=== PATIENT | female | born 1975 | race Two or more races ===

== ENCOUNTER 2020-01-22 12:17 | Day surgery (SDC) | payer OTHER, SELFPAY ==
--- NOTE | 2020-01-22 12:24 | MHC.SHP ---
Pre-Procedural Eval Section A The patient is an INPATIENT: No Changes since office visit: No Cold of Flu in the past 2 weeks, No New Medical Problems, No Changes in Medication and No Patient answered all questions The History & Physical has been completed within 30 days and I have reviewed it.: Yes Section B Chief Complaint: GERD,RECTAL BLEED Allergies: Allergies Allergy/AdvReac Type Severity Reaction Status Date / Time acetaminophen [Tylenol] Allergy Unknown Verified 05/24/18 00:00 ibuprofen Allergy Unknown Verified 05/24/18 00:00 metronidazole [Flagyl] Allergy Unknown Verified 05/24/18 00:00 tramadol Allergy Unknown Verified 05/24/18 00:00 trazodone Allergy Unknown Verified 05/24/18 00:00 Plan Patient has been examined and remains a candidate for the planned procedure
[2020-01-22 12:31] VITALS: BMI 25.8
--- NOTE | 2020-01-22 12:44 | HO.ANESPROP2 ---
Documented by User: Eloina De La Fuente CRNA 01/22/20 12:47 [facility] Past Medical History Medical History (Updated 01/22/20 @ 12:08 by Shelby Bhandari RN) Back pain Cervical radiculopathy GERD (gastroesophageal reflux disease) IBS (irritable bowel syndrome) Migraine Nephrolithiasis Vaginal intraepithelial neoplasia Surgical History Surgical History (Updated 01/22/20 @ 12:41 by Shelby Bhandari RN) History of partial hysterectomy History of vaginal surgery Hx of cystoscopy Hx of lithotripsy Hx of ovarian cystectomy Social History Social History Smoking Status: Current every day smoker Years Smoked: 32 Smoked in Last 30 Days: Yes Use of substances other than those prescribed or required for medical reasons: Yes Substance Use Type Other:: MEDICAL MARIJUANA Substance Use Frequency: Occasionally Advance Directives: No Advance Directives Information Provided: Yes Meds Allergies Allergy/AdvReac Type Severity Reaction Status Date / Time acetaminophen [Tylenol] Allergy Unknown Verified 05/24/18 00:00 ibuprofen Allergy Unknown Verified 05/24/18 00:00 metronidazole [Flagyl] Allergy Unknown Verified 05/24/18 00:00 tramadol Allergy Unknown Verified 05/24/18 00:00 trazodone Allergy Unknown Verified 05/24/18 00:00 Home Medications Medication Instructions Recorded Confirmed Type Calcium + D 01/21/20 History Phenergan 01/21/20 History Probiotic 01/21/20 History Vitamin B-12 01/21/20 History famotidine 40 mg PO DAILY 01/21/20 01/21/20 History sumatriptan 01/21/20 01/21/20 History albuterol sulfate 2 puff INHALATION Q4-6H PRN 01/22/20 01/22/20 History ascorbic acid (vitamin C) [Vitamin 1,000 mg PO DAILY 01/22/20 01/22/20 History C] coenzy [id number] tab PO 01/22/20 01/22/20 History [Energy Formula] Exam Exam Date and Time: January 22, 2020 1244 Height,Weight and Vital Signs: Height 5 ft 4.5 in Weight 69.4 kg Airway Mallampati Class: I TM Dist: >3cm Heart: rrr Lungs: ctab Assessment and Plan Assessment Anesthesia Assessment: Anesthesia Plan Discussed, Smoking Cess. Discussed and Chart Reviewed Final Anesthetic Review NPO: Yes ASA Class: II Final Preanesthetic Review: No Changes in Pt Med Stat, Meds/Allgs Chart Reviewed, Consent Obtained/Reviewed and Anes Risks/Benef Reviewed Patient Risk: Low Procedure Risk: Low Anesthetic Plan Anesthetic Plan: MAC: Disposition: Standard PACU Documented by User: Gladis Mcneal 01/22/20 12:48 HPI - Anesthesia Eval Consult details Narrative: Patient with h/o GERD, Rectal bleed. For EGD and Colonoscopy. [facility] Past Medical History Medical History (Updated 01/22/20 @ 12:08 by Shelby Bhandari RN) Back pain Cervical radiculopathy GERD (gastroesophageal reflux disease) IBS (irritable bowel syndrome) Migraine Nephrolithiasis Vaginal intraepithelial neoplasia Surgical History Surgical History (Updated 01/22/20 @ 12:41 by Shelby Bhandari RN) History of partial hysterectomy History of vaginal surgery Hx of cystoscopy Hx of lithotripsy Hx of ovarian cystectomy Social History Social History Smoking Status: Current every day smoker Years Smoked: 32 Smoked in Last 30 Days: Yes Use of substances other than those prescribed or required for medical reasons: Yes Substance Use Type Other:: MEDICAL MARIJUANA Substance Use Frequency: Occasionally Advance Directives: No Advance Directives Information Provided: Yes Meds Allergies Allergy/AdvReac Type Severity Reaction Status Date / Time acetaminophen [Tylenol] Allergy Unknown Verified 05/24/18 00:00 ibuprofen Allergy Unknown Verified 05/24/18 00:00 metronidazole [Flagyl] Allergy Unknown Verified 05/24/18 00:00 tramadol Allergy Unknown Verified 05/24/18 00:00 trazodone Allergy Unknown Verified 05/24/18 00:00 Home Medications Medication Instructions Recorded Confirmed Type Calcium + D 01/21/20 History Phenergan 01/21/20 History Probiotic 01/21/20 History Vitamin B-12 01/21/20 History famotidine 40 mg PO DAILY 01/21/20 01/21/20 History sumatriptan 01/21/20 01/21/20 History albuterol sulfate 2 puff INHALATION Q4-6H PRN 01/22/20 01/22/20 History ascorbic acid (vitamin C) [Vitamin 1,000 mg PO DAILY 01/22/20 01/22/20 History C] coenzy [id number] tab PO 01/22/20 01/22/20 History [Energy Formula]
[2020-01-22 13:01] VITALS: BP 102/70; PULSE 89; RESP 16; TEMP 36.3; O2SAT 98
[2020-01-22] MEDS: Lactated Ringers 1,000 ML 100 ML IVCONT (13:03)
--- NOTE | 2020-01-22 13:44 | PM.OP ---
Brief Operative Note Date of procedure: 01/22/20 Pre-op diagnosis: gerd, rectal bleeding Post-op diagnosis: other (gastritis,duodenitis, normal colonscopy) Procedure: egd, colonoscopy Surgeon: Kwabena Cook Anesthesia: MAC Estimated blood loss (mL): 5 Pathology: other (biopsies duodenum, antrum, egj, ti, sigmoid) Condition: stable Disposition: PACU
[2020-01-22 13:46] VITALS: BP 87/47; PULSE 72; RESP 22; TEMP 36.6; O2SAT 99
[2020-01-22] MEDS: ondansetron HCL 4 MG/2 ML VIAL IVPUSH (13:56)
[2020-01-22 13:57] VITALS: BP 121/65; PULSE 81; RESP 18; O2SAT 96
[2020-01-22 14:03] VITALS: BP 116/72; PULSE 76; RESP 18; O2SAT 99
[2020-01-22] MEDS: Magnesium Hydrox/Alum Hydrox 30 ML ORAL.SUSP 15 ML PO (14:18)
[2020-01-22 14:19] VITALS: O2SAT 99
--- NOTE | 2020-01-22 14:59 | PC.NURSE ---
CONFERENCE SERVICES COORDINATOR Tracee reported to this RN that pt scratched eye while waking up from procedure. Pt evaluated by anesthesia; pt told to keep 4x4 gauze over eye for 24 hours and if no improvement to see eye dr. 4x4 gauze on left eye remains dry and intact at this time; no pain reported; will f/u with patient in AM.
--- NOTE | 2020-01-22 17:25 | OP_ITS ---
SURGEON: Kwabena Cook MD INDICATIONS: 1. Gastroesophageal reflux disease. 2. Rectal bleeding. PREOPERATIVE DIAGNOSIS: POSTOPERATIVE DIAGNOSIS: PROCEDURE PERFORMED: ESTIMATED BLOOD LOSS: COMPLICATIONS: ANESTHESIA: ASSISTANTS: SPECIMENS: PROCEDURES PERFORMED: 1. Upper endoscopy with biopsy. 2. Colonoscopy to the terminal ileum with biopsy. MEDICATIONS: Monitored anesthesia care. DESCRIPTION OF PROCEDURE: History and physical performed. The risks and benefits of the procedure were explained to the patient. Informed consent was obtained. The patient was placed in left lateral decubitus position. A digital rectal exam was performed prior to the colonoscopy and was found to be normal. First, the Olympus video gastroscope was introduced into the esophagus, stomach, and duodenum. Examination was performed and the scope was removed. She tolerated the procedure well and was repositioned for colonoscopy. A digital rectal exam was performed and was found to be normal as above. The Olympus pediatric video colonoscope was introduced into the rectum and advanced to the cecum without difficulty. The cecum was identified by transillumination, palpation, and identification of ileocecal valve. Examination was performed and the scope was removed. She tolerated both procedures well and was returned to the recovery area in stable condition. FINDINGS: UPPER ENDOSCOPY: Esophagus: The esophagus was normal. Biopsies were obtained from the EG junction. Stomach: Stomach showed no evidence of masses or ulcers. There were focal areas of erythema consistent with gastritis mainly in the body and antrum. Biopsies were obtained from the antrum to rule out H pylori. Duodenum: There was duodenitis with white plaque-like areas on the second portion of the duodenum. No ulcer was seen. Biopsies were obtained from the duodenum. COLONOSCOPY: The terminal ileum was normal. The visualized colonic mucosa was within normal limits without evidence of masses or ulcers. No polyps were identified. There was a moderate amount of liquid stool mainly in the right colon, which limited the sensitivity examination for detection of small polyps. This was washed and suctioned as best possible. No polyps were identified. No colitis was identified. Random biopsies were obtained from a normal-appearing terminal ileum and sigmoid colon. Retroflexed examination was normal. IMPRESSION: 1. Gastritis. 2. Duodenitis. 3. Normal colonoscopy. RECOMMENDATIONS: 1. Follow up the biopsy results. 2. Repeat colonoscopy is recommended in 10 years for average risk individuals for colon cancer screening purposes. MD JOSE Freeman/MOOSE / [id number]
== END 2020-01-22 15:13 | disposition home or self-care (01) ==
PROVIDERS: Visit Provider Internal Medicine Gastroenterology
PROC: (CPT 45380; principal; 2020-01-22 13:00)
DX: K62.5 Hemorrhage of anus and rectum (principal); K58.2 Mixed irritable bowel syndrome; K21.00 Gastro-esophageal reflux disease with esophagitis, without bleeding; K22.70 Barrett's esophagus without dysplasia; K29.70 Gastritis, unspecified, without bleeding; K29.80 Duodenitis without bleeding; Z79.899 Other long term (current) drug therapy; F17.210 Nicotine dependence, cigarettes, uncomplicated
CPT/HCPCS: 45380; 43239; 88305; 88342; J2405

== ENCOUNTER → 2021-05-03 10:07 | Outpatient (BNVA) | payer OTHER, SELFPAY | PROVIDERS: Visit Provider Psychiatry & Neurology Neurology | DX: G43.909 Migraine, unspecified, not intractable, without status migrainosus (principal); M54.2 Cervicalgia; R20.0 Anesthesia of skin; R20.2 Paresthesia of skin; Z79.899 Other long term (current) drug therapy | CPT/HCPCS: 99212 ==

== ENCOUNTER → 2021-06-03 10:32 | Outpatient (BNVA) | payer OTHER, SELFPAY | PROVIDERS: PCP Internal Medicine; Visit Provider Psychiatry & Neurology Neurology | DX: G43.709 Chronic migraine without aura, not intractable, without status migrainosus (principal) | CPT/HCPCS: 64615; 99211; J0585 ==

== ENCOUNTER 2021-06-09 08:48 | Outpatient (REF) | payer OTHER, SELFPAY ==
--- NOTE | 2021-06-09 08:52 | EMG_ITS ---
This is a 45-year-old woman with neck pain since 2016, going into her upper extremities and down her back, and in severe pain all over, and also has kidney stones. She is on oxycodone 10 mg q.i.d. and Lyrica 100 mg b.i.d. She is constantly hyperventilating and in pain, restless, poorly tolerant for the test. Neurological examination is nonfocal. Possible fibromyalgia, rule out neuropathy, rule out cervical radiculopathy. Nerve conduction EMG study: Normal electrodiagnostic study of both upper extremities with no evidence of carpal tunnel syndrome or nerve entrapment or generalized neuropathy. Normal EMG of the left C5-T1 innervated muscles. The patient was poorly tolerant to the needle study and did not want to continue any further, so the right side was not checked. MD PARAM Douglas/MOOSE / [id number]
== END 2021-06-09 08:49 | disposition home or self-care (01) ==
LOC: HO.NEURO 08:48
PROVIDERS: Visit Provider Psychiatry & Neurology Neurology
DX: R20.0 Anesthesia of skin (principal); R20.2 Paresthesia of skin; M54.2 Cervicalgia
CPT/HCPCS: 95885; 95913

== ENCOUNTER 2021-07-12 12:57 | Outpatient (REF) | payer OTHER, SELFPAY ==
--- NOTE | ~2021-07-12 | MR_ITS ---
MR CERVICAL SPINE WITHOUT CONTRAST CLINICAL INFORMATION: Anesthesia of the skin. COMPARISON: None available. TECHNIQUE: MRI of the cervical spine was obtained using routine sequences without contrast. FINDINGS: Cervical alignment is maintained. There is a partially imaged rightward convex scoliotic curvature of the thoracic spine. Vertebral body heights are maintained. There is no bone marrow edema. There are no acute fractures. Craniocervical junction is unremarkable. Cervical arterial flow voids are maintained. No significant extraspinal soft tissue findings. No cord signal changes accounting for artifact. The partially imaged intracranial compartment is unremarkable. C2-C3: Slight annular disc bulge. No central canal stenosis and no foraminal stenosis C3-C4: Disc contour is normal. Bilateral facet arthropathy. No central canal stenosis and no foraminal stenosis. C4-C5: Disc contour is normal. Bilateral facet arthropathy. No central canal stenosis and no foraminal stenosis. C5-C6: Disc osteophyte mildly narrows the central canal. Uncovertebral joint hypertrophy and hypertrophic facet arthropathy result in mild to moderate bilateral foraminal encroachment. C6-C7: Disc contour is normal. No central canal stenosis and no foraminal stenosis. C7-T1: Disc contour is normal. No central canal stenosis and no foraminal stenosis. MR/MR cervical spine wo con IMPRESSION: At C5-C6, spondylitic changes result in mild to moderate bilateral foraminal stenosis. There is no severe central canal stenosis and there is no severe foraminal stenosis within the cervical spine. No definite cord signal abnormality accounting for artifact.
== END 2021-07-12 12:58 | disposition home or self-care (01) ==
LOC: HO.MRI 12:57
PROVIDERS: Visit Provider Psychiatry & Neurology Neurology
DX: M54.2 Cervicalgia (principal); R20.0 Anesthesia of skin; R20.2 Paresthesia of skin
CPT/HCPCS: 72141

== ENCOUNTER → 2021-07-30 10:44 | Outpatient (BNVA) | payer OTHER, SELFPAY | PROVIDERS: PCP Internal Medicine; Visit Provider Nurse Practitioner Family | DX: M54.2 Cervicalgia (principal); M79.18 Myalgia, other site | CPT/HCPCS: 99202 ==

== ENCOUNTER → 2021-09-29 08:34 | Outpatient (BNVA) | payer OTHER, SELFPAY | PROVIDERS: PCP Internal Medicine; Visit Provider Psychiatry & Neurology Neurology | DX: G43.709 Chronic migraine without aura, not intractable, without status migrainosus (principal) | CPT/HCPCS: 64615; 99211; J0585 ==

== ENCOUNTER → 2022-01-20 08:11 | Outpatient (BNVA) | payer OTHER, SELFPAY | PROVIDERS: PCP Internal Medicine; Visit Provider Psychiatry & Neurology Neurology | DX: G43.119 Migraine with aura, intractable, without status migrainosus (principal) | CPT/HCPCS: 64615; 99211; J0585 ==

== ENCOUNTER → 2022-04-28 10:27 | Outpatient (BNVA) | payer OTHER, SELFPAY | PROVIDERS: PCP Internal Medicine; Visit Provider Psychiatry & Neurology Neurology | DX: G43.119 Migraine with aura, intractable, without status migrainosus (principal); G43.709 Chronic migraine without aura, not intractable, without status migrainosus | CPT/HCPCS: 64615; 99211; J0585 ==

== ENCOUNTER → 2022-08-04 10:19 | Outpatient (BNVA) | payer OTHER, SELFPAY | PROVIDERS: PCP Internal Medicine; Visit Provider Psychiatry & Neurology Neurology | DX: G43.709 Chronic migraine without aura, not intractable, without status migrainosus (principal) | CPT/HCPCS: 64615; 99211; J0585 ==

== ENCOUNTER 2022-11-24 10:30 | Outpatient (AMB) | payer OTHER, SELFPAY ==
[2022-11-24 10:32] VITALS: BP 120/82; PULSE 91; O2SAT 98; BMI 22.5
--- NOTE | 2022-11-24 10:32 | A.OFFVIS_ITS ---
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 Required: No Allergies acetaminophen [Tylenol] Allergy (Unknown, Verified 11/24/22 10:37) Vomiting ibuprofen Allergy (Unknown, Verified 11/24/22 10:37) Abdominal Pain metronidazole [Flagyl] Allergy (Unknown, Verified 11/24/22 10:37) Triggers migraines tramadol Allergy (Unknown, Verified 11/24/22 10:37) Triggers migraine trazodone Allergy (Unknown, Verified 11/24/22 10:37) Triggers Migrain aspirin Allergy (Verified 11/24/22 10:37) Vomiting Medication List - Last Reconciled 11/24/22 by Yuly Bennett MD albuterol sulfate 90 mcg/actuation 2 puffs inhalation Q4-6H PRN biotin 10,000 mcg PO DAILY carisoprodol 350 mg PO BID 30 days epinephrine (EpiPen 2-Rajesh) 0.3 mg IM Q4H PRN fluconazole 150 mg PO Q3D lactobacillus combo no.11 (Probiotic) 1 cap PO DAILY levalbuterol tartrate 45 mcg/actuation (Xopenex HFA) 2 inhalations inhalation Q6H metronidazole 500 mg PO BID nicotine 1 patch topical DAILY omeprazole 40 mg PO DAILY onabotulinumtoxinA (Botox) 200 units IM ONCE 12 weeks oxybutynin chloride ER 10 mg PO DAILY [Phenergan ] promethazine 25 mg PO Q6H PRN promethazine 25 mg PO TID PRN ubrogepant (Ubrelvy) 100 mg orally at onset of migraine, may repeat in 2 hours (max of 200mg per day) PRN; 30 days HPI HPI Comments History of Present Illness Details ? 47y/o female comes for treatment of migraines with botox. ??? Most frequent reported adverse reactions following injection of botox for chronic migraine include neck pain (9%), headache(5%), eyelid ptosis(4%), migraine(4%), muscular weakness(4%), musculuskeletal stiffness(4%), bronchitis(3%), injection site pain (3%), musculoskeletal pain(3%), myalgia(3%), facial paresis(2%), HTN(2%) and muscle spasms(2%) were discussed in detail. ??? Botulinum toxin typeA 200units Lot no [id number] expiration May 2025 was diluted with 4 cc of normal saline . ??? Muscles injected- ??? Frontalis 4 sites zygomaticus major 2 sites ??? Procerus 1 site ??? Taping Foreman- 2 sites ??? Temporalis- 8 sites ??? Occipitalis- 6 sites ??? Cervical paraspinals- 4 sites ??? Trapezius- 6 sites- 10 units each ??? 5 units each in 31 site ??? Total use- 195units ??? Discarded-5units [facility] Medical History Back pain Cervical radiculopathy Chronic migraine without aura GERD (gastroesophageal reflux disease) History of kidney stones IBS (irritable bowel syndrome) Migraine Nephrolithiasis Vaginal intraepithelial neoplasia Surgical History History of partial hysterectomy History of vaginal surgery Hx of cystoscopy Hx of lithotripsy Hx of ovarian cystectomy Social History Household Members: Children Alcohol intake: current Alcohol intake frequency: holidays/special occasions only Patient Tobacco Use Status: Current everyday Tobacco user Cigarettes Per Day: 10 Years Smoked: 32 Substance Use Type: Marijuana Current occupational status: disabled Physical Exam Vital Signs: Last Vital Signs Pulse 91 11/24/22 10:32 BP 120/82 11/24/22 10:32 Pulse Ox 98 11/24/22 10:32 Oxygen Delivery Method Room Air 11/24/22 10:32 BMI result Body Mass Index 22.5 Const General: cooperative and in distress Nutritional Appearance: average body habitus Orientation/consciousness: patient oriented x3 Neuro Other: antalgic gait General: patient oriented x3, tone normal and no focal motor deficits Cranial nerves: Yes CN's II-XII intact bilaterally, Yes Normal facial strength present and Yes Midline tongue present Office Procedures Botulinum toxin Injection 73806 - Migraine Procedure code (CPT) selection complete Office Meds onabotulinumtoxinA Performing Provider: Yuly Bennett MD Administered by: Yuly Bennett MD on 11/24/22 11:06 Dose Route Admin Location Lot Number Expiration Date NDC Floor Tiling Professional 195 unit subcut [id number] 05/04/25 9029-7944-71 [employer]/BOTOX Comments: see hpi Assessment & Plan Assessment & Plan (1) Chronic migraine without aura: Code(s): G43.709 - Chronic migraine without aura, not intractable, without status migrainosus (2) Migraine with aura, intractable, without status migrainosus: Code(s): G43.119 - Migraine with aura, intractable, without status migrainosus Plan Patient tolerated the procedure well she will call with any side effects. Orders: Orders AMB Botulinum toxin Injection Today G43.709 - Chronic migraine without aura, not intractable, without status migrainosus Coding Level of Care Code Est Pt Level 1 (26998) Diagnoses Chronic migraine without aura G43.709 Migraine with aura, intractable, without status migrainosus G43.119 CPT Codes Botox Injection - Botox 3: 54584 - Migraine ([id number])
== END 2022-11-24 10:59 | disposition home or self-care (01) ==
PROVIDERS: Visit Provider Psychiatry & Neurology Neurology
DX: G43.709 Chronic migraine without aura, not intractable, without status migrainosus (principal)
CPT/HCPCS: 64615

== ENCOUNTER → 2022-11-24 10:30 | Outpatient (BNVA) | payer OTHER, SELFPAY | PROVIDERS: Visit Provider Psychiatry & Neurology Neurology | DX: G43.709 Chronic migraine without aura, not intractable, without status migrainosus (principal); G43.119 Migraine with aura, intractable, without status migrainosus | CPT/HCPCS: 64615; 99211; J0585 ==

== ENCOUNTER 2023-01-13 11:13 | Outpatient (REF) | payer OTHER, SELFPAY ==
[2023-01-20 18:44] LABS: Stone Source KIDNEY STONE
== END 2023-01-13 11:14 | disposition home or self-care (01) ==
LOC: HO.LNP 11:13
PROVIDERS: PCP Internal Medicine; Visit Provider Nurse Practitioner Family
DX: N20.0 Calculus of kidney (principal); R30.0 Dysuria; R10.9 Unspecified abdominal pain; Z79.899 Other long term (current) drug therapy
CPT/HCPCS: 81003; 82365; 87086; 88300

== ENCOUNTER 2023-01-13 11:13 | Outpatient (AMB) | payer OTHER, SELFPAY ==
--- NOTE | 2023-01-13 11:24 | MHC.OFFVIS ---
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 Accompanied by: Self / Same As Patient Allergies acetaminophen [Tylenol] Allergy (Unknown, Verified 01/15/23 20:08) Vomiting ibuprofen Allergy (Unknown, Verified 01/15/23 20:08) Abdominal Pain metronidazole [Flagyl] Allergy (Unknown, Verified 01/15/23 20:08) Triggers migraines tramadol Allergy (Unknown, Verified 01/15/23 20:08) Triggers migraine trazodone Allergy (Unknown, Verified 01/15/23 20:08) Triggers Migrain aspirin Allergy (Verified 01/15/23 20:08) Vomiting Medication List - Last Reconciled 01/15/23 by CHLOE Badillo albuterol sulfate 90 mcg/actuation 2 puffs inhalation Q4-6H PRN biotin 10,000 mcg PO DAILY carisoprodol 350 mg PO BID 30 days epinephrine (EpiPen 2-Rajesh) 0.3 mg IM Q4H PRN lactobacillus combo no.11 (Probiotic) 1 cap PO DAILY levalbuterol tartrate 45 mcg/actuation (Xopenex HFA) 2 inhalations inhalation Q6H metronidazole 500 mg PO BID nicotine 1 patch topical DAILY omeprazole 40 mg PO DAILY onabotulinumtoxinA (Botox) 200 units IM ONCE 12 weeks oxybutynin chloride ER 10 mg PO DAILY [Phenergan ] promethazine 25 mg PO Q6H PRN promethazine 25 mg PO TID PRN ubrogepant (Ubrelvy) 100 mg orally at onset of migraine, may repeat in 2 hours (max of 200mg per day) PRN; 30 days HPI HPI Comments History of Present Illness Details Melva is a pleasant 47-year-old female patient of . She has a past medical history of migraines, GERD, migraines, cervical radiculopathy, IBS, nephrolithiasis, and vaginal intraepithelial neoplasia. She presents to the office today as a new patient for nephrolithiasis. She reports a long standing history of nephrolithiasis. She reports having followed up with [facility] and [facility] in the past. When asked she reports a previous surgical history for nephrolithiasis in the past multiple times. She currently reports bilateral flank pain left side greater than right. She also endorses dysuria. She otherwise denies urinary urgency, urinary frequency, incontinence, nocturia, hematuria, foul smelling urine, changes to urinary stream, fever, and or chills. In office urinalysis results reviewed with the patient today. Discussed at length potential causes of nephrolithiasis. Discussed obtaining imaging for further assessment evaluation. Discussed at length importance of drinking plenty of water daily. [facility] Medical History (Updated 01/13/23 @ 12:07 [facility] History of kidney stones Chronic migraine without aura Vaginal intraepithelial neoplasia GERD (gastroesophageal reflux disease) Migraine Cervical radiculopathy Back pain IBS (irritable bowel syndrome) Nephrolithiasis Surgical History Hx of ovarian cystectomy Hx of cystoscopy Hx of lithotripsy History of vaginal surgery History of partial hysterectomy Social History Household Members: Children Alcohol intake: current Alcohol intake frequency: holidays/special occasions only Patient Tobacco Use Status: Current everyday Tobacco user Cigarettes Per Day: 10 Years Smoked: 32 Substance Use Type: Marijuana Current occupational status: disabled Review of Systems Const Reports as per HPI Eyes Reports no additional complaints ENT Reports no additional complaints Card Reports no additional complaints Resp Reports no additional complaints GI Reports as per HPI Reports as per HPI Musc Reports as per HPI Neuro Reports as per HPI Endo Reports no additional complaints Physical Exam Const General: cooperative, healthy appearing, comfortable, no acute distress, well developed, alert and awake Orientation/consciousness: patient oriented x3 Limitations: ambulation with cane HEENT Head: Yes normal to inspection, Yes normocephalic and Yes atraumatic Ears: hearing grossly normal bilaterally Eyes General: appearance normal, both eyes and all related structures Neck Neck: Yes normal visual inspection and Yes trachea midline Chest Chest palpation & inspection: normal inspection of the chest Resp Effort & Inspection: normal respiratory effort and able to speak in complete sentences Cardio Rate: regular rate GI Inspection: Yes normal to inspection General: Yes no CVA tenderness Back/Spine/Pelvis Back: no CVA tenderness Skin General skin exam: no rashes or lesions noted Neuro General: patient oriented x3 Extrem General: Yes normal to inspection Psych Appearance: grossly normal and well kempt Mental Status: mental status grossly normal Speech and movement: Normal speech and movement present and Clear speech present Affect: normal affect Attitude: cooperative Thought process: Normal thought process present Thought content: Normal thought content present Insight: Fair insight present (Psych) Judgement: Fair judgement present (Psych) Results AMB Urinalysis, Automated UA Leukoctes 0 Tianna/uL Last Edit by [email or web address] ZappRxmedardo on 01/13/23 12:08 UA Nitrite Negative Last Edit by [email or web address] Ltdmedardo on 01/13/23 12:08 UA Urobilinogen 0.2 mg/dL Last Edit by [email or web address]ardo on 01/13/23 12:08 UA Protein 0 mg/dL Last Edit by Agilys on 01/13/23 12:08 UA pH 8.0 Last Edit by [email or web address]medardo on 01/13/23 12:08 UA Blood 0 Rosalio/uL Last Edit by [email or web address]ardo on 01/13/23 12:08 UA Specific Mershon 1.010 Last Edit by [email or web address]ardo on 01/13/23 12:08 UA Ketone Negative Last Edit by Agilys on 01/13/23 12:08 UA Bilirubin 0 mg/dL Last Edit by Agilys on 01/13/23 12:08 UA Glucose 0 mg/dL Last Edit by [email or web address]medardo on 01/13/23 12:08 Results Reviewed Results Reviewed: Laboratory Last Values Urine pH (Auto) 8.0 01/13/23 11:26 Specific Mershon (Auto) 1.010 01/13/23 11:26 Urine Protein (Auto) 0 mg/dL 01/13/23 11:26 Glucose (UA)(Auto) 0 mg/dL 01/13/23 11:26 Urine Ketones (Auto) Negative 01/13/23 11:26 Urine Blood (Auto) 0 Rosalio/uL 01/13/23 11:26 Urine Nitrite (Auto) Negative 01/13/23 11:26 Urine Bilirubin (Auto) 0 mg/dL 01/13/23 11:26 Urine Urobilinogen (Auto) 0.2 mg/dL 01/13/23 11:26 Leukocyte Esterase (Auto) 0 Tianna/uL 01/13/23 11:26 Assessment & Plan Assessment & Plan (1) Dysuria: Code(s): R30.0 - Dysuria (2) Flank pain: Code(s): R10.9 - Unspecified abdominal pain (3) Nephrolithiasis: Code(s): N20.0 - Calculus of kidney Plan In office urinalysis results reviewed with the patient today; will send for urine culture as patient reporting dysuria. Discussed obtaining retroperitoneal ultrasound for further assessment evaluation. Discussed at length potential causes of nephrolithiasis. Discussed, educated, encouraged on the importance of drinking plenty of water daily. Follow-up in 1 month with imaging to be completed prior; or sooner with any issues, concerns, and or questions. Orders: Orders AMB Urinalysis Automated 01/13/23 Z13.9 - Encounter for screening, unspecified Surgical 01/13/23 N20.0 - Calculus of kidney US retroperitoneal comp 01/13/23 N20.0 - Calculus of kidney, R10.9 - Unspecified abdominal pain, R30.0 - Dysuria Urine Culture 01/13/23 R30.0 - Dysuria Patient Instructions: The patient had an opportunity to ask questions regarding the treatment plan. All questions were answered. Physical exam, labs, and imaging were discussed and reviewed in detail. As well as risks, benefits, and discussion of treatment choices. No major barriers to understanding were identified. The patient expressed understanding and agreement with the above treatment plan. The patient was made aware they should contact our office by phone for worsening of their current condition, the appearance of new symptoms, or with any questions or concerns. Compliance is encouraged with any medications and follow up testing that is ordered. It is a privilege to be allowed the opportunity to participate in? your urological care.? Again, if you have any questions or concerns If you have any questions or concerns please do not hesitate to contact me. The office is [phone]. This note is constructed using voice recognition software. While every effort has been made to ensure accuracy customer acquisition specialist errors may have been included. Yours sincerely, CHLOE Badillo Coding Level of Care Code New Pt Level 3 (96162) Diagnoses Dysuria R30.0 Flank pain R10.9 Nephrolithiasis N20.0
== END 2023-01-13 12:17 | disposition home or self-care (01) ==
PROVIDERS: PCP Internal Medicine; Visit Provider Nurse Practitioner Family
DX: R30.0 Dysuria (principal); R10.9 Unspecified abdominal pain; N20.0 Calculus of kidney
CPT/HCPCS: 99203

== ENCOUNTER 2023-02-03 12:07 | Outpatient (REF) | payer OTHER, SELFPAY ==
--- NOTE | ~2023-02-03 | US_ITS ---
EXAMINATION: US RETROPERITONEAL COMPLETE (RENAL) CLINICAL INFORMATION: Unspecified abdominal pain. COMPARISON: Ultrasound retroperitoneal complete and x-ray abdomen KUB 08/25/2022. Ultrasound retroperitoneal limited 08/11/2022. TECHNIQUE: Real-time imaging of the kidneys and bladder. Limited visualization due to bowel gas. FINDINGS: RIGHT KIDNEY: 12.1 x 6.0 x 4.9 cm (SAG x AP x TRV). Multiple renal calculi, largest 0.3 cm lower pole, 0.4 cm upper pole, 0.4 cm midpole and 0.3 cm lower pole. Mild pelvocaliectasis. Renal cortical thickness is normal. Limited visualization. LEFT KIDNEY: 12.1 x 5.3 x 5.9 cm (SAG x AP x TRV). Renal cortical thickness is normal. Limited visualization. Lower pole 2.7 x 2.7 x 2.6 cm cyst appears complex, previously 2.5 x 2.2 x 2.5 cm on 08/25/2022. 1.3 x 1.0 x 1.2 cm lower pole simple cyst. Multiple renal calculi, largest upper pole 1.4 cm. No hydronephrosis. BLADDER: Well distended. Bilateral ureteral jets are demonstrated. Prevoid bladder volume is 419 mL. Postvoid bladder volume is 89 mL. US/US retroperitoneal comp IMPRESSION: 1. Bilateral nephrolithiasis. Mild right pelvocaliectasis. No left hydronephrosis. 2. Postvoid bladder volume 89 mL. 3. Bilateral renal cysts, some of which again demonstrate mildly thickened septations as previously noted. Additional evaluation with contrast-enhanced CT scan employing renal mass protocol recommended for further evaluation..
== END 2023-02-03 12:08 | disposition home or self-care (01) ==
LOC: HO.US 12:07
PROVIDERS: PCP Internal Medicine; Visit Provider Nurse Practitioner Family
DX: R10.9 Unspecified abdominal pain (principal); R30.0 Dysuria; N20.0 Calculus of kidney
CPT/HCPCS: 76770

== ENCOUNTER 2023-02-22 10:29 | Outpatient (AMB) | payer OTHER, SELFPAY ==
--- NOTE | 2023-02-22 10:30 | MHC.OFFVIS ---
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 Allergies acetaminophen [Tylenol] Allergy (Unknown, Verified 02/24/23 19:18) Vomiting ibuprofen Allergy (Unknown, Verified 02/24/23 19:18) Abdominal Pain metronidazole [Flagyl] Allergy (Unknown, Verified 02/24/23 19:18) Triggers migraines tramadol Allergy (Unknown, Verified 02/24/23 19:18) Triggers migraine trazodone Allergy (Unknown, Verified 02/24/23 19:18) Triggers Migrain aspirin Allergy (Verified 02/24/23 19:18) Vomiting Medication List - Last Reconciled 02/24/23 by CHLOE Badillo albuterol sulfate 90 mcg/actuation 2 puffs inhalation Q4-6H PRN biotin 10,000 mcg PO DAILY carisoprodol 350 mg PO BID 30 days epinephrine (EpiPen 2-Rajesh) 0.3 mg IM Q4H PRN fluconazole 150 mg PO Q3D lactobacillus combo no.11 (Probiotic) 1 cap PO DAILY levalbuterol tartrate 45 mcg/actuation (Xopenex HFA) 2 inhalations inhalation Q6H metronidazole 500 mg PO BID nicotine 1 patch topical DAILY omeprazole 40 mg PO DAILY onabotulinumtoxinA (Botox) 200 units IM ONCE 12 weeks oxybutynin chloride ER 10 mg PO DAILY [Phenergan ] promethazine 25 mg PO Q6H PRN promethazine 25 mg PO TID PRN ubrogepant (Ubrelvy) 100 mg orally at onset of migraine, may repeat in 2 hours (max of 200mg per day) PRN; 30 days valacyclovir 500 mg PO BID HPI HPI Comments History of Present Illness Details Melva is a pleasant 47-year-old female patient of . She has a past medical history of migraines, GERD, migraines, cervical radiculopathy, IBS, nephrolithiasis, and vaginal intraepithelial neoplasia. She is being followed up on today via telehealth for her nephrolithiasis. Of note, patient was seen approximately 6 weeks ago as a new patient for nephrolithiasis at which time a renal ultrasound was ordered for further assessment evaluation. These results reviewed with the patient today. Right kidney with multiple renal calculi, largest 0.3 cm lower pole, 0.4 cm upper pole, 0.4 cm mid pole in 0.3 cm lower pole. Left kidney with lower pole 2.7 x 2.7 x 2.6 cm cyst appears complex, previously 2.5 x 2.2 x 2.5 cm on 08/25/2022. 1.3 x 1.0 x 1.2 cm lower pole simple cyst. Multiple renal calculi, largest upper pole 1.4 cm. No hydronephrosis. The bladder is well distended. Bilateral ureteral jets are demonstrated. Pre void bladder volume is approximately 420 mL. Postvoid bladder volume is approximately 90ml's. When asked patient continues to report intermittent bilateral flank pain left side greater than right. However, when asked she denies any urinary issues at this time. She denies urinary urgency, urinary frequency, incontinence, nocturia, hematuria, foul-smelling urine, changes to urinary stream, fever, and or chills. Discussed at length further assessment and evaluation of renal cysts and nephrolithiasis with CT urogram. Discussed at length potential causes of renal cysts as well as nephrolithiasis. Patient with a longstanding history of nephrolithiasis requiring surgical intervention. Discussed at length importance of drinking plenty of water daily. [facility] Medical History History of kidney stones Chronic migraine without aura Vaginal intraepithelial neoplasia GERD (gastroesophageal reflux disease) Migraine Cervical radiculopathy Back pain IBS (irritable bowel syndrome) Nephrolithiasis Surgical History Hx of ovarian cystectomy Hx of cystoscopy Hx of lithotripsy History of vaginal surgery History of partial hysterectomy Household Members: Children Alcohol intake: current Alcohol intake frequency: holidays/special occasions only Patient Tobacco Use Status: Current everyday Tobacco user Cigarettes Per Day: 10 Years Smoked: 32 Substance Use Type: Marijuana Current occupational status: disabled Review of Systems Const Reports as per HPI Eyes Reports no additional complaints ENT Reports no additional complaints Card Reports no additional complaints Resp Reports no additional complaints GI Reports as per HPI Reports as per HPI Musc Reports as per HPI Neuro Reports as per HPI Endo Reports no additional complaints Physical Exam Const General: cooperative Orientation/consciousness: patient oriented x3 Resp Effort & Inspection: able to speak in complete sentences Neuro General: patient oriented x3 Psych Mental Status: mental status grossly normal Speech and movement: Clear speech present Affect: normal affect Attitude: cooperative Thought process: Normal thought process present Thought content: Normal thought content present Insight: Fair insight present (Psych) Judgement: Fair judgement present (Psych) Results Reviewed Results Reviewed: Date of Service: 02/03/23 EXAMINATION: US RETROPERITONEAL COMPLETE (RENAL) FINDINGS: RIGHT KIDNEY: 12.1 x 6.0 x 4.9 cm (SAG x AP x TRV). Multiple renal calculi, largest 0.3 cm lower pole, 0.4 cm upper pole, 0.4 cm midpole and 0.3 cm lower pole. Mild pelvocaliectasis. Renal cortical thickness is normal. Limited visualization. LEFT KIDNEY: 12.1 x 5.3 x 5.9 cm (SAG x AP x TRV). Renal cortical thickness is normal. Limited visualization. Lower pole 2.7 x 2.7 x 2.6 cm cyst appears complex, previously 2.5 x 2.2 x 2.5 cm on 08/25/2022. 1.3 x 1.0 x 1.2 cm lower pole simple cyst. Multiple renal calculi, largest upper pole 1.4 cm. No hydronephrosis. BLADDER: Well distended. Bilateral ureteral jets are demonstrated. Prevoid bladder volume is 419 mL. Postvoid bladder volume is 89 mL. US/US retroperitoneal comp IMPRESSION: 1. Bilateral nephrolithiasis. Mild right pelvocaliectasis. No left hydronephrosis. 2. Postvoid bladder volume 89 mL. 3. Bilateral renal cysts, some of which again demonstrate mildly thickened septations as previously noted. Additional evaluation with contrast-enhanced CT scan employing renal mass protocol recommended for further evaluation. Assessment & Plan Assessment & Plan (1) Nephrolithiasis: Code(s): N20.0 - Calculus of kidney (2) Renal cyst: Code(s): N28.1 - Cyst of kidney, acquired (3) Flank pain: Code(s): R10.9 - Unspecified abdominal pain (4) Dysuria: Code(s): R30.0 - Dysuria Plan Recent retroperitoneal ultrasound results reviewed with the patient today; as noted above. Discussed, stress, educated the importance of drinking plenty of water daily. Patient reports to be happy with current voiding parameters. Will obtain CT urogram for further assessment evaluation. BUN and creatinine ordered for imaging Discussed at length potential causes of nephrolithiasis as well as renal cysts. Follow-up in 2-4 weeks with imaging to be completed prior; or sooner with any issues, concerns, and or questions. Orders: Orders CT urogram 02/22/23 N20.0 - Calculus of kidney, N28.1 - Cyst of kidney, acquired Creatinine 02/22/23 N20.0 - Calculus of kidney, N28.1 - Cyst of kidney, acquired Blood Urea Nitrogen 02/22/23 N20.0 - Calculus of kidney, N28.1 - Cyst of kidney, acquired Patient Instructions: The patient had an opportunity to ask questions regarding the treatment plan. All questions were answered. Physical exam, labs, and imaging were discussed and reviewed in detail. As well as risks, benefits, and discussion of treatment choices. No major barriers to understanding were identified. The patient expressed understanding and agreement with the above treatment plan. The patient was made aware they should contact our office by phone for worsening of their current condition, the appearance of new symptoms, or with any questions or concerns. Compliance is encouraged with any medications and follow up testing that is ordered. It is a privilege to be allowed the opportunity to participate in? your urological care.? Again, if you have any questions or concerns If you have any questions or concerns please do not hesitate to contact me. The office is [phone]. This note is constructed using voice recognition software. While every effort has been made to ensure accuracy doubler helper errors may have been included. Yours sincerely, Marion Snyder [facility] Telehealth Telehealth Location of provider rendering services: practice address Location of patient: address on file Patient Identification confirmed using: Name, : Yes Telehealth method: voice only Patient verbally consented to treatment: Yes Patient verbally consented to billing insurance company: Yes Patient informed of any privacy concerns related to visit: Yes Minutes spent on Phone/Video with Pt.: 15 Coding Level of Care Code Tele Est Pt Level 3 (63409) Diagnoses Nephrolithiasis N20.0 Renal cyst N28.1 Flank pain R10.9 Dysuria R30.0
== END 2023-02-22 11:10 | disposition home or self-care (01) ==
LOC: HO.HUSH 10:29
PROVIDERS: PCP Internal Medicine; Visit Provider Nurse Practitioner Family
DX: N20.0 Calculus of kidney (principal); N28.1 Cyst of kidney, acquired; R10.9 Unspecified abdominal pain; R30.0 Dysuria
CPT/HCPCS: 99213

== ENCOUNTER → 2023-02-22 10:29 | Outpatient (BNVA) | payer OTHER, SELFPAY | PROVIDERS: PCP Internal Medicine; Visit Provider Nurse Practitioner Family ==

== ENCOUNTER 2023-02-27 09:14 | Outpatient (AMB) | payer OTHER, SELFPAY ==
--- NOTE | 2023-02-27 09:18 | MHC.OFFVIS ---
Intake Vital Signs 02/27/23 09:19 Height 5 ft 5 in Weight 134 lb 2 oz BMI 22.3 BP 112/66 Blood Pressure Location Rt brachial Position Sitting Respiration 16 Pulse 96 Pulse Source Pulse Oximeter Pulse Oximetry (%) 98 Oxygen Delivery Method Room Air Intake Visit Reasons: botox pharm-Confirmed Intake Note: Pt presents to the office for Botox injections. Car Detailer Required: No Allergies acetaminophen [Tylenol] Allergy (Unknown, Verified 02/27/23 09:19) Vomiting ibuprofen Allergy (Unknown, Verified 02/27/23 09:19) Abdominal Pain metronidazole [Flagyl] Allergy (Unknown, Verified 02/27/23 09:19) Triggers migraines tramadol Allergy (Unknown, Verified 02/27/23 09:19) Triggers migraine trazodone Allergy (Unknown, Verified 02/27/23 09:19) Triggers Migrain aspirin Allergy (Verified 02/27/23 09:19) Vomiting Medication List - Last Reconciled 02/27/23 by Yuly Bennett MD albuterol sulfate 90 mcg/actuation 2 puffs inhalation Q4-6H PRN biotin 10,000 mcg PO DAILY carisoprodol 350 mg PO BID 30 days epinephrine (EpiPen 2-Rajesh) 0.3 mg IM Q4H PRN fluconazole 150 mg PO Q3D lactobacillus combo no.11 (Probiotic) 1 cap PO DAILY levalbuterol tartrate 45 mcg/actuation (Xopenex HFA) 2 inhalations inhalation Q6H metronidazole 500 mg PO BID nicotine 1 patch topical DAILY omeprazole 40 mg PO DAILY onabotulinumtoxinA (Botox) 200 units IM ONCE 12 weeks oxybutynin chloride ER 10 mg PO DAILY [Phenergan ] promethazine 25 mg PO Q6H PRN promethazine 25 mg PO TID PRN ubrogepant (Ubrelvy) 100 mg orally at onset of migraine, may repeat in 2 hours (max of 200mg per day) PRN; 30 days valacyclovir 500 mg PO BID HPI HPI Comments History of Present Illness Details ? 47y/o female comes for treatment of migraines with botox. ??? Most frequent reported adverse reactions following injection of botox for chronic migraine include neck pain (9%), headache(5%), eyelid ptosis(4%), migraine(4%), muscular weakness(4%), musculuskeletal stiffness(4%), bronchitis(3%), injection site pain (3%), musculoskeletal pain(3%), myalgia(3%), facial paresis(2%), HTN(2%) and muscle spasms(2%) were discussed in detail. ??? Botulinum toxin typeA 200units Lot no [id number] expiration May 2025 was diluted with 4 cc of normal saline . ??? Muscles injected- ??? Frontalis 4 sites zygomaticus major 2 sites ??? Procerus 1 site ??? Manager Surgery- 2 sites ??? Temporalis- 8 sites ??? Occipitalis- 6 sites ??? Cervical paraspinals- 4 sites ??? Trapezius- 6 sites- 10 units each ??? 5 units each in 31 site ??? Total use- 195units ??? Discarded-5units [facility] Medical History History of kidney stones Chronic migraine without aura Vaginal intraepithelial neoplasia GERD (gastroesophageal reflux disease) Migraine Cervical radiculopathy Back pain IBS (irritable bowel syndrome) Nephrolithiasis Surgical History Hx of ovarian cystectomy Hx of cystoscopy Hx of lithotripsy History of vaginal surgery History of partial hysterectomy Household Members: Children Alcohol intake: current Alcohol intake frequency: holidays/special occasions only Patient Tobacco Use Status: Current everyday Tobacco user Cigarettes Per Day: 10 Years Smoked: 32 Substance Use Type: Marijuana Current occupational status: disabled Physical Exam Vital Signs: Last Vital Signs Pulse 96 02/27/23 09:19 Resp 16 02/27/23 09:19 BP 112/66 02/27/23 09:19 Pulse Ox 98 02/27/23 09:19 Oxygen Delivery Method Room Air 02/27/23 09:19 BMI result Body Mass Index 22.3 Const General: cooperative Orientation/consciousness: patient oriented x3 Resp Effort & Inspection: able to speak in complete sentences Neuro General: patient oriented x3 Psych Mental Status: mental status grossly normal Speech and movement: Clear speech present Affect: normal affect Attitude: cooperative Thought process: Normal thought process present Thought content: Normal thought content present Insight: Fair insight present (Psych) Judgement: Fair judgement present (Psych) Office Procedures Botulinum toxin Injection 78103 - Migraine Procedure code (CPT) selection complete Office Meds onabotulinumtoxinA 200 unit solution for injection Performing Provider: Yuly Bennett MD Performing Location: [facility] [place] [facility] Administered by: Yuly Bennett MD on 02/27/23 09:44 Dose Route Admin Location Dispensed Lot Number Expiration Date [facility] Traffic Control Supervisor 200 unit subcut 200 units [id number] ALLERGAN/BOTOX Assessment & Plan Assessment & Plan (1) Chronic migraine without aura: Code(s): G43.709 - Chronic migraine without aura, not intractable, without status migrainosus (2) Migraine with aura, intractable, without status migrainosus: Code(s): G43.119 - Migraine with aura, intractable, without status migrainosus Plan Patient tolerated the procedure well she will call with any side effects. Orders: Orders AMB Botulinum toxin Injection Today G43.709 - Chronic migraine without aura, not intractable, without status migrainosus Coding Level of Care Code Est Pt Level 1 (70186) Diagnoses Chronic migraine without aura G43.709 Migraine with aura, intractable, without status migrainosus G43.119 CPT Codes Botox Injection - Botox 3: 55390 - Migraine ([id number])
[2023-02-27 09:19] VITALS: BP 112/66; PULSE 96; RESP 16; O2SAT 98; BMI 22.3
== END 2023-02-27 09:39 | disposition home or self-care (01) ==
PROVIDERS: PCP Internal Medicine; Visit Provider Psychiatry & Neurology Neurology
DX: G43.709 Chronic migraine without aura, not intractable, without status migrainosus (principal)
CPT/HCPCS: 64615

== ENCOUNTER → 2023-02-27 09:14 | Outpatient (BNVA) | payer OTHER, SELFPAY | PROVIDERS: PCP Internal Medicine; Visit Provider Psychiatry & Neurology Neurology | DX: G43.709 Chronic migraine without aura, not intractable, without status migrainosus (principal) | CPT/HCPCS: 64615; 99211; J0585 ==

== ENCOUNTER 2023-03-13 11:09 | Outpatient (REF) | payer OTHER, SELFPAY ==
[2023-03-13 13:23] LABS: Blood Urea Nitrogen 6 mg/dL (9-16); Estimated Glomerular Filt Rate > 60
== END 2023-03-13 11:10 | disposition home or self-care (01) ==
LOC: HO.LAB 11:09
PROVIDERS: PCP Internal Medicine; Visit Provider Nurse Practitioner Family
DX: N28.1 Cyst of kidney, acquired (principal); N20.0 Calculus of kidney
CPT/HCPCS: 36415; 82565; 84520

== ENCOUNTER 2023-05-23 08:51 | Outpatient (REF) | payer OTHER, SELFPAY ==
--- NOTE | ~2023-05-23 | CT_ITS ---
EXAMINATION: CT ABDOMEN AND PELVIS WITHOUT AND WITH CONTRAST CLINICAL INFORMATION: Follow-up renal cyst. COMPARISON: Prior renal ultrasound examinations, most recently 02/03/2023. TECHNIQUE: Noncontrast CT of the abdomen and pelvis is performed followed by split bolus contrast-enhanced images using 85 mL Omnipaque 350 contrast.? Postcontrast imaging is performed during the combined nephrogram and excretion phase. Sagittal and coronal reformatted images were obtained on the technologist's workstation for both the precontrast and postcontrast phases. This CT examination was performed using dose optimization techniques as appropriate, variously including the following: *Automated exposure control *Adjustment of mA and/or kV according to patient size (this includes techniques or standardized protocols for targeted exams where dose is matched to indication/reason for exam; i.e. extremities or head) *Use of iterative reconstruction technique DLP: 543 mGy-cm FINDINGS: LUNG BASES: The visualized lung bases are unremarkable. LIVER, GALLBLADDER, AND BILIARY TREE: The liver is normal in size, shape, and attenuation. There is a Pradeep's lobe configuration. A 6 mm low-attenuation probable cyst or benign hemangioma is seen within the left hepatic lobe (4:3), too small for full characterization with CT. No biliary ductal dilatation is present. The gallbladder is unremarkable with no evidence of radiopaque gallstones, gallbladder wall thickening, or obvious pericholecystic inflammatory changes. PANCREAS: Towards the deep margin of the pancreatic tail (4:12), an 8 mm low-attenuation simple cyst is seen, too small to fully characterize with CT. No solid mass, focal enlargement or ductal dilatation is noted. There is no peripancreatic fat stranding or acute fluid collection. SPLEEN: The included portion is unremarkable. ADRENAL GLANDS: The right adrenal gland is unremarkable. The left adrenal gland contains a 2.3 x 1.7 cm benign, fat-containing adenoma with precontrast Hounsfield value of -8.5 units (3:9). KIDNEYS AND URETERS: The kidneys are normal in size, shape, and attenuation. No perinephric stranding. At the lower pole of the left kidney laterally (4:37 and 7:49), a 3.3 x 2.4 x 1.9 cm mildly complex cyst (Bosniak 2) is seen. This shows a fine septation and small punctate wall calcifications. This is a likely benign finding, for which no imaging follow-up is recommended. There are multiple further bilateral benign, simple (Bosniak 1) appearing bilateral renal cysts, which require no imaging follow-up. At the lower pole of the right kidney (3:53 and 54), 2 adjacent nonobstructing 2 mm calculi are seen. There are approximately 9 small nonobstructing left renal calculi, the largest at the upper pole measuring 6 mm (3:23). GASTROINTESTINAL TRACT: The included small and large bowel are unremarkable. The vermiform appendix is not included in the [id number]. ABDOMINAL WALL: No significant hernia is appreciated. LYMPH NODES: Normal. VASCULAR: There is mild aortic atherosclerotic calcification. No aortic aneurysm or dissection is seen. OSSEUS STRUCTURES: Unremarkable. CT/CT urogram IMPRESSION: 1. A mildly complex (Bosniak 2) cyst is seen at the lower pole the left kidney, with fine septation and wall calcification. This corresponds with the ultrasound finding in question. There is a likely benign finding, for which no imaging follow-up is recommended. 2. There are small nonobstructing bilateral renal calculi. 3. An 8 mm low-attenuation simple appearing cyst is seen posteriorly within the pancreatic tail. Recommend repeat imaging at a one-year interval to ensure stability of this finding. 4. A 6 mm low-attenuation probable cyst or benign hemangioma is seen within the left hepatic lobe. This is of doubtful clinical significance. If of continued clinical concern (i.e., history of hepatocellular disease or known malignancy), this can be further evaluated with ultrasound or MRI. 5. A 2.3 cm benign, fat-containing left adrenal adenoma is seen.
[2023-05-23] MEDS: iohexoL 350 MG/ML 100 ML INFUS..BTL IV (10:00)
== END 2023-05-23 08:52 | disposition home or self-care (01) ==
LOC: HO.CT 08:51
PROVIDERS: PCP Nurse Practitioner Family; Visit Provider Nurse Practitioner Family
DX: N20.0 Calculus of kidney (principal); N28.1 Cyst of kidney, acquired
CPT/HCPCS: 74178; Q9967

== ENCOUNTER 2023-06-01 10:12 | Outpatient (AMB) | payer OTHER, SELFPAY ==
--- NOTE | 2023-06-01 10:15 | A.OFFVIS_ITS ---
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: No Accompanied by: Self / Same As Patient Allergies acetaminophen [Tylenol] Allergy (Unknown, Verified 06/02/23 09:22) Vomiting ibuprofen Allergy (Unknown, Verified 06/02/23 09:22) Abdominal Pain metronidazole [Flagyl] Allergy (Unknown, Verified 06/02/23 09:22) Triggers migraines tramadol Allergy (Unknown, Verified 06/02/23 09:22) Triggers migraine trazodone Allergy (Unknown, Verified 06/02/23 09:22) Triggers Migrain aspirin Allergy (Verified 06/02/23 09:22) Vomiting Medication List - Last Reconciled 06/02/23 by CHLOE Badillo albuterol sulfate 90 mcg/actuation 2 puffs inhalation Q4-6H PRN biotin 10,000 mcg PO DAILY carisoprodol 350 mg PO BID 30 days epinephrine (EpiPen 2-Rajesh) 0.3 mg IM Q4H PRN estradiol 1 mg PO DAILY lactobacillus combo no.11 (Probiotic) 1 cap PO DAILY levalbuterol tartrate 45 mcg/actuation (Xopenex HFA) 2 inhalations inhalation Q6H metronidazole 500 mg PO BID nicotine 1 patch topical DAILY omeprazole 40 mg PO DAILY omeprazole 20 mg PO DAILY onabotulinumtoxinA (Botox) 200 units IM ONCE 12 weeks oxybutynin chloride ER 10 mg PO DAILY promethazine 25 mg PO TID PRN ubrogepant (Ubrelvy) 100 mg orally at onset of migraine, may repeat in 2 hours (max of 200mg per day) PRN; 30 days valacyclovir 500 mg PO BID HPI HPI Comments History of Present Illness Details Melva is a pleasant 47-year-old female patient of . She has a past medical history of migraines, GERD, migraines, cervical radiculopathy, IBS, nephrolithiasis, and vaginal intraepithelial neoplasia. She presents to the office today for follow-up of her nephrolithiasis. In discussion with the patient today she reports since her last visit approximately 4 months ago she has noted herself to have urinate a few stones however did not collect them. She reports having seeked emergency room care through [facility] for ongoing bilateral flank pain she has been experiencing. Recent CT results reviewed with the patient today. At the lower pole of left kidney 3.3 cm mildly complex cyst Bosniak 2 per radiology report. There are multiple further bilateral benign simple Bosniak 1 appearing bilateral renal cyst for which no imaging follow-up is recommended per radiology report. At the lower pole of the right kidney to adjacent nonobstructing 2 mm calculi are seen. There are approximately 9 nonobstructing left renal calculi the largest at the upper pole measuring 6 mm. In discussion with the patient today she continues to report bilateral flank pain left side greater than right. No CVA tenderness noted bilaterally. Discussed at length further treatment options of nephrolithiasis to include ureteroscopy verses ESWL versus surveillance monitoring. She otherwise denies any bothersome urinary issues. She denies urinary urgency, urinary frequency, incontinence, nocturia, hematuria, dysuria, foul smelling urine, changes to urinary stream, fever, and or chills. She is happy with her current voiding parameters. In office urinalysis results reviewed with the patient today. Patient with a longstanding history of nephrolithiasis requiring surgical intervention with ureteroscopy as well as ESWL in the past with [facility] as well as [facility]. When asked she does endorse to be drinking plenty of water daily. She otherwise offers no other issues or concerns at this time. [facility] Medical History History of kidney stones Chronic migraine without aura Vaginal intraepithelial neoplasia GERD (gastroesophageal reflux disease) Migraine Cervical radiculopathy Back pain IBS (irritable bowel syndrome) Nephrolithiasis Surgical History Hx of ovarian cystectomy Hx of cystoscopy Hx of lithotripsy History of vaginal surgery History of partial hysterectomy Social History Household Members: Children Alcohol intake: current Alcohol intake frequency: holidays/special occasions only Patient Tobacco Use Status: Current everyday Tobacco user Cigarettes Per Day: 10 Years Smoked: 32 Substance Use Type: Marijuana Current occupational status: disabled Review of Systems Const Reports as per HPI Eyes Reports no additional complaints ENT Reports no additional complaints Card Reports no additional complaints Resp Reports no additional complaints GI Reports as per HPI Reports as per HPI Musc Reports as per HPI Neuro Reports as per HPI Endo Reports no additional complaints Physical Exam Const General: cooperative, healthy appearing, comfortable, no acute distress, well developed, alert and awake Orientation/consciousness: patient oriented x3 Limitations: ambulation with cane HEENT Head: Yes normal to inspection, Yes normocephalic and Yes atraumatic Ears: hearing grossly normal bilaterally Eyes General: appearance normal, both eyes and all related structures Neck Neck: Yes normal visual inspection and Yes trachea midline Chest Chest palpation & inspection: normal inspection of the chest Resp Effort & Inspection: normal respiratory effort and able to speak in complete sentences Cardio Rate: regular rate GI Inspection: Yes normal to inspection General: Yes no CVA tenderness Back/Spine/Pelvis Back: no CVA tenderness Skin General skin exam: no rashes or lesions noted Neuro General: patient oriented x3 Extrem General: Yes normal to inspection Psych Appearance: grossly normal and well kempt Mental Status: mental status grossly normal Speech and movement: Normal speech and movement present and Clear speech present Affect: normal affect Attitude: cooperative Thought process: Normal thought process present Thought content: Normal thought content present Insight: Fair insight present (Psych) Judgement: Fair judgement present (Psych) Results AMB Urinalysis, Automated UA Leukoctes 0 Tianna/uL Last Edit by Vimbly on 06/01/23 10:34 UA Nitrite Negative Last Edit by Vimbly on 06/01/23 10:34 UA Urobilinogen 0.2 mg/dL Last Edit by Vimbly on 06/01/23 10:34 UA Protein 15 mg/dL Last Edit by Vimbly on 06/01/23 10:34 UA pH 7.5 Last Edit by Vimbly on 06/01/23 10:34 UA Blood 10 Rosalio/uL Last Edit by Vimbly on 06/01/23 10:34 UA Specific [place] 1.010 Last Edit by Vimbly on 06/01/23 10:34 UA Ketone Negative Last Edit by Vimbly on 06/01/23 10:34 UA Bilirubin 0 mg/dL Last Edit by Vimbly on 06/01/23 10:34 UA Glucose 0 mg/dL Last Edit by Sean Esqueda on 06/01/23 10:34 Results Reviewed Results Reviewed: Laboratory Last Values Urine pH (Auto) 7.5 06/01/23 10:21 Specific [place] (Auto) 1.010 06/01/23 10:21 Urine Protein (Auto) 15 mg/dL 06/01/23 10:21 Glucose (UA)(Auto) 0 mg/dL 06/01/23 10:21 Urine Ketones (Auto) Negative 06/01/23 10:21 Urine Blood (Auto) 10 Rosalio/uL 06/01/23 10:21 Urine Nitrite (Auto) Negative 06/01/23 10:21 Urine Bilirubin (Auto) 0 mg/dL 06/01/23 10:21 Urine Urobilinogen (Auto) 0.2 mg/dL 06/01/23 10:21 Leukocyte Esterase (Auto) 0 Tianna/uL 06/01/23 10:21 Date of Service: 05/23/23 EXAMINATION: CT ABDOMEN AND PELVIS WITHOUT AND WITH CONTRAST FINDINGS: LUNG BASES: The visualized lung bases are unremarkable. LIVER, GALLBLADDER, AND BILIARY TREE: The liver is normal in size, shape, and attenuation. There is a Pradeep's lobe configuration. A 6 mm low-attenuation probable cyst or benign hemangioma is seen within the left hepatic lobe (4:3), too small for full characterization with CT. No biliary ductal dilatation is present. The gallbladder is unremarkable with no evidence of radiopaque gallstones, gallbladder wall thickening, or obvious pericholecystic inflammatory changes. PANCREAS: Towards the deep margin of the pancreatic tail (4:12), an 8 mm low-attenuation simple cyst is seen, too small to fully characterize with CT. No solid mass, focal enlargement or ductal dilatation is noted. There is no peripancreatic fat stranding or acute fluid collection. SPLEEN: The included portion is unremarkable. ADRENAL GLANDS: The right adrenal gland is unremarkable. The left adrenal gland contains a 2.3 x 1.7 cm benign, fat-containing adenoma with precontrast Hounsfield value of -8.5 units (3:9). KIDNEYS AND URETERS: The kidneys are normal in size, shape, and attenuation. No perinephric stranding. At the lower pole of the left kidney laterally (4:37 and 7:49), a 3.3 x 2.4 x 1.9 cm mildly complex cyst (Bosniak 2) is seen. This shows a fine septation and small punctate wall calcifications. This is a likely benign finding, for which no imaging follow-up is recommended. There are multiple further bilateral benign, simple (Bosniak 1) appearing bilateral renal cysts, which require no imaging follow-up. At the lower pole of the right kidney (3:53 and 54), 2 adjacent nonobstructing 2 mm calculi are seen. There are approximately 9 small nonobstructing left renal calculi, the largest at the upper pole measuring 6 mm (3:23). GASTROINTESTINAL TRACT: The included small and large bowel are unremarkable. The vermiform appendix is not included in the [id number]-[id number]. ABDOMINAL WALL: No significant hernia is appreciated. LYMPH NODES: Normal. VASCULAR: There is mild aortic atherosclerotic calcification. No aortic aneurysm or dissection is seen. OSSEUS STRUCTURES: Unremarkable. IMPRESSION: 1. A mildly complex (Bosniak 2) cyst is seen at the lower pole the left kidney, with fine septation and wall calcification. This corresponds with the ultrasound finding in question. There is a likely benign finding, for which no imaging follow-up is recommended. 2. There are small nonobstructing bilateral renal calculi. 3. An 8 mm low-attenuation simple appearing cyst is seen posteriorly within the pancreatic tail. Recommend repeat imaging at a one-year interval to ensure stability of this finding. 4. A 6 mm low-attenuation probable cyst or benign hemangioma is seen within the left hepatic lobe. This is of doubtful clinical significance. If of continued clinical concern (i.e., history of hepatocellular disease or known malignancy), this can be further evaluated with ultrasound or MRI. 5. A 2.3 cm benign, fat-containing left adrenal adenoma is seen. Assessment & Plan Assessment & Plan (1) Nephrolithiasis: Code(s): N20.0 - Calculus of kidney (2) Flank pain: Code(s): R10.9 - Unspecified abdominal pain (3) Renal cyst: Code(s): N28.1 - Cyst of kidney, acquired Plan: Plan Extracorporeal Shock Wave Lithotripsy We discussed the nature of the decision and reasonable alternatives for performing the above surgery. Interventions include chemical dissolution, ESWL, ureteroscopy with laser lithotripsy and stent placement, PCNL. ? Options such as medical therapy were discussed. The relative uncertainties and benefits related to each alternate procedure were adequately discussed. General surgical risks including, but not limited to, pain, bleeding, infection, myocardial infarction, pulmonary embolus, deep vein thrombosis and cerebrovascular accident which may result in further hospitalization were discussed.? Full disclosure of the procedure as well as all major risks, benefits and complications were discussed including but not limited to risks of bleeding, injury to the kidney with hematoma or eric-hematoma, failure to fragments stone, potential for ureteric obstruction from stone passage and need for secondary procedures.? There is a small long-term risk of hypertension and a question krista of diabetes.? Success rate of fragmentation and passage is approximately 70- 75%.? This is compared to the risks and benefits for ureteroscopy which has a higher success rate but is a more invasive procedure. The success rate of the procedure was discussed. Success of the procedure in the short-term does not necessarily guarantee that long-term success will be maintained. Suitable follow up will need to be maintained. The patient showed understanding of the discussion as well as the typical recovery time, and the outpatient nature of this procedure. Opportunity was given for questions. Repeat-back protocol used to confirm understanding. They wish to proceed with Left ESWL. Plan In office urinalysis results reviewed with the patient today; as noted above. Recent CT results reviewed with the patient today; as noted above. Start Flomax 0.4 mg daily as discussed and prescribed. Discussed at length further treatment options of nephrolithiasis with ureteroscopy verses ESWL versus surveillance monitoring; risks and benefits of these interventions were discussed at length. Discussed, educated, and stressed the importance of drinking plenty of water daily. Continue adding 1 oz of lemon juice to water daily. CT imaging results reviewed with Dr. Kulkarni. Calculi strainer provided. Will schedule for left-sided ESWL as discussed Follow-up status post left-sided ESWL per Dr. Kulkarni's order; or sooner with any issues, concerns, and or questions. Orders: Orders AMB Urinalysis Automated 06/01/23 Z13.9 - Encounter for screening, unspecified Urine Cytology 06/01/23 R30.0 - Dysuria Medications: New tamsulosin 0.4 mg PO BEDTIME 30 days 30 caps 1RF N40.1 - Benign prostatic hyperplasia with lower urinary tract symptoms, R35.1 - Nocturia Patient Instructions: The patient had an opportunity to ask questions regarding the treatment plan. All questions were answered. Physical exam, labs, and imaging were discussed and reviewed in detail. As well as risks, benefits, and discussion of treatment choices. No major barriers to understanding were identified. The patient expressed understanding and agreement with the above treatment plan. The patient was made aware they should contact our office by phone for worsening of their current condition, the appearance of new symptoms, or with any questions or concerns. Compliance is encouraged with any medications and follow up testing that is ordered. It is a privilege to be allowed the opportunity to participate in? your urological care.? Again, if you have any questions or concerns If you have any questions or concerns please do not hesitate to contact me. The office is [phone]. This note is constructed using voice recognition software. While every effort has been made to ensure accuracy secondary special education teacher errors may have been included. Yours sincerely, CHLOE Badillo Coding Level of Care Code Est Pt Level 4 (91141) Diagnoses Nephrolithiasis N20.0 Flank pain R10.9 Renal cyst N28.1
== END 2023-06-01 10:50 | disposition home or self-care (01) ==
PROVIDERS: PCP Internal Medicine; Visit Provider Nurse Practitioner Family
DX: N20.0 Calculus of kidney (principal); R10.9 Unspecified abdominal pain; N28.1 Cyst of kidney, acquired
CPT/HCPCS: 99214

== ENCOUNTER 2023-06-01 10:12 | Outpatient (REF) | payer OTHER, SELFPAY ==
[2023-06-01 16:40] LABS: Urine Cytology See Pathology rpt
== END 2023-06-01 10:13 | disposition home or self-care (01) ==
LOC: HO.LNP 10:12
PROVIDERS: PCP Internal Medicine; Visit Provider Nurse Practitioner Family
DX: R30.0 Dysuria (principal); N20.0 Calculus of kidney; Q61.02 Congenital multiple renal cysts; R35.1 Nocturia; Z79.899 Other long term (current) drug therapy
CPT/HCPCS: 81003; 88112; 99212

== ENCOUNTER 2023-06-05 09:54 | Outpatient (AMB) | payer OTHER, SELFPAY ==
--- NOTE | 2023-06-05 10:01 | A.OFFVIS_ITS ---
Intake Vital Signs 06/05/23 10:02 Height 5 ft 5 in Weight 135 lb BMI 22.5 BP 106/66 Blood Pressure Location Rt brachial Position Sitting Respiration 16 Pulse 78 Pulse Source Pulse Oximeter Pulse Oximetry (%) 99 Oxygen Delivery Method Room Air Intake Visit Reasons: botox-lvm Intake Note: Pt presents to the office for Botox injections. Extension Professor Required: No Allergies acetaminophen [Tylenol] Allergy (Unknown, Verified 06/05/23 10:02) Vomiting ibuprofen Allergy (Unknown, Verified 06/05/23 10:02) Abdominal Pain metronidazole [Flagyl] Allergy (Unknown, Verified 06/05/23 10:02) Triggers migraines tramadol Allergy (Unknown, Verified 06/05/23 10:02) Triggers migraine trazodone Allergy (Unknown, Verified 06/05/23 10:02) Triggers Migrain aspirin Allergy (Verified 06/05/23 10:02) Vomiting Medication List - Last Reconciled 06/05/23 by Yuly Bennett MD albuterol sulfate 90 mcg/actuation 2 puffs inhalation Q4-6H PRN biotin 10,000 mcg PO DAILY carisoprodol 350 mg PO BID 30 days epinephrine (EpiPen 2-Rajesh) 0.3 mg IM Q4H PRN estradiol 1 mg PO DAILY lactobacillus combo no.11 (Probiotic) 1 cap PO DAILY levalbuterol tartrate 45 mcg/actuation (Xopenex HFA) 2 inhalations inhalation Q6H omeprazole 20 mg PO DAILY onabotulinumtoxinA (Botox) 200 units IM ONCE 12 weeks promethazine 25 mg PO TID PRN tamsulosin 0.4 mg PO BEDTIME 30 days ubrogepant (Ubrelvy) 100 mg orally at onset of migraine, may repeat in 2 hours (max of 200mg per day) PRN; 30 days HPI HPI Comments History of Present Illness Details ? 47y/o female comes for treatment of migraines with botox. How many migraine days prior to botox- 20 How long do the migraines last-2-3 days Intensity of [id number] ER visits related to ocoyvpdl-5-3 Effectiveness of botox from last two treatment(s) How many migraine days since receiving treatment:2-3/month Change? in intensity of migraine?decreased Change in frequency of migraine?decreased Change in use of acute medication for migraine?decreased Change in quality of life?improved ER visits related to migraine?none Last treatment- 02/23 ??? Most frequent reported adverse reactions following injection of botox for chronic migraine include neck pain (9%), headache(5%), eyelid ptosis(4%), migraine(4%), muscular weakness(4%), musculuskeletal stiffness(4%), bronchitis(3%), injection site pain (3%), musculoskeletal pain(3%), myalgia(3%), facial paresis(2%), HTN(2%) and muscle spasms(2%) were discussed in detail. ??? Botulinum toxin typeA 200units Lot no [id number] expiration September 2025 was diluted with 4 cc of normal saline . ??? Muscles injected- ??? Frontalis 4 sites zygomaticus major 2 sites ??? Procerus 1 site ??? Special Events Manager- 2 sites ??? Temporalis- 8 sites ??? Occipitalis- 6 sites ??? Cervical paraspinals- 4 sites ??? Trapezius- 6 sites- 10 units each ??? 5 units each in 31 site ??? Total use- 195units ??? Discarded-5units [facility] Medical History History of kidney stones Chronic migraine without aura Vaginal intraepithelial neoplasia GERD (gastroesophageal reflux disease) Migraine Cervical radiculopathy Back pain IBS (irritable bowel syndrome) Nephrolithiasis Surgical History Hx of ovarian cystectomy Hx of cystoscopy Hx of lithotripsy History of vaginal surgery History of partial hysterectomy Social History Household Members: Children Alcohol intake: current Alcohol intake frequency: holidays/special occasions only Patient Tobacco Use Status: Current everyday Tobacco user Cigarettes Per Day: 10 Years Smoked: 32 Substance Use Type: Marijuana Current occupational status: disabled Physical Exam Vital Signs: Last Vital Signs Pulse 78 06/05/23 10:02 Resp 16 06/05/23 10:02 BP 106/66 06/05/23 10:02 Pulse Ox 99 06/05/23 10:02 Oxygen Delivery Method Room Air 06/05/23 10:02 BMI result Body Mass Index 22.5 Const General: cooperative Orientation/consciousness: patient oriented x3 Resp Effort & Inspection: able to speak in complete sentences Neuro General: patient oriented x3 Psych Mental Status: mental status grossly normal Speech and movement: Clear speech present Affect: normal affect Attitude: cooperative Thought process: Normal thought process present Thought content: Normal thought content present Insight: Fair insight present (Psych) Judgement: Fair judgement present (Psych) Office Procedures Botulinum toxin Injection 26568 - Migraine Procedure code (CPT) selection complete Office Meds onabotulinumtoxinA 200 unit solution for injection Performing Provider: Yuly Bennett MD Performing Location: [facility] Administered by: Yuly Bennett MD on 06/05/23 10:33 Dose Route Admin Location Dispensed Lot Number Expiration Date [facility] [place] 195 unit subcut 200 units [id number] 09/01/25 6131-7888-83 ALLERGAN/BOTOX Comments: see HPI Assessment & Plan Assessment & Plan (1) Chronic migraine without aura: Code(s): G43.709 - Chronic migraine without aura, not intractable, without status migrainosus (2) Migraine with aura, intractable, without status migrainosus: Code(s): G43.119 - Migraine with aura, intractable, without status migrainosus Plan Patient tolerated the procedure well she will call with any side effects. Orders: Orders AMB Botulinum toxin Injection Today G43.709 - Chronic migraine without aura, not intractable, without status migrainosus Coding Level of Care Code Est Pt Level 1 (43032) Diagnoses Chronic migraine without aura G43.709 Migraine with aura, intractable, without status migrainosus G43.119 CPT Codes Botox Injection - Botox 3: 14554 - Migraine ([id number])
[2023-06-05 10:02] VITALS: BP 106/66; PULSE 78; RESP 16; O2SAT 99; BMI 22.5
== END 2023-06-05 10:25 | disposition home or self-care (01) ==
PROVIDERS: PCP Internal Medicine; Visit Provider Psychiatry & Neurology Neurology
DX: G43.119 Migraine with aura, intractable, without status migrainosus (principal)
CPT/HCPCS: 64615

== ENCOUNTER → 2023-06-05 09:54 | Outpatient (BNVA) | payer OTHER, SELFPAY | PROVIDERS: PCP Internal Medicine; Visit Provider Psychiatry & Neurology Neurology | DX: G43.709 Chronic migraine without aura, not intractable, without status migrainosus (principal); G43.119 Migraine with aura, intractable, without status migrainosus | CPT/HCPCS: 64615; 99211; J0585 ==

== ENCOUNTER 2023-07-05 07:13 | Day surgery (SDC) | payer OTHER, SELFPAY ==
--- NOTE | 2023-07-04 09:20 | HO.ANESPROP2 ---
Documented by User: Dede Fowler NP 07/04/23 09:21 HPI - Anesthesia Eval Consult details Narrative: 47yo F for Left Lithotripsy ESW PMFSH Active Problems Active Problems: All Active Problems (Updated 02/22/23 @ 10:56 by Marion Snyder [facility]) Renal cyst (Acute) Dysuria (Acute) Nephrolithiasis (Acute) Flank pain (Acute) Migraine with aura, intractable, without status migrainosus (Acute) Myofascial pain (Acute) Back pain (Acute) Chronic migraine without aura (Acute) Numbness and tingling in both hands (Acute) Neck pain (Acute) Migraine (Acute) Past Medical History Medical History History of kidney stones Chronic migraine without aura Vaginal intraepithelial neoplasia GERD (gastroesophageal reflux disease) Migraine Cervical radiculopathy Back pain IBS (irritable bowel syndrome) Nephrolithiasis Surgical History Surgical History Hx of ovarian cystectomy Hx of cystoscopy Hx of lithotripsy History of vaginal surgery History of partial hysterectomy Social History Social History Household Members: Children Alcohol intake: current Alcohol intake frequency: does not drink Patient Tobacco Use Status: Current everyday Tobacco user Cigarettes Per Day: 10 Years Smoked: 32 Substance Use Type: Marijuana Are you DNR?: No Advance Directives: No Advance Directives Information Provided: Yes Nutrition Risks: No Nutritional Risk Patient : No Current occupational status: disabled Meds Allergies Allergy/AdvReac Type Severity Reaction Status Date / Time acetaminophen [Tylenol] Allergy Unknown Vomiting Verified 06/05/23 10:02 ibuprofen Allergy Unknown Abdominal Verified 06/05/23 10:02 Pain metronidazole [Flagyl] Allergy Unknown Triggers Verified 06/05/23 10:02 migraines tramadol Allergy Unknown Triggers Verified 06/05/23 10:02 migraine trazodone Allergy Unknown Triggers Verified 06/05/23 10:02 Migrain aspirin Allergy Vomiting Verified 06/05/23 10:02 Home Medications Medication Instructions Recorded Confirmed Last Taken Type albuterol sulfate 90 mcg/actuation 2 puff inhalation Q4-6H PRN 01/22/20 06/05/23 Unknown History aerosol inhaler Shortness Of Breath epinephrine 0.3 mg/0.3 mL 0.3 mg IM Q4H PRN 04/30/21 06/05/23 Unknown History injection, auto-injector (EpiPen 2-Rajesh) levalbuterol tartrate 45 2 inh inhalation Q6H 04/30/21 06/05/23 Unknown History mcg/actuation aerosol inhaler (Xopenex HFA) biotin 5,000 mcg disintegrating 10,000 mcg PO DAILY 09/29/21 06/05/23 Unknown History tablet lactobacillus combo no.11 15 1 cap PO DAILY 09/29/21 06/05/23 Unknown History billion cell sprinkle capsule (Probiotic) promethazine 25 mg tablet 25 mg PO TID PRN Nausea And 08/04/22 06/05/23 07/05/23 History Vomiting estradiol 1 mg tablet 1 mg PO DAILY 06/01/23 06/05/23 Unknown History omeprazole 20 mg capsule,delayed 20 mg PO DAILY 06/01/23 06/05/23 Unknown History release Assessment and Plan Assessment Anesthesia Assessment: Chart Reviewed Documented by User: Yas Marshall MD 07/05/23 08:55 PMFSH Past Medical History Medical History History of kidney stones Chronic migraine without aura Vaginal intraepithelial neoplasia GERD (gastroesophageal reflux disease) Migraine Cervical radiculopathy Back pain IBS (irritable bowel syndrome) Nephrolithiasis Family History Family history of problems with anesthesia: No Surgical History Surgical History Hx of ovarian cystectomy Hx of cystoscopy Hx of lithotripsy History of vaginal surgery History of partial hysterectomy History of Problems with Anesthesia: No Social History Social History Household Members: Children Alcohol intake: current Alcohol intake frequency: does not drink Patient Tobacco Use Status: Current everyday Tobacco user Cigarettes Per Day: 10 Years Smoked: 32 Substance Use Type: Marijuana Are you DNR?: No Advance Directives: No Advance Directives Information Provided: Yes Nutrition Risks: No Nutritional Risk Patient : No Current occupational status: disabled Meds Allergies Allergy/AdvReac Type Severity Reaction Status Date / Time acetaminophen [Tylenol] Allergy Unknown Vomiting Verified 06/05/23 10:02 ibuprofen Allergy Unknown Abdominal Verified 06/05/23 10:02 Pain metronidazole [Flagyl] Allergy Unknown Triggers Verified 06/05/23 10:02 migraines tramadol Allergy Unknown Triggers Verified 06/05/23 10:02 migraine trazodone Allergy Unknown Triggers Verified 06/05/23 10:02 Migrain aspirin Allergy Vomiting Verified 06/05/23 10:02 Home Medications Medication Instructions Recorded Confirmed Last Taken Type albuterol sulfate 90 mcg/actuation 2 puff inhalation Q4-6H PRN 01/22/20 06/05/23 Unknown History aerosol inhaler Shortness Of Breath epinephrine 0.3 mg/0.3 mL 0.3 mg IM Q4H PRN 04/30/21 06/05/23 Unknown History injection, auto-injector (EpiPen 2-Rajesh) levalbuterol tartrate 45 2 inh inhalation Q6H 04/30/21 06/05/23 Unknown History mcg/actuation aerosol inhaler (Xopenex HFA) biotin 5,000 mcg disintegrating 10,000 mcg PO DAILY 09/29/21 06/05/23 Unknown History tablet lactobacillus combo no.11 15 1 cap PO DAILY 09/29/21 06/05/23 Unknown History billion cell sprinkle capsule (Probiotic) promethazine 25 mg tablet 25 mg PO TID PRN Nausea And 08/04/22 06/05/23 07/05/23 History Vomiting estradiol 1 mg tablet 1 mg PO DAILY 06/01/23 06/05/23 Unknown History omeprazole 20 mg capsule,delayed 20 mg PO DAILY 06/01/23 06/05/23 Unknown History release Exam Airway Mallampati Class: II TM Dist: >3cm Neck ROM: Full Heart: rrr Lungs: cta Assessment and Plan Assessment Anesthesia Assessment: Anesthesia Plan Discussed Final Anesthetic Review Family History of Problems with Anesthesia: No History of Problems with Anesthesia: No NPO: Yes ASA Class: II Final Preanesthetic Review: No Changes in Pt Med Stat, Meds/Allgs Chart Reviewed and Consent Obtained/Reviewed Patient Risk: Low Procedure Risk: Low Anesthetic Plan Anesthetic Plan: MAC: Disposition: Standard PACU
--- NOTE | ~2023-07-05 | XR_ITS ---
EXAMINATION: XR ABDOMEN KUB CLINICAL INDICATION: Left kidney stone. COMPARISON: CT urogram of May 23, 2023 TECHNIQUE: 2 AP views of the abdomen. FINDINGS: Nonobstructive bowel gas pattern. Previously identified left renal calculi are difficult to confirm due to multiple loops of bowel overlying the kidney. Slight rightward curvature of the lumbar spine. XR/XR KUB IMPRESSION: Previously identified left renal calculi are difficult to confirm due to multiple loops of bowel overlying the kidney.
[2023-07-05 07:49] VITALS: BP 116/80; PULSE 80; RESP 19; TEMP 36.4; O2SAT 98; BMI 26.2
--- NOTE | 2023-07-05 08:00 | PC.NURSE ---
tylenol held pt resfusing severe n/v allergic reaction
[2023-07-05] MEDS: Lactated Ringers 1,000 ML 100 ML IVCONT (08:10)
--- NOTE | 2023-07-05 08:55 | MHC.SHP ---
Pre-Procedural Eval Section A - 24 Hr Update-Section A only Date of Service: 07/05/23 The patient is an INPATIENT: No The patient has been examined within 24 hours of the surgical procedure. The History & Physical has been completed within 30 days and I have reviewed it.: Yes Section B - Complete if H&P > 30 days Chief Complaint: Calculus of kidney Allergies: Allergies Allergy/AdvReac Type Severity Reaction Status Date / Time acetaminophen [Tylenol] Allergy Unknown Vomiting Verified 06/05/23 10:02 ibuprofen Allergy Unknown Abdominal Verified 06/05/23 10:02 Pain metronidazole [Flagyl] Allergy Unknown Triggers Verified 06/05/23 10:02 migraines tramadol Allergy Unknown Triggers Verified 06/05/23 10:02 migraine trazodone Allergy Unknown Triggers Verified 06/05/23 10:02 Migrain aspirin Allergy Vomiting Verified 06/05/23 10:02 Plan Diagnosis/Plan: Unchanged I have reviewed the history and physical and performed a pertinent physical examination on my patient. No changes have occurred unless specified. Left ESWL. Discussed risks to include but not limited to, blood in the urine, bruising to the skin, kidney hematoma, possible need for another procedure if a stone fragment obstructs the ureter while passing, possible need to repeat procedure if stone is not completely fragmented. Time Spent With Patient Time: Total time managing care of this patient today ____ minutes.
[2023-07-05 09:55] VITALS: BP 129/74; PULSE 65; RESP 18; TEMP 36.4; O2SAT 100
--- NOTE | 2023-07-05 09:55 | W.PM.OPN ---
Operative Note Operative Note Date of Service: 07/05/23 Narrative: PreOperative Diagnosis:? ? Left Renal stone Post Operative Diagnosis:?Left? Renal stone Procedure:?Left? ESWL Surgeon:?Dr Arcenio Fine Anesthesia:? MAC Indications for procedure: The patient understands there is a risk of bruising or hematoma to the kidney, infection, and stone migration following the procedure and subsequent intervention may be required.? - Imaging 6 mm stone, left kidney mid/upper pole Procedure: After informed consent was verified the patient was brought to the operating room and placed in a supine position.? Anesthesia was performed per protocol. Safety pause time-out was performed. Imaging was displayed in the room and laterality confirmed. ESWL was performed.?The stone was visualized on both fluoroscopy and ultrasound.? Shockwave lithotripsy was performed, with a maximum rate of 120 hertz. After the first 300 shocks a pause for 3 minutes was completed.? A total of 2500 shocks to a maximum of power of 18 with a maximum rate of 120 hertz.? Some fragmentation of the stone was appreciated. The patient tolerated the procedure well and was transferred to the recovery area upon completion. Complications: None
[2023-07-05 10:10] VITALS: BP 117/78; PULSE 68; RESP 18; TEMP 36.4; O2SAT 100
--- NOTE | 2023-07-05 11:09 | HO.INF ---
PATIENT WAS GIVEN HER DC INSTRUCTIONS. PATIENT WAS WAITING FOR HER RIDE. PATIENT GOT UP INDEPENDENTLY AND LEFT WITHOUT NOTICE. PATIENT WALKED OUT OF DC AREA AND LEFT.
== END 2023-07-05 11:10 | disposition home or self-care (01) ==
PROVIDERS: PCP Nurse Practitioner Family; Visit Provider Urology
PROC: (CPT 50590; principal; 2023-07-05 10:30)
DX: N20.0 Calculus of kidney (principal); Z88.1 Allergy status to other antibiotic agents; Z88.5 Allergy status to narcotic agent; Z88.6 Allergy status to analgesic agent; Z88.8 Allergy status to other drugs, medicaments and biological substances
CPT/HCPCS: 50590; 74018; J0690; J1940; J2250; J2704; J3010

== ENCOUNTER → 2023-07-05 07:13 | Outpatient (BNV) | payer OTHER, SELFPAY | PROVIDERS: PCP Nurse Practitioner Family; Visit Provider Urology | DX: N20.0 Calculus of kidney (principal) | CPT/HCPCS: 50590 ==

== ENCOUNTER 2023-08-03 10:06 | Outpatient (REF) | payer OTHER, SELFPAY ==
--- NOTE | ~2023-08-03 | US_ITS ---
EXAMINATION: US RETROPERITONEAL LIMITED (RENAL ONLY) CLINICAL INFORMATION: Renal calculus. COMPARISON: CT urogram dated 05/26/2023; renal ultrasound dated 02/03/2023. TECHNIQUE: Real-time imaging of the kidneys. FINDINGS: RIGHT KIDNEY: 11.1 x 6.3 x 5.3 cm (SAG x AP x TRV). The kidney is normal in size, contour, and echogenicity. Renal cortical thickness is normal. No calculi or focal parenchymal solid lesions. No hydronephrosis. At the upper pole, a 4 mm nonobstructing calculus is seen, and at the interpolar aspect, a 4 mm nonobstructing calculus is seen, with twinkle artifact. At the upper pole, a 1.5 cm benign, simple cyst is seen, for which no imaging follow-up is recommended. LEFT KIDNEY: 11.7 x 5.2 x 4.4 cm (SAG x AP x TRV). The kidney is normal in size, contour, and echogenicity. Renal cortical thickness is normal. No focal parenchymal solid lesions. At the upper pole, an 8 mm nonobstructing calculus is seen. At the interpolar aspect, a 9 mm aggregation of calculi is seen. No hydronephrosis. At the interpolar aspect, a 9 mm and 9 mm and 1.5 cm benign, simple cysts are seen. At the lower pole, a 9 mm benign, simple cyst is seen. These require no imaging follow-up. At the lower pole, a 2.0 x 3.2 x 2.2 cm cyst is seen, with septation and wall calcifications. US/US renal BI IMPRESSION: 1. There are nonobstructing bilateral renal calculi, as detailed. No hydronephrosis is seen. 2. A 3.2 cm mildly complex left renal lower pole cyst is seen, consistent with the CT appearance of 05/23/2023. This is a likely benign finding, for which no imaging follow-up is recommended.
== END 2023-08-03 10:07 | disposition home or self-care (01) ==
LOC: HO.US 10:06
PROVIDERS: PCP Nurse Practitioner Family; Visit Provider Urology
DX: N20.0 Calculus of kidney (principal)
CPT/HCPCS: 76775

== ENCOUNTER 2023-08-11 13:26 | Outpatient (AMB) | payer OTHER, SELFPAY ==
--- NOTE | 2023-08-11 13:56 | A.OFFVIS_ITS ---
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 The patient provided a urine specimen which was evaluated. The patient stated that she needed to leave prior to being seen by the doctor as she had another appointment. Post up appointment will be rescheduled. [facility] Medical History History of kidney stones Chronic migraine without aura Vaginal intraepithelial neoplasia GERD (gastroesophageal reflux disease) Migraine Cervical radiculopathy Back pain IBS (irritable bowel syndrome) Nephrolithiasis Surgical History Hx of ovarian cystectomy Hx of cystoscopy Hx of lithotripsy History of vaginal surgery History of partial hysterectomy Social History Household Members: Children Alcohol intake: current Alcohol intake frequency: does not drink Patient Tobacco Use Status: Current everyday Tobacco user Cigarettes Per Day: 10 Years Smoked: 32 Substance Use Type: Marijuana Current occupational status: disabled Results AMB Urinalysis, Automated UA Leukoctes 0 Tianna/uL Last Edit by MALLY Martini on 08/11/23 14:28 UA Nitrite Negative Last Edit by Deborah Tian Kerwin on 08/11/23 14:28 UA Urobilinogen 0.2 mg/dL Last Edit by Deborah Tian A on 08/11/23 14:2 8 UA Protein 15 mg/dL Last Edit by Deborah Tian Kerwin on 08/11/23 14:28 UA pH 7.5 Last Edit by Deborah Tian [facility] on 08/11/23 14:28 UA Blood 10 Rosalio/uL Last Edit by Deborah Tian [facility] on 08/11/23 14:28 UA Specific [place] 1.015 Last Edit by Deborah Tian [facility] on 08/11/23 14: 28 UA Ketone Negative Last Edit by Deborah Tian Kerwin on 08/11/23 14:28 UA Bilirubin 0 mg/dL Last Edit by Deborah Tian Kerwin on 08/11/23 14:28 UA Glucose 0 mg/dL Last Edit by Deborah Tian [facility] on 08/11/23 14:28 Results Reviewed Results Reviewed: Laboratory Last Values Urine pH (Auto) 7.5 08/11/23 14:27 Specific [place] (Auto) 1.015 08/11/23 14:27 Urine Protein (Auto) 15 mg/dL 08/11/23 14:27 Glucose (UA)(Auto) 0 mg/dL 08/11/23 14:27 Urine Ketones (Auto) Negative 08/11/23 14:27 Urine Blood (Auto) 10 Rosalio/uL 08/11/23 14:27 Urine Nitrite (Auto) Negative 08/11/23 14:27 Urine Bilirubin (Auto) 0 mg/dL 08/11/23 14:27 Urine Urobilinogen (Auto) 0.2 mg/dL 08/11/23 14:27 Leukocyte Esterase (Auto) 0 Tianna/uL 08/11/23 14:27 Assessment & Plan Assessment & Plan (1) Nephrolithiasis: Code(s): N20.0 - Calculus of kidney Category: Medical Plan Post up appointment rescheduled Orders: Orders AMB Urinalysis Automated 08/11/23 Z13.9 - Encounter for screening, unspecified Coding Level of Care Code Left Without Being Seen Diagnoses Nephrolithiasis N20.0
== END 2023-08-11 15:00 | disposition left against medical advice (07) ==
PROVIDERS: PCP Internal Medicine; Visit Provider Urology
DX: Z13.9 Encounter for screening, unspecified (principal)

== ENCOUNTER → 2023-08-11 13:26 | Outpatient (BNVA) | payer OTHER, SELFPAY | PROVIDERS: PCP Internal Medicine; Visit Provider Urology | DX: N20.0 Calculus of kidney (principal); Z98.890 Other specified postprocedural states | CPT/HCPCS: 81003; 99212 ==

== ENCOUNTER 2023-08-14 11:11 | Outpatient (AMB) | payer OTHER, SELFPAY ==
--- NOTE | 2023-08-14 11:33 | A.OFFVIS_ITS ---
Intake Visit Reasons: ESWL follow up/US Intake Note: Patient presents today for follow visit for US Results, post op ESWL: Imagin08/03/23 Urology Medications: none Blood Thinner: none Router Tender Required: No Accompanied by: Self / Same As Patient Allergies acetaminophen [Tylenol] Allergy (Unknown, Verified 08/11/23 13:58) Vomiting ibuprofen Allergy (Unknown, Verified 08/11/23 13:58) Abdominal Pain metronidazole [Flagyl] Allergy (Unknown, Verified 08/11/23 13:58) Triggers migraines tramadol Allergy (Unknown, Verified 08/11/23 13:58) Triggers migraine trazodone Allergy (Unknown, Verified 08/11/23 13:58) Triggers Migrain aspirin Allergy (Verified 08/11/23 13:58) Vomiting HPI Comments Details: 08/14/23--Melva is followed for nephrolithiasis, she is s/p Left ESWL on 07/05/23. I have reviewed the recent renal US 08/03/23- bilateral nonobtructing stones and left kidney complex cyst. She states she feels like she is passing a stone, having flank pain, nausea and dysuria. I will send tamsulosin, a few pain meds, antinausea med and empirically place on levaquin. Review of chart: 06/01/23--Melva is a pleasant 47-year-old female patient of . She has a past medical history of migraines, GERD, migraines, cervical radiculopathy, IBS, nephrolithiasis, and vaginal intraepithelial neoplasia. She presents to the office today for follow-up of her nephrolithiasis. In discussion with the patient today she reports since her last visit approximately 4 months ago she has noted herself to have urinate a few stones however did not collect them. She reports having seeked emergency room care through [facility] for ongoing bilateral flank pain she has been experiencing. Recent CT results reviewed with the patient today. At the lower pole of left kidney 3.3 cm mildly complex cyst Bosniak 2 per radiology report. There are multiple further bilateral benign simple Bosniak 1 appearing bilateral renal cyst for which no imaging follow-up is recommended per radiology report. At the lower pole of the right kidney to adjacent nonobstructing 2 mm calculi are seen. There are approximately 9 nonobstructing left renal calculi the largest at the upper pole measuring 6 mm. In discussion with the patient today she continues to report bilateral flank pain left side greater than right. No CVA tenderness noted bilaterally. Discussed at length further treatment options of nephrolithiasis to include ureteroscopy verses ESWL versus surveillance monitoring. She otherwise denies any bothersome urinary issues. She denies urinary urgency, urinary frequency, incontinence, nocturia, hematuria, dysuria, foul smelling urine, changes to urinary stream, fever, and or chills. She is happy with her current voiding parameters. In office urinalysis results reviewed with the patient today. Patient with a longstanding history of nephrolithiasis requiring surgical intervention with ureteroscopy as well as ESWL in the past with [facility] as well as [facility]. When asked she does endorse to be drinking plenty of water daily. She otherwise offers no other issues or concerns at this time. [facility]LY [facility] Medical History History of kidney stones Chronic migraine without aura Vaginal intraepithelial neoplasia GERD (gastroesophageal reflux disease) Migraine Cervical radiculopathy Back pain IBS (irritable bowel syndrome) Nephrolithiasis Surgical History Hx of ovarian cystectomy Hx of cystoscopy Hx of lithotripsy History of vaginal surgery History of partial hysterectomy Social History Household Members: Children Alcohol intake: current Alcohol intake frequency: does not drink Patient Tobacco Use Status: Current everyday Tobacco user Cigarettes Per Day: 10 Years Smoked: 32 Substance Use Type: Marijuana Current occupational status: disabled Telehealth Telehealth Telehealth Platform: Doximity Location of provider rendering services: practice address Location of patient: address on file Patient Identification confirmed using: Name, : Yes Telehealth method: voice only Patient verbally consented to treatment: Yes Patient verbally consented to billing insurance company: Yes Patient informed of any privacy concerns related to visit: Yes Minutes spent on Phone/Video with Pt.: 15 Results Reviewed Results Reviewed: Date of Service: 08/03/23 EXAMINATION: US RETROPERITONEAL LIMITED (RENAL ONLY) CLINICAL INFORMATION: Renal calculus. COMPARISON: CT urogram dated 05/26/2023; renal ultrasound dated 02/03/2023. TECHNIQUE: Real-time imaging of the kidneys. FINDINGS: RIGHT KIDNEY: 11.1 x 6.3 x 5.3 cm (SAG x AP x TRV). The kidney is normal in size, contour, and echogenicity. Renal cortical thickness is normal. No calculi or focal parenchymal solid lesions. No hydronephrosis. At the upper pole, a 4 mm nonobstructing calculus is seen, and at the interpolar aspect, a 4 mm nonobstructing calculus is seen, with twinkle artifact. At the upper pole, a 1.5 cm benign, simple cyst is seen, for which no imaging follow-up is recommended. LEFT KIDNEY: 11.7 x 5.2 x 4.4 cm (SAG x AP x TRV). The kidney is normal in size, contour, and echogenicity. Renal cortical thickness is normal. No focal parenchymal solid lesions. At the upper pole, an 8 mm nonobstructing calculus is seen. At the interpolar aspect, a 9 mm aggregation of calculi is seen. No hydronephrosis. At the interpolar aspect, a 9 mm and 9 mm and 1.5 cm benign, simple cysts are seen. At the lower pole, a 9 mm benign, simple cyst is seen. These require no imaging follow-up. At the lower pole, a 2.0 x 3.2 x 2.2 cm cyst is seen, with septation and wall calcifications. IMPRESSION: 1. There are nonobstructing bilateral renal calculi, as detailed. No hydronephrosis is seen. 2. A 3.2 cm mildly complex left renal lower pole cyst is seen, consistent with the CT appearance of 05/23/2023. This is a likely benign finding, for which no imaging follow-up is recommended. Date of Service: 05/23/23 EXAMINATION: CT ABDOMEN AND PELVIS WITHOUT AND WITH CONTRAST FINDINGS: LUNG BASES: The visualized lung bases are unremarkable. LIVER, GALLBLADDER, AND BILIARY TREE: The liver is normal in size, shape, and attenuation. There is a Pradeep's lobe configuration. A 6 mm low-attenuation probable cyst or benign hemangioma is seen within the left hepatic lobe (4:3), too small for full characterization with CT. No biliary ductal dilatation is present. The gallbladder is unremarkable with no evidence of radiopaque gallstones, gallbladder wall thickening, or obvious pericholecystic inflammatory changes. PANCREAS: Towards the deep margin of the pancreatic tail (4:12), an 8 mm low-attenuation simple cyst is seen, too small to fully characterize with CT. No solid mass, focal enlargement or ductal dilatation is noted. There is no peripancreatic fat stranding or acute fluid collection. SPLEEN: The included portion is unremarkable. ADRENAL GLANDS: The right adrenal gland is unremarkable. The left adrenal gland contains a 2.3 x 1.7 cm benign, fat-containing adenoma with precontrast Hounsfield value of -8.5 units (3:9). KIDNEYS AND URETERS: The kidneys are normal in size, shape, and attenuation. No perinephric stranding. At the lower pole of the left kidney laterally (4:37 and 7:49), a 3.3 x 2.4 x 1.9 cm mildly complex cyst (Bosniak 2) is seen. This shows a fine septation and small punctate wall calcifications. This is a likely benign finding, for which no imaging follow-up is recommended. There are multiple further bilateral benign, simple (Bosniak 1) appearing bilateral renal cysts, which require no imaging follow-up. At the lower pole of the right kidney (3:53 and 54), 2 adjacent nonobstructing 2 mm calculi are seen. There are approximately 9 small nonobstructing left renal calculi, the largest at the upper pole measuring 6 mm (3:23). GASTROINTESTINAL TRACT: The included small and large bowel are unremarkable. The vermiform appendix is not included in the [id number]. ABDOMINAL WALL: No significant hernia is appreciated. LYMPH NODES: Normal. VASCULAR: There is mild aortic atherosclerotic calcification. No aortic aneurysm or dissection is seen. OSSEUS STRUCTURES: Unremarkable. IMPRESSION: 1. A mildly complex (Bosniak 2) cyst is seen at the lower pole the left kidney, with fine septation and wall calcification. This corresponds with the ultrasound finding in question. There is a likely benign finding, for which no imaging follow-up is recommended. 2. There are small nonobstructing bilateral renal calculi. 3. An 8 mm low-attenuation simple appearing cyst is seen posteriorly within the pancreatic tail. Recommend repeat imaging at a one-year interval to ensure stability of this finding. 4. A 6 mm low-attenuation probable cyst or benign hemangioma is seen within the left hepatic lobe. This is of doubtful clinical significance. If of continued clinical concern (i.e., history of hepatocellular disease or known malignancy), this can be further evaluated with ultrasound or MRI. 5. A 2.3 cm benign, fat-containing left adrenal adenoma is seen. Assessment & Plan Assessment & Plan (1) Nephrolithiasis: Code(s): N20.0 - Calculus of kidney Category: Medical (2) UTI symptoms: Code(s): R39.9 - Unspecified symptoms and signs involving the genitourinary system Category: Medical (3) Acquired complex cyst of kidney: Code(s): N28.1 - Cyst of kidney, acquired Category: Medical (4) Flank pain: Code(s): R10.9 - Unspecified abdominal pain Category: Medical Plan Medications as noted. Medications: New oxycodone Partial Fill upon patient request. 5 mg PO .q6-q8h PRN 10 tabs 0RF pain ondansetron 8 mg PO .q8h PRN 20 tabs 0RF nausea and vomiting 5 days levofloxacin 250 mg PO DAILY 5 tabs 0RF metronidazole 500 mg PO BID 6 tabs 0RF fluconazole 150 mg orally Start Diflucan after completing Levaquin repeat dose after 2 days 2 tabs 0RF Patient Instructions: The patient had an opportunity to ask questions regarding treatment plan. The patient expressed understanding and agreement with the above treatment plan. The patient is aware they should contact our office by phone for worsening of their current condition or the appearance of new symptoms. Compliance is encouraged with any medications and followup testing that is ordered. It is a privilege to be allowed the opportunity to participate in the urologic care of your patient. If you have any questions or concerns regarding treatment for the above conditions please do not hesitate to contact me. The office telephone contact is [phone]. This note is constructed in part using voice recognition software. While every effort has been made to ensure accuracy keymodule assembly supervisor errors may have been included. Yours sincerely, Arcenio Fine MD Coding Level of Care Code Tele Est Pt Level 4 (33598) Diagnoses Nephrolithiasis N20.0 UTI symptoms R39.9 Acquired complex cyst of kidney N28.1 Flank pain R10.9
== END 2023-08-14 16:00 | disposition home or self-care (01) ==
LOC: HO.HUSH 11:11
PROVIDERS: PCP Internal Medicine; Visit Provider Urology
DX: N20.0 Calculus of kidney (principal); R39.9 Unspecified symptoms and signs involving the genitourinary system; N28.1 Cyst of kidney, acquired; R10.9 Unspecified abdominal pain
CPT/HCPCS: 99024

== ENCOUNTER → 2023-08-14 11:11 | Outpatient (BNVA) | payer OTHER, SELFPAY | PROVIDERS: PCP Internal Medicine; Visit Provider Urology ==

== ENCOUNTER 2023-09-05 09:30 | Outpatient (AMB) | payer OTHER, SELFPAY ==
--- NOTE | 2023-09-05 10:36 | A.OFFVIS_ITS ---
Vital Signs 09/05/23 10:38 Height 5 ft 3 in Weight 140 lb BMI 24.8 BP 110/72 Blood Pressure Location Rt brachial Position Sitting Respiration 16 Pulse 81 Pulse Source Pulse Oximeter Pulse Oximetry (%) 99 Oxygen Delivery Method Room Air Intake Visit Reasons: Botox - Confirmed Intake Note: Pt presents to the office for her Botox injections. 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 Theoretical Required: No Allergies acetaminophen [Tylenol] Allergy (Unknown, Verified 09/05/23 10:37) Vomiting ibuprofen Allergy (Unknown, Verified 09/05/23 10:37) Abdominal Pain metronidazole [Flagyl] Allergy (Unknown, Verified 09/05/23 10:37) Triggers migraines tramadol Allergy (Unknown, Verified 09/05/23 10:37) Triggers migraine trazodone Allergy (Unknown, Verified 09/05/23 10:37) Triggers Migrain aspirin Allergy (Verified 09/05/23 10:37) Vomiting Medication List - Last Reconciled 09/05/23 by Yuly Bennett MD albuterol sulfate 90 mcg/actuation 2 puffs inhalation Q4-6H PRN biotin 10,000 mcg PO DAILY carisoprodol 350 mg PO BID 30 days epinephrine (EpiPen 2-Rajesh) 0.3 mg IM Q4H PRN estradiol 1 mg PO DAILY fluconazole 150 mg orally Start Diflucan after completing Levaquin repeat dose after 2 days lactobacillus combo no.11 (Probiotic) 1 cap PO DAILY levalbuterol tartrate 45 mcg/actuation (Xopenex HFA) 2 inhalations inhalation Q6H levofloxacin 250 mg PO DAILY metronidazole 500 mg PO BID omeprazole 20 mg PO DAILY onabotulinumtoxinA (Botox) 200 units IM ONCE 12 weeks ondansetron 8 mg PO .q8h PRN 5 days oxycodone 5 mg PO Q6H PRN oxycodone 5 mg PO .q6-q8h PRN promethazine 25 mg PO TID PRN tamsulosin 0.4 mg PO BEDTIME 30 days ubrogepant (Ubrelvy) 100 mg orally at onset of migraine, may repeat in 2 hours (max of 200mg per day) PRN; 30 days HPI Comments Details: ? 48 y/o female comes for treatment of migraines with botox. How many migraine days prior to botox- 20 How long do the migraines last-2-3 days Intensity of [id number] ER visits related to [id number] Effectiveness of botox from last two treatment(s) How many migraine days since receiving treatment:2-3/month Change? in intensity of migraine?decreased Change in frequency of migraine?decreased Change in use of acute medication for migraine?decreased Change in quality of life?improved ER visits related to migraine?none Last treatment- 02/23 ??? Most frequent reported adverse reactions following injection of botox for chronic migraine include neck pain (9%), headache(5%), eyelid ptosis(4%), migraine(4%), muscular weakness(4%), musculuskeletal stiffness(4%), bronchitis(3%), injection site pain (3%), musculoskeletal pain(3%), myalgia(3%), facial paresis(2%), HTN(2%) and muscle spasms(2%) were discussed in detail. ??? Botulinum toxin typeA 200units Lot no [id number] expiration Jan 2026 was diluted with 4 cc of normal saline . ??? Muscles injected- ??? Frontalis 4 sites zygomaticus major 2 sites ??? Procerus 1 site ??? Manager Construction- 2 sites ??? Temporalis- 8 sites ??? Occipitalis- 6 sites ??? Cervical paraspinals- 4 sites ??? Trapezius- 6 sites- 10 units each ??? 5 units each in 31 site ??? Total use- 195units ??? Discarded-5units [facility] Medical History History of kidney stones Chronic migraine without aura Vaginal intraepithelial neoplasia GERD (gastroesophageal reflux disease) Migraine Cervical radiculopathy Back pain IBS (irritable bowel syndrome) Nephrolithiasis Surgical History Hx of ovarian cystectomy Hx of cystoscopy Hx of lithotripsy History of vaginal surgery History of partial hysterectomy Social History Household Members: Children Alcohol intake: current Alcohol intake frequency: does not drink Patient Tobacco Use Status: Current everyday Tobacco user Cigarettes Per Day: 10 Years Smoked: 32 Substance Use Type: Marijuana Current occupational status: disabled Physical Exam Vital Signs: Last Vital Signs Pulse 81 09/05/23 10:38 Resp 16 09/05/23 10:38 BP 110/72 09/05/23 10:38 Pulse Ox 99 09/05/23 10:38 Oxygen Delivery Method Room Air 09/05/23 10:38 BMI result Body Mass Index 24.8 Const General: cooperative Orientation/consciousness: patient oriented x3 Resp Effort & Inspection: able to speak in complete sentences Neuro General: patient oriented x3 Psych Mental Status: mental status grossly normal Speech and movement: Clear speech present Affect: normal affect Attitude: cooperative Thought process: Normal thought process present Thought content: Normal thought content present Insight: Fair insight present (Psych) Judgement: Fair judgement present (Psych) Office Procedures Botulinum toxin Injection 04876 - Migraine Procedure code (CPT) selection complete Office Meds onabotulinumtoxinA 200 unit solution for injection Performing Provider: Yuly Bennett MD Performing Location: [facility] [place] [facility] Administered by: Yuly Bennett MD on 09/05/23 11:17 Dose Route Admin Location Dispensed Lot Number Expiration Date [facility] 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 Orders: Orders AMB Botulinum toxin Injection Today G43.709 - Chronic migraine without aura, not intractable, without status migrainosus Medications: New onabotulinumtoxinA 200 units IM ONCE 1 ea 0RF migraine G43.709 - Chronic migraine without aura, not intractable, without status migrainosus Coding Level of Care Code Est Pt Level 1 (44622) Diagnoses Chronic migraine without aura G43.709 Migraine with aura, intractable, without status migrainosus G43.119 CPT Codes Botox Injection - Botox 3: 71839 - Migraine ([id number])
[2023-09-05 10:38] VITALS: BP 110/72; PULSE 81; RESP 16; O2SAT 99; BMI 24.8
== END 2023-09-05 11:09 | disposition home or self-care (01) ==
PROVIDERS: PCP Internal Medicine; Visit Provider Psychiatry & Neurology Neurology
DX: G43.E01 Chronic migraine with aura, not intractable, with status migrainosus (principal)
CPT/HCPCS: 64615

== ENCOUNTER → 2023-09-05 09:30 | Outpatient (BNVA) | payer OTHER, SELFPAY | PROVIDERS: PCP Internal Medicine; Visit Provider Psychiatry & Neurology Neurology | DX: G43.E09 Chronic migraine with aura, not intractable, without status migrainosus (principal) | CPT/HCPCS: 64615; 99211; J0585 ==

== ENCOUNTER 2023-09-05 13:55 | Outpatient (REF) | payer OTHER, SELFPAY ==
--- NOTE | ~2023-09-05 | CT_ITS ---
EXAMINATION: CT ABDOMEN AND PELVIS WITHOUT CONTRAST CLINICAL INFORMATION: Calculus of kidney, flank pain COMPARISON: 08/03/2023 renal ultrasound TECHNIQUE: Multidetector volumetric imaging was performed from the superior aspect of the liver through the pubic symphysis. Sagittal and coronal reformatted images were obtained on the technologist's workstation. This CT examination was performed using dose optimization techniques as appropriate, variously including the following: *Automated exposure control *Adjustment of mA and/or kV according to patient size (this includes techniques or standardized protocols for targeted exams where dose is matched to indication/reason for exam; i.e. 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 LUNG BASES: The visualized lung bases are unremarkable. LIVER, GALLBLADDER, AND BILIARY TREE: The liver is normal in size, shape, and attenuation. No focal hepatic lesion or biliary ductal dilatation is present. The gallbladder contains sludge with no evidence of radiopaque gallstones, gallbladder wall thickening, or obvious pericholecystic inflammatory changes. PANCREAS: Unremarkable. SPLEEN: Unremarkable. ADRENAL GLANDS: Unremarkable right adrenal gland. 2.1 x 2 cm fat density left adrenal lesion consistent with lipid rich adenoma. No further follow-up recommended. KIDNEYS AND URETERS: The kidneys are normal in size, shape, and attenuation. 1.4 cm right upper pole renal cyst. Multiple left renal cysts, largest in the midpole measures 2.9 cm. Bilateral nonobstructing renal calculi, punctate on the right, 8 mm in the lower pole on the left with Hounsfield units measuring 780. Mild left intrarenal collecting system and proximal ureteral prominence. No hydroureteronephrosis. BLADDER: Under distended but unremarkable. GASTROINTESTINAL TRACT: Moderately distended stomach. No CT evidence of obstruction. Unremarkable diverticulosis without diverticulitis ABDOMINAL WALL: No significant hernia is appreciated. LYMPH NODES: Normal. VASCULAR: Atherosclerotic calcifications nonaneurysmal aorta appear unremarkable inferior vena cava. PELVIC VISCERA: Unremarkable. OSSEOUS STRUCTURES: Unremarkable. CT/CT abdomen pelvis wo IV con IMPRESSION: Bilateral nonobstructing renal calculi, largest in the left lower pole measuring 8 mm. Bilateral renal cysts, largest on the left measuring 2.9 cm. Mild left intrarenal collecting system and proximal left ureteral prominence. No hydroureteronephrosis bilaterally. Diverticulosis without diverticulitis. Gallbladder sludge. Left adrenal lipid rich adenoma. Fleischner guidelines were followed.
== END 2023-09-05 13:56 | disposition home or self-care (01) ==
LOC: HO.CT 13:55
PROVIDERS: PCP Internal Medicine; Visit Provider Urology
DX: R10.9 Unspecified abdominal pain (principal); N20.0 Calculus of kidney
CPT/HCPCS: 74176

== ENCOUNTER 2023-09-13 11:22 | Outpatient (AMB) | payer OTHER, SELFPAY ==
--- NOTE | 2023-09-13 11:23 | A.OFFVIS_ITS ---
Intake Visit Reasons: Follow up/Results Intake Note: Patient presents today via TeleHealth for follow visit for CT Results: Imagin09/05/2023 Urology Medications: none Blood Thinner: none Herbicide Sprayer Required: No Accompanied by: Self / Same As Patient Allergies acetaminophen [Tylenol] Allergy (Unknown, Verified 09/13/23 11:23) Vomiting ibuprofen Allergy (Unknown, Verified 09/13/23 11:23) Abdominal Pain metronidazole [Flagyl] Allergy (Unknown, Verified 09/13/23 11:23) Triggers migraines tramadol Allergy (Unknown, Verified 09/13/23 11:23) Triggers migraine trazodone Allergy (Unknown, Verified 09/13/23 11:23) Triggers Migrain aspirin Allergy (Verified 09/13/23 11:23) Vomiting Medication List - Last Reconciled 09/13/23 by Arcenio Fine MD albuterol sulfate 90 mcg/actuation 2 puffs inhalation Q4-6H PRN biotin 10,000 mcg PO DAILY carisoprodol 350 mg PO BID 30 days epinephrine (EpiPen 2-Rajesh) 0.3 mg IM Q4H PRN estradiol 1 mg PO DAILY fluconazole 150 mg orally Start Diflucan after completing Levaquin repeat dose after 2 days lactobacillus combo no.11 (Probiotic) 1 cap PO DAILY levalbuterol tartrate 45 mcg/actuation (Xopenex HFA) 2 inhalations inhalation Q6H omeprazole 20 mg PO DAILY onabotulinumtoxinA (Botox) 200 units IM ONCE 12 weeks ondansetron 8 mg PO .q8h PRN 5 days oxycodone 5 mg PO Q6H PRN oxycodone 5 mg PO .q6-q8h PRN oxycodone 5 mg PO Q6-8H PRN promethazine 25 mg PO TID PRN tamsulosin 0.4 mg PO BEDTIME 30 days ubrogepant (Ubrelvy) 100 mg orally at onset of migraine, may repeat in 2 hours (max of 200mg per day) PRN; 30 days HPI Comments Details: 09/13/23--Melva is a 48-year-old female who I have been following due to nephr olithiasis. She had a CT KUB performed on 09/05/2023. I reviewed results no hydronephrosis punctate right kidney stone 8 mm left kidney lower pole stone. The patient has had left flank pain on and off. Plan schedule left ESWL. Eight tablets oxycodone sent to pharmacy for p.r.n. pain 7-10. Patient states unable to take NSAIDs or tramadol as listed under allergies. Review of chart: 08/14/23--Melva is followed for nephrolithiasis, she is s/p Left ESWL on 07/05/23. I have reviewed the recent renal US 08/03/23- bilateral nonobtructing stones and left kidney complex cyst. She states she feels like she is passing a stone, having flank pain, nausea and dysuria. I will send tamsulosin, a few pain meds, antinausea med and empirically place on levaquin. 06/01/23--Melva is a pleasant 47-year-old female patient of . She has a past medical history of migraines, GERD, migraines, cervical radiculopathy, IBS, nephrolithiasis, and vaginal intraepithelial neoplasia. She presents to the office today for follow-up of her nephrolithiasis. In discussion with the patient today she reports since her last visit approximately 4 months ago she has noted herself to have urinate a few stones however did not collect them. She reports having seeked emergency room care through [facility] for ongoing bilateral flank pain she has been experiencing. Recent CT results reviewed with the patient today. At the lower pole of left kidney 3.3 cm mildly complex cyst Bosniak 2 per radiology report. There are multiple further bilateral benign simple Bosniak 1 appearing bilateral renal cyst for which no imaging follow-up is recommended per radiology report. At the lower pole of the right kidney to adjacent nonobstructing 2 mm calculi are seen. There are approximately 9 nonobstructing left renal calculi the largest at the upper pole measuring 6 mm. In discussion with the patient today she continues to report bilateral flank pain left side greater than right. No CVA tenderness noted bilaterally. Discussed at length further treatment options of nephrolithiasis to include ureteroscopy verses ESWL versus surveillance monitoring. She otherwise denies any bothersome urinary issues. She denies urinary urgency, urinary frequency, incontinence, nocturia, hematuria, dysuria, foul smelling urine, changes to urinary stream, fever, and or chills. She is happy with her current voiding parameters. In office urinalysis results reviewed with the patient today. Patient with a longstanding history of nephrolithiasis requiring surgical intervention with ureteroscopy as well as ESWL in the past with [facility] as well as [facility]. When asked she does endorse to be drinking plenty of water daily. She otherwise offers no other issues or concerns at this time. [facility] Medical History History of kidney stones Chronic migraine without aura Vaginal intraepithelial neoplasia GERD (gastroesophageal reflux disease) Migraine Cervical radiculopathy Back pain IBS (irritable bowel syndrome) Nephrolithiasis Surgical History Hx of ovarian cystectomy Hx of cystoscopy Hx of lithotripsy History of vaginal surgery History of partial hysterectomy Social History Household Members: Children Alcohol intake: current Alcohol intake frequency: does not drink Patient Tobacco Use Status: Current everyday Tobacco user Cigarettes Per Day: 10 Years Smoked: 32 Substance Use Type: Marijuana Current occupational status: disabled Review of Systems Const All systems reviewed & are unremarkable except as noted in HPI and below Reports no additional complaints Eyes Reports no additional complaints ENT Reports no additional complaints Card Reports no additional complaints Resp Reports no additional complaints GI Reports no additional complaints Reports as per HPI Musc Reports no additional complaints Skin/Breast Reports system reviewed and no additional complaints, except as documented Neuro Reports no additional complaints Psych Reports no additional complaints Endo Reports no additional complaints Edgar/Lymph Reports no additional complaints Aller/Immun Reports no additional complaints Telehealth Telehealth Telehealth Platform: [facility] Location of provider rendering services: practice address Location of patient: address on file Patient Identification confirmed using: Name, : Yes Telehealth method: video Patient verbally consented to treatment: Yes Patient verbally consented to billing insurance company: Yes Patient informed of any privacy concerns related to visit: Yes Results Reviewed Results Reviewed: Date of Service: 09/05/23 EXAMINATION: CT ABDOMEN AND PELVIS WITHOUT CONTRAST CLINICAL INFORMATION: Calculus of kidney, flank pain COMPARISON: 08/03/2023 renal ultrasound TECHNIQUE: Multidetector volumetric imaging was performed from the superior aspect of the liver through the pubic symphysis. Sagittal and coronal reformatted images were obtained on the technologist's workstation. This CT examination was performed using dose optimization techniques as appropriate, variously including the following: *Automated exposure control *Adjustment of mA and/or kV according to patient size (this includes techniques or standardized protocols for targeted exams where dose is matched to indication/reason for exam; i.e. extremities or head) *Use of iterative reconstruction technique DLP: 369 mGy-cm FINDINGS: DISULFURIZER TENDER: Nonobstructive bowel pattern. LUNG BASES: The visualized lung bases are unremarkable. LIVER, GALLBLADDER, AND BILIARY TREE: The liver is normal in size, shape, and attenuation. No focal hepatic lesion or biliary ductal dilatation is present. The gallbladder contains sludge with no evidence of radiopaque gallstones, gallbladder wall thickening, or obvious pericholecystic inflammatory changes. PANCREAS: Unremarkable. SPLEEN: Unremarkable. ADRENAL GLANDS: Unremarkable right adrenal gland. 2.1 x 2 cm fat density left adrenal lesion consistent with lipid rich adenoma. No further follow-up recommended. KIDNEYS AND URETERS: The kidneys are normal in size, shape, and attenuation. 1.4 cm right upper pole renal cyst. Multiple left renal cysts, largest in the midpole measures 2.9 cm. Bilateral nonobstructing renal calculi, punctate on the right, 8 mm in the lower pole on the left with Hounsfield units measuring 780. Mild left intrarenal collecting system and proximal ureteral prominence. No hydroureteronephrosis. BLADDER: Under distended but unremarkable. GASTROINTESTINAL TRACT: Moderately distended stomach. No CT evidence of obstruction. Unremarkable diverticulosis without diverticulitis ABDOMINAL WALL: No significant hernia is appreciated. LYMPH NODES: Normal. VASCULAR: Atherosclerotic calcifications nonaneurysmal aorta appear unremarkable inferior vena cava. PELVIC VISCERA: Unremarkable. OSSEOUS STRUCTURES: Unremarkable. CT/CT abdomen pelvis wo IV con IMPRESSION: Bilateral nonobstructing renal calculi, largest in the left lower pole measuring 8 mm. Bilateral renal cysts, largest on the left measuring 2.9 cm. Mild left intrarenal collecting system and proximal left ureteral prominence. No hydroureteronephrosis bilaterally. Diverticulosis without diverticulitis. Gallbladder sludge. Left adrenal lipid rich adenoma. Date of Service: 08/03/23 EXAMINATION: US RETROPERITONEAL LIMITED (RENAL ONLY) CLINICAL INFORMATION: Renal calculus. COMPARISON: CT urogram dated 05/26/2023; renal ultrasound dated 02/03/2023. TECHNIQUE: Real-time imaging of the kidneys. FINDINGS: RIGHT KIDNEY: 11.1 x 6.3 x 5.3 cm (SAG x AP x TRV). The kidney is normal in size, contour, and echogenicity. Renal cortical thickness is normal. No calculi or focal parenchymal solid lesions. No hydronephrosis. At the upper pole, a 4 mm nonobstructing calculus is seen, and at the interpolar aspect, a 4 mm nonobstructing calculus is seen, with twinkle artifact. At the upper pole, a 1.5 cm benign, simple cyst is seen, for which no imaging follow-up is recommended. LEFT KIDNEY: 11.7 x 5.2 x 4.4 cm (SAG x AP x TRV). The kidney is normal in size, contour, and echogenicity. Renal cortical thickness is normal. No focal parenchymal solid lesions. At the upper pole, an 8 mm nonobstructing calculus is seen. At the interpolar aspect, a 9 mm aggregation of calculi is seen. No hydronephrosis. At the interpolar aspect, a 9 mm and 9 mm and 1.5 cm benign, simple cysts are seen. At the lower pole, a 9 mm benign, simple cyst is seen. These require no imaging follow-up. At the lower pole, a 2.0 x 3.2 x 2.2 cm cyst is seen, with septation and wall calcifications. IMPRESSION: 1. There are nonobstructing bilateral renal calculi, as detailed. No hydronephrosis is seen. 2. A 3.2 cm mildly complex left renal lower pole cyst is seen, consistent with the CT appearance of 05/23/2023. This is a likely benign finding, for which no imaging follow-up is recommended. Date of Service: 05/23/23 EXAMINATION: CT ABDOMEN AND PELVIS WITHOUT AND WITH CONTRAST FINDINGS: LUNG BASES: The visualized lung bases are unremarkable. LIVER, GALLBLADDER, AND BILIARY TREE: The liver is normal in size, shape, and attenuation. There is a Pradeep's lobe configuration. A 6 mm low-attenuation probable cyst or benign hemangioma is seen within the left hepatic lobe (4:3), too small for full characterization with CT. No biliary ductal dilatation is present. The gallbladder is unremarkable with no evidence of radiopaque gallstones, gallbladder wall thickening, or obvious pericholecystic inflammatory changes. PANCREAS: Towards the deep margin of the pancreatic tail (4:12), an 8 mm low-attenuation simple cyst is seen, too small to fully characterize with CT. No solid mass, focal enlargement or ductal dilatation is noted. There is no peripancreatic fat stranding or acute fluid collection. SPLEEN: The included portion is unremarkable. ADRENAL GLANDS: The right adrenal gland is unremarkable. The left adrenal gland contains a 2.3 x 1.7 cm benign, fat-containing adenoma with precontrast Hounsfield value of -8.5 units (3:9). KIDNEYS AND URETERS: The kidneys are normal in size, shape, and attenuation. No perinephric stranding. At the lower pole of the left kidney laterally (4:37 and 7:49), a 3.3 x 2.4 x 1.9 cm mildly complex cyst (Bosniak 2) is seen. This shows a fine septation and small punctate wall calcifications. This is a likely benign finding, for which no imaging follow-up is recommended. There are multiple further bilateral benign, simple (Bosniak 1) appearing bilateral renal cysts, which require no imaging follow-up. At the lower pole of the right kidney (3:53 and 54), 2 adjacent nonobstructing 2 mm calculi are seen. There are approximately 9 small nonobstructing left renal calculi, the largest at the upper pole measuring 6 mm (3:23). GASTROINTESTINAL TRACT: The included small and large bowel are unremarkable. The vermiform appendix is not included in the caqkf-to-cmdo. ABDOMINAL WALL: No significant hernia is appreciated. LYMPH NODES: Normal. VASCULAR: There is mild aortic atherosclerotic calcification. No aortic aneurysm or dissection is seen. OSSEUS STRUCTURES: Unremarkable. IMPRESSION: 1. A mildly complex (Bosniak 2) cyst is seen at the lower pole the left kidney, with fine septation and wall calcification. This corresponds with the ultrasound finding in question. There is a likely benign finding, for which no imaging follow-up is recommended. 2. There are small nonobstructing bilateral renal calculi. 3. An 8 mm low-attenuation simple appearing cyst is seen posteriorly within the pancreatic tail. Recommend repeat imaging at a one-year interval to ensure stability of this finding. 4. A 6 mm low-attenuation probable cyst or benign hemangioma is seen within the left hepatic lobe. This is of doubtful clinical significance. If of continued clinical concern (i.e., history of hepatocellular disease or known malignancy), this can be further evaluated with ultrasound or MRI. 5. A 2.3 cm benign, fat-containing left adrenal adenoma is seen. Assessment & Plan Assessment & Plan (1) Nephrolithiasis: Code(s): N20.0 - Calculus of kidney Category: Medical (2) UTI symptoms: Code(s): R39.9 - Unspecified symptoms and signs involving the genitourinary system Category: Medical (3) Acquired complex cyst of kidney: Code(s): N28.1 - Cyst of kidney, acquired Category: Medical (4) Flank pain: Code(s): R10.9 - Unspecified abdominal pain Category: Medical Plan Schedule left ESWL. Oxycodone 5 mg Q 6-8 hours prescription edited from 10 tabs to 8 tabs Medications: New oxycodone Partial Fill upon patient request. 5 mg PO Q6-8H PRN 10 tabs 0RF pain oxycodone Partial Fill upon patient request. 5 mg PO Q6-8H PRN 8 tabs 0RF pain Patient Instructions: The patient had an opportunity to ask questions regarding treatment plan. The patient expressed understanding and agreement with the above treatment plan. The patient is aware they should contact our office by phone for worsening of their current condition or the appearance of new symptoms. Compliance is encouraged with any medications and followup testing that is ordered. It is a privilege to be allowed the opportunity to participate in the urologic care of your patient. If you have any questions or concerns regarding treatment for the above conditions please do not hesitate to contact me. The office telephone contact is [phone]. This note is constructed in part using voice recognition software. While every effort has been made to ensure accuracy system specialist errors may have been included. Yours sincerely, Arcenio Fine MD Coding Level of Care Code Est Pt Level 4 (59832) Diagnoses Nephrolithiasis N20.0 UTI symptoms R39.9 Acquired complex cyst of kidney N28.1 Flank pain R10.9
== END 2023-09-13 12:21 | disposition home or self-care (01) ==
LOC: HO.HUSH 11:22
PROVIDERS: PCP Internal Medicine; Visit Provider Urology
DX: N20.0 Calculus of kidney (principal); R39.9 Unspecified symptoms and signs involving the genitourinary system; N28.1 Cyst of kidney, acquired; R10.9 Unspecified abdominal pain
CPT/HCPCS: 99214

== ENCOUNTER → 2023-09-13 11:22 | Outpatient (BNVA) | payer OTHER, SELFPAY | PROVIDERS: PCP Internal Medicine; Visit Provider Urology ==

== ENCOUNTER 2023-11-08 07:42 | Day surgery (SDC) | payer OTHER, SELFPAY ==
[2023-11-06 11:08] VITALS: BMI 24.8
--- NOTE | 2023-11-07 10:00 | HO.ANESPROP2 ---
Documented by User: Dede Fowler NP 11/07/23 10:01 HPI - Anesthesia Eval Consult details Narrative: 48yo F for Left Lithotripsy ESW s/p ESWL 07/2023 with [facility] Active Problems Active Problems: All Active Problems Acquired complex cyst of kidney (Acute) UTI symptoms (Acute) Renal cyst (Acute) Dysuria (Acute) Nephrolithiasis (Acute) Flank pain (Acute) Migraine with aura, intractable, without status migrainosus (Acute) Myofascial pain (Acute) Back pain (Acute) Chronic migraine without aura (Acute) Numbness and tingling in both hands (Acute) Neck pain (Acute) Migraine (Acute) Past Medical History Medical History History of kidney stones Chronic migraine without aura Vaginal intraepithelial neoplasia GERD (gastroesophageal reflux disease) Migraine Cervical radiculopathy Back pain IBS (irritable bowel syndrome) Nephrolithiasis Family History Family history of problems with anesthesia: No Surgical History Surgical History Hx of ovarian cystectomy Hx of cystoscopy Hx of lithotripsy History of vaginal surgery History of partial hysterectomy History of Problems with Anesthesia: No Social History Social History Household Members: Children Alcohol intake: current Alcohol intake frequency: holidays/special occasions only Patient Tobacco Use Status: Current everyday Tobacco user Tobacco use type: Cigarette Cigarettes Per Day: 10 Years Smoked: 36 years Smoked in Last 30 Days: Yes Patient Interested in Nicotine Replacement: No Use of substances other than those prescribed or required for medical reasons: No Substance Use Type: Marijuana Substance Use Type Other:: daily Are you DNR?: No Advance Directives: No Advance Directives Information Provided: Yes Current occupational status: disabled Meds Allergies Allergy/AdvReac Type Severity Reaction Status Date / Time acetaminophen [Tylenol] Allergy Unknown Vomiting Verified 09/13/23 11:23 ibuprofen Allergy Unknown Abdominal Verified 09/13/23 11:23 Pain metronidazole [Flagyl] Allergy Unknown Triggers Verified 09/13/23 11:23 migraines tramadol Allergy Unknown Triggers Verified 09/13/23 11:23 migraine trazodone Allergy Unknown Triggers Verified 09/13/23 11:23 Migrain aspirin Allergy Vomiting Verified 09/13/23 11:23 Home Medications ?Medication ?Instructions ?Recorded ?Confirmed ?Last Taken ?Type albuterol sulfate 90 mcg/actuation 2 puff inhalation Q4-6H PRN 01/22/20 11/08/23 Unknown History aerosol inhaler Shortness Of Breath epinephrine 0.3 mg/0.3 mL 0.3 mg IM Q4H PRN Anaphylaxis 04/30/21 11/08/23 Unknown History injection, auto-injector (EpiPen 2-Rajesh) levalbuterol tartrate 45 2 inh inhalation Q6H 04/30/21 11/08/23 Unknown History mcg/actuation aerosol inhaler (Xopenex HFA) biotin 5,000 mcg disintegrating 10,000 mcg PO DAILY 09/29/21 11/08/23 Unknown History tablet lactobacillus combo no.11 15 1 cap PO DAILY 09/29/21 11/08/23 Unknown History billion cell sprinkle capsule (Probiotic) promethazine 25 mg tablet 25 mg PO TID PRN Nausea And 08/04/22 11/08/23 11/08/23 06:55 History Vomiting estradiol 1 mg tablet 1 mg PO DAILY 06/01/23 11/08/23 Unknown History omeprazole 20 mg capsule,delayed 20 mg PO DAILY 06/01/23 11/08/23 Unknown History release Exam Height,Weight and Vital Signs: Height 5 ft 3 in Weight 63.503 kg Assessment and Plan Assessment Anesthesia Assessment: Chart Reviewed Final Anesthetic Review Family History of Problems with Anesthesia: No History of Problems with Anesthesia: No Documented by User: Gladis Mcneal MD 11/08/23 10:30 [facility] Active Problems Active Problems: All Active Problems Acquired complex cyst of kidney (Acute) UTI symptoms (Acute) Renal cyst (Acute) Dysuria (Acute) Nephrolithiasis (Acute) Flank pain (Acute) Migraine with aura, intractable, without status migrainosus (Acute) Myofascial pain (Acute) Back pain (Acute) Chronic migraine without aura (Acute) Numbness and tingling in both hands (Acute) Neck pain (Acute) with radiculopathy both upper extremities. Pain both shoulders, weakness and numbness both hands Smoker Marijuana use Past Medical History Medical History History of kidney stones Chronic migraine without aura Vaginal intraepithelial neoplasia GERD (gastroesophageal reflux disease) Migraine Cervical radiculopathy Back pain IBS (irritable bowel syndrome) Nephrolithiasis Family History Family history of problems with anesthesia: No Surgical History Surgical History Hx of ovarian cystectomy Hx of cystoscopy Hx of lithotripsy History of vaginal surgery History of partial hysterectomy History of Problems with Anesthesia: No Social History Social History Household Members: Children Alcohol intake: current Alcohol intake frequency: holidays/special occasions only Patient Tobacco Use Status: Current everyday Tobacco user Tobacco use type: Cigarette Cigarettes Per Day: 10 Years Smoked: 36 years Smoked in Last 30 Days: Yes Patient Interested in Nicotine Replacement: No Use of substances other than those prescribed or required for medical reasons: No Substance Use Type: Marijuana Substance Use Type Other:: daily Are you DNR?: No Advance Directives: No Advance Directives Information Provided: Yes Current occupational status: disabled Meds Allergies Allergy/AdvReac Type Severity Reaction Status Date / Time acetaminophen [Tylenol] Allergy Unknown Vomiting Verified 09/13/23 11:23 ibuprofen Allergy Unknown Abdominal Verified 09/13/23 11:23 Pain metronidazole [Flagyl] Allergy Unknown Triggers Verified 09/13/23 11:23 migraines tramadol Allergy Unknown Triggers Verified 09/13/23 11:23 migraine trazodone Allergy Unknown Triggers Verified 09/13/23 11:23 Migrain aspirin Allergy Vomiting Verified 09/13/23 11:23 Home Medications ?Medication ?Instructions ?Recorded ?Confirmed ?Last Taken ?Type albuterol sulfate 90 mcg/actuation 2 puff inhalation Q4-6H PRN 01/22/20 11/08/23 Unknown History aerosol inhaler Shortness Of Breath epinephrine 0.3 mg/0.3 mL 0.3 mg IM Q4H PRN Anaphylaxis 04/30/21 11/08/23 Unknown History injection, auto-injector (EpiPen 2-Rajesh) levalbuterol tartrate 45 2 inh inhalation Q6H 04/30/21 11/08/23 Unknown History mcg/actuation aerosol inhaler (Xopenex HFA) biotin 5,000 mcg disintegrating 10,000 mcg PO DAILY 09/29/21 11/08/23 Unknown History tablet lactobacillus combo no.11 15 1 cap PO DAILY 09/29/21 11/08/23 Unknown History billion cell sprinkle capsule (Probiotic) promethazine 25 mg tablet 25 mg PO TID PRN Nausea And 08/04/22 11/08/23 11/08/23 06:55 History Vomiting estradiol 1 mg tablet 1 mg PO DAILY 06/01/23 11/08/23 Unknown History omeprazole 20 mg capsule,delayed 20 mg PO DAILY 06/01/23 11/08/23 Unknown History release Exam Height,Weight and Vital Signs: Height 5 ft 3 in Weight 63.503 kg Vital Signs Temp Pulse Resp BP Pulse Ox O2 Del Method 11/08/23 09:18 97.0 F 64 18 118/76 100 Room Air Airway Mallampati Class: II TM Dist: >3cm Neck ROM: Limited (Pain neck radiating down both arms) Loose/Missing/Broken Teeth: Yes (Missing some teeth top right back, bottom back right and left. Denies broken or loose teeth) Heart: RRR Lungs: CTAB Assessment and Plan Assessment Anesthesia Assessment: Anesthesia Plan Discussed and Chart Reviewed Final Anesthetic Review Family History of Problems with Anesthesia: No History of Problems with Anesthesia: No NPO: Yes ASA Class: II Final Preanesthetic Review: No Changes in Pt Med Stat, Meds/Allgs Chart Reviewed, Consent Obtained/Reviewed and Anes Risks/Benef Reviewed Patient Risk: Intermediate Procedure Risk: Low Assessment/Block/Sedation in SS: Assess/Block/Sedation-SS Anesthetic Plan Anesthetic Plan: GA Disposition: Standard PACU
--- NOTE | ~2023-11-08 | XR_ITS ---
EXAMINATION: XR ABDOMEN KUB CLINICAL INDICATION: Preop lithotripsy. COMPARISON: CT abdomen and pelvis of 09/05/2023, renal ultrasound of 08/03/2023, KUB of 07/05/2023. TECHNIQUE: 2 AP views of the abdomen. FINDINGS: Nonobstructive bowel gas pattern. Previously identified bilateral tiny renal calculi are redemonstrated, although evaluation limited due to small size of calculi and overlying bowel. A very faint 6 mm calculus overlies the lower pole of the left kidney. Previous exam demonstrated an 8 mm left renal lower pole calculus. Slight rightward curvature of the lumbar spine. XR/XR KUB IMPRESSION: Previously identified bilateral tiny renal calculi are redemonstrated, although evaluation limited due to small size of calculi and overlying bowel. A very faint 6 mm calculus overlies the lower pole of the left kidney. Previous exam demonstrated an 8 mm left renal lower pole calculus. This study was presented today November 08, 2023 for interpretation. Stat results provided at this time as requested by referring provider.
[2023-11-08 08:55] VITALS: BMI 24.3
[2023-11-08 09:18] VITALS: BP 118/76; PULSE 64; RESP 18; TEMP 36.1; O2SAT 100
[2023-11-08] MEDS: Lactated Ringers 1,000 ML 100 ML IVCONT (09:37)
[2023-11-08] MEDS: ceFAZolin Sodium/Dextrose,Iso 2 GM/50 ML PIGGYBACK IV (09:44)
--- NOTE | 2023-11-08 10:47 | PC.NURSE ---
Pt last smoked marijuana and tobacco at 10:45PM on 11/07/23.
--- NOTE | 2023-11-08 11:03 | MHC.SHP ---
Pre-Procedural Eval Section A - 24 Hr Update-Section A only Date of Service: 11/08/23 The patient is an INPATIENT: No The patient has been examined within 24 hours of the surgical procedure. The History & Physical has been completed within 30 days and I have reviewed it.: Yes Section B - Complete if H&P > 30 days Chief Complaint: Calculus of kidney Allergies: Allergies Allergy/AdvReac Type Severity Reaction Status Date / Time acetaminophen [Tylenol] Allergy Unknown Vomiting Verified 09/13/23 11:23 ibuprofen Allergy Unknown Abdominal Verified 09/13/23 11:23 Pain metronidazole [Flagyl] Allergy Unknown Triggers Verified 09/13/23 11:23 migraines tramadol Allergy Unknown Triggers Verified 09/13/23 11:23 migraine trazodone Allergy Unknown Triggers Verified 09/13/23 11:23 Migrain aspirin Allergy Vomiting Verified 09/13/23 11:23 Plan Diagnosis/Plan: Unchanged I have reviewed the history and physical and performed a pertinent physical examination on my patient. No changes have occurred unless specified. Left ESWL. Discussed risks to include but not limited to, blood in the urine, bruising to the skin, kidney hematoma, possible need for another procedure if a stone fragment obstructs the ureter while passing, possible need to repeat procedure if stone is not completely fragmented. Time Spent With Patient Time: Total time managing care of this patient today ____ minutes.
[2023-11-08 12:02] VITALS: BP 120/83; PULSE 60; RESP 16; TEMP 36.1; O2SAT 100
--- NOTE | 2023-11-08 12:02 | W.PM.OPN ---
Operative Note Operative Note Date of Service: 11/08/23 Narrative: PreOperative Diagnosis:? ? Left Renal stone Post Operative Diagnosis:?Left? Renal stone Procedure:?Left? ESWL Surgeon:?Dr Arcenio Fine Anesthesia:? General Indications for procedure: The patient understands there is a risk of bruising or hematoma to the kidney, infection, and stone migration following the procedure and subsequent intervention may be required.? - Imaging 8 x 6 mm stone Procedure: After informed consent was verified the patient was brought to the operating room and placed in a supine position.? Anesthesia was performed per protocol. Safety pause time-out was performed. Imaging was displayed in the room and laterality confirmed. ESWL was performed.?The stone was visualized on ultrasound.? Shockwave lithotripsy was performed, with a maximum rate of 120 hertz. After the first 300 shocks a pause for 3 minutes was completed.? A total of 2500 shocks to a maximum of power of with a maximum rate of 120 hertz.? Some fragmentation of the stone was appreciated. The patient tolerated the procedure well and was transferred to the recovery area upon completion. Complications: None
[2023-11-08 12:07] VITALS: BP 132/84; PULSE 53; RESP 16; O2SAT 100
[2023-11-08 12:12] VITALS: BP 132/86; PULSE 67; RESP 16; O2SAT 98
[2023-11-08 12:16] VITALS: BP 136/84; PULSE 64; RESP 16; O2SAT 98
[2023-11-08 12:32] VITALS: BP 125/73; PULSE 69; RESP 16; TEMP 36.1; O2SAT 96
== END 2023-11-08 13:13 | disposition home or self-care (01) ==
PROVIDERS: PCP Nurse Practitioner Family; Visit Provider Urology
PROC: (CPT 50590; principal; 2023-11-08 10:30)
DX: N20.0 Calculus of kidney (principal); N28.1 Cyst of kidney, acquired; G43.709 Chronic migraine without aura, not intractable, without status migrainosus; K21.9 Gastro-esophageal reflux disease without esophagitis; Z87.442 Personal history of urinary calculi; Z79.899 Other long term (current) drug therapy; Z88.5 Allergy status to narcotic agent; Z88.6 Allergy status to analgesic agent; Z88.8 Allergy status to other drugs, medicaments and biological substances; F17.210 Nicotine dependence, cigarettes, uncomplicated
CPT/HCPCS: 50590; 74018; J0690; J1100; J1940; J2250; J2405; J2704; J3010

== ENCOUNTER → 2023-11-08 07:42 | Outpatient (BNV) | payer OTHER, SELFPAY | PROVIDERS: PCP Nurse Practitioner Family; Visit Provider Urology | DX: N20.0 Calculus of kidney (principal) | CPT/HCPCS: 50590 ==

== ENCOUNTER 2023-12-06 07:18 | Outpatient (AMB) | payer OTHER, SELFPAY ==
--- NOTE | 2023-12-06 07:21 | A.OFFVIS_ITS ---
Vital Signs 12/06/23 07:32 Height 5 ft 4 in Weight 138 lb BMI 23.7 BP 132/68 Blood Pressure Location Rt brachial Position Sitting Respiration 16 Pulse 79 Pulse Source Pulse Oximeter Pulse Oximetry (%) 98 Oxygen Delivery Method Room Air Intake Visit Reasons: Botox Intake Note: Pt presents to the office for Botox injections. 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: No Allergies acetaminophen [Tylenol] Allergy (Unknown, Verified 12/06/23 07:29) Vomiting ibuprofen Allergy (Unknown, Verified 12/06/23 07:29) Abdominal Pain metronidazole [Flagyl] Allergy (Unknown, Verified 12/06/23 07:29) Triggers migraines tramadol Allergy (Unknown, Verified 12/06/23 07:29) Triggers migraine trazodone Allergy (Unknown, Verified 12/06/23 07:29) Triggers Migrain aspirin Allergy (Verified 12/06/23 07:29) Vomiting Medication List - Last Reconciled 12/06/23 by Yuly Bennett MD albuterol sulfate 90 mcg/actuation 2 puffs inhalation Q4-6H PRN biotin 10,000 mcg PO DAILY carisoprodol 350 mg PO BID 30 days epinephrine (EpiPen 2-Rajesh) 0.3 mg IM Q4H PRN estradiol 1 mg PO DAILY fluconazole 150 mg orally Start Diflucan after completing Levaquin repeat dose after 2 days lactobacillus combo no.11 (Probiotic) 1 cap PO DAILY levalbuterol tartrate 45 mcg/actuation (Xopenex HFA) 2 inhalations inhalation Q6H omeprazole 20 mg PO DAILY onabotulinumtoxinA (Botox) 200 units IM ONCE 12 weeks ondansetron 8 mg PO .q8h PRN 5 days oxycodone 5 mg PO .[id number] PRN promethazine 25 mg PO TID PRN tamsulosin 0.4 mg PO BEDTIME 7 days ubrogepant (Ubrelvy) 100 mg orally at onset of migraine, may repeat in 2 hours (max of 200mg per day) PRN; 30 days HPI Comments Details: ? 48 y/o female comes for treatment of migraines with botox. How many migraine days prior to botox- 20 How long do the migraines last-2-3 days Intensity of [id number] ER visits related to [id number] Effectiveness of botox from last two treatment(s) How many migraine days since receiving treatment:2-3/month Change? in intensity of migraine?decreased Change in frequency of migraine?decreased Change in use of acute medication for migraine?decreased Change in quality of life?improved ER visits related to migraine?none Last treatment- 09/24 ??? Most frequent reported adverse reactions following injection of botox for chronic migraine include neck pain (9%), headache(5%), eyelid ptosis(4%), migr jessica(4%), muscular weakness(4%), musculuskeletal stiffness(4%), bronchitis(3%), injection site pain (3%), musculoskeletal pain(3%), myalgia(3%), facial paresis(2%), HTN(2%) and muscle spasms(2%) were discussed in detail. ??? Botulinum toxin typeA 200units Lot no [id number] expiration Mar 2026 was diluted with 4 cc of normal saline . ??? Muscles injected- ??? Frontalis 4 sites zygomaticus major 2 sites ??? Procerus 1 site ??? Curriculum Consultant- 2 sites ??? Temporalis- 8 sites ??? Occipitalis- 6 sites ??? Cervical paraspinals- 4 sites ??? Trapezius- 6 sites- 10 units each ??? 5 units each in 31 site ??? Total use- 195units ??? Discarded-5units [facility] Medical History (Updated 12/06/23 @ 08:03 by Yuly Bennett MD) Chronic migraine without aura, intractable, without status migrainosus Chronic migraine without aura History of kidney stones Chronic migraine without aura Vaginal intraepithelial neoplasia GERD (gastroesophageal reflux disease) Migraine Cervical radiculopathy Back pain IBS (irritable bowel syndrome) Nephrolithiasis Surgical History Hx of ovarian cystectomy Hx of cystoscopy Hx of lithotripsy History of vaginal surgery History of partial hysterectomy Social History Household Members: Children Alcohol intake: current Alcohol intake frequency: holidays/special occasions only Patient Tobacco Use Status: Current everyday Tobacco user Tobacco use type: Cigarette Cigarettes Per Day: 10 Years Smoked: 36 years Substance Use Type: Marijuana Current occupational status: disabled Physical Exam Vital Signs: Last Vital Signs Pulse 79 12/06/23 07:32 Resp 16 12/06/23 07:32 BP 132/68 12/06/23 07:32 Pulse Ox 98 12/06/23 07:32 Oxygen Delivery Method Room Air 12/06/23 07:32 BMI result Body Mass Index 23.7 Const General: cooperative Orientation/consciousness: patient oriented x3 Resp Effort & Inspection: able to speak in complete sentences Neuro General: patient oriented x3 Psych Mental Status: mental status grossly normal Speech and movement: Clear speech present Affect: normal affect Attitude: cooperative Thought process: Normal thought process present Thought content: Normal thought content present Insight: Fair insight present (Psych) Judgement: Fair judgement present (Psych) Office Procedures Botulinum toxin Injection 48864 - Migraine Procedure code (CPT) selection complete Office Meds onabotulinumtoxinA 200 unit solution for injection Performing Provider: Yuly Bennett MD Performing Location: [facility] [place] [facility] Administered by: Yuly Bennett MD on 12/06/23 08:04 Dose Route Admin Location Dispensed Lot Number Expiration Date [facility] Pork Cutlet Maker 195 unit IM 200 units [id number] 03/03/26 0235-2228-11 ALLERGAN/BOTOX Assessment & Plan Assessment & Plan (1) Chronic migraine without aura, intractable, without status migrainosus: Code(s): G43.719 - Chronic migraine without aura, intractable, without status migrainosus Category: Medical (2) Chronic migraine without aura: Code(s): G43.709 - Chronic migraine without aura, not intractable, without status migrainosus Category: Medical (3) Migraine with aura, intractable, without status migrainosus: Code(s): G43.119 - Migraine with aura, intractable, without status migrainosus Category: Medical Plan Patient tolerated the procedure well she will call with any side effects. Orders: Orders AMB Botulinum toxin Injection Today G43.719 - Chronic migraine without aura, intractable, without status migrainosus Medications: New onabotulinumtoxinA 200 units IM ONCE 1 ea 0RF migraine G43.719 - Chronic migraine without aura, intractable, without status migrainosus Coding Level of Care Code Est Pt Level 1 (54664) Diagnoses Chronic migraine without aura, intractable, without status migrainosus G43.719 Chronic migraine without aura G43.709 Migraine with aura, intractable, without status migrainosus G43.119 CPT Codes Botox Injection - Botox 3: 72463 - Migraine ([id number])
[2023-12-06 07:32] VITALS: BP 132/68; PULSE 79; RESP 16; O2SAT 98; BMI 23.7
== END 2023-12-06 08:00 | disposition home or self-care (01) ==
PROVIDERS: PCP Internal Medicine; Visit Provider Psychiatry & Neurology Neurology
DX: G43.E11 Chronic migraine with aura, intractable, with status migrainosus (principal)
CPT/HCPCS: 64615

== ENCOUNTER → 2023-12-06 07:18 | Outpatient (BNVA) | payer OTHER, SELFPAY | PROVIDERS: PCP Internal Medicine; Visit Provider Psychiatry & Neurology Neurology | DX: G43.E19 Chronic migraine with aura, intractable, without status migrainosus (principal) | CPT/HCPCS: 64615; 99211; J0585 ==

== ENCOUNTER 2023-12-20 14:24 | Outpatient (AMB) | payer OTHER, SELFPAY ==
--- NOTE | 2023-12-20 14:25 | MHC.OFFVIS ---
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 will schedule renal ultrasound and KUB. Review of chart: 09/13/23--Melva is a 48-year-old female who I have been following due to nephrolithiasis. She had a CT KUB performed on 09/05/2023. I reviewed results no hydronephrosis punctate right kidney stone 8 mm left kidney lower pole stone. The patient has had left flank pain on and off. Plan schedule left ESWL. Eight tablets oxycodone sent to pharmacy for p.r.n. pain 7-10. Patient states unable to take NSAIDs or tramadol as listed under allergies. 08/14/23--Melva is followed for nephrolithiasis, she is s/p Left ESWL on 07/05/23. I have reviewed the recent renal US 08/03/23- bilateral nonobtructing stones and left kidney complex cyst. She states she feels like she is passing a stone, having flank pain, nausea and dysuria. I will send tamsulosin, a few pain meds, antinausea med and empirically place on levaquin. 06/01/23--Melva is a pleasant 47-year-old female patient of . She has a past medical history of migraines, GERD, migraines, cervical radiculopathy, IBS, nephrolithiasis, and vaginal intraepithelial neoplasia. She presents to the office today for follow-up of her nephrolithiasis. In discussion with the patient today she reports since her last visit approximately 4 months ago she has noted herself to have urinate a few stones however did not collect them. She reports having seeked emergency room care through [facility] for ongoing bilateral flank pain she has been experiencing. Recent CT results reviewed with the patient today. At the lower pole of left kidney 3.3 cm mildly complex cyst Bosniak 2 per radiology report. There are multiple further bilateral benign simple Bosniak 1 appearing bilateral renal cyst for which no imaging follow-up is recommended per radiology report. At the lower pole of the right kidney to adjacent nonobstructing 2 mm calculi are seen. There are approximately 9 nonobstructing left renal calculi the largest at the upper pole measuring 6 mm. In discussion with the patient today she continues to report bilateral flank pain left side greater than right. No CVA tenderness noted bilaterally. Discussed at length further treatment options of nephrolithiasis to include ureteroscopy verses ESWL versus surveillance monitoring. She otherwise denies any bothersome urinary issues. She denies urinary urgency, urinary frequency, incontinence, nocturia, hematuria, dysuria, foul smelling urine, changes to urinary stream, fever, and or chills. She is happy with her current voiding parameters. In office urinalysis results reviewed with the patient today. Patient with a longstanding history of nephrolithiasis requiring surgical intervention with ureteroscopy as well as ESWL in the past with [facility] as well as [facility]. When asked she does endorse to be drinking plenty of water daily. She otherwise offers no other issues or concerns at this time. [facility] Medical History Chronic migraine without aura, intractable, without status migrainosus Chronic migraine without aura History of kidney stones Chronic migraine without aura Vaginal intraepithelial neoplasia GERD (gastroesophageal reflux disease) Migraine Cervical radiculopathy Back pain IBS (irritable bowel syndrome) Nephrolithiasis Surgical History Hx of ovarian cystectomy Hx of cystoscopy Hx of lithotripsy History of vaginal surgery History of partial hysterectomy Social History Household Members: Children Alcohol intake: current Alcohol intake frequency: holidays/special occasions only Patient Tobacco Use Status: Current everyday Tobacco user Tobacco use type: Cigarette Cigarettes Per Day: 10 Years Smoked: 36 years Substance Use Type: Marijuana Current occupational status: disabled Telehealth Telehealth Location of provider rendering services: practice address Location of patient: address on file Patient Identification confirmed using: Name, : Yes Telehealth method: voice only Patient verbally consented to treatment: Yes Patient verbally consented to billing insurance company: Yes Assessment & Plan Assessment & Plan (1) Nephrolithiasis: Code(s): N20.0 - Calculus of kidney Category: Medical (2) Acquired complex cyst of kidney: Code(s): N28.1 - Cyst of kidney, acquired Category: Medical (3) Flank pain: Code(s): R10.9 - Unspecified abdominal pain Category: Medical Plan Status post ESWL 11/08/2023. follow-up evaluation with renal ultrasound and KUB Patient Instructions: The patient had an opportunity to ask questions regarding treatment plan. The patient expressed understanding and agreement with the above treatment plan. The patient is aware they should contact our office by phone for worsening of their current condition or the appearance of new symptoms. Compliance is encouraged with any medications and followup testing that is ordered. It is a privilege to be allowed the opportunity to participate in the urologic care of your patient. If you have any questions or concerns regarding treatment for the above conditions please do not hesitate to contact me. The office telephone contact is [phone]. This note is constructed in part using voice recognition software. While every effort has been made to ensure accuracy fruit pitter errors may have been included. Yours sincerely, Arcenio Fine MD Coding Level of Care Code Global (97721) Diagnoses Nephrolithiasis N20.0 Acquired complex cyst of kidney N28.1 Flank pain R10.9
== END 2023-12-20 16:30 | disposition home or self-care (01) ==
LOC: HO.HUSH 14:24
PROVIDERS: PCP Internal Medicine; Visit Provider Urology
DX: N20.0 Calculus of kidney (principal); N28.1 Cyst of kidney, acquired; R10.9 Unspecified abdominal pain
CPT/HCPCS: 99024

== ENCOUNTER → 2023-12-20 14:24 | Outpatient (BNVA) | payer OTHER, SELFPAY | PROVIDERS: PCP Internal Medicine; Visit Provider Urology | DX: N20.0 Calculus of kidney (principal); N28.1 Cyst of kidney, acquired; R10.9 Unspecified abdominal pain | CPT/HCPCS: 99212 ==

== ENCOUNTER 2023-12-29 09:43 | Outpatient (REF) | payer OTHER, SELFPAY ==
--- NOTE | ~2023-12-29 | XR_ITS ---
EXAMINATION: XR ABDOMEN KUB CLINICAL INDICATION: Renal calculi COMPARISON: Renal ultrasound from same day TECHNIQUE: AP view of the abdomen. FINDINGS: The bowel gas pattern is normal with no evidence of ileus or obstruction. No unusual soft tissue calcifications are noted. The bones are unremarkable. XR/XR KUB IMPRESSION: Unremarkable examination. Electronically signed by: Huma Simeon MD 12/29/2023 04:59 PM EDT RP
--- NOTE | ~2023-12-29 | US_ITS ---
EXAMINATION: US RETROPERITONEAL LIMITED (RENAL ONLY) CLINICAL INFORMATION: Acquired renal cyst. COMPARISON: Ultrasound examination of kidneys on 08/03/2023, CT abdomen and pelvis on 09/05/2023 TECHNIQUE: Ultrasound along with color Doppler imaging and spectral analysis was performed of the kidneys. FINDINGS: RIGHT KIDNEY: 11.5 x 3.7 x 3.2 cm (SAG x AP x TRV). The kidney is normal in size, contour, and echogenicity. Renal cortical thickness is normal. No hydronephrosis. Right upper pole exophytic simple cyst is seen measuring 1.5 x 1.3 x 1.3 cm in size (previously 1.5 cm). A multiseptated complex right upper renal cortical cyst is seen measuring 1.9 x 1.7 x 1.2 cm in size. Multiple echogenic foci are present including mid right renal echogenic foci measuring 0.3 x 0.2 x 0.3 cm; 0.2 x 0.1 cm respectively; upper right renal echogenic foci measuring 0.1 cm in size, 0.2 x 0.1 cm (previously 0.4 cm), upper mid right renal echogenic focus measuring 0.2 x 0.1 cm (previously 0.4 cm). LEFT KIDNEY: 11.7 x 5.1 x 5.2 cm (SAG x AP x TRV). The kidney is normal in size, contour, and echogenicity. Renal cortical thickness is normal. No hydronephrosis. Left mid renal cortical simple cyst is seen measuring 0.7 x 0.6 x 0.8 cm in size. Slightly complex mildly exophytic left mid renal cortical hypoechoic cyst with calcified partial septation measures 2.8 x 2.0 x 2.8 cm in size (previously 2.0 x 3.2 x 2.2 cm). Echogenic foci are seen in mid left kidney measuring 0.5 x 0.2 x 0.4 cm and 0.4 x 0.2 cm respectively (previously up to 0.8 cm). US/US renal BI IMPRESSION: 1. Bilateral renal cortical cysts including Bosniak category 2 cystic lesions are seen, for which no follow-up imaging is recommended. However, only one cyst with focal calcification is seen in the right kidney on CT scan of abdomen on 09/05/2023. 2. Persistent Bilateral multiple nonobstructing renal calculi. 3. No hydronephrosis. Electronically signed by: Jeremy Maciel MD 12/29/2023 05:08 PM EDT RP
== END 2023-12-29 09:44 | disposition home or self-care (01) ==
LOC: HO.US 09:43
PROVIDERS: PCP Internal Medicine; Visit Provider Urology
DX: N28.1 Cyst of kidney, acquired (principal); R30.0 Dysuria; N20.0 Calculus of kidney
CPT/HCPCS: 74018; 76775

== ENCOUNTER 2024-03-13 08:42 | Outpatient (AMB) | payer OTHER, SELFPAY ==
--- NOTE | 2024-03-13 08:49 | A.OFFVIS_ITS ---
Intake Visit Reasons: Botox Intake Note: pPatient presents for botox injection Allergies acetaminophen [Tylenol] Allergy (Unknown, Verified 12/20/23 14:29) Vomiting ibuprofen Allergy (Unknown, Verified 12/20/23 14:29) Abdominal Pain metronidazole [Flagyl] Allergy (Unknown, Verified 12/20/23 14:29) Triggers migraines tramadol Allergy (Unknown, Verified 12/20/23 14:29) Triggers migraine trazodone Allergy (Unknown, Verified 12/20/23 14:29) Triggers Migrain aspirin Allergy (Verified 12/20/23 14:29) Vomiting Medication List - Last Reconciled 03/13/24 by Yuly Bennett MD albuterol sulfate 90 mcg/actuation 2 puffs inhalation Q4-6H PRN biotin 10,000 mcg PO DAILY carisoprodol 350 mg PO BID 30 days epinephrine (EpiPen 2-Rajesh) 0.3 mg IM Q4H PRN estradiol 1 mg PO DAILY fluconazole 150 mg orally Start Diflucan after completing Levaquin repeat dose after 2 days lactobacillus combo no.11 (Probiotic) 1 cap PO DAILY levalbuterol tartrate 45 mcg/actuation (Xopenex HFA) 2 inhalations inhalation Q6H omeprazole 20 mg PO DAILY onabotulinumtoxinA (Botox) 200 units IM ONCE 12 weeks ondansetron 8 mg PO .q8h PRN 5 days oxycodone 5 mg PO .[id number] PRN promethazine 25 mg PO TID PRN tamsulosin 0.4 mg PO BEDTIME 7 days ubrogepant (Ubrelvy) 100 mg orally at onset of migraine, may repeat in 2 hours (max of 200mg per day) PRN; 30 days HPI Comments Details: ? 48 y/o female comes for treatment of migraines with botox. How many migraine days prior to botox- 20 How long do the migraines last-2-3 days Intensity of cfyiqtah-0-82 ER visits related to ubkciisr-3-0 Effectiveness of botox from last two treatment(s) How many migraine days since receiving treatment:2-3/month Change? in intensity of migraine?decreased Change in frequency of migraine?decreased Change in use of acute medication for migraine?decreased Change in quality of life?improved ER visits related to migraine?none Last treatment- 3 mths ??? Most frequent reported adverse reactions following injection of botox for chronic migraine include neck pain (9%), headache(5%), eyelid ptosis(4%), migraine(4%), muscular weakness(4%), musculuskeletal stiffness(4%), bronchitis(3%), injection site pain (3%), musculoskeletal pain(3%), myalgia(3%), facial paresis(2%), HTN(2%) and muscle spasms(2%) were discussed in detail. ??? Botulinum toxin typeA 200units Lot no [id number] expiration Dec 2025 was diluted with 4 cc of normal saline . ??? Muscles injected- ??? Frontalis 4 sites zygomaticus major 2 sites ??? Procerus 1 site ??? Research Support Specialist- 2 sites ??? Temporalis- 8 sites ??? Occipitalis- 6 sites ??? Cervical paraspinals- 4 sites ??? Trapezius- 6 sites- 10 units each ??? 5 units each in 31 site ??? Total use- 195units ??? Discarded-5units [facility] Medical History Chronic migraine without aura, intractable, without status migrainosus Chronic migraine without aura History of kidney stones Chronic migraine without aura Vaginal intraepithelial neoplasia GERD (gastroesophageal reflux disease) Migraine Cervical radiculopathy Back pain IBS (irritable bowel syndrome) Nephrolithiasis Surgical History Hx of ovarian cystectomy Hx of cystoscopy Hx of lithotripsy History of vaginal surgery History of partial hysterectomy Social History Household Members: Children Alcohol intake: current Alcohol intake frequency: holidays/special occasions only Patient Tobacco Use Status: Current everyday Tobacco user Tobacco use type: Cigarette Cigarettes Per Day: 10 Years Smoked: 36 years Substance Use Type: Marijuana Current occupational status: disabled Physical Exam Const General: cooperative Orientation/consciousness: patient oriented x3 Resp Effort & Inspection: able to speak in complete sentences Neuro General: patient oriented x3 Psych Mental Status: mental status grossly normal Speech and movement: Clear speech present Affect: normal affect Attitude: cooperative Thought process: Normal thought process present Thought content: Normal thought content present Insight: Fair insight present (Psych) Judgement: Fair judgement present (Psych) Office Procedures Botulinum toxin Injection 55811 - Migraine Procedure code (CPT) selection complete Office Meds onabotulinumtoxinA 200 unit solution for injection Performing Provider: Yuly Bennett MD Performing Location: [facility] Administered by: Yuly Bennett MD on 03/13/24 09:40 Dose Route Admin Location Dispensed Lot Number Expiration Date [facility] Machine Cloth Measurer 195 unit subcut 200 units [id number] 12/02/25 2243-8133-10 ALLERGAN/BOTOX Comments: see hpi Assessment & Plan Assessment & Plan (1) Chronic migraine without aura, intractable, without status migrainosus: Code(s): G43.719 - Chronic migraine without aura, intractable, without status migrainosus Category: Medical (2) Migraine with aura, intractable, without status migrainosus: Code(s): G43.119 - Migraine with aura, intractable, without status migrainosus Category: Medical Plan Patient tolerated the procedure well she will call with any side effects. Orders: Orders AMB Botulinum toxin Injection Today G43.719 - Chronic migraine without aura, intractable, without status migrainosus Medications: New onabotulinumtoxinA 200 units subcut ONCE 1 ea 0RF migraine G43.719 - Chronic migraine without aura, intractable, without status migrainosus Coding Level of Care Code Est Pt Level 1 (23074) Diagnoses Chronic migraine without aura, intractable, without status migrainosus G43.719 Migraine with aura, intractable, without status migrainosus G43.119 CPT Codes Botox Injection - Botox 3: 01382 - Migraine ([id number])
--- OUTSIDE RECORDS SUMMARY | 2024-03-13 23:09 | XMS_ITS ---
Author Organization [facility] Address [address] [place] [address] Care Team Providers Care Aprn Name Role Phone Genesis Bundy CNP Primary Care Prov ider Unavailable Kwabena Cook Jr Unavailable [phone] ALLERGIES Allergen (clinical drug ingredient) Drug/Non Drug Allergy documented on EMR Reaction Allergy Type Onset Date Status trazodone Trazodone HCl Unknown Drug Allergy Act shaquille tramadol Tramadol HCl Unknown Drug Allergy Acti ve Motrin Unknown Drug Allergy Active aspirin Aspirin Unknown Drug Allergy Active ibuprofen Advil Unknown Drug Allergy Active acetaminophen Tylenol Unknown Drug Allergy Act shaquille REASON FOR VISIT Patient presents today for abd pain MEDICATIONS Medication SIG (Take, Route, Fr equency, Duration) Notes Start Date End Date Status Vitamin B12 Active Promethazine HCl 25 MG 1 tablet as neede d Orally every 6 hrs for 30 days 07/03/2020 Active Carisoprodol 350 MG Orally Active Omeprazole 40 MG 1 capsule Orally Twi ce a day for 30 day(s) 06/20/2022 Active Omeprazole 40 MG 1 capsule 30 minutes before morning meal Orally Once a day for 30 days 12/30/2020 Active Probiotic - as directed Orally Active oxyCODONE HCl 5 MG 1 capsule as needed Orally every 6 hrs Active IMMUNIZATIONS Vaccine Route Administration Date Status Comme nts Influenza Unknown 06/14/2023 Refused SOCIAL HISTORY Tobacco Use: Social History Observation Description Date Details (start date - stop date) Current Smoker NA - NA Sex Assigned At : Social History Observation Description Sex Assigned At Unknown Tobacco Use/Smoking Question Answer Notes Patient is a current smoker How often do you smoke cigarettes? every day How many cigarettes a day do you smoke? - Alcohol Screen Question Answer Notes Did you have a drink containing alcohol in the p ast year? No Points 0 Interpretation Negative PROBLEMS Problem Type ICD Code Onset Dates Problem Status W/U Status Risk SNOMED Code Notes Problem Pancreatic cyst (K86.2) Active confirmed 88940704 VITAL SIGNS BMI 23.07 kg/m2 06/14/2023 Blood pressure systolic 000 mm Hg 06/14/19 24 Blood pressure diastolic 00 mm Hg 024 Height 64.5 in 06/14/2023 Temperature 98.4 degrees Fahrenheit 06/14/19 24 Weight 136 lb 8 oz lbs 06/14/2023 Encounters Encounter Location Date Provider Diagnosis [facility] [address] [place] [address] 06/14/2023 Kwabena Cook Jr Saldivar's esophagus without dysplasia K22.70 ; Irritable bowel syndrome with both constipation and diarrhea K58.2 and Pancreatic cyst K86.2 ASSESSMENTS Encounter Date Diagnosis Assessment Notes Treatment Notes Treatment Clinical Notes 06/14/2023 Asldivar's esophagus without dysplasia (ICD-10 - K22.70) Saldivar esophagus material was printed 06/14/2023 Irritable bowel syndrome with both constipation and diarrhea (ICD-10 - K58.2) 06/14/2023 Pancreatic cyst (ICD-10 - K86.2) PLAN OF TREATMENT Treatment Notes Assessment Notes Saldivar's esophagus without dysplasia Ba rrett esophagus material was printed Next Appt Details Follow Up: 1 Year, Reason: Provider Name:Kwabena champagne Jr, 06/12/2024 10:00:00 AM, [address] [place] [address], [address], [place], [address],
--- OUTSIDE RECORDS SUMMARY | 2024-03-13 23:10 | XMS_ITS | Patient Health Record ---
Author Organization [facility] Address [address] [place] [id number] Care Team Providers Care Machine Stonecutter Name Role Phone Genesis Bundy CNP Primary Care Prov ider Kwabena Koch Jr Unavailable ALLERGIES Allergen (clinical drug ingredient) Drug/Non Drug Allergy documented on EMR Reaction Allergy Type Onset Date Status trazodone Trazodone HCl Unknown Drug Allergy Act shaquille tramadol Tramadol HCl Unknown Drug Allergy Acti ve Motrin Unknown Drug Allergy Active aspirin Aspirin Unknown Drug Allergy Active ibuprofen Advil Unknown Drug Allergy Active acetaminophen Tylenol Unknown Drug Allergy Act shaquille REASON FOR REFERRAL No Information MEDICATIONS Medication SIG (Take, Route, Fr equency, Duration) Notes Start Date End Date Status Probiotic - as directed Orally Active oxyCODONE HCl 5 MG 1 capsule as needed Orally every 6 hrs Active Vitamin B12 Active Promethazine HCl 25 MG 1 tablet as neede d Orally every 6 hrs for 30 days 07/03/2020 Active Carisoprodol 350 MG Orally Active Omeprazole 40 MG 1 capsule Orally Twi ce a day for 30 day(s) 06/20/2022 Active Omeprazole 40 MG 1 capsule 30 minutes before morning meal Orally Once a day for 30 days 12/30/2020 Active IMMUNIZATIONS Vaccine Route Administration Date Status Comme nts Influenza Unknown 01/02/2020 Administered Influenza Unknown 12/26/2019 Refused Influenza Unknown 06/28/2021 Refused Influenza Unknown 06/14/2023 Refused SOCIAL HISTORY Tobacco Use: Social History Observation Description Date Details (start date - stop date) Current Smoker NA - NA Sex Assigned At : Social History Observation Description Sex Assigned At Unknown Tobacco Use/Smoking Question Answer Notes Patient is a current smoker How often do you smoke cigarettes? every day How many cigarettes a day do you smoke? 11- Alcohol Screen Question Answer Notes Did you have a drink containing alcohol in the p ast year? No Points 0 Interpretation Negative PROBLEMS Problem Type ICD Code Onset Dates Problem Status W/U Status Risk SNOMED Code Notes Problem Gastroesophageal reflux disease without esophagitis (K21.9) Active confirmed 067636939 Problem Rectal bleeding (K62.5) Active confirmed 55064208 Problem Saldivar's esophagus without dysplasia (K22.70) Active confirmed 443202028 Problem Irritable bowel syndrome with both constipation and diarrhea (K58.2) Active confirmed 01930819 Problem Pancreatic cyst (K86.2) Active confirmed 41441720 VITAL SIGNS Temperature 98.4 degrees Fahrenheit 06/14/2023 Blood pressure diastolic 00 mm Hg 06/14/2023 Height 64.5 in 06/14/2023 Blood pressure systolic 000 mm Hg 06/14/2023 Weight 136 lb 8 oz lbs 06/14/2023 BMI 23.07 kg/m2 06/14/2023 Encounters Encounter Location Date Provider Diagnosis [facility] [address] [place] [address] 06/14/2023 Kwabena Cook Jr Saldivar's esophagus without dysplasia K22.70 ; Irritable bowel syndrome with both constipation and diarrhea K58.2 and Pancreatic cyst K86.2 ASSESSMENTS Encounter Date Diagnosis Assessment Notes Treatment Notes Treatment Clinical Notes 06/14/2023 Saldivar's esophagus without dysplasia (ICD-10 - K22.70) Saldivar esophagus material was printed 06/14/2023 Irritable bowel syndrome with both constipation and diarrhea (ICD-10 - K58.2) 06/14/2023 Pancreatic cyst (ICD-10 - K86.2) PLAN OF TREATMENT Future Test Test Name Order Date UPPER GI ENDOSCOPY 12/26/2019 COLONOSCOPY 12/26/2019 Next Appt Details Provider Name:Kwabena champagne Jr, 06/12/2024 10:00:00 AM, [address], [address], [place], [address], Insurance Providers Payer Name Payer Address Payer Phone Subscriber Number Group Number Insured Name Patient Relationship to Insured Coverage Start Date Coverage End Date [facility] [address] [employer] [facility] [place] SON [phone] [id number] KEVIN MALIK Self - patient is the insured MEDICAL (GENERAL) HISTORY Medical History History ICD Code IBS, diarrhea and constipation. back pain cervical radiculopathy nephrolithiasis migraines gastroesophageal reflux dise ase/Saldivar's esophagus, EGD 01/20, Saldivar's at EG junction, no dysplasia, no H. pylori, five-year followup vaginal intraepithelial neoplasia, grade 3 Colonoscopy 01/20 normal, including biop sies, ten-year followup Surgical History Surgery Date(Month/Year) partial hysterectomy 10/10/17 ovarian cyst 03/1998 Multiple kidney stone procedures Hospitalization History Reason Date(Month/Year)
--- OUTSIDE RECORDS SUMMARY | 2024-03-13 23:10 | XMS_ITS ---
Author Name [facility] Organization Unknown Results Test Name/Text Value Interpretation Date Range Source NUCLEATED RBC 0% Normal [id number] 0 - 1 [facility] LYMPHOCYTES NO. BLD AUTO 4.2K/uL Above high normal [id number] 1 - 3.2 [facility] EOSINOPHIL NO. BLD AUTO 0.1K/uL Normal [id number] 0 - 0.5 [facility] MONOCYTES NFR BLD AUTO 8.5% Normal [id number] 2 - 12 [facility] IMMATURE GRANULOCYTE, ABSOLUTE 0.04k/uL Normal [id number] - 0.1 [facility] LYMPHOCYTES NFR BLD AUTO 62% Above high normal [id number] 20 - 48 [facility] EOSINOPHIL NFR BLD AUTO 2.1% Normal [id number] 0 - 6 [facility] NEUTROPHILS NO. BLD AUTO 1.7K/uL Below low normal [id number] 1.8 - 7.8 [facility] BASOPHILS NFR BLD AUTO 1.2% Normal [id number] 0 - 2 [facility] MONOCYTES NO. BLD AUTO 0.6K/uL Normal [id number] 0 - 0.8 [facility] NEUTROPHILS NFR BLD AUTO 25.6% Below low normal [id number] 44 - 74 [facility] IMMATURE GRANULOCYTE, PERCENT 0.6% Normal [id number] 0 - 1 [facility] BASOPHILS IN BLOOD BY AUTOMATED COUNT 0.1K/uL Normal [id number] 0 - 0.2 [facility] PLATELET NO. BLD AUTO 348K/uL Normal [id number] 150 - 450 [facility] RBC NO. BLD AUTO 4.48M/uL Normal [id number] 4.2 - 5.4 [facility] MCH RBC QN AUTO 29pg Normal [id number] 25 - 33 C [facility] MCHC RBC AUTO MCNC 33.1g/dL Normal [id number] 32 - 36 [facility] HGB BLD MCNC 13g/dL Normal [id number] 12.5 - 16 [facility] WBC NO. BLD AUTO 6.7K/uL Normal [id number] 4 - 10.5 [facility] MCV RBC AUTO 87.7fL Normal 78 - 100 [facility] PMV BLD AUTO 10.3fL Normal 7.4 - 11.4 [facility] RDW RBC AUTO RTO 13.6% Normal 12.1 - 16.2 [facility] HCT VFR BLD AUTO 39.3% Normal 37 - 47 [facility] CREAT SERPL MCNC 0.8mg/dL Normal 0.5 - 1 [facility] CALCIUM SERPL MCNC 9.6mg/dL Normal 8.4 - 10.2 [facility] SODIUM SERPL SCNC 138mmol/L Normal 135 - 145 [facility] ANION GAP SERPL SC[facility] 8mmol/L Normal 5 - 14 [facility] Glomerular filtration rate/1.73 sq M. predicted 90 Normal 60 - [facility] HCO3 SER SCNC 25mmol/L Normal 24 - 32 CTT [facility] GLUCOSE SERPL MCNC 122mg/dL Normal 70 - 199 [facility] BUN SERPL MCNC 8mg/dL Normal 7 - 17 [facility] CHLORIDE SERPL SCNC 105mmol/L Normal 98 - 107 [facility] POTASSIUM SERPL SCNC 3.9mmol/L Normal 3.5 - 5.1 [facility] SQUAMOUS NO./AREA URNS LPF 1/LPF Normal 0 - 5 [facility] RBC number/area UrnS Auto 2/HPF Normal 0 - 3 [facility] WBC number/area UrnS Auto 0/HPF Normal 0 - 5 [facility] Clarity Ur Refract.auto CLEAR Normal [facility] Prot Ur Ql Strip.auto NEGATIVE Normal - [facility] Glucose Ur Ql Strip.auto NEGATIVE Normal - [facility] Nitrite Ur Ql Strip.auto NEGATIVE Normal - [facility] Hgb Ur Ql Strip.auto TRACE Abnormal - [facility] Ketones Ur Ql Strip.auto NEGATIVE Normal - [facility] Leukocyte esterase Ur Ql Strip.auto NEGATIVE Normal - [facility] Sp Gr Ur Strip.auto 1.01 Normal 1.005 - 1.03 [facility] pH Ur Strip.auto 7 Normal 4.5 - 8 [facility] SPECIMEN SOURCE XXX URINE CLEAN CATCH Normal [id number] [facility] Service [facility] XXX-Imp Cepheid GeneXpert (RT-PCR) [facility] Normal [facility] FLUBV RNA Nph Ql KAYE+non-probe NEGATIVE Normal [facility] RSV RNA Nph Ql KAYE+non-probe NEGATIVE Normal [facility] FLUAV RNA Nph Ql KAYE+non-probe NEGATIVE Normal [facility] HCG PREG SERPL QL NEGATIVE Normal [facility] CREAT SERPL MCNC 0.8mg/dL Normal [id number] 0.5 - 1 [facility] CALCIUM SERPL MCNC 9.6mg/dL Normal [id number] 8.4 - 10.2 [facility] SODIUM SERPL SCNC 139mmol/L Normal [id number] 135 - 145 [facility] ANION GAP SERPL SCNC 10mmol/L Normal [id number] 5 - 14 [facility] Glomerular filtration rate/1.73 sq M. predicted 91 Normal [id number] 60 - [facility] HCO3 SER SCNC 25mmol/L Normal [id number] 24 - 32 [facility] GLUCOSE SERPL MCNC 80mg/dL Normal [id number] 70 - 199 [facility] BUN SERPL MCNC 9mg/dL Normal [id number] 7 - 17 [facility] CHLORIDE SERPL SCNC 104mmol/L Normal [id number] 98 - 107 [facility] POTASSIUM SERPL SCNC 3.5mmol/L Normal [id number] 3.5 - 5.1 [facility] LIPASE SERPL CCNC 27U/L Normal [id number] 11 - 82 [facility] LDH SERPL L TO P CCNC 135U/L Normal [id number] 125 - 220 [facility] AST SERPL [facility] 21U/L Normal [id number] 5 - 40 [facility] ALP SERPL-CCNC 68U/L Normal [id number] 34 - 104 [facility] ALT SERPL CCNC 16U/L Normal [id number] 7 - 52 [facility] MAGNESIUM SERPL MCNC 1.7mg/dL Normal [id number] 1.7 - 2.8 [facility] AMYLASE SERPL CCNC 49U/L Normal [id number] 29 - 103 [facility] BILIRUB SERPL MCNC 0.3mg/dL Normal [id number] 0.3 - 1 [facility] BILIRUB DIRECT SERPL MCNC 0.1mg/dL Normal [id number] 0 - 0.2 [facility] NUCLEATED RBC 0% Normal [id number] 0 - 1 [facility] LYMPHOCYTES NO. BLD AUTO 2.1K/uL Normal [id number] 1 - 3.2 [facility] EOSINOPHIL NO. BLD AUTO 0.1K/uL Normal [id number] 0 - 0.5 [facility] MONOCYTES NFR BLD AUTO 9.3% Normal [id number] 2 - 12 [facility] IMMATURE GRANULOCYTE, ABSOLUTE 0.01k/uL Normal [id number] - 0.1 [facility] LYMPHOCYTES NFR BLD AUTO 53.6% Above high normal [id number] 20 - 48 [facility] EOSINOPHIL NFR BLD AUTO 1.3% Normal [id number] 0 - 6 [facility] NEUTROPHILS NO. BLD AUTO 1.4K/uL Below low normal [id number] 1.8 - 7.8 [facility] BASOPHILS NFR BLD AUTO 0.8% Normal [id number] 0 - 2 [facility] MONOCYTES NO. BLD AUTO 0.4K/uL Normal [id number] 0 - 0.8 [facility] NEUTROPHILS NFR BLD AUTO 34.7% Below low normal [id number] 44 - 74 [facility] IMMATURE GRANULOCYTE, PERCENT 0.3% Normal [id number] 0 - 1 [facility] BASOPHILS IN BLOOD BY AUTOMATED COUNT 0K/uL Normal [id number] 0 - 0.2 [facility] PLATELET NO. BLD AUTO 378K/uL Normal [id number] 150 - 450 [facility] RBC NO. BLD AUTO 4.81M/uL Normal [id number] 4.2 - 5.4 [facility] MCH RBC QN AUTO 28.9pg Normal 25 - 33 [facility] MCHC RBC AUTO MCNC 33.3g/dL Normal 32 - 36 [facility] HGB BLD MCNC 13.9g/dL Normal 12.5 - 16 [facility] W[facility] NO. BLD AUTO 3.9K/uL Below low normal 4 - 10.5 [facility] MCV RBC AUTO 86.7fL Normal 78 - 100 [facility] PMV BLD AUTO 9.3fL Normal 7.4 - 11.4 [facility] RDW RBC AUTO RTO 13.2% Normal 12.1 - 16.2 [facility] HCT VFR BLD AUTO 41.7% Normal 37 - 47 [facility] Clarity Ur Refract.auto CLEAR Normal [facility] Glucose Ur Ql Strip.auto NEGATIVE Normal - [facility] Nitrite Ur Ql Strip.auto NEGATIVE Normal - [facility] Sp Gr Ur Strip.auto >1.030 Above high normal [id number] 1.005 - 1.03 [facility] Hgb Ur Ql Strip.auto TRACE Abnormal - [facility] Ketones Ur Ql Strip.auto NEGATIVE Normal - [facility] Leukocyte esterase Ur Ql Strip.auto NEGATIVE Normal - [facility] Prot Ur Ql Strip.auto 30mg/dL Abnormal - [facility] pH Ur Strip.auto 6 Normal [id number] 4.5 - 8 [facility] SQUAMOUS NO./AREA URNS LPF 9/LPF Above high normal [id number] 0 - 5 [facility] RBC number/area UrnS Auto 1/HPF Normal [id number] 0 - 3 [facility] WBC number/area UrnS Auto 1/HPF Normal [id number] 0 - 5 [facility] SPECIMEN SOURCE XXX NASOPHARYNGEAL Normal [facility] SPECIMEN SOURCE XXX URINE CLEAN CATCH Normal [facility] History of Medication Use Medication Directions Dispensed Refills Start Date End Date Status metroNIDAZOLE (METROGEL) 0.75 % vaginal gel 08/26/202 4 active gabapentin (NEURONTIN) 300 MG capsule Take 300 mg by mouth 3 (three) times a day. 4 active oxyCODONE (ROXICODONE) 5 MG immediate release tablet Take 1 tablet (5 mg total) by mouth every 4 (four) hours as needed for pain. 4 active tamsulosin (FLOMAX) 0.4 MG CAPS Take 1 capsule (0.4 mg total) by mouth daily. 4 active ketorolac (TORADOL) 10 MG tablet Take 1 tablet (10 mg total) by mouth every 6 (six) hours as needed for pain. 4 active promethazine (PHENERGAN) 12.5 MG tablet Take 25 mg by mouth every 6 (six) hours as needed for nausea. 4 active carisoprodol (SOMA) 350 MG tablet Take 350 mg by mouth 4 (four) times a day as needed for muscle spasms. 4 active topiramate (TOPAMAX) 25 MG tablet TK 2 TS PO QD 4 active SUMAtriptan (IMITREX) 20 MG/ACT nasal spray spray or apply 1 spray (20 mg total) inside Nose daily as needed for migraine. 4 active ranitidine (ZANTAC 75) 75 MG tablet Take 75 mg by mouth 2 (two) times a day. 4 active HYDROmorphone (DILAUDID) injection 1 mg 1 mg, Intravenous, Once, On Mon11/21/23 at 1415, For 1 doseAdminister IV push over 2-3 minutes. 4 completed famotidine (PEPCID) 40 MG tablet TK 1 T PO BID 4 active methocarbamol (ROBAXIN) 750 MG tablet TK 2 TS PO TID PRN 4 active nitrofurantoin, macrocrystal-monohydr ate, (MACROBID) 100 MG capsule Take 1 capsule (100 mg total) by mouth 2 (two) times a day. 4 active promethazine (PHENERGAN) tablet 25 mg TK 1 T PO 4 -6 H PRN FOR NAUSEA 4 active diazepam (VALIUM) tablet 5 mg Take 5 mg by mouth every 6 (six) hours as needed for anxiety. 4 active topiramate (TOPAMAX) 50 MG tablet Take 50 mg by mouth 2 (two) times a day. 4 active oxybutynin (DITROPAN) 5 MG tablet TK 1 T PO TID PRF STENT DISCOMFORT 4 active morphine sulfate injection 4 mg 4 mg, Intravenous, Once, On Mon11/21/23 at 1300, For 1 dose 4 completed ondansetron (ZOFRAN) injection 4 mg 4 mg, Intravenous, Once, On Mon11/21/23 at 1300, For 1 doseIV push over 2 to 5 minutes. 4 completed prochlorperazine (COMPAZINE) [address] 25 mg rectally every 12 (twelve) hours as needed for nausea. 4 active SUMAtriptan (IMITREX) 100 MG tablet 4 active sodium chloride 0.9% bolus (NS) 1,000 mL 1,000 mL, Intravenous, at 1,000 mL/hr, Once, On Mon11/21/23 at 1245, For 1 dose 4 completed Problems Problem Status Onset Date Problem Type Date of Resoluti on Source Kidney stones active EncounterDiagnosisAct [facility] Flank pain active EncounterDiagnosisAct [facility]
--- OUTSIDE RECORDS SUMMARY | 2024-03-13 23:10 | XMS_ITS | Data Portability ---
Author Organization [place] [facility] Address [address] [place] [phone] Care Team Providers Care Testing Specialist Name Role Phone MAGNOLIA JUAN JOSE CISNEROS Primary Care Provider [phone] Assessment Encounter Date Assessment Date Assessment LastModified by Organization Details LastModified Time 12/14/2021 12/14/2021 Time On Scene with Patient: 00:40:48 DDX: kidney stone, pyelonephritis, UTI, renal abscess, Pt appears in acute distress with her pain. She demonstrates tachypnea and tachycardia. PT has prior CTs that demonstrate multiple stones in left kidney. IT is very possible this is another bout of kidney stones. Another concern with patient's worsening left hip pain over the past fewmonths. Discussed with patient that this kind of pain with regard to kidney stones warrants acute management in an emergency department where imaging studies, prompt pain management and even admission to hospital for intractable pain - at a minimum. Pt's urine was tested and does not demonstrate infection but slight amount of blood. Pt at this time refuses ED for better care of her complaints. Pt was given toradol for this pain (prior reaction to ibuprofen with gastric upset) while on scene. Pt is going to discuss this with her family to see what she should do next. Offered to call 911 but patient refused at this time. Pt was sitting on her couch at completion of visit. She did demonstrate ambulating to bathroom about 50 ft steady gait with walker. REsp easy, speech clear. [email or web address] Not available 12/14/2021 13:56:23 Plan of Treatment Reminders Order Date Submit Date Provider Last Modified By Organization Details Last Modified Time Details Appointments None recorded. Lab urinalysis , dipstick 2021 022 [email or web address] [facility], [address] [place] [address], [phone], 11:54:15 Referral None recorded. Procedures None recorded. Surgeries None recorded. Imaging None recorded. Medication Orders ketorolac 30 mg/mL (1 mL) injection solution 2021 022 [id number], [address] [place], [address], 13:13:36 Patient TargetsNo targets recorded. Patient InstructionsNo instructions recorded. Reason for Referral None Reported. Results Created Date Observation Date Name Description Value Unit Range Abnormal Flag Note LastModifiedBy Organization Detail LastModifiedTime 12/15/1912/14/2021 urina lysis , dipst ick Appearance clear Not Available [facility] [address] [place], [address], 12/14/2021 11:51:02 12/15/1912/14/2021 urina lysis , dipst ick Color yellow Not Available [facility] - Home [address] [place], [address], 12/14/2021 11:51:02 12/15/19 22 12/14/2021 urina lysis , dipst ick Glucose (ref: neg) Neg Not Available [facility] [address] [place], [address], 12/14/2021 11:51:02 12/15/19 22 12/14/2021 urina lysis , dipst ick Bilirubin (ref: neg) Neg Not Available [facility] [address] [place], [address], 12/14/2021 11:51:02 12/15/19 22 12/14/2021 urina lysis , dipst ick Ketones (ref: neg) Neg Not Available [facility] - Home [address] [place], [address], 12/14/2021 11:51:02 12/15/19 22 12/14/2021 urina lysis , dipst ick Specific Fonda (ref: 1.003 - 1.035) 1.020 Not Available [facility] [address] [place], [address], 12/14/2021 11:51:02 12/15/19 22 12/14/2021 urina lysis , dipst ick Blood (ref: neg) + Not Available [facility] [address] [place], [address], 12/14/2021 11:51:02 12/15/19 22 12/14/2021 urina lysis , dipst ick pH (ref: 5.0-7.0) 6.5 Not Available [place] [address] [place], [address], 12/14/2021 11:51:02 12/15/19 22 12/14/2021 urina lysis , dipst ick Protein (ref: neg) Neg Not Available [address] [place], [address], 12/14/2021 11:51:02 12/15/19 22 12/14/2021 urina lysis , dipst ick Urobilinogen (ref: 0.2-1.0) 0.2 Not Available [address] [place], [address], 12/14/2021 11:51:02 12/15/19 22 12/14/2021 urina lysis , dipst ick Nitrites (ref: neg) negati ve Not Available [address] [place], [address], 12/14/2021 11:51:02 12/15/19 22 12/14/2021 urina lysis , dipst ick Leukocytes (ref: neg) Neg Not Available [address] [place], [address], 12/14/2021 11:51:02 Result Notes None recorded. Medical Equipment None Reported. Allergies Allergen ID Allergen Name Allergen Category Reaction Reaction Severity Criticality Documentation Date Start Date Code Code System Note Provider Name and Address Organization Details Recorded Time 961387 Tylenol medicatio n Not available Not available Not available 12/14/2021 17596 3 RxNorm JANNIE SHAH, RN [facility] [address], [place], [address], [place] [facility] 11:39:31 699671 aspirin medicatio n vomiting Not available Not available 12/14/2021 1191 RxNorm JANNIE FIERROIN, RN HOSP[facility] [address], [place], [address], [place] [facility] 2 11:39:44 880576 ibuprofen medicatio n vomiting Not available Not available 12/14/2021 5640 RxNorm JANNIE FIERROIN, RN H[facility] [address], [place], [address], [place] [facility] 2 11:40:01 741417 trazodone medicatio n headache Not available Not available 12/14/2021 71461 RxNorm JANNIE FIERROIN, RN HOSP[facility] [address], [place], [address], [place] [facility] 2 11:40:23 043540 honey bee venom medicatio n Not available Not available Not available 12/14/2021 02885 7 RxNorm JANNIE SHAH, RN [facility] [address], [facility] [place], [address], [place] [facility] 2 11:42:13 Medications Name Sig Start Date Stop Date Status Note LastModified by Organization Details LastModified Time carisoprodo l 350 mg tablet active Not Available Not Available Not Available amoxicillin 500 mg capsule active Not Available Not Available Not Available venlafaxine ER 37.5 mg capsule,ext ended release 24 hr active Not Available Not Available Not Available nitrofurant oin macrocrysta l 50 mg capsule 12/14 completed Not Available Not Available Not Available nicotine 14 mg/24 hr daily transdermal patch active Not Available Not Available Not Available tizanidine 2 mg tablet 12/14 completed Not Available Not Available Not Available cefpodoxime 200 mg tablet TAKE 1 TABLET BY MOUTH TWICE A DAY 12/14 completed Not Available Not Available Not Available nicotine (polacrilex ) 2 mg gum active Not Available Not Available N ot Available tizanidine 4 mg tablet 12/14 completed Not Available Not Available Not Available fluconazole 150 mg tablet 12/14 completed Not Available Not Available Not Available phenazopyri dine 200 mg tablet TAKE 1 TABLET BY MOUTH THREE TIMES A DAY active Not Available Not Available No t Available metronidazo le 500 mg tablet active Not Available Not Available Not Available sulfamethox azole 800 mg-trimetho prim 160 mg tablet 12/14 completed Not Available Not Available Not Available omeprazole 40 mg capsule,del ayed release active Not Available Not Available Not Available ketorolac 30 mg/mL (1 mL) injection solution 30 mg IM administe red on scene. Time administe red: 1206 2021 active Not Available Not Available Not Avai lable estradiol 1 mg tablet active Not Available Not Available No t Available tamsulosin 0.4 mg capsule active Not Available Not Available Not Available phenazopyri dine 100 mg tablet active Not Available Not Available Not Available promethazin e 25 mg tablet active Not Available Not Available Not Available nicotine 21 mg/24 hr daily transdermal patch active Not Available Not Available Not Available omeprazole 20 mg capsule,del ayed release active Not Available Not Available Not Available oxybutynin chloride 5 mg tablet active Not Available Not Available No t Available nicotine 7 mg/24 hr daily transdermal patch active Not Available Not Available Not Available oxycodone 5 mg tablet active Not Available Not Available No t Available pregabalin 50 mg capsule active Not Available Not Available Not Available pregabalin 75 mg capsule active Not Available Not Available Not Available pregabalin 100 mg capsule active Not Available Not Available Not Available oxycodone 10 mg tablet active Not Available Not Available Not Available Botox 200 unit injection active Not Available Not Available No t Available Ubrelvy 100 mg tablet active Not Available Not Available No t Available Vitals Date Recorded Heart rate Oxygen saturation Oxygen saturation in Arterial blood by Pulse oximetry Respiratory rate Body temperature Systolic blood pressure Diastolic blood pressure Provider Name and Address Organization Details Last Updated DateTime 2 100 /min 98 % 98 % 16 /min 98.6 [degF] 128 mm[Hg] 86 mm[Hg] Not Available [facility] 11:38:06 Social History None recorded. Functional Status None recorded. Mental Status None recorded. Family History Nothing Reported. Medical History Condition Response Diabetes N Coronary Artery Disease N CHF N Parkinson's Disease N Cancer N Dementia N Stroke N Asthma Y COPD N Depression N Rheumatoid Arthritis N Pulmonary Embolism N Osteoporosis N A-fib N Gynecological HistoryNo gynecological history recorded. Obstetrics History GPAL:G 0 P 0 0 0 0 Past Encounters Encounter ID Performer Location Encounter Start Date Encounter Closed Date Diagnosis/Indication Diagnosis SNOMED-CT Code Diagnosis ICD10 Code [id number] JANNIE SHAH NP [facility] [address] [facility] [address] 12/14/2021 11:30:11 12/14/2021 15:16:26 Left flank pain 293518951 R10.9 History of calculus of kidney 761501620 Z87.442 Health Concerns Section Related Observation LastModified by Organization Detai ls LastModified Time None Recorded Concern Status LastModified by Organization Details LastModified Time None Recorded Advance Directives Directive None Recorded Payers Encounter Date Sequence Insurance Name Policy Number Policy Jorge Covered Member ID Jorge Member ID Guarantor Name 12/14/2021 1 [employer] (MEDICAID REPLACEMENT - HMO) [id number] Melva Tejada [id number] Melva Tejada Notes Date Note Type Note Provider Name and Address Organization Details Recorded Time 12/14/2021 text/html 46 year-old female with history of anxiety, kidney stones, back pain, IBS, who calls to her home for left flank pain. She has been having left flank pain for the past 4-5 days. She has also been having left hip pain for months and pain to the left side ofher body that travels from her left shoulder down her arm and left side of her body. She denies any fevers. She explains she has been seeing specialists for her kidney stones, PCP for pain meds, and has gone to ED for multiple episodes of kidney stones. She has had stents to her kidneys - no stents at this time.She is asking for pain medications to help her through this as she feels this is kidney stone pain again. There have been no fevers, chills, nausea, vomiting. abdominal pain. She feels her abdomen is distended as well. JANNIE SHAH, LEIF [address] [place], [address], [place] [facility] 12/23/2021 13:13:51 OBGyn Episode No OBEpisode recorded.
--- OUTSIDE RECORDS SUMMARY | 2024-03-13 23:10 | XMS_ITS ---
Author Organization [facility] Address [address] [place] [address] Care Team Providers Care Historical Manuscripts Curator Name Role Phone Genesis Bundy CNP Primary Care Prov ider Unavailable Joey Walsh, Kwabena Izaguirre REASON FOR VISIT abd pain Encounters Encounter Location Date Provider Diagnosis [facility] [address] [place] [address] [address] [place] [address] 12/26/2022 Kwabena Cook Jr PLAN OF TREATMENT Next Appt Details Provider Name:Kwabena champagne Jr, 06/12/2024 10:00:00 AM, [address] [place] [address], [address], [place], [address],
--- OUTSIDE RECORDS SUMMARY | 2024-03-13 23:10 | XMS_ITS ---
Author Organization [facility] Address [address] [place] [address] Care Team Providers Care [employer] Electrical Designer Name Role Phone Genesis Bundy CNP Primary Care Prov ider Unavailable Kwabena Cook Jr Unavailable ALLERGIES Allergen (clinical drug ingredient) [...] Orally Active Omeprazole 40 MG 1 capsule 30 minutes before morning meal Orally Once a day for 30 days 12/30/2020 Active Omeprazole 40 MG 1 capsule Orally Twi ce a day for 30 day(s) 06/20/2022 Active Probiotic - as directed Orally Active oxyCODONE HCl 5 MG 1 capsule as needed Orally every 6 hrs Active SOCIAL HISTORY Tobacco Use: Social History Observation Description Date Details (start date - stop date) Current Smoker NA - NA Sex Assigned At : Social History Observation Description Sex Assigned At Unknown Tobacco Use/Smoking Question Answer Notes Patient is a current smoker How often do you smoke cigarettes? every day How many cigarettes a day do you smoke? 11-20 Alcohol Screen Question Answer Notes Did you have a drink containing alcohol in the p ast year? No Points 0 Interpretation Negative VITAL SIGNS BMI 22.85 kg/m2 12/14/2022 Blood pressure systolic 000 mm Hg 12/15/19 23 Blood pressure diastolic 00 mm Hg 023 Height 64.5 in 12/14/2022 Temperature 98.7 degrees Fahrenheit 12/15/19 23 Weight 135.2 lbs 12/14/2022 Weight is down from 167 in M arch. Encounters Encounter Location Date Provider Diagnosis [facility] [address] [place] [address] 12/14/2022 Kwabena Cook Jr Saldivar's esophagus without dysplasia K22.70 ; Gastroesophageal reflux disease without esophagitis K21.9 and Irritable bowel syndrome with both constipation and diarrhea K58.2 ASSESSMENTS Encounter Date Diagnosis Assessment Notes Treatment Notes Treatment Clinical Notes 12/14/2022 Saldivar's esophagus without dysplasia (ICD-10 - K22.70) Saldivar esophagus material was printed 12/14/2022 Gastroesophageal ref lux disease without esophagitis (ICD-10 - K21.9) 12/14/2022 Irritable bowel syndrome with both constipation and diarrhea (ICD-10 - K58.2) PLAN OF TREATMENT Treatment Notes Assessment Notes Saldivar's esophagus without dysplasia Ba rrett esophagus material was printed Next Appt Details Follow Up: 6 Months, Reason: Provider Name:Kwabena champagne Jr, 06/12/2024 10:00:00 AM, [address], [address], [place], [address],
== END 2024-03-13 09:13 | disposition home or self-care (01) ==
PROVIDERS: PCP Internal Medicine; Visit Provider Psychiatry & Neurology Neurology
DX: G43.E19 Chronic migraine with aura, intractable, without status migrainosus (principal)
CPT/HCPCS: 64615

== ENCOUNTER → 2024-03-13 08:42 | Outpatient (BNVA) | payer OTHER, SELFPAY | PROVIDERS: PCP Internal Medicine; Visit Provider Psychiatry & Neurology Neurology | DX: G43.E19 Chronic migraine with aura, intractable, without status migrainosus (principal) | CPT/HCPCS: 64615; 99211; J0585 ==

== ENCOUNTER 2024-04-01 11:54 | Outpatient (AMB) | payer OTHER, SELFPAY ==
--- NOTE | 2024-04-01 11:56 | MHC.OFFVIS ---
Intake Visit Reasons: US review-US 12/28 (Set) Intake Note: Patient is Present for Telephone Follow Up Ultrasound Results Urology Med: Tamsulosin Antibiotic Allergy:None Blood Thinner: None Patient states that she has been having pain in kidney since she had her Ultrasound and Xray done She states there is not much Pain med she can take because it will cause IBS Flare up She wants to avoid going to ER so many times due to the pain Platinumsmith Required: No Accompanied by: Self / Same As Patient Allergies acetaminophen [Tylenol] Allergy (Unknown, Verified 04/01/24 11:58) Vomiting ibuprofen Allergy (Unknown, Verified 04/01/24 11:58) Abdominal Pain metronidazole [Flagyl] Allergy (Unknown, Verified 04/01/24 11:58) Triggers migraines tramadol Allergy (Unknown, Verified 04/01/24 11:58) Triggers migraine trazodone Allergy (Unknown, Verified 04/01/24 11:58) Triggers Migrain aspirin Allergy (Verified 04/01/24 11:58) Vomiting Medication List - Last Reconciled 04/01/24 by Arcenio Fine MD albuterol sulfate 90 mcg/actuation 2 puffs inhalation Q4-6H PRN biotin 10,000 mcg PO DAILY carisoprodol 350 mg PO BID 30 days epinephrine (EpiPen 2-Rajesh) 0.3 mg IM Q4H PRN estradiol 1 mg PO DAILY fluconazole 150 mg orally Start Diflucan after completing Levaquin repeat dose after 2 days lactobacillus combo no.11 (Probiotic) 1 cap PO DAILY levalbuterol tartrate 45 mcg/actuation (Xopenex HFA) 2 inhalations inhalation Q6H omeprazole 20 mg PO DAILY omeprazole 40 mg PO DAILY onabotulinumtoxinA (Botox) 200 units IM ONCE 12 weeks ondansetron 8 mg PO .q8h PRN 5 days oxycodone 5 mg PO .[id number] PRN promethazine 25 mg PO TID PRN tamsulosin 0.4 mg PO BEDTIME 7 days ubrogepant (Ubrelvy) 100 mg orally at onset of migraine, may repeat in 2 hours (max of 200mg per day) PRN; 30 days HPI Comments Details: 04/01/24-- Telehealth - with Video- Melva is followed for kidney stones, renal cysts, complains of persistent flank pain. Discussed renal US results, no hydronephrosis, tiny bilateral renal stones. Will check a CT stone protocol. US Renal: Bilateral renal cortical cysts including Bosniak category 2 cystic lesions are seen, for which no follow-up imaging is recommended. Persistent Bilateral multiple nonobstructing renal calculi. No hydronephrosis. 12/20/2023--status post ESWL 11/08/23--Melva states she still has intermittent flank pain. will schedule renal ultrasound and KUB. 09/13/23--Melva is a 48-year-old female who I have been following due to nephrolithiasis. She had a CT KUB performed on 09/05/2023. I reviewed results no hydronephrosis punctate right kidney stone 8 mm left kidney lower pole stone. The patient has had left flank pain on and off. Plan schedule left ESWL. Eight tablets oxycodone sent to pharmacy for p.r.n. pain 7-10. Patient states unable to take NSAIDs or tramadol as listed under allergies. 08/14/23--Melva is followed for nephrolithiasis, she is s/p Left ESWL on 07/05/23. I have reviewed the recent renal US 08/03/23- bilateral nonobtructing stones and left kidney complex cyst. She states she feels like she is passing a stone, having flank pain, nausea and dysuria. I will send tamsulosin, a few pain meds, antinausea med and empirically place on levaquin. 06/01/23--Melva is a pleasant 47-year-old female patient of . She has a past medical history of migraines, GERD, migraines, cervical radiculopathy, IBS, nephrolithiasis, and vaginal intraepithelial neoplasia. She presents to the office today for follow-up of her nephrolithiasis. In discussion with the patient today she reports since her last visit approximately 4 months ago she has noted herself to have urinate a few stones however did not collect them. She reports having seeked emergency room care through [employer] [facility] for ongoing bilateral flank pain she has been experiencing. Recent CT results reviewed with the patient today. At the lower pole of left kidney 3.3 cm mildly complex cyst Bosniak 2 per radiology report. There are multiple further bilateral benign simple Bosniak 1 appearing bilateral renal cyst for which no imaging follow-up is recommended per radiology report. At the lower pole of the right kidney to adjacent nonobstructing 2 mm calculi are seen. There are approximately 9 nonobstructing left renal calculi the largest at the upper pole measuring 6 mm. In discussion with the patient today she continues to report bilateral flank pain left side greater than right. No CVA tenderness noted bilaterally. Discussed at length further treatment options of nephrolithiasis to include ureteroscopy verses ESWL versus surveillance monitoring. She otherwise denies any bothersome urinary issues. She denies urinary urgency, urinary frequency, incontinence, nocturia, hematuria, dysuria, foul smelling urine, changes to urinary stream, fever, and or chills. She is happy with her current voiding parameters. In office urinalysis results reviewed with the patient today. Patient with a longstanding history of nephrolithiasis requiring surgical intervention with ureteroscopy as well as ESWL in the past with [facility] as well as [facility]. When asked she does endorse to be drinking plenty of water daily. She otherwise offers no other issues or concerns at this time. [facility] Medical History Chronic migraine without aura, intractable, without status migrainosus Chronic migraine without aura History of kidney stones Chronic migraine without aura Vaginal intraepithelial neoplasia GERD (gastroesophageal reflux disease) Migraine Cervical radiculopathy Back pain IBS (irritable bowel syndrome) Nephrolithiasis Surgical History Hx of ovarian cystectomy Hx of cystoscopy Hx of lithotripsy History of vaginal surgery History of partial hysterectomy Social History Household Members: Children Alcohol intake: current Alcohol intake frequency: holidays/special occasions only Patient Tobacco Use Status: Current everyday Tobacco user Tobacco use type: Cigarette Cigarettes Per Day: 10 Years Smoked: 36 years Substance Use Type: Marijuana Current occupational status: disabled Telehealth Telehealth Telehealth Platform: [facility] Location of provider rendering services: practice address Location of patient: address on file Patient Identification confirmed using: Name, : Yes Telehealth method: video Patient verbally consented to treatment: Yes Patient verbally consented to billing insurance company: Yes Results Reviewed Results Reviewed: Date of Service: 12/29/23 US RETROPERITONEAL LIMITED (RENAL ONLY) CLINICAL INFORMATION: Acquired renal cyst. COMPARISON: Ultrasound examination of kidneys on 08/03/2023, CT abdomen and pelvis on 09/05/2023 TECHNIQUE: Ultrasound along with color Doppler imaging and spectral analysis was performed of the kidneys. FINDINGS: RIGHT KIDNEY: 11.5 x 3.7 x 3.2 cm (SAG x AP x TRV). The kidney is normal in size, contour, and echogenicity. Renal cortical thickness is normal. No hydronephrosis. Right upper pole exophytic simple cyst is seen measuring 1.5 x 1.3 x 1.3 cm in size (previously 1.5 cm). A multiseptated complex right upper renal cortical cyst is seen measuring 1.9 x 1.7 x 1.2 cm in size. Multiple echogenic foci are present including mid right renal echogenic foci measuring 0.3 x 0.2 x 0.3 cm; 0.2 x 0.1 cm respectively; upper right renal echogenic foci measuring 0.1 cm in size, 0.2 x 0.1 cm (previously 0.4 cm), upper mid right renal echogenic focus measuring 0.2 x 0.1 cm (previously 0.4 cm). LEFT KIDNEY: 11.7 x 5.1 x 5.2 cm (SAG x AP x TRV). The kidney is normal in size, contour, and echogenicity. Renal cortical thickness is normal. No hydronephrosis. Left mid renal cortical simple cyst is seen measuring 0.7 x 0.6 x 0.8 cm in size. Slightly complex mildly exophytic left mid renal cortical hypoechoic cyst with calcified partial septation measures 2.8 x 2.0 x 2.8 cm in size (previously 2.0 x 3.2 x 2.2 cm). Echogenic foci are seen in mid left kidney measuring 0.5 x 0.2 x 0.4 cm and 0.4 x 0.2 cm respectively (previously up to 0.8 cm). IMPRESSION: 1. Bilateral renal cortical cysts including Bosniak category 2 cystic lesions are seen, for which no follow-up imaging is recommended. However, only one cyst with focal calcification is seen in the right kidney on CT scan of abdomen on 09/05/2023. 2. Persistent Bilateral multiple nonobstructing renal calculi. 3. No hydronephrosis. Date of Service: 09/05/23 EXAMINATION: CT ABDOMEN AND PELVIS WITHOUT CONTRAST CLINICAL INFORMATION: Calculus of kidney, flank pain COMPARISON: 08/03/2023 renal ultrasound TECHNIQUE: Multidetector volumetric imaging was performed from the superior aspect of the liver through the pubic symphysis. Sagittal and coronal reformatted images were obtained on the technologist's workstation. This CT examination was performed using dose optimization techniques as appropriate, variously including the following: *Automated exposure control *Adjustment of mA and/or kV according to patient size (this includes techniques or standardized protocols for targeted exams where dose is matched to indication/reason for exam; i.e. extremities or head) *Use of iterative reconstruction technique DLP: 369 mGy-cm FINDINGS: MANAGER CONTRACT: Nonobstructive bowel pattern. LUNG BASES: The visualized lung bases are unremarkable. LIVER, GALLBLADDER, AND BILIARY TREE: The liver is normal in size, shape, and attenuation. No focal hepatic lesion or biliary ductal dilatation is present. The gallbladder contains sludge with no evidence of radiopaque gallstones, gallbladder wall thickening, or obvious pericholecystic inflammatory changes. PANCREAS: Unremarkable. SPLEEN: Unremarkable. ADRENAL GLANDS: Unremarkable right adrenal gland. 2.1 x 2 cm fat density left adrenal lesion consistent with lipid rich adenoma. No further follow-up recommended. KIDNEYS AND URETERS: The kidneys are normal in size, shape, and attenuation. 1.4 cm right upper pole renal cyst. Multiple left renal cysts, largest in the midpole measures 2.9 cm. Bilateral nonobstructing renal calculi, punctate on the right, 8 mm in the lower pole on the left with Hounsfield units measuring 780. Mild left intrarenal collecting system and proximal ureteral prominence. No hydroureteronephrosis. BLADDER: Under distended but unremarkable. GASTROINTESTINAL TRACT: Moderately distended stomach. No CT evidence of obstruction. Unremarkable diverticulosis without diverticulitis ABDOMINAL WALL: No significant hernia is appreciated. LYMPH NODES: Normal. VASCULAR: Atherosclerotic calcifications nonaneurysmal aorta appear unremarkable inferior vena cava. PELVIC VISCERA: Unremarkable. OSSEOUS STRUCTURES: Unremarkable. CT/CT abdomen pelvis wo IV con IMPRESSION: Bilateral nonobstructing renal calculi, largest in the left lower pole measuring 8 mm. Bilateral renal cysts, largest on the left measuring 2.9 cm. Mild left intrarenal collecting system and proximal left ureteral prominence. No hydroureteronephrosis bilaterally. Diverticulosis without diverticulitis. Gallbladder sludge. Left adrenal lipid rich adenoma. Date of Service: 08/03/23 EXAMINATION: US RETROPERITONEAL LIMITED (RENAL ONLY) CLINICAL INFORMATION: Renal calculus. COMPARISON: CT urogram dated 05/26/2023; renal ultrasound dated 02/03/2023. TECHNIQUE: Real-time imaging of the kidneys. FINDINGS: RIGHT KIDNEY: 11.1 x 6.3 x 5.3 cm (SAG x AP x TRV). The kidney is normal in size, contour, and echogenicity. Renal cortical thickness is normal. No calculi or focal parenchymal solid lesions. No hydronephrosis. At the upper pole, a 4 mm nonobstructing calculus is seen, and at the interpolar aspect, a 4 mm nonobstructing calculus is seen, with twinkle artifact. At the upper pole, a 1.5 cm benign, simple cyst is seen, for which no imaging follow-up is recommended. LEFT KIDNEY: 11.7 x 5.2 x 4.4 cm (SAG x AP x TRV). The kidney is normal in size, contour, and echogenicity. Renal cortical thickness is normal. No focal parenchymal solid lesions. At the upper pole, an 8 mm nonobstructing calculus is seen. At the interpolar aspect, a 9 mm aggregation of calculi is seen. No hydronephrosis. At the interpolar aspect, a 9 mm and 9 mm and 1.5 cm benign, simple cysts are seen. At the lower pole, a 9 mm benign, simple cyst is seen. These require no imaging follow-up. At the lower pole, a 2.0 x 3.2 x 2.2 cm cyst is seen, with septation and wall calcifications. IMPRESSION: 1. There are nonobstructing bilateral renal calculi, as detailed. No hydronephrosis is seen. 2. A 3.2 cm mildly complex left renal lower pole cyst is seen, consistent with the CT appearance of 05/23/2023. This is a likely benign finding, for which no imaging follow-up is recommended. Date of Service: 05/23/23 EXAMINATION: CT ABDOMEN AND PELVIS WITHOUT AND WITH CONTRAST FINDINGS: LUNG BASES: The visualized lung bases are unremarkable. LIVER, GALLBLADDER, AND BILIARY TREE: The liver is normal in size, shape, and attenuation. There is a Pradeep's lobe configuration. A 6 mm low-attenuation probable cyst or benign hemangioma is seen within the left hepatic lobe (4:3), too small for full characterization with CT. No biliary ductal dilatation is present. The gallbladder is unremarkable with no evidence of radiopaque gallstones, gallbladder wall thickening, or obvious pericholecystic inflammatory changes. PANCREAS: Towards the deep margin of the pancreatic tail (4:12), an 8 mm low-attenuation simple cyst is seen, too small to fully characterize with CT. No solid mass, focal enlargement or ductal dilatation is noted. There is no peripancreatic fat stranding or acute fluid collection. SPLEEN: The included portion is unremarkable. ADRENAL GLANDS: The right adrenal gland is unremarkable. The left adrenal gland contains a 2.3 x 1.7 cm benign, fat-containing adenoma with precontrast Hounsfield value of -8.5 units (3:9). KIDNEYS AND URETERS: The kidneys are normal in size, shape, and attenuation. No perinephric stranding. At the lower pole of the left kidney laterally (4:37 and 7:49), a 3.3 x 2.4 x 1.9 cm mildly complex cyst (Bosniak 2) is seen. This shows a fine septation and small punctate wall calcifications. This is a likely benign finding, for which no imaging follow-up is recommended. There are multiple further bilateral benign, simple (Bosniak 1) appearing bilateral renal cysts, which require no imaging follow-up. At the lower pole of the right kidney (3:53 and 54), 2 adjacent nonobstructing 2 mm calculi are seen. There are approximately 9 small nonobstructing left renal calculi, the largest at the upper pole measuring 6 mm (3:23). GASTROINTESTINAL TRACT: The included small and large bowel are unremarkable. The vermiform appendix is not included in the [id number]-ante. ABDOMINAL WALL: No significant hernia is appreciated. LYMPH NODES: Normal. VASCULAR: There is mild aortic atherosclerotic calcification. No aortic aneurysm or dissection is seen. OSSEUS STRUCTURES: Unremarkable. IMPRESSION: 1. A mildly complex (Bosniak 2) cyst is seen at the lower pole the left kidney, with fine septation and wall calcification. This corresponds with the ultrasound finding in question. There is a likely benign finding, for which no imaging follow-up is recommended. 2. There are small nonobstructing bilateral renal calculi. 3. An 8 mm low-attenuation simple appearing cyst is seen posteriorly within the pancreatic tail. Recommend repeat imaging at a one-year interval to ensure stability of this finding. 4. A 6 mm low-attenuation probable cyst or benign hemangioma is seen within the left hepatic lobe. This is of doubtful clinical significance. If of continued clinical concern (i.e., history of hepatocellular disease or known malignancy), this can be further evaluated with ultrasound or MRI. 5. A 2.3 cm benign, fat-containing left adrenal adenoma is seen. Assessment & Plan Assessment & Plan (1) Nephrolithiasis: Code(s): N20.0 - Calculus of kidney Category: Medical (2) Flank pain: Code(s): R10.9 - Unspecified abdominal pain Category: Medical (3) Bilateral kidney stones: Code(s): N20.0 - Calculus of kidney Category: Medical (4) Bilateral renal cysts: Code(s): N28.1 - Cyst of kidney, acquired Category: Medical Plan CT stone protocol Orders: Orders CT abdomen pelvis wo IV con 04/01/24 N20.0 - Calculus of kidney, R10.9 - Unspecified abdominal pain Patient Instructions: The patient had an opportunity to ask questions regarding treatment plan. The patient expressed understanding and agreement with the above treatment plan. The patient is aware they should contact our office by phone for worsening of their current condition or the appearance of new symptoms. Compliance is encouraged with any medications and followup testing that is ordered. It is a privilege to be allowed the opportunity to participate in the urologic care of your patient. If you have any questions or concerns regarding treatment for the above conditions please do not hesitate to contact me. The office telephone contact is [phone]. This note is constructed in part using voice recognition software. While every effort has been made to ensure accuracy storeroom keeper errors may have been included. Yours sincerely, Arcenio Fine MD Coding Level of Care Code Tele Est Pt Level 4 (34954) Diagnoses Nephrolithiasis N20.0 Flank pain R10.9 Bilateral kidney stones N20.0 Bilateral renal cysts N28.1
== END 2024-04-01 13:34 | disposition home or self-care (01) ==
LOC: HO.HUSH 11:54
PROVIDERS: PCP Internal Medicine; Visit Provider Urology
DX: N20.0 Calculus of kidney (principal); R10.9 Unspecified abdominal pain; N28.1 Cyst of kidney, acquired
CPT/HCPCS: 99214

== ENCOUNTER → 2024-04-01 11:54 | Outpatient (BNVA) | payer OTHER, SELFPAY | PROVIDERS: PCP Internal Medicine; Visit Provider Urology ==

== ENCOUNTER 2024-06-07 11:25 | Outpatient (AMB) | payer OTHER, SELFPAY ==
--- NOTE | 2024-06-07 11:22 | MHC.OFFVIS ---
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 She suffers from recurrent renal colic due to small kidney stones. A recent CT scan confirmed non-obstructive small stones. She cannot tolerate Tylenol or NSAIDs for pain management due to IBS-related gastrointestinal issues, influencing dietary intake and weight maintenance. The patient has engaged in self-help strategies like hydration and dietary modifications but remains symptomatic. She complains of persistent pain. Discussed evaluation with 24 hr urine. Urinary Symptoms Review - Reports severe pain during passage of kidney stones - Experiences debilitating nausea during episodes of renal colic - Reports frequent visits to the emergency department due to pain Results - CT scan: 04/25/24--CTAP- Multiple small, non-obstructive renal stones--Kidneys-bilateral renal stones measuring up to 5 mm, bilateral renal cysts 04/01/24-- Telehealth - with Video- Melva is followed for kidney stones, renal cysts, complains of persistent flank pain. Discussed renal US results, no hydronephrosis, tiny bilateral renal stones. Will check a CT stone protocol. US Renal: Bilateral renal cortical cysts including Bosniak category 2 cystic lesions are seen, for which no follow-up imaging is recommended. Persistent Bilateral multiple nonobstructing renal calculi. No hydronephrosis. 12/20/2023--status post ESWL 11/08/23--Melva states she still has intermittent flank pain. will schedule renal ultrasound and KUB. 09/13/23--Melva is a 48-year-old female who I have been following due to nephrolithiasis. She had a CT KUB performed on 09/05/2023. I reviewed results no hydronephrosis punctate right kidney stone 8 mm left kidney lower pole stone. The patient has had left flank pain on and off. Plan schedule left ESWL. Eight tablets oxycodone sent to pharmacy for p.r.n. pain 7-10. Patient states unable to take NSAIDs or tramadol as listed under allergies. 08/14/23--Melva is followed for nephrolithiasis, she is s/p Left ESWL on 07/05/23. I have reviewed the recent renal US 08/03/23- bilateral nonobtructing stones and left kidney complex cyst. She states she feels like she is passing a stone, having flank pain, nausea and dysuria. I will send tamsulosin, a few pain meds, antinausea med and empirically place on levaquin. 06/01/23--Melva is a pleasant 47-year-old female patient of . She has a past medical history of migraines, GERD, migraines, cervical radiculopathy, IBS, nephrolithiasis, and vaginal intraepithelial neoplasia. She presents to the office today for follow-up of her nephrolithiasis. In discussion with the patient today she reports since her last visit approximately 4 months ago she has noted herself to have urinate a few stones however did not collect them. She reports having seeked emergency room care through [facility] for ongoing bilateral flank pain she has been experiencing. Recent CT results reviewed with the patient today. At the lower pole of left kidney 3.3 cm mildly complex cyst Bosniak 2 per radiology report. There are multiple further bilateral benign simple Bosniak 1 appearing bilateral renal cyst for which no imaging follow-up is recommended per radiology report. At the lower pole of the right kidney to adjacent nonobstructing 2 mm calculi are seen. There are approximately 9 nonobstructing left renal calculi the largest at the upper pole measuring 6 mm. In discussion with the patient today she continues to report bilateral flank pain left side greater than right. No CVA tenderness noted bilaterally. Discussed at length further treatment options of nephrolithiasis to include ureteroscopy verses ESWL versus surveillance monitoring. She otherwise denies any bothersome urinary issues. She denies urinary urgency, urinary frequency, incontinence, nocturia, hematuria, dysuria, foul smelling urine, changes to urinary stream, fever, and or chills. She is happy with her current voiding parameters. In office urinalysis results reviewed with the patient today. Patient with a longstanding history of nephrolithiasis requiring surgical intervention with ureteroscopy as well as ESWL in the past with [facility] as well as [facility]. When asked she does endorse to be drinking plenty of water daily. She otherwise offers no other issues or concerns at this time. [facility] Medical History (Updated 07/03/24 @ 12:34 by Tara Fine RN) Pancreatic cyst IBS (irritable bowel syndrome) Saldivar's esophagus Chronic migraine without aura, intractable, without status migrainosus History of kidney stones Vaginal intraepithelial neoplasia GERD (gastroesophageal reflux disease) Migraine Cervical radiculopathy Back pain IBS (irritable bowel syndrome) Nephrolithiasis Surgical History (Updated 07/03/24 @ 12:31 by Tara Fine RN) History of esophagogastroduodenoscopy (EGD) Hx of ovarian cystectomy Hx of cystoscopy Hx of lithotripsy History of vaginal surgery History of partial hysterectomy Social History Household Members: Children Alcohol intake: current Alcohol intake frequency: does not drink Patient Tobacco Use Status: Current everyday Tobacco user Tobacco use type: Cigarette Cigarettes Per Day: 10 Years Smoked: 36 years Substance Use Type: Marijuana Have you been hit, kicked, punched, or otherwise hurt by someone within the past year? If so, by whom?: No Are you DNR?: No Advance Directives: No Advance Directives Information Provided: Yes Patient : No Current occupational status: disabled Review of Systems Const All systems reviewed & are unremarkable except as noted in HPI and below Reports no additional complaints Eyes Reports no additional complaints ENT Reports no additional complaints Card Reports no additional complaints Resp Reports no additional complaints GI Reports no additional complaints Reports as per HPI Musc Reports no additional complaints Skin/Breast Reports system reviewed and no additional complaints, except as documented Neuro Reports no additional complaints Psych Reports no additional complaints Endo Reports no additional complaints Edgar/Lymph Reports no additional complaints Aller/Immun Reports no additional complaints Telehealth Telehealth Telehealth Platform: [facility] Location of provider rendering services: practice address Location of patient: address on file Patient Identification confirmed using: Name, : Yes Telehealth method: video Patient verbally consented to treatment: Yes Patient verbally consented to billing insurance company: Yes Patient informed of any privacy concerns related to visit: Yes Results Reviewed Results Reviewed: 04/25/24--CTAP- Kidneys-bilateral renal stones measuring up to 5 mm, bilateral renal cysts Date of Service: 12/29/23 US RETROPERITONEAL LIMITED (RENAL ONLY) CLINICAL INFORMATION: Acquired renal cyst. COMPARISON: Ultrasound examination of kidneys on 08/03/2023, CT abdomen and pelvis on 09/05/2023 TECHNIQUE: Ultrasound along with color Doppler imaging and spectral analysis was performed of the kidneys. FINDINGS: RIGHT KIDNEY: 11.5 x 3.7 x 3.2 cm (SAG x AP x TRV). The kidney is normal in size, contour, and echogenicity. Renal cortical thickness is normal. No hydronephrosis. Right upper pole exophytic simple cyst is seen measuring 1.5 x 1.3 x 1.3 cm in size (previously 1.5 cm). A multiseptated complex right upper renal cortical cyst is seen measuring 1.9 x 1.7 x 1.2 cm in size. Multiple echogenic foci are present including mid right renal echogenic foci measuring 0.3 x 0.2 x 0.3 cm; 0.2 x 0.1 cm respectively; upper right renal echogenic foci measuring 0.1 cm in size, 0.2 x 0.1 cm (previously 0.4 cm), upper mid right renal echogenic focus measuring 0.2 x 0.1 cm (previously 0.4 cm). LEFT KIDNEY: 11.7 x 5.1 x 5.2 cm (SAG x AP x TRV). The kidney is normal in size, contour, and echogenicity. Renal cortical thickness is normal. No hydronephrosis. Left mid renal cortical simple cyst is seen measuring 0.7 x 0.6 x 0.8 cm in size. Slightly complex mildly exophytic left mid renal cortical hypoechoic cyst with calcified partial septation measures 2.8 x 2.0 x 2.8 cm in size (previously 2.0 x 3.2 x 2.2 cm). Echogenic foci are seen in mid left kidney measuring 0.5 x 0.2 x 0.4 cm and 0.4 x 0.2 cm respectively (previously up to 0.8 cm). IMPRESSION: 1. Bilateral renal cortical cysts including Bosniak category 2 cystic lesions are seen, for which no follow-up imaging is recommended. However, only one cyst with focal calcification is seen in the right kidney on CT scan of abdomen on 09/05/2023. 2. Persistent Bilateral multiple nonobstructing renal calculi. 3. No hydronephrosis. Date of Service: 09/05/23 EXAMINATION: CT ABDOMEN AND PELVIS WITHOUT CONTRAST CLINICAL INFORMATION: Calculus of kidney, flank pain COMPARISON: 08/03/2023 renal ultrasound TECHNIQUE: Multidetector volumetric imaging was performed from the superior aspect of the liver through the pubic symphysis. Sagittal and coronal reformatted images were obtained on the technologist's workstation. This CT examination was performed using dose optimization techniques as appropriate, variously including the following: *Automated exposure control *Adjustment of mA and/or kV according to patient size (this includes techniques or standardized protocols for targeted exams where dose is matched to indication/reason for exam; i.e. extremities or head) *Use of iterative reconstruction technique DLP: 369 mGy-cm FINDINGS: GOLF COURSE ARCHITECT: Nonobstructive bowel pattern. LUNG BASES: The visualized lung bases are unremarkable. LIVER, GALLBLADDER, AND BILIARY TREE: The liver is normal in size, shape, and attenuation. No focal hepatic lesion or biliary ductal dilatation is present. The gallbladder contains sludge with no evidence of radiopaque gallstones, gallbladder wall thickening, or obvious pericholecystic inflammatory changes. PANCREAS: Unremarkable. SPLEEN: Unremarkable. ADRENAL GLANDS: Unremarkable right adrenal gland. 2.1 x 2 cm fat density left adrenal lesion consistent with lipid rich adenoma. No further follow-up recommended. KIDNEYS AND URETERS: The kidneys are normal in size, shape, and attenuation. 1.4 cm right upper pole renal cyst. Multiple left renal cysts, largest in the midpole measures 2.9 cm. Bilateral nonobstructing renal calculi, punctate on the right, 8 mm in the lower pole on the left with Hounsfield units measuring 780. Mild left intrarenal collecting system and proximal ureteral prominence. No hydroureteronephrosis. BLADDER: Under distended but unremarkable. GASTROINTESTINAL TRACT: Moderately distended stomach. No CT evidence of obstruction. Unremarkable diverticulosis without diverticulitis ABDOMINAL WALL: No significant hernia is appreciated. LYMPH NODES: Normal. VASCULAR: Atherosclerotic calcifications nonaneurysmal aorta appear unremarkable inferior vena cava. PELVIC VISCERA: Unremarkable. OSSEOUS STRUCTURES: Unremarkable. CT/CT abdomen pelvis wo IV con IMPRESSION: Bilateral nonobstructing renal calculi, largest in the left lower pole measuring 8 mm. Bilateral renal cysts, largest on the left measuring 2.9 cm. Mild left intrarenal collecting system and proximal left ureteral prominence. No hydroureteronephrosis bilaterally. Diverticulosis without diverticulitis. Gallbladder sludge. Left adrenal lipid rich adenoma. Date of Service: 08/03/23 EXAMINATION: US RETROPERITONEAL LIMITED (RENAL ONLY) CLINICAL INFORMATION: Renal calculus. COMPARISON: CT urogram dated 05/26/2023; renal ultrasound dated 02/03/2023. TECHNIQUE: Real-time imaging of the kidneys. FINDINGS: RIGHT KIDNEY: 11.1 x 6.3 x 5.3 cm (SAG x AP x TRV). The kidney is normal in size, contour, and echogenicity. Renal cortical thickness is normal. No calculi or focal parenchymal solid lesions. No hydronephrosis. At the upper pole, a 4 mm nonobstructing calculus is seen, and at the interpolar aspect, a 4 mm nonobstructing calculus is seen, with twinkle artifact. At the upper pole, a 1.5 cm benign, simple cyst is seen, for which no imaging follow-up is recommended. LEFT KIDNEY: 11.7 x 5.2 x 4.4 cm (SAG x AP x TRV). The kidney is normal in size, contour, and echogenicity. Renal cortical thickness is normal. No focal parenchymal solid lesions. At the upper pole, an 8 mm nonobstructing calculus is seen. At the interpolar aspect, a 9 mm aggregation of calculi is seen. No hydronephrosis. At the interpolar aspect, a 9 mm and 9 mm and 1.5 cm benign, simple cysts are seen. At the lower pole, a 9 mm benign, simple cyst is seen. These require no imaging follow-up. At the lower pole, a 2.0 x 3.2 x 2.2 cm cyst is seen, with septation and wall calcifications. IMPRESSION: 1. There are nonobstructing bilateral renal calculi, as detailed. No hydronephrosis is seen. 2. A 3.2 cm mildly complex left renal lower pole cyst is seen, consistent with the CT appearance of 05/23/2023. This is a likely benign finding, for which no imaging follow-up is recommended. Date of Service: 05/23/23 EXAMINATION: CT ABDOMEN AND PELVIS WITHOUT AND WITH CONTRAST FINDINGS: LUNG BASES: The visualized lung bases are unremarkable. LIVER, GALLBLADDER, AND BILIARY TREE: The liver is normal in size, shape, and attenuation. There is a Pradeep's lobe configuration. A 6 mm low-attenuation probable cyst or benign hemangioma is seen within the left hepatic lobe (4:3), too small for full characterization with CT. No biliary ductal dilatation is present. The gallbladder is unremarkable with no evidence of radiopaque gallstones, gallbladder wall thickening, or obvious pericholecystic inflammatory changes. PANCREAS: Towards the deep margin of the pancreatic tail (4:12), an 8 mm low-attenuation simple cyst is seen, too small to fully characterize with CT. No solid mass, focal enlargement or ductal dilatation is noted. There is no peripancreatic fat stranding or acute fluid collection. SPLEEN: The included portion is unremarkable. ADRENAL GLANDS: The right adrenal gland is unremarkable. The left adrenal gland contains a 2.3 x 1.7 cm benign, fat-containing adenoma with precontrast Hounsfield value of -8.5 units (3:9). KIDNEYS AND URETERS: The kidneys are normal in size, shape, and attenuation. No perinephric stranding. At the lower pole of the left kidney laterally (4:37 and 7:49), a 3.3 x 2.4 x 1.9 cm mildly complex cyst (Bosniak 2) is seen. This shows a fine septation and small punctate wall calcifications. This is a likely benign finding, for which no imaging follow-up is recommended. There are multiple further bilateral benign, simple (Bosniak 1) appearing bilateral renal cysts, which require no imaging follow-up. At the lower pole of the right kidney (3:53 and 54), 2 adjacent nonobstructing 2 mm calculi are seen. There are approximately 9 small nonobstructing left renal calculi, the largest at the upper pole measuring 6 mm (3:23). GASTROINTESTINAL TRACT: The included small and large bowel are unremarkable. The vermiform appendix is not included in the [id number]. ABDOMINAL WALL: No significant hernia is appreciated. LYMPH NODES: Normal. VASCULAR: There is mild aortic atherosclerotic calcification. No aortic aneurysm or dissection is seen. OSSEUS STRUCTURES: Unremarkable. IMPRESSION: 1. A mildly complex (Bosniak 2) cyst is seen at the lower pole the left kidney, with fine septation and wall calcification. This corresponds with the ultrasound finding in question. There is a likely benign finding, for which no imaging follow-up is recommended. 2. There are small nonobstructing bilateral renal calculi. 3. An 8 mm low-attenuation simple appearing cyst is seen posteriorly within the pancreatic tail. Recommend repeat imaging at a one-year interval to ensure stability of this finding. 4. A 6 mm low-attenuation probable cyst or benign hemangioma is seen within the left hepatic lobe. This is of doubtful clinical significance. If of continued clinical concern (i.e., history of hepatocellular disease or known malignancy), this can be further evaluated with ultrasound or MRI. 5. A 2.3 cm benign, fat-containing left adrenal adenoma is seen. Assessment & Plan Assessment & Plan (1) Nephrolithiasis: Code(s): N20.0 - Calculus of kidney Category: Medical (2) Flank pain: Code(s): R10.9 - Unspecified abdominal pain Category: Medical (3) Bilateral kidney stones: Code(s): N20.0 - Calculus of kidney Category: Medical (4) Bilateral renal cysts: Code(s): N28.1 - Cyst of kidney, acquired Category: Medical Plan Plan - Take Flomax as prescribed to help with stone passage. - Use oxycodone responsibly and only as needed for severe pain. - Use prescribed antiemetic for nausea management. - Perform the 24-hour urine collection as instructed; start first thing after your morning void and collect for 24 hours. - Stay well-hydrated and adding lemon to your water to prevent future stone formation. - Follow up for any further changes or escalation in symptoms. - Contact the office if you experience new or worsening symptoms. Medications: New oxycodone Partial Fill upon patient request. 5 mg PO Q6-8H PRN 6 tabs 0RF pain Refilled tamsulosin 0.4 mg PO BEDTIME 30 caps 2RF 7 days Coding Level of Care Code Tele Est Pt Level 4 (81905) Complex EM visit Add On G2211 Diagnoses Nephrolithiasis N20.0 Flank pain R10.9 Bilateral kidney stones N20.0 Bilateral renal cysts N28.1
--- OUTSIDE RECORDS SUMMARY | 2024-06-07 13:17 | XMS_ITS | Clinical Summary ---
Author Organization [facility] Address [address] [place] [address] Phone Care Team Providers Care Nib Finisher Name Role Phone Genesis Bundy MANPOWER DEVELOPMENT ADVISOR Primary Care Provi west Allergies Active Allergy Reactions Criticality Noted Date Comments Aspirin GI intolerance 04/25/2024 IBS flare Ibuprofen GI intolerance 04/25/2024 Patient states it flares her IBS Acetaminophen GI intolerance 04/25/2024 Patient states she develops IBS symptoms. Medications oxyCODONE (OXY-IR) 5 mg immediate release capsule Take 1 capsule (5 mg total) by mouth every 6 (six) hours if needed for severe pain for up to 6 doses. Max Daily Amount: 20 mg 6 capsule 5 Active ondansetron ODT (ZOFRAN-ODT) 4 mg disintegrating tablet Let 1 tablet dissolve under the tongue three times daily as needed for nausea or vomiting. 20 tablet 5 Active Encounters Date Type Department Care Team Description 04/25/2024 12:14 PM EST - 04/25/2024 5:50 PM EST Emergency [facility] Emergency [address] [place] [address] Flank pain (Primary Dx) Discharge Disposition: Home or Self Care from Last 3 Months Immunizations Name Administration Dates Next Due [facility] SARS-CoV-2 COVID-19, mRNA, LNP-S, preservative free 08/20/2020,07/28/2020 Surgical History Surgery Date Site/Laterality Comments HERNIA REPAIR PROCEDURE:HERNIA REPAIR OVARIAN CYST SURGERY PROCEDURE:OVARIAN CYST SURGERY LITHOTRIPSY PROCEDURE:LITHOTRIPSY COLON BIOPSY PROCEDURE:COLON BIOPSY HYSTERECTOMY PROCEDURE:HYSTERECTOMY Medical History Medical History Date Comments Arthritis DX:Arthritis Asthma DX:Asthma Chronic headaches DX:Chronic hea daches Disease of thyroid gland DX:Dise ase of thyroid gland Depression DX:Depression Anxiety DX:Anxiety PTSD (post-traumatic stress disorder) DX:PTSD (post-traumatic stress disorder) Cyclic vomiting syndrome DX:Cycl ic vomiting syndrome Kidney stones DX:Kidney stones IBS (irritable bowel syndrome) D X:IBS (irritable bowel syndrome) Hernia DX:Hernia Social History Tobacco Use Types Packs/Day Years Used Date Smoking Tobacco: Every Day Cigarettes Smokeless Tobacco: Never Alcohol Use Standard Drinks/Week Comments No 0 (1 standard drink = 0.6 oz pur e alcohol) Comments Unknown Sex and Gender Information Value Date Recorded Sex Assigned at Female 04/25/2024 12:44 PM EST Legal Sex Female 5:44 AM EST Gender Identity Female 04/25/2024 12:44 PM EST Sexual Orientation Choose not to disclose 2024 12:44 PM EST Obstetrics History Last Filed Vital Signs Vital Sign Reading Time Taken Comments Blood Pressure 135/85 04/25/2024 5:05 PM EST Pulse 77 04/25/2024 5:05 PM EST Temperature 36.9 ??C (98.4 ??F) 04/25/2024 12:[address] Respiratory Rate 24 04/25/2024 12:11 PM EST Oxygen Saturation 94% 04/25/2024 5:05 PM EST Inhaled Oxygen Concentration - - Weight 63.5 kg (140 lb) 04/25/2024 12:11 PM EST Height 162.6 cm (5' 4 ) 04/25/2024 12:11 PM EST Body Mass Index 24.03 04/25/2024 12:11 PM EST Plan of Treatment Health Maintenance Due Date Last Done Comments Breast Cancer Screening 1974 Hepatitis A Vaccines (1 of 2 - Risk 2-dose series) 1993 Hepatitis B Vaccines (1 of 3 - 19+ 3-dose series) 1993 Cervical Cancer Screening: Pap Smear 08/14/1995 Pneumococcal Vaccine: Pediatrics (0 to 5 Years) and At-Risk Patients (6 to 64 Years) (2 of 2 - PCV) 08/27/2014 08/27/2013 Cholesterol Screening (Lipid Panel) 03/06/2022 Colorectal Cancer Screening: Colonoscopy 03/06/2022 Depression Screening 03/06/2022 HIV Screening 03/06/2022 Hepatitis C Screening 03/06/2022 Social Influencers of Health Screening 03/06/2022 COVID-19 Vaccine ( season) 2023 05/28/2023, 08/20/2020, 07/28/2020 Influenza Vaccine (#1) 2023 , 01/04/2018, 07/08/2015, Additional history exists DTaP,Tdap,and Td Vaccines (3 - Td or Tdap) 10/10/2033 10/11/2023, 08/27/2013 HIB Vaccines Aged Out No longer eligi ble based on patient's age to complete this topic HPV Vaccines Aged Out No longer eligi ble based on patient's age to complete this topic IPV Vaccines Aged Out No longer eligi ble based on patient's age to complete this topic MMR Vaccines Aged Out No longer eligi ble based on patient's age to complete this topic Meningococcal ACWY Vaccine Aged Out N o longer eligible based on patient's age to complete this topic Meningococcal B Vacine Aged Out No lo nger eligible based on patient's age to complete this topic RSV Immunization Patients Under 20 months Aged Out No longer eligible based on patient's age to complete this topic Varicella Vaccines Aged Out No longer eligible based on patient's age to complete this topic Procedures Procedure Name Priority Date/Time Associated Diagnosis Comments CT LUMBAR SPINE WO CONTRAST STAT 04/25/2024 2:[address] ABDOMEN PELVIS W CONTRAST STAT 04/25/2024 2:01 PM EST ..URINALYSIS MICROSCOPIC REFLEX URINE CULTURE STAT 04/25/2024 12:50 PM EST MAGNESIUM STAT Add-on 04/25/2024 12:50 PM EST URINALYSIS WITH REFLEX MICROSCOPIC AND CULTURE STAT 04/25/2024 12:50 PM EST CBC WITH AUTO DIFFERENTIAL STAT 04/25/2024 12:50 PM EST URINALYSIS WITH REFLEX MICROSCOPIC AND CULTURE STAT 04/25/2024 12:50 PM EST COMPREHENSIVE METABOLIC PANEL STAT 04/25/2024 12:50 PM EST CBC AND DIFFERENTIAL STAT 04/25/2024 12:50 PM EST from Last 3 Months Results * CT Lumbar Spine wo Contrast (04/25/2024 2:05 PM EST) Anatomical Region Laterality Modality Spine, L-spine Computed Tomogra phy 04/25/2024 2:25 PM EST Impressions 04/25/2024 2:27 PM EST Aside from mild facet arthropathy at the L5-S1 level, relatively normal CT imaging of the lumbar spine. Report reviewed and signed by : Dr. Gallito Marshall on 04/25/2024 2:27 PM. Workstation Name - [id number] -------- FINAL REPORT -------- Dictated By: Gallito Marshall Dictated Date: 04/25/2024 14:25 ET Assigned Physician: Gallito Marshall Reviewed and Electronically Signed By: Gallito Marshall Signed Date: 04/25/2024 14:27 ET Workstation ID: [id number] Transcribed By: Self Edit Transcribed Date: 04/25/2024 14:25 ET Narrative 04/25/2024 2:27 PM EST EXAMINATION: CT LUMBAR SPINE WITHOUT CONTRAST CLINICAL INFORMATION: Low back pain. COMPARISON: None. TECHNIQUE: CT of the lumbar spine was without intravenous administration of contrast. This CT examination was performed using dose optimization techniques as appropriate, variously including the following: *Automated exposure control *Adjustment of mA and/or kV according to patient size (this includes techniques or standardized protocols for targeted exams where dose is matched to indication/reason for exam; i.e. extremities or head) *Use of iterative reconstruction technique DLP: 282 mGy-cm. FINDINGS: No acute fracture identified. ??The disc spaces are normally maintained. ??No subluxations evident. ??The central canal and neural foramina are widely patent. ??No large disc protrusion visible. ?? Mild facet arthropathy at the L5-S1 level. ??The facet joints are otherwise normal. ??The paraspinal soft tissues are normal. ??There are mild degenerative changes of the sacroiliac joints. Procedure Note Gallito Marshall MD - 04/25/2024 EXAMINATION: CT LUMBAR SPINE WITHOUT CONTRAST CLINICAL INFORMATION: Low back pain. COMPARISON: None. TECHNIQUE: CT of the lumbar spine was without intravenous administration ofcontrast. This CT examination was performed using dose optimization techniques asappropriate, variously including the following: *Automated exposure control *Adjustment of mA and/or kV according to patient size (this includestechniques or standardized protocols for targeted exams where dose ismatched to indication/reason for exam; i.e. extremities or head) *Use of iterative reconstruction technique DLP: 282 mGy-cm. FINDINGS: No acute fracture identified. The disc spaces are normally maintained.No subluxations evident. The central canal and neural foramina are widelypatent. No large disc protrusion visible. Mild facet arthropathy at the L5-S1 level. The facet joints are otherwisenormal. The paraspinal soft tissues are normal. There are milddegenerative changes of the sacroiliac joints. IMPRESSION: Aside from mild facet arthropathy at the L5-S1 level, relatively normal CTimaging of the lumbar spine. Report reviewed and signed by : Dr. Gallito Marshall on 04/25/2024 2:27 PM.Workstation Name - [id number] -------- FINAL REPORT -------- Dictated By: Gallito Marshall Dictated Date: 04/25/2024 14:25 ET Assigned Physician: Gallito Marshall Reviewed and Electronically Signed By: Gallito Marshall Signed Date: 04/25/2024 14:27 ET Workstation ID: [id number] Transcribed By: Self Edit Transcribed Date: 04/25/2024 14:25 ET us Bianca Arreola MANPOWER DEVELOPMENT ADVISOR IMG CT PROCEDURES Final Re sult * CT Abdomen Pelvis w Contrast (04/25/2024 2:01 PM EST) Anatomical Region Laterality Modality Body Computed Tomogra phy 04/25/2024 2:55 PM EST Impressions 04/25/2024 3:05 PM EST 1. Negative for acute process in the abdomen or pelvis. 2. ??Hepatomegaly. 3. ??Noninflamed colonic diverticula. 4. ??Bilateral nonobstructing nephrolithiasis. 5. ??Mild aortic atherosclerosis. Report reviewed and signed by : Dr. Anastacio Riley on 04/25/2024 3:05 PM. Workstation Name - [id number] -------- FINAL REPORT -------- Dictated By: Anastacio Riley Dictated Date: 04/25/2024 14:55 ET Assigned Physician: Anastacio Riley Reviewed and Electronically Signed By: Anastacio Riley Signed Date: 04/25/2024 15:05 ET Workstation ID: [id number] Transcribed By: Self Edit Transcribed Date: 04/25/2024 14:55 ET Narrative 04/25/2024 3:[address] OF THE ABDOMEN AND PELVIS WITH IV CONTRAST CLINICAL HISTORY: Abdominal pain, acute, nonlocalized TECHNIQUE: Serial axial images obtained. Sagittal reconstructed images obtained. Coronal reconstructed images obtained. Exam is performed with 100 mL of Isovue-300 intravenous contrast. Per PQRS, CT exam is performed using one or more of the following dose reduction techniques: Automated exposure control, adjustment of the mA and/or KV according to patient size, or use of iterative reconstruction techniques. COMPARISON: 11/21/2023 FINDINGS: HEART: Normal sized heart. LOWER THORAX: No pleural effusion seen. No consolidation. VISUALIZED CHEST BLANKENSHIP: Visualized chest blankenship are unremarkable. VISCERA: Appearance is unremarkable. VASCULATURE: Mild aortic atherosclerosis. ESOPHAGUS: Visualized portions of the esophagus are unremarkable. STOMACH: Appearance is unremarkable. PANCREAS: Appearance is unremarkable. GALLBLADDER: Appearance is unremarkable. LIVER: Enlarged liver measuring up to 21.1 cm in the craniocaudal dimension. ADRENALS: Stable appearance of the 2.2 cm left adrenal adenoma and 1.8 cm right adrenal adenoma. SPLEEN: Appearance is unremarkable. KIDNEYS: Bilateral nonobstructing renal stones measuring up to 0.5 cm. Benign bilateral renal cysts measuring up to 3.2 cm, which require no follow-up. The largest cyst in the left kidney contains a thin calcified internal septation, compatible with Bosniak 2 classification. BLADDER: Appearance is unremarkable. GENITAL: Status post hysterectomy. SMALL BOWEL: Appearance is unremarkable. Negative for small bowel dilatation. APPENDIX: Normal appendix. COLON: Noninflamed colonic diverticula. ABDOMINAL/PELVIC BLANKENSHIP: Unremarkable. BONES: Appearance is unremarkable. Procedure Note Anastacio Riley MD - 04/25/2024 CT OF THE ABDOMEN AND PELVIS WITH IV CONTRAST CLINICAL HISTORY: Abdominal pain, acute, nonlocalized TECHNIQUE: Serial axial images obtained. Sagittal reconstructed images obtained. Coronal reconstructed images obtained. Exam is performed with 100 mL of Isovue-300 intravenous contrast. Per PQRS, CT exam is performed using one or more of the following dosereduction techniques: Automated exposure control, adjustment of the mAand/or KV according to patient size, or use of iterative reconstructiontechniques. COMPARISON: 11/21/2023 FINDINGS: HEART: Normal sized heart. LOWER THORAX: No pleural effusion seen. No consolidation. VISUALIZED CHEST BLANKENSHIP: Visualized chest blankenship are unremarkable. VISCERA: Appearance is unremarkable. VASCULATURE: Mild aortic atherosclerosis. ESOPHAGUS: Visualized portions of the esophagus are unremarkable. STOMACH: Appearance is unremarkable. PANCREAS: Appearance is unremarkable. GALLBLADDER: Appearance is unremarkable. LIVER: Enlarged liver measuring up to 21.1 cm in the craniocaudaldimension. ADRENALS: Stable appearance of the 2.2 cm left adrenal adenoma and 1.8 cmright adrenal adenoma. SPLEEN: Appearance is unremarkable. KIDNEYS: Bilateral nonobstructing renal stones measuring up to 0.5 cm.Benign bilateral renal cysts measuring up to 3.2 cm, which require nofollow-up. The largest cyst in the left kidney contains a thin calcifiedinternal septation, compatible with Bosniak 2 classification. BLADDER: Appearance is unremarkable. GENITAL: Status post hysterectomy. SMALL BOWEL: Appearance is unremarkable. Negative for small boweldilatation. APPENDIX: Normal appendix. COLON: Noninflamed colonic diverticula. ABDOMINAL/PELVIC BLANKENSHIP: Unremarkable. BONES: Appearance is unremarkable. IMPRESSION: 1. Negative for acute process in the abdomen or pelvis. 2. Hepatomegaly. 3. Noninflamed colonic diverticula. 4. Bilateral nonobstructing nephrolithiasis. 5. Mild aortic atherosclerosis. Report reviewed and signed by : Dr. Anastacio Riley on 04/25/2024 3:05 PM.Workstation Name - [id number] -------- FINAL REPORT -------- Dictated By: Anastacio Riley Dictated Date: 04/25/2024 14:55 ET Assigned Physician: Anastacio Riley Reviewed and Electronically Signed By: Anastacio Riley Signed Date: 04/25/2024 15:05 ET Workstation ID: [id number] Transcribed By: Self Edit Transcribed Date: 04/25/2024 14:55 ET us Bianca Arreola MANPOWER DEVELOPMENT ADVISOR IMG CT PROCEDURES Final Re sult * (ABNORMAL) Urinalysis with reflex microscopic and culture (04/25/2024 12:50 PM EST) Color, Urine Yellow Colorless, Yellow LAB URINALYSIS - AUTOMATED METHOD 04/25/2024 1:27 PM [facility] Clarity, Urine Clear Clear LAB URINALYSIS - AUTOMATED METHOD 04/25/2024 1:27 PM [facility] Specific [place] Urine 1.015 1.005 - 1.030 LAB URINALYSIS - AUTOMATED METHOD 04/25/2024 1:27 PM [facility] pH, Urine 7.5 5.0 - 8.0 pH LAB URINALYSIS - AUTOMATED METHOD 04/25/2024 1:27 PM [facility] Leukocytes, Urine Negative Negative WBCs/mcL LAB URINALYSIS - AUTOMATED METHOD 04/25/2024 1:27 PM [facility] Nitrite, Urine Negative Negative LAB URINALYSIS - AUTOMATED METHOD 04/25/2024 1:27 PM [facility] Protein, Urine Negative Negative mg/dL LAB URINALYSIS - AUTOMATED METHOD 04/25/2024 1:27 PM [facility] Glucose, Urine Negative Negative mg/dL LAB URINALYSIS - AUTOMATED METHOD 04/25/2024 1:27 PM [facility] Ketones, Urine Negative Negative mg/dL LAB URINALYSIS - AUTOMATED METHOD 04/25/2024 1:27 PM [facility] Blood, Urine Trace(A) Negative mg/dL LAB URINALYSIS - AUTOMATED METHOD 04/25/2024 1:27 PM [facility] Urine Urine specimen obtained by clean catch procedure / Unknown Non-blood Collection / Unknown 04/25/2024 12:50 PM EST 04/25/2024 1:06 PM EST us Lis Mary Clifford MD LAB URINE ORDERABLES Final R esult [facility] [address] [place] [address], [place] [phone] * (ABNORMAL) Urinalysis microscopic reflex urine culture (04/25/2024 12:50 PM EST) RBC, Urine 2 0 - 3 /HPF 04/25/2024 2:09 PM [facility] WBC, Urine 1 0 - 5 /HPF 04/25/2024 2:09 PM [facility] Bacteria, Urine 1+(A) None /HPF 04/25/2024 2:09 PM [facility] Squamous Epithelial, Urine 1 0 - 5 /HPF 04/25/2024 2:09 PM [facility] Amorphous Crystals, Urine Trace(A) None /HPF 04/25/2024 2:09 PM [facility] Calcium Oxalate Crystals, Urine Trace(A) None /HPF 04/25/2024 2:09 PM [facility] Urine Urine specimen obtained by clean catch procedure / Unknown Non-blood Collection / Unknown 04/25/2024 12:50 PM EST 04/25/2024 1:06 PM EST us Bertha Clifford MD LAB URINE ORDERABLES Final R esult [facility] [address] [place] [address], [place] [phone] * CBC auto differential (04/25/2024 12:50 PM EST) WBC 6.2 4.0 - 10.5 K/mcL LAB HEMETOLOGY METHOD 04/25/2024 1:12 PM EST [facility] RBC 4.63 4.20 - 5.40 M/mcL LAB HEMETOLOGY METHOD 04/25/2024 1:12 PM [facility] Hemoglobin 13.4 12.5 - 16.0 g/dL LAB HEMETOLOGY METHOD 04/25/2024 1:12 PM [facility] Hematocrit 39.8 37.0 - 47.0 % LAB HEMETOLOGY METHOD 04/25/2024 1:12 PM [facility] MCV 86.0 78.0 - 100.0 FL LAB HEMETOLOGY METHOD 04/25/2024 1:12 PM [facility] MCH 28.9 25.0 - 33.0 pcg LAB HEMETOLOGY METHOD 04/25/2024 1:12 PM [facility] MCHC 33.7 32.0 - 36.0 g/dL LAB HEMETOLOGY METHOD 04/25/2024 1:12 PM [facility] RDW 14.0 12.1 - 16.2 % LAB HEMETOLOGY METHOD 04/25/2024 1:12 PM [facility] Platelets 372 150 - 450 K/mcL LAB HEMETOLOGY METHOD 04/25/2024 1:12 PM [facility] MPV 9.1 7.4 - 11.4 FL LAB HEMETOLOGY METHOD 04/25/2024 1:12 PM [facility] Neutrophils Relative 49.0 44.0 - 74.0 % LAB HEMETOLOGY METHOD 04/25/2024 1:12 PM [facility] Lymphocytes Relative 42.1 20.0 - 48.0 % LAB HEMETOLOGY METHOD 04/25/2024 1:12 PM [facility] Monocytes Relative 7.2 2.0 - 12.0 % LAB HEMETOLOGY METHOD 04/25/2024 1:12 PM [facility] Eosinophils Relative 1.1 0.0 - 6.0 % LAB HEMETOLOGY METHOD 04/25/2024 1:12 PM [facility] Basophils Relative 0.3 0.0 - 2.0 % LAB HEMETOLOGY METHOD 04/25/2024 1:12 PM [facility] Neutrophils Absolute 3.05 1.80 - 7.80 K/mcL LAB HEMETOLOGY METHOD 04/25/2024 1:12 PM [facility] Lymphocytes Absolute 2.63 1.00 - 3.20 K/mcL LAB HEMETOLOGY METHOD 04/25/2024 1:12 PM [facility] Monocytes Absolute 0.45 0.00 - 0.80 K/mcL LAB HEMETOLOGY METHOD 04/25/2024 1:12 PM [facility] Eosinophils Absolute 0.07 0.00 - 0.50 K/mcL LAB HEMETOLOGY METHOD 04/25/2024 1:12 PM [facility] Basophils Absolute <0.03 0.00 - 0.20 K/mcL LAB HEMETOLOGY METHOD 04/25/2024 1:12 PM [facility] Blood Venous blood specimen / Unknown Venipuncture / Unknown 04/25/2024 12:50 PM EST 04/25/2024 1:05 PM EST Bertha Clifford MD LAB BLOOD ORDERABLES Final R esult Performing Organization Address City/[facility]/ZIP Co de Phone Number [facility] [address] [place] [address], [place] [phone] * (ABNORMAL) Magnesium (04/25/2024 12:50 PM EST) Pathologist [facility] Magnesium 1.5(L) 1.7 - 2.8 mg/dL LAB CHEMISTRY METHOD 04/25/2024 1:28 PM EST [facility] Blood Venous blood specimen / Unknown Venipuncture / Unknown 04/25/2024 12:50 PM EST 04/25/2024 1:06 PM EST Bianca Arreola NP LAB BLOOD ORDERABLES Final Result Performing Organization Address City/[facility]/ZIP Co de Phone Number [facility] [address] [place] [address], [place] [phone] * Comprehensive metabolic panel (04/25/2024 12:50 PM EST) [facility] Sodium 139 135 - 145 mmol/L LAB CHEMISTRY METHOD 04/25/2024 1:28 PM EST [facility] Potassium 3.5 3.5 - 5.1 mmol/L LAB CHEMISTRY METHOD 04/25/2024 1:28 PM EST [facility] Chloride 103 98 - 107 mmol/L LAB CHEMISTRY METHOD 04/25/2024 1:28 PM EST [facility] CO2 24 24 - 32 mmol/L LAB CHEMISTRY METHOD 04/25/2024 1:28 PM EST [facility] Anion Gap 12 5 - 14 LAB CHEMISTRY METHOD 04/25/2024 1:28 PM EST [facility] Glucose 104 70 - 199 mg/dL LAB CHEMISTRY METHOD 04/25/2024 1:28 PM [facility] BUN 10 7 - 17 mg/dL LAB CHEMISTRY METHOD 04/25/2024 1:28 PM [facility] Creatinine 0.65 0.50 - 1.00 mg/dL LAB CHEMISTRY METHOD 04/25/2024 1:28 PM [facility] eGFR 108 >=60 mL/min/1. 73m2 LAB CHEMISTRY METHOD 04/25/2024 1:28 PM [facility] Comment:Calculation based on the??Chronic Kidney Disease Epidemiology Collaboration (CKD-EPI) equation refit??without adjustment for race. BUN/Creatinine Ratio 15.4 12.0 - 20.0 LAB CHEMISTRY METHOD 04/25/2024 1:28 PM [facility] Calcium 9.9 8.4 - 10.2 mg/dL LAB CHEMISTRY METHOD 04/25/2024 1:28 PM [facility] AST (SGOT) 17 5 - 40 unit/L LAB CHEMISTRY METHOD 04/25/2024 1:28 PM [facility] ALT (SGPT) 8 7 - 52 unit/L LAB CHEMISTRY METHOD 04/25/2024 1:28 PM [facility] Alkaline Phosphatase 71 34 - 104 unit/L LAB CHEMISTRY METHOD 04/25/2024 1:28 PM [facility] Total Protein 7.3 6.4 - 8.5 g/dL LAB CHEMISTRY METHOD 04/25/2024 1:28 PM [facility] Albumin 4.4 3.5 - 5.0 g/dL LAB CHEMISTRY METHOD 04/25/2024 1:28 PM [facility] Total Bilirubin 0.3 0.3 - 1.0 mg/dL LAB CHEMISTRY METHOD 04/25/2024 1:28 PM [facility] Blood Venous blood specimen / Unknown Venipuncture / Unknown 04/25/2024 12:50 PM EST 04/25/2024 1:06 PM EST Lis Mary Clifford MD LAB BLOOD ORDERABLES Final R esult [facility] [address] [place] [address], [place] [phone] from Last 3 Months Insurance [facility] MEDICAID ADVANTAGE Care Teams Nib Finisher Relationship Specialty Start Date End Date Genesis Bundy NP [address] [place] [address] PCP - General Family Medicine 03/19/24
--- OUTSIDE RECORDS SUMMARY | 2024-06-07 13:17 | XMS_ITS | Patient Health Record ---
Author Organization [facility] Address [address] [place] [phone] Care Team Providers Care Residential Manager Name Role Phone Genesis Bundy CNP Primary Care Prov ider Kwabena Koch Jr Unavailable Allergies Allergen (clinical drug ingredient) Drug/Non Drug Allergy documented on EMR Reaction Allergy Type Onset Date Status tramadol Tramadol HCl Unknown Drug Allergy Acti ve Motrin Unknown Drug Allergy Active aspirin Aspirin Unknown Drug Allergy Active ibuprofen Advil Unknown Drug Allergy Active acetaminophen Tylenol Unknown Drug Allergy Act shaquille trazodone Trazodone HCl Unknown Drug Allergy Act shaquille Reason For Referral No Information Medications Medication SIG (Take, Route, Fr equency, Duration) [...] a day for 30 days 12/30/2020 Active Immunizations Vaccine Route Administration Date Status Comme nts Influenza Unknown 01/02/2020 Administered Influenza Unknown 12/26/2019 Refused Influenza Unknown 06/28/2021 Refused Influenza Unknown 06/14/2023 Refused Social History Tobacco Use: Social History Observation Description Date Details (start date - stop date) Current Smoker NA - NA Tobacco Use/Smoking Question Answer Notes Patient is a current smoker How often do you smoke cigarettes? every day How many cigarettes a day do you smoke? - Alcohol Screen Question Answer Notes Did you have a drink containing alcohol in the p ast year? No Points 0 Interpretation Negative Problems Problem Type SNOMED Code ICD Code Onset Dates Problem Status W/U Status Risk Notes Problem 51763734 Rectal bleeding (K62.5) Active confirmed Problem 349972659 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 Problem 856726060 Gastroesophageal reflux disease without esophagitis (K21.9) Active confirmed Problem 51373689 Pancreatic cyst (K86.2) Active confirmed Problem 82870774 Irritable bowel syndrome with both constipation and diarrhea (K58.2) Active confirmed Vital Signs Temperature 98.4 degrees Fahrenheit 06/14/2023 Blood pressure diastolic 00 mm Hg 06/14/2023 Height 64.5 in 06/14/2023 Blood pressure systolic 000 mm Hg 06/14/2023 Weight 136 lb 8 oz lbs 06/14/2023 BMI 23.07 kg/m2 06/14/2023 Encounters Encounter Location Date Provider Diagnosis [facility] [address] [place] [phone] 06/14/2023 Kwabena Cook Jr Saldivar's esophagus without dysplasia K22.70 ; Irritable bowel syndrome with both constipation and diarrhea K58.2 and Pancreatic cyst K86.2 [facility] [address] [place] [phone] 05/22/2024 Kwabena Cook Jr Assessments Encounter Date Diagnosis (ICD Code) Assessment Notes Treatment Notes Treatment Clinical Notes Section Notes 06/14/2023 Saldivar's esophagus without dysplasia (ICD-10 - K22.70) Saldivar esophagus material was printed At this time, she is doing well. We reviewed the benign nature of most pancreatic cysts. Followup imaging will be obtained in one year. Reflux symptoms are under good control. She will continue omeprazole. She uses promethazine as needed for nausea and we'll continue this. No changes are made in her IBS regimen at this point. Followup will be in one year. 06/14/2023 Irritable bowel syndrome with both constipation and diarrhea (ICD-10 - K58.2) At this time, she is doing well. We reviewed the benign nature of most pancreatic cysts. Followup imaging will be obtained in one year. Reflux symptoms are under good control. She will continue omeprazole. She uses promethazine as needed for nausea and we'll continue this. No changes are made in her IBS regimen at this point. Followup will be in one year. 06/14/2023 Pancreatic cyst (ICD-10 - K86.2) At this time, she is doing well. We reviewed the benign nature of most pancreatic cysts. Followup imaging will be obtained in one year. Reflux symptoms are under good control. She will continue omeprazole. She uses promethazine as needed for nausea and we'll continue this. No changes are made in her IBS regimen at this point. Followup will be in one year. Plan Of Treatment Future Test Test Name Order Date UPPER GI ENDOSCOPY 12/26/2019 COLONOSCOPY 12/26/2019 Next Appt Details Provider Name:Kwabena champagne Jr, 06/12/2024 10:00:00 AM, [address] [place] [address], [address], [place], [address], Insurance Providers Payer Name Payer Address Payer Phone Subscriber Number Group Number Insured Name Patient Relationship to Insured Coverage Start Date Coverage End Date [facility] [address] [place] [phone] [id number] KEVIN MALIK Self - patient is the insured Medical (General) History Medical History History ICD Code IBS, diarrhea [...]
--- OUTSIDE RECORDS SUMMARY | 2024-06-07 13:18 | XMS_ITS ---
Author Organization [facility] Address [address] [place] [address] Care Team Providers Care Carousel Operator Name Role Phone Genesis Bundy CNP Primary Care Prov ider Unavailable Kwabena Cook Jr Unavailable Allergies Allergen (clinical drug ingredient) Drug/Non Drug Allergy documented on EMR Reaction Allergy Type Onset Date Status tramadol Tramadol HCl Unknown Drug Allergy Acti ve Motrin Unknown Drug Allergy Active aspirin Aspirin Unknown Drug Allergy Active ibuprofen Advil Unknown Drug Allergy Active acetaminophen Tylenol Unknown Drug Allergy Act shaquille trazodone Trazodone HCl Unknown Drug Allergy Act shaquille REASON FOR VISIT Patient presents today for abd pain Medications Medication SIG (Take, Route, Fr equency, [...] as needed Orally every 6 hrs Active Immunizations Vaccine Route Administration Date Status Comme nts Influenza Unknown 06/14/2023 Refused Social History Tobacco [...] Problem Status W/U Status Risk Notes Problem 01092872 Pancreatic cyst (K86.2) Active confirmed Vital Signs Temperature 98.4 degrees Fahrenheit 06/14/19 24 Blood pressure systolic 000 mm Hg 06/14/19 24 Blood pressure diastolic 00 mm Hg 024 Height 64.5 in 06/14/2023 Weight 136 lb 8 oz lbs 06/14/2023 BMI 23.07 kg/m2 06/14/2023 Encounters Encounter Location Date Provider Diagnosis [facility] [address] [place] [address] 06/14/2023 Kwabena Cook Jr Saldivar's esophagus without dysplasia K22.70 ; Irritable bowel syndrome with both constipation and diarrhea K58.2 and Pancreatic cyst K86.2 Assessments Encounter Date Diagnosis (ICD Code) Assessment [...] be in one year. Plan Of Treatment Treatment Notes Assessment Notes Saldivar's esophagus without dysplasia Ba rrett esophagus material was printed Next Appt Details Follow Up: 1 Year, Reason: Provider Name:Kwabena champagne Jr, 06/12/2024 10:00:00 AM, [address] [facility], [place] [address], [place], [address], Progress Notes * RASHEED MALIKOB: [birth year] (47 yo F)Acc No.[id number]:06/14/2023 Progress Notes Patient:?KEVIN MALIK Provider:?Kwabena Cook MD :1975???Age:47 Y???Sex:Female D ate:06/14/2023 Address:[address] [place] [address] Pcp:Genesis modi INTEGRITY SPECIALIST Subjective: * Chief Complaints: * ???1. Patient presents today for abd pain. * HPI: ???New symptom(s):? The patient is a pleasant 47-year-old woman who returns today for followup of Saldivar's esophagus and irritable bowel syndrome. Since we saw her last, she's been doing well. She continues on omeprazole 40 mg daily with no dysphagia, hematemesis, or melena. Weight and appetite have been stable. She is up-to-date on Saldivar's esophagus surveillance. ?IBS symptoms have been stable without any issues involving diarrhea or constipation. ?She underwent CT scanning in May for followup of a renal cyst. This showed an 8 mm simple cyst in the pancreas tail. We reviewed this today. Followup imaging is due in one year. She has no complaints of pancreatic issues. * Medical History:?IBS, diarrh ea and constipation., Back pain, Cervical radiculopathy, Nephrolithiasis, Migraines, gastroesophageal reflux disease/Saldivar's esophagus, EGD 01/20, Saldivar's at EG junction, no dysplasia, no H. pylori, five-year followup, Vaginal intraepithelial neoplasia, grade 3, Colonoscopy 01/20 normal, including biopsies, ten-year followup. * Surgical History:?partial hy sterectomy 10/10/17, ovarian cyst 03/1998, Multiple kidney stone procedures . * Family History:?Father: dece ased 53 yrs, lung cancer.?Mother: alive.?Siblings: , brother .? no known hx of colon ca polyps or liver ds. * Social History:?Tobacco Use:?Tobacco Use/Smoking?Patient is a?current smoker,?How often do you smoke cigarettes??every day,?How many cigarettes a day do you smoke??11-20.?Drugs/Alcohol:?Alcohol Screen?Did you have a drink containing alcohol in the past year??No,?Points?0,?Interpretation?Negative.?Miscellaneous:?Marital status: single. 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 * Medications:?Taking oxyCODON E HCl 5 MG Capsule 1 capsule as needed Orally every 6 hrs, Taking Probiotic - Capsule as directed Orally , Taking Vitamin B12 , Taking Carisoprodol 350 MG Tablet Orally , Taking Promethazine HCl 25 MG Tablet 1 tablet as needed Orally every 6 hrs, Taking Omeprazole 40 MG Capsule Delayed Release 1 capsule 30 minutes before morning meal Orally Once a day, Taking Omeprazole 40 MG Capsule Delayed Release 1 capsule Orally Twice a day, Medication List reviewed and reconciled with the patient * Allergies:?Tylenol, Motrin, Aspirin, Advil, Tramadol HCl, Trazodone HCl. Objective: * Vitals:?Wt: 136 lb 8 oz, Ht: 64.5 in, BMI:23.07 Index, BP: 000/00 mm Hg, Temp: 98.4. * Examination: ???General Examination: ???On examination today, she appears well. Skin is anicteric. Lungs are clear. Heart shows regular rate and rhythm. Abdomen is soft without focal mass or tenderness. Extremities are without edema. Assessment: * Assessment: 1.?Saldivar's esophagus witho ut dysplasia - K22.70 (Primary)?2.?Irritable bowel syndrome with both constipation and diarrhea - K58.2?3.?Pancreatic cyst - K86.2? At this time, she is doing w ell. We reviewed the benign nature of most pancreatic cysts. Followup imaging will be obtained in one year. Reflux symptoms are under good control. She will continue omeprazole. She uses promethazine as needed for nausea and we'll continue this. No changes are made in her IBS regimen at this point. Followup will be in one year. Plan: * Treatment: * Immunizations:? Influenza (Not administered - Refused: Patient decision) * Procedure Codes:?3017F COLOR ECTAL CA SCREEN DOC REV, G9902 Pt scrn tbco and id as user, G9745 DOC RSN FOR NOT SCREEN/REC F/U HBP * Follow Up:?1 Year * * Sign off status: Completed true * Provider:?Kwabena Cook MD Date:?0 06/14/2023 Generated for Jorden campbell/Shekhar/eTransmitting on:?06/07/2024 01:17 PM EST History and Physical Notes * HPI (History of Present Illness) Category Sub-Category Detail Notes Category Not es New symptom(s) The patient is a pleasant 47-year-old woman who returns today for followup of Saldivar's esophagus and irritable bowel syndrome. Since we saw her last, she's been doing well. She continues on omeprazole 40 mg daily with no dysphagia, hematemesis, or melena. Weight and appetite have been stable. She is up-to-date on Saldivar's esophagus surveillance. IBS symptoms have been stable without any issues involving diarrhea or constipation. She underwent CT scanning in May for followup of a renal cyst. This showed an 8 mm simple cyst in the pancreas tail. We reviewed this today. Followup imaging is due in one year. She has no complaints of pancreatic issues. Examination Category Sub-Category Detail Notes Category Not es General Examination On exami [facility] today, she appears well. Skin is anicteric. Lungs are clear. Heart shows regular rate and rhythm. Abdomen is soft without focal mass or tenderness. Extremities are without edema.
--- OUTSIDE RECORDS SUMMARY | 2024-06-07 13:18 | XMS_ITS ---
Author Organization [facility] Address [address] [facility] [address] [place] [address] Care Team Providers Care News Library Director Name Role Phone Genesis Bundy CNP Primary Care Prov ider Unavailable Joey Walsh, Kwabena Izaguirre [phone] REASON FOR VISIT r/f request/ promethazine Encounters Encounter Location Date Provider Diagnosis [facility] [address] [facility] [address] [place] [address] 05/22/2024 Kwabena Cook Jr Plan Of Treatment Next Appt Details Provider Name:Kwabena champagne Jr, 06/12/2024 10:00:00 AM, [address] [place] [address], [address], [place], [address], Progress Notes * RASHEED MALIKOB: [birth year] (48 yo F)Acc No.[id number]:05/22/2024 Patient:?KEVIN MALIK :1975???Age:48 Y???Sex:Female Address:[address] [place] [address], [address] * true * Date:? Generated for Evelini shannan/Shekhar/eTransmitting on:?06/07/2024 01:17 PM EST
--- OUTSIDE RECORDS SUMMARY | 2024-06-07 13:18 | XMS_ITS | Clinical Summary ---
Author Organization [facility] Address [address] [place] [address] Care Team Providers Care Oil Tester Name Role Phone Camelia Robles MD Primary Care Provider Allergies Active Allergy Reactions Criticality Noted Date Comments Aspirin 07/05/2022 IBS Metronidazole Other (See Comments) 02/03/2016 headaches Ibuprofen Other (See Comments) 02/03/2016 IBS Tramadol Other (See Comments) 02/03/2016 IBS Trazodone Other (See Comments) 02/03/2016 IBS Acetaminophen Other (See Comments) 02/03/2016 Liver lesions Medications Medication Sig Dispensed Refills Start Date End Date Status topiramate (TOPAMAX) 50 MG tablet Take 50 mg by mouth 2 (two) times a day. 0 Active gabapentin (NEURONTIN) 300 MG capsule Take 300 mg by mouth 3 (three) times a day. 0 Active diazepam (VALIUM) tablet 5 mg Take 5 mg by mouth every 6 (six) hours as needed for anxiety. 0 Active ranitidine (ZANTAC 75) 75 MG tablet Take 75 mg by mouth 2 (two) times a day. 0 Active carisoprodol (SOMA) 350 MG tablet Take 350 mg by mouth 4 (four) times a day as needed for muscle spasms. 0 Active promethazine (PHENERGAN) 12.5 MG tablet Take 25 mg by mouth every 6 (six) hours as needed for nausea. 0 Active SUMAtriptan (IMITREX) 20 MG/ACT nasal spray spray or apply 1 spray (20 mg total) inside Nose daily as needed for migraine. 12 Inhaler 0 02/03/2016 Active prochlorperazine (COMPAZINE) [address] 25 mg rectally every 12 (twelve) hours as needed for nausea. 0 Active metroNIDAZOLE (METROGEL) 0.75 % vaginal gel 0 05/26/2017 Active methocarbamol (ROBAXIN) 750 MG tablet TK 2 TS PO TID PRN 0 11/29/2019 Active promethazine (PHENERGAN) tablet 25 mg TK 1 T PO 4 -6 H PRN FOR NAUSEA 0 11/20/2019 Active SUMAtriptan (IMITREX) 100 MG tablet 0 11/20/2019 Active topiramate (TOPAMAX) 25 MG tablet TK 2 TS PO QD 0 09/23/2019 Active oxybutynin (DITROPAN) 5 MG tablet TK 1 T PO TID PRF STENT DISCOMFORT 0 10/01/2019 Active famotidine (PEPCID) 40 MG tablet TK 1 T PO BID 0 11/29/2019 Active ketorolac (TORADOL) 10 MG tablet Take 1 tablet (10 mg total) by mouth every 6 (six) hours as needed for pain. 20 tablet 0 12/03/2022 Active nitrofurantoin, macrocrystal-monohy drate, (MACROBID) 100 MG capsule Take 1 capsule (100 mg total) by mouth 2 (two) times a day. 14 capsule 0 12/03/2022 Active oxyCODONE (ROXICODONE) 5 MG immediate release tablet Take 1 tablet (5 mg total) by mouth every 4 (four) hours as needed for pain. 15 tablet 0 12/03/2022 Active tamsulosin (FLOMAX) 0.4 MG CAPS Take 1 capsule (0.4 mg total) by mouth daily. 30 capsule 0 12/03/2022 Active Active Problems No known active problems Social History Tobacco Use Types Packs/Day Years Used Date Smoking Tobacco: Every Day Cigarettes 2 Smokeless Tobacco: Never Alcohol Use Standard Drinks/Week Comments No 0 (1 standard drink = 0.6 oz pur e alcohol) Sex and Gender Information Value Date Recorded Sex Assigned at Female 12/17/2019 10:18 AM EDT Gender Identity Not on file Sexual Orientation Not on file Job Start Date Occupation Industry Not on file Not on file Not on file Last Filed Vital Signs Vital Sign Reading Time Taken Comments Blood Pressure 145/90 11/21/2023 12:23 PM EDT Pulse 90 11/21/2023 12:23 PM EDT Temperature 36.7 ??C (98 ??F) 11/21/2023 12:23 PM EDT Respiratory Rate 16 11/21/2023 12:23 PM EDT Oxygen Saturation 98% 11/21/2023 12:23 PM EDT Inhaled Oxygen Concentration - - Weight 61 kg (134 lb 7.7 oz) 11/21/2023 12:23 PM EDT Height 162.6 cm (5' 4 ) 12/03/2022 2:40 PM EDT Body Mass Index 23.08 12/03/2022 2:40 PM EDT Plan of Treatment Health Maintenance Due Date Last Done Comments Hepatitis B Vaccines (1 of 3 - 3-dose series) 1975 Hepatitis C Screening 1974 Depression Screening 1986 BMI Counseling 1992 Preventative Health Evaluation 1992 Tobacco Cessation Counseling 1992 Cervical Cancer Screening (Pap Smear) 08/14/1995 Pneumococcal Vaccine (2 of 2 - PCV) 08/27/2014 08/27/2013 Colon Cancer Screening (Colonoscopy) 08/14/2019 DTap / Tdap / Td (2 - Td or Tdap) 08/28/2023 08/27/2013 COVID-19 Vaccine ( season) 2023 05/28/2023, 08/20/2020, 07/28/2020 Influenza Vaccine (#1) 2023 , 07/08/2015, 01/28/2008, Additional history exists RSV Ped < 20 months Aged Out No longe r eligible based on patient's age to complete this topic Care Teams Oil Tester Relationship Specialty Start Date End Date Camelia Robles MD [address] [place] [address] PCP - General Internal Medicine 02/03/16
--- OUTSIDE RECORDS SUMMARY | 2024-06-07 13:18 | XMS_ITS ---
Author Organization [facility] Address [address] [place] [address] Care Team Providers Care Enrollment Management Coordinator Name Role Phone Genesis Bundy CNP Primary Care Prov ider Zina Cook Jr, Kwabena Izaguirre REASON FOR VISIT abd pain Encounters Encounter Location Date Provider Diagnosis [facility] [address] [facility] [address] [place] [phone] 12/26/2022 Kwabena Cook Jr Plan Of Treatment Next Appt Details Provider Name:Kwabena champagne Jr, 06/12/2024 10:00:00 AM, [address] [place] [address], [address], [place], [address], Progress Notes * RASHEED MALIKOB: [birth year] (48 yo F)Acc No.[id number]:12/26/2022 Progress Notes Patient:?KEVIN MALIK Provider:?Kwabena Cook MD :1975???Age:47 Y???Sex:Female D ate:12/26/2022 Address:[address] [place], [place] [id number] Pcp:Genesis modi CNP Subjective: * Chief Complaints: * ???1. Abd pain. * Medical History:? Objective: * Vitals:? Assessment: Plan: * Treatment: * * The named appointment provid er may or may not be the originator of this progress note, and it is not deemed complete until electronically signed by the appointment provider. Sign off status: Pending * Provider:?Kwabena Cook MD Date:?0 12/26/2022 Generated for Jorden campbell/Shekhar/Jayson on:?06/07/2024 01:17 PM EST
== END 2024-06-07 14:08 | disposition home or self-care (01) ==
LOC: HO.HUSH 11:25
PROVIDERS: PCP Internal Medicine; Visit Provider Urology
DX: N20.0 Calculus of kidney (principal); R10.9 Unspecified abdominal pain; N28.1 Cyst of kidney, acquired
CPT/HCPCS: 99214; G2211

== ENCOUNTER → 2024-06-07 11:25 | Outpatient (BNVA) | payer OTHER, SELFPAY | PROVIDERS: PCP Internal Medicine; Visit Provider Urology ==

== ENCOUNTER 2024-06-11 09:24 | Outpatient (AMB) | payer OTHER, SELFPAY ==
[2024-06-11 09:52] VITALS: BP 124/82; PULSE 92; O2SAT 98; BMI 24.4
--- NOTE | 2024-06-11 09:52 | MHC.OFFVIS ---
Vital Signs 06/11/24 09:52 Height 5 ft 4 in Weight 142 lb BMI 24.4 BP 124/82 Blood Pressure Location Rt brachial Position Sitting Pulse 92 Pulse Source Pulse Oximeter Pulse Oximetry (%) 98 Oxygen Delivery Method Room Air Intake Visit Reasons: Botox Intake Note: Patient presents for botox injection. practice supplied Allergies acetaminophen [Tylenol] Allergy (Unknown, Verified 06/11/24 09:55) Vomiting ibuprofen Allergy (Unknown, Verified 06/11/24 09:55) Abdominal Pain metronidazole [Flagyl] Allergy (Unknown, Verified 06/11/24 09:55) Triggers migraines tramadol Allergy (Unknown, Verified 06/11/24 09:55) Triggers migraine trazodone Allergy (Unknown, Verified 06/11/24 09:55) Triggers Migrain aspirin Allergy (Verified 06/11/24 09:55) Vomiting HPI Comments Details: ? 48 y/o female comes for treatment of migraines with botox. How many migraine days prior to botox- 20 How long do the migraines last-2-3 days Intensity of exqdvpqw-3-23 ER visits related to [id number]-8-7 Effectiveness of botox from last two treatment(s) How many migraine days since receiving treatment:2-3/month Change? in intensity of migraine?decreased Change in frequency of migraine?decreased Change in use of acute medication for migraine?decreased Change in quality of life?improved ER visits related to migraine?none Last treatment- 3 mths ??? Most frequent reported adverse reactions following injection of botox for chronic migraine include neck pain (9%), headache(5%), eyelid ptosis(4%), migraine(4%), muscular weakness(4%), musculuskeletal stiffness(4%), bronchitis(3%), injection site pain (3%), musculoskeletal pain(3%), myalgia(3%), facial par Lot no [id number] expiration July 2026 was diluted with 4 cc of normal saline . ??? Muscles injected- ??? Frontalis 4 sites zygomaticus major 2 sites ??? Procerus 1 site ??? Deputy [employer] [place] Marshal- 2 sites ??? Temporalis- 8 sites ??? Occipitalis- 6 sites ??? Cervical paraspinals- 4 sites ??? Trapezius- 6 sites- 10 units each ??? 5 units each in 31 site ??? Total use- 195units ??? Discarded-5units [facility] Medical History Chronic migraine without aura, intractable, without status migrainosus Chronic migraine without aura History of kidney stones Chronic migraine without aura Vaginal intraepithelial neoplasia GERD (gastroesophageal reflux disease) Migraine Cervical radiculopathy Back pain IBS (irritable bowel syndrome) Nephrolithiasis Surgical History Hx of ovarian cystectomy Hx of cystoscopy Hx of lithotripsy History of vaginal surgery History of partial hysterectomy Social History Household Members: Children Alcohol intake: current Alcohol intake frequency: holidays/special occasions only Patient Tobacco Use Status: Current everyday Tobacco user Tobacco use type: Cigarette Cigarettes Per Day: 10 Years Smoked: 36 years Substance Use Type: Marijuana Current occupational status: disabled Physical Exam Vital Signs: Last Vital Signs Pulse 92 06/11/24 09:52 BP 124/82 06/11/24 09:52 Pulse Ox 98 06/11/24 09:52 Oxygen Delivery Method Room Air 06/11/24 09:52 BMI result Body Mass Index 24.4 Const General: cooperative Orientation/consciousness: patient oriented x3 Resp Effort & Inspection: able to speak in complete sentences Neuro General: patient oriented x3 Psych Mental Status: mental status grossly normal Speech and movement: Clear speech present Affect: normal affect Attitude: cooperative Thought process: Normal thought process present Thought content: Normal thought content present Insight: Fair insight present (Psych) Judgement: Fair judgement present (Psych) Office Procedures Botulinum toxin Injection 40933 - Migraine Procedure code (CPT) selection complete Office Meds onabotulinumtoxinA 200 unit solution for injection Performing Provider: Yuly Bennett MD Performing Location: [facility] Administered by: Yuly Bennett MD on 06/11/24 10:30 Dose Route Admin Location Dispensed Lot Number Expiration Date [facility] Taper Operator 195 unit subcut 200 units [id number] ALLERGAN/BOTOX Comments: see hpi Assessment & Plan Assessment & Plan (1) Chronic migraine without aura, intractable, without status migrainosus: Code(s): G43.719 - Chronic migraine without aura, intractable, without status migrainosus Category: Medical (2) Migraine with aura, intractable, without status migrainosus: Code(s): G43.119 - Migraine with aura, intractable, without status migrainosus Category: Medical Plan Patient tolerated the procedure well she will call with any side effects. Orders: Orders AMB Botulinum toxin Injection Today G43.719 - Chronic migraine without aura, intractable, without status migrainosus Coding Level of Care Code Est Pt Level 1 (84454) Diagnoses Chronic migraine without aura, intractable, without status migrainosus G43.719 Migraine with aura, intractable, without status migrainosus G43.119 CPT Codes Botox Injection - Botox 3: 17535 - Migraine ([id number])
--- OUTSIDE RECORDS SUMMARY | 2024-06-11 10:29 | XMS_ITS ---
Author Organization [facility] Address [address] [place] [address] Care Team Providers Care Bead Supervisor Name Role Phone Genesis Bundy CNP Primary Care Prov ider Zina Cook Jr, Kwabena Izaguirre REASON FOR VISIT abd pain Encounters Encounter Location Date Provider Diagnosis [facility] [address] [facility] [address] [place] [phone] 12/26/2022 Kwabena Cook Jr Plan Of Treatment Next Appt Details Provider Name:Kwabena champagne Jr, 06/12/2024 10:00:00 AM, [address] [place] [address], [address], [place], [address], Progress Notes * RASHEED MALIKOB: [birth year] (48 yo F)Acc No.[id number]:12/26/2022 Progress Notes Patient:?KEVIN MALIK Provider:?Kwabena Cook MD :1975???Age:47 Y???Sex:Female D ate:12/26/2022 Address:[address] [place], [place] [id number] Pcp:Genesis modi CNP Subjective: * Chief Complaints: [...] MD Date:?0 12/26/2022 Generated for Jorden campbell/Shekhar/Jayson on:?06/11/2024 10:29 AM EDT
--- OUTSIDE RECORDS SUMMARY | 2024-06-11 10:29 | XMS_ITS ---
Author Organization [facility] Address [address] [facility] [address] [place] [address] Care Team Providers Care Pomology Teacher Name Role Phone Genesis Bundy CNP Primary Care Prov ider Unavailable Joey Walsh, Kwabena Izaguirre REASON FOR VISIT r/f request/ promethazine Encounters Encounter Location Date Provider Diagnosis [facility] [address] [facility] [address] [place] [address] 05/22/2024 Kwabena Cook Jr Plan Of Treatment Next Appt Details Provider Name:Kwabena champagne Jr, 06/12/2024 10:00:00 AM, [address] [place] [address], [address], [place], [address], Progress Notes * RASHEED MALIKOB: [birth year] (48 yo F)Acc No.[id number]:05/22/2024 Patient:?KEVIN MALIK :1975???Age:48 Y???Sex:Female Address:[address] [place] [address], [address] * true * Date:? Generated for Printi ng/Faabhilashg/eTransmitting on:?06/11/2024 10:29 AM EDT
--- OUTSIDE RECORDS SUMMARY | 2024-06-11 10:30 | XMS_ITS | Patient Health Record ---
Author Organization [facility] Address [address] [place] [address] Care Team Providers Care Laborer Demolition Name Role Phone Genesis Bundy CNP Primary Care Prov ider Kwabena Koch Jr Unavailable [phone] Allergies Allergen (clinical drug ingredient) Drug/Non Drug Allergy documented on EMR Reaction Allergy Type Onset Date Status acetaminophen Tylenol Unknown Drug Allergy Act shaquille trazodone Trazodone HCl Unknown Drug Allergy Act shaquille tramadol Tramadol HCl Unknown Drug Allergy Acti ve Motrin Unknown Drug Allergy Active aspirin Aspirin Unknown Drug Allergy Active ibuprofen Advil Unknown Drug Allergy Active Reason For Referral No Information Medications Medication [...] Problem Status W/U Status Risk Notes Problem 87580057 Rectal bleeding (K62.5) Active confirmed Problem 451863613 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 Problem 670249964 Gastroesophageal reflux disease without esophagitis (K21.9) Active confirmed Problem 04778112 Pancreatic cyst (K86.2) Active confirmed Problem 49681446 Irritable bowel syndrome with both constipation and diarrhea (K58.2) Active confirmed Vital Signs Temperature 98.4 degrees Fahrenheit 06/14/2023 Blood pressure diastolic 00 mm Hg 06/14/2023 Height 64.5 in 06/14/2023 Blood pressure systolic 000 mm Hg 06/14/2023 Weight 136 lb 8 oz lbs 06/14/2023 BMI 23.07 kg/m2 06/14/2023 Encounters Encounter Location Date Provider Diagnosis [facility] [address] [place] [phone] 06/14/2023 Kwabena Cook Jr Saldivar's esophagus without dysplasia K22.70 ; Irritable bowel syndrome with both constipation and diarrhea K58.2 and Pancreatic cyst K86.2 [facility] [address] [place] [phone] 05/22/2024 Kwabena Cook Jr Assessments Encounter Date [...] Provider Name:Kwabena champagne Jr, 06/12/2024 10:00:00 AM, [address] [place] [address], [address], [place], [address], Insurance Providers Payer Name Payer Address Payer Phone Subscriber Number Group Number Insured Name Patient Relationship to Insured Coverage Start Date Coverage End Date [facility] [address] [place] [phone] [id number] KEVIN MLAIK Self - patient is the insured Medical [...]
--- OUTSIDE RECORDS SUMMARY | 2024-06-11 10:30 | XMS_ITS | Clinical Summary ---
Author Organization [facility] Address [address] [place] [address] Phone Care Team Providers Care Assembler Dry Cell And Battery Name Role Phone Genesis Bundy FURNACE LOADER Primary Care Provi west Allergies Active Allergy [...] EST - 04/25/2024 5:50 PM EST Emergency [facility] [address] [place] [address] Flank pain (Primary Dx) Discharge Disposition: Home or Self Care from Last 3 Months Immunizations Name Administration Dates Next Due [facility] SARS-CoV-2 COVID-19, mRNA, LNP-S, preservative free 08/20/2020,07/28/2020 [...] on 04/25/2024 2:27 PM. Workstation Name - [id number] -------- FINAL REPORT -------- Dictated By: Gallito Marshall Dictated Date: 04/25/2024 14:25 ET Assigned Physician: Gallito Marshall Reviewed and Electronically Signed By: Gallito Marshall Signed Date: 04/25/2024 14:27 ET Workstation ID: [id number] Transcribed By: Self Edit Transcribed Date: 04/25/2024 [...] Marshall on 04/25/2024 2:27 PM.Workstation Name - [id number] -------- FINAL REPORT -------- Dictated By: Gallito Marshall Dictated Date: 04/25/2024 14:25 ET Assigned Physician: Gallito Marshall Reviewed and Electronically Signed By: Gallito Marshall Signed Date: 04/25/2024 14:27 ET Workstation ID: [id number] Transcribed By: Self Edit Transcribed Date: 04/25/2024 14:25 ET us Bianca Arreola FURNACE LOADER IMG CT PROCEDURES Final Re sult * [...] on 04/25/2024 3:05 PM. Workstation Name - [id number] -------- FINAL REPORT -------- Dictated By: Anastacio Riley Dictated Date: 04/25/2024 14:55 ET Assigned Physician: Anastacio Riley Reviewed and Electronically Signed By: Anastacio Riley Signed Date: 04/25/2024 15:05 ET Workstation ID: [id number] Transcribed By: Self Edit Transcribed Date: 04/25/2024 [...] Riley on 04/25/2024 3:05 PM.Workstation Name - [id number] -------- FINAL REPORT -------- Dictated By: Anastacio Riley Dictated Date: 04/25/2024 14:55 ET Assigned Physician: Anastacio Riley Reviewed and Electronically Signed By: Anastacio Riley Signed Date: 04/25/2024 15:05 ET Workstation ID: [id number] Transcribed By: Self Edit Transcribed Date: 04/25/2024 14:55 ET us Bianca Arreola FURNACE LOADER IMG CT PROCEDURES Final Re sult * (ABNORMAL) Urinalysis with reflex microscopic and culture (04/25/2024 12:50 PM EST) Color, Urine Yellow Colorless, Yellow LAB URINALYSIS - AUTOMATED METHOD 04/25/2024 1:27 PM [facility] Clarity, Urine Clear Clear LAB URINALYSIS - AUTOMATED METHOD 04/25/2024 1:27 PM [facility] Specific [place] Urine 1.015 1.005 - 1.030 LAB URINALYSIS - AUTOMATED METHOD 04/25/2024 1:27 PM [facility] pH, Urine 7.5 5.0 - 8.0 pH LAB URINALYSIS - AUTOMATED METHOD 04/25/2024 1:27 PM [facility] Leukocytes, Urine Negative Negative WBCs/mcL LAB URINALYSIS - AUTOMATED METHOD 04/25/2024 1:27 PM [facility] Nitrite, Urine Negative Negative LAB URINALYSIS - AUTOMATED METHOD 04/25/2024 1:27 PM [facility] Protein, Urine Negative Negative mg/dL LAB URINALYSIS - AUTOMATED METHOD 04/25/2024 1:27 PM [facility] Glucose, Urine Negative Negative mg/dL LAB URINALYSIS - AUTOMATED METHOD 04/25/2024 1:27 PM [facility] Ketones, Urine Negative Negative mg/dL LAB URINALYSIS - AUTOMATED METHOD 04/25/2024 1:27 PM [facility] Blood, Urine Trace(A) Negative mg/dL LAB URINALYSIS - AUTOMATED METHOD 04/25/2024 1:27 PM [facility] Urine Urine specimen obtained by clean catch procedure / Unknown Non-blood Collection / Unknown 04/25/2024 12:50 PM EST 04/25/2024 1:06 PM EST us Lis Mary Clifford MD LAB URINE ORDERABLES Final R esult [facility] [address] [place] [address], [place] [phone] * (ABNORMAL) Urinalysis microscopic reflex urine culture (04/25/2024 12:50 PM EST) RBC, Urine 2 0 - 3 /HPF 04/25/2024 2:09 PM [facility] WBC, Urine 1 0 - 5 /HPF 04/25/2024 2:09 PM [facility] Bacteria, Urine 1+(A) None /HPF 04/25/2024 2:09 PM [facility] Squamous Epithelial, Urine 1 0 - 5 /HPF 04/25/2024 2:09 PM [facility] Amorphous Crystals, Urine Trace(A) None /HPF 04/25/2024 2:09 PM [facility] Calcium Oxalate Crystals, Urine Trace(A) None /HPF 04/25/2024 2:09 PM [facility] Urine Urine specimen obtained by clean catch procedure / Unknown Non-blood Collection / Unknown 04/25/2024 12:50 PM EST 04/25/2024 1:06 PM EST us Bertha Clifford MD LAB URINE ORDERABLES Final R esult [facility] [address] [place] [address], [place] [phone] * CBC auto differential (04/25/2024 12:50 PM EST) WBC 6.2 4.0 - 10.5 K/mcL LAB HEMETOLOGY METHOD 04/25/2024 1:12 PM EST [facility] RBC 4.63 4.20 - 5.40 M/mcL LAB HEMETOLOGY METHOD 04/25/2024 1:12 PM [facility] Hemoglobin 13.4 12.5 - 16.0 g/dL LAB HEMETOLOGY METHOD 04/25/2024 1:12 PM [facility] Hematocrit 39.8 37.0 - 47.0 % LAB HEMETOLOGY METHOD 04/25/2024 1:12 PM [facility] MCV 86.0 78.0 - 100.0 FL LAB HEMETOLOGY METHOD 04/25/2024 1:12 PM [facility] MCH 28.9 25.0 - 33.0 pcg LAB HEMETOLOGY METHOD 04/25/2024 1:12 PM [facility] MCHC 33.7 32.0 - 36.0 g/dL LAB HEMETOLOGY METHOD 04/25/2024 1:12 PM [facility] RDW 14.0 12.1 - 16.2 % LAB HEMETOLOGY METHOD 04/25/2024 1:12 PM [facility] Platelets 372 150 - 450 K/mcL LAB HEMETOLOGY METHOD 04/25/2024 1:12 PM [facility] MPV 9.1 7.4 - 11.4 FL LAB HEMETOLOGY METHOD 04/25/2024 1:12 PM [facility] Neutrophils Relative 49.0 44.0 - 74.0 % LAB HEMETOLOGY METHOD 04/25/2024 1:12 PM [facility] Lymphocytes Relative 42.1 20.0 - 48.0 % LAB HEMETOLOGY METHOD 04/25/2024 1:12 PM [facility] Monocytes Relative 7.2 2.0 - 12.0 % LAB HEMETOLOGY METHOD 04/25/2024 1:12 PM [facility] Eosinophils Relative 1.1 0.0 - 6.0 % LAB HEMETOLOGY METHOD 04/25/2024 1:12 PM [facility] Basophils Relative 0.3 0.0 - 2.0 % LAB HEMETOLOGY METHOD 04/25/2024 1:12 PM [facility] Neutrophils Absolute 3.05 1.80 - 7.80 K/mcL LAB HEMETOLOGY METHOD 04/25/2024 1:12 PM [facility] Lymphocytes Absolute 2.63 1.00 - 3.20 K/mcL LAB HEMETOLOGY METHOD 04/25/2024 1:12 PM [facility] Monocytes Absolute 0.45 0.00 - 0.80 K/mcL LAB HEMETOLOGY METHOD 04/25/2024 1:12 PM [facility] Eosinophils Absolute 0.07 0.00 - 0.50 K/mcL LAB HEMETOLOGY METHOD 04/25/2024 1:12 PM [facility] Basophils Absolute <0.03 0.00 - 0.20 K/mcL LAB HEMETOLOGY METHOD 04/25/2024 1:12 PM [facility] Blood Venous blood specimen / Unknown Venipuncture / Unknown 04/25/2024 12:50 PM EST 04/25/2024 1:05 PM EST Bertha Clifford MD LAB BLOOD ORDERABLES Final R esult Performing Organization Address City/[facility]/ZIP Co de Phone Number [facility] [address] [place] [address], [place] [phone] * (ABNORMAL) Magnesium (04/25/2024 12:50 PM EST) Pathologist [facility] Magnesium 1.5(L) 1.7 - 2.8 mg/dL LAB CHEMISTRY METHOD 04/25/2024 1:28 PM EST [facility] Blood Venous blood specimen / Unknown Venipuncture / Unknown 04/25/2024 12:50 PM EST 04/25/2024 1:06 PM EST Bianca Arreola NP LAB BLOOD ORDERABLES Final Result Performing Organization Address City/[facility]/ZIP Co de Phone Number [facility] [address] [place] [address], [place] [phone] * Comprehensive metabolic panel (04/25/2024 12:50 PM EST) [facility] Sodium 139 135 - 145 mmol/L LAB CHEMISTRY METHOD 04/25/2024 1:28 PM EST [facility] Potassium 3.5 3.5 - 5.1 mmol/L LAB CHEMISTRY METHOD 04/25/2024 1:28 PM EST [facility] Chloride 103 98 - 107 mmol/L LAB CHEMISTRY METHOD 04/25/2024 1:28 PM EST [facility] CO2 24 24 - 32 mmol/L LAB CHEMISTRY METHOD 04/25/2024 1:28 PM EST [facility] Anion Gap 12 5 - 14 LAB CHEMISTRY METHOD 04/25/2024 1:28 PM EST [facility] Glucose 104 70 - 199 mg/dL LAB CHEMISTRY METHOD 04/25/2024 1:28 PM [facility] BUN 10 7 - 17 mg/dL LAB CHEMISTRY METHOD 04/25/2024 1:28 PM [facility] Creatinine 0.65 0.50 - 1.00 mg/dL LAB CHEMISTRY METHOD 04/25/2024 1:28 PM [facility] eGFR 108 >=60 mL/min/1. 73m2 LAB CHEMISTRY METHOD 04/25/2024 1:28 PM [facility] Comment:Calculation based on the??Chronic Kidney Disease Epidemiology Collaboration (CKD-EPI) equation refit??without adjustment for race. BUN/Creatinine Ratio 15.4 12.0 - 20.0 LAB CHEMISTRY METHOD 04/25/2024 1:28 PM [facility] Calcium 9.9 8.4 - 10.2 mg/dL LAB CHEMISTRY METHOD 04/25/2024 1:28 PM [facility] AST (SGOT) 17 5 - 40 unit/L LAB CHEMISTRY METHOD 04/25/2024 1:28 PM [facility] ALT (SGPT) 8 7 - 52 unit/L LAB CHEMISTRY METHOD 04/25/2024 1:28 PM [facility] Alkaline Phosphatase 71 34 - 104 unit/L LAB CHEMISTRY METHOD 04/25/2024 1:28 PM [facility] Total Protein 7.3 6.4 - 8.5 g/dL LAB CHEMISTRY METHOD 04/25/2024 1:28 PM [facility] Albumin 4.4 3.5 - 5.0 g/dL LAB CHEMISTRY METHOD 04/25/2024 1:28 PM [facility] Total Bilirubin 0.3 0.3 - 1.0 mg/dL LAB CHEMISTRY METHOD 04/25/2024 1:28 PM [facility] Blood Venous blood specimen / Unknown Venipuncture / Unknown 04/25/2024 12:50 PM EST 04/25/2024 1:06 PM EST Lis Mary Clifford MD LAB BLOOD ORDERABLES Final R esult [facility] [address] [place] [address], [place] [phone] from Last 3 Months Insurance [facility] MEDICAID ADVANTAGE Care Teams Assembler Dry Cell And Battery Relationship Specialty Start Date End Date Genesis Bundy NP [address] [place] [address] PCP - General Family Medicine 03/19/24
--- OUTSIDE RECORDS SUMMARY | 2024-06-11 10:30 | XMS_ITS | Clinical Summary ---
Author Organization [facility] Address [address] [place] [address] Care Team Providers Care Electronic Sensing Equipment Assembler Name Role Phone Camelia Robles MD Primary [...] age to complete this topic Care Teams Electronic Sensing Equipment Assembler Relationship Specialty Start Date End Date Camelia Robles MD [address] [place] [address] PCP - General Internal Medicine 02/03/16
--- OUTSIDE RECORDS SUMMARY | 2024-06-11 10:30 | XMS_ITS ---
Author Organization [facility] Address [address] [place] [address] Care Team Providers Care Refinery Operator Crude Unit Name Role Phone Genesis Bundy CNP Primary [...] Active ibuprofen Advil Unknown Drug Allergy Active REASON FOR VISIT Patient presents today for [...] Problem Status W/U Status Risk Notes Problem [id number] Pancreatic cyst (K86.2) Active confirmed Vital Signs Temperature 98.4 degrees Fahrenheit 06/14/19 24 Blood pressure systolic 000 mm Hg 06/14/19 24 Blood pressure diastolic 00 mm Hg 024 Height 64.5 in 06/14/2023 Weight 136 lb 8 oz lbs 06/14/2023 BMI 23.07 kg/m2 06/14/2023 Encounters Encounter Location Date Provider Diagnosis [facility] [address] [place] [address] 06/14/2023 Kwabena Cook Jr Saldivar's esophagus without [...] Name:Kwabena champagne Jr, 06/12/2024 10:00:00 AM, [address] [facility], [place] [address], [place], [address], Progress Notes * RASHEED MALIKOB: [birth year] (47 yo F)Acc No.[id number]:06/14/2023 Progress Notes Patient:?KEVIN MALIK Provider:?Kwabena Cook MD :1975???Age:47 Y???Sex:Female D ate:06/14/2023 Address:[address] [place] [address] Pcp:Genesis modi STAIN SPRAYER Subjective: * Chief Complaints: * ???1. Patient [...] in the past year??No,?Points?0,?Interpretation?Negative.?Miscellaneous:?Marital status: single. 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 * Medications:?Taking oxyCODON E HCl 5 MG [...] MD Date:?0 06/14/2023 Generated for Jorden campbell/Shekhar/eTransmitting on:?06/11/2024 10:29 AM EDT History and Physical Notes * HPI (History [...] Category Not es General Examination On exami [facility] today, she appears well. Skin is anicteric. Lungs are clear. Heart shows regular rate and rhythm. Abdomen is soft without focal mass or tenderness. Extremities are without edema.
== END 2024-06-11 10:24 | disposition home or self-care (01) ==
LOC: HO.HSMS 09:24
PROVIDERS: PCP Internal Medicine; Visit Provider Psychiatry & Neurology Neurology
DX: G43.719 Chronic migraine without aura, intractable, without status migrainosus (principal)
CPT/HCPCS: 64615

== ENCOUNTER → 2024-06-11 09:24 | Outpatient (BNVA) | payer OTHER, SELFPAY | PROVIDERS: PCP Internal Medicine; Visit Provider Psychiatry & Neurology Neurology | DX: G43.719 Chronic migraine without aura, intractable, without status migrainosus (principal); G43.119 Migraine with aura, intractable, without status migrainosus | CPT/HCPCS: 64615; 99211; J0585 ==

== ENCOUNTER 2024-07-05 09:11 | Day surgery (SDC) | payer OTHER, SELFPAY ==
[2024-07-03 12:33] VITALS: BMI 24.0
--- NOTE | 2024-07-04 09:40 | HO.ANESPROP2 ---
Documented by User: Dede Fowler NP 07/04/24 09:40 HPI - Anesthesia Eval Consult details Narrative: 48yo F for Upper Endoscopy PMFSH Active Problems Active Problems: All Active Problems Bilateral renal cysts (Acute) Bilateral kidney stones (Acute) Chronic migraine without aura (Acute) Acquired complex cyst of kidney (Acute) UTI symptoms (Acute) Renal cyst (Acute) Dysuria (Acute) Flank pain (Acute) Migraine with aura, intractable, without status migrainosus (Acute) Myofascial pain (Acute) Chronic migraine without aura (Acute) Numbness and tingling in both hands (Acute) Neck pain (Acute) Chronic migraine without aura, intractable, without status migrainosus (Acute) Nephrolithiasis (Acute) Back pain (Acute) Migraine (Acute) Past Medical History Medical History (Updated 07/03/24 @ 12:34 by Tara Fine RN) Pancreatic cyst IBS (irritable bowel syndrome) Saldivar's esophagus Chronic migraine without aura, intractable, without status migrainosus History of kidney stones Vaginal intraepithelial neoplasia GERD (gastroesophageal reflux disease) Migraine Cervical radiculopathy Back pain IBS (irritable bowel syndrome) Nephrolithiasis Family History Family history of problems with anesthesia: No Surgical History Surgical History (Updated 07/03/24 @ 12:31 by Tara Fine RN) History of esophagogastroduodenoscopy (EGD) Hx of ovarian cystectomy Hx of cystoscopy Hx of lithotripsy History of vaginal surgery History of partial hysterectomy History of Problems with Anesthesia: No Social History Social History Household Members: Children Alcohol intake: current Alcohol intake frequency: does not drink Patient Tobacco Use Status: Current everyday Tobacco user Tobacco use type: Cigarette Cigarettes Per Day: 10 Years Smoked: 36 years Substance Use Type: Marijuana Have you been hit, kicked, punched, or otherwise hurt by someone within the past year? If so, by whom?: No Are you DNR?: No Advance Directives: No Advance Directives Information Provided: Yes Patient : No Current occupational status: disabled Meds Allergies Allergy/AdvReac Type Severity Reaction Status Date / Time acetaminophen [Tylenol] Allergy Intermediate Vomiting Verified 07/03/24 12:32 aspirin Allergy Intermediate Vomiting Verified 07/03/24 12:32 ibuprofen Allergy Intermediate Abdominal Verified 07/03/24 12:32 Pain metronidazole [Flagyl] Allergy Intermediate Triggers Verified 07/03/24 12:32 migraines tramadol Allergy Intermediate Triggers Verified 07/03/24 12:32 migraine trazodone Allergy Intermediate Triggers Verified 07/03/24 12:32 Migrain Home Medications ?Medication ?Instructions ?Recorded ?Confirmed ?Last Taken ?Type albuterol sulfate 90 mcg/actuation 2 puff inhalation Q4-6H PRN 01/22/20 04/01/24 07/05/24 History aerosol inhaler Shortness Of Breath epinephrine 0.3 mg/0.3 mL 0.3 mg IM Q4H PRN Anaphylaxis 04/30/21 04/01/24 Unknown History injection, auto-injector (EpiPen 2-Rajesh) levalbuterol tartrate 45 2 inh inhalation Q6H 04/30/21 04/01/24 Unknown History mcg/actuation aerosol inhaler (Xopenex HFA) biotin 5,000 mcg disintegrating 10,000 mcg PO DAILY 09/29/21 04/01/24 Unknown History tablet promethazine 25 mg tablet 25 mg PO TID PRN Nausea And 08/04/22 07/03/24 07/05/24 History Vomiting omeprazole 40 mg capsule,delayed 40 mg PO DAILY 04/01/24 07/03/24 07/05/24 History release Exam Height,Weight and Vital Signs: Height 5 ft 4.5 in Weight 64.41 kg Assessment and Plan Assessment Anesthesia Assessment: Chart Reviewed Final Anesthetic Review Family History of Problems with Anesthesia: No History of Problems with Anesthesia: No Documented by User: Yas Marshall MD 07/05/24 09:52 [facility] Past Medical History Medical History (Updated 07/03/24 @ 12:34 by Tara Fine RN) Pancreatic cyst IBS (irritable bowel syndrome) Saldivar's esophagus Chronic migraine without aura, intractable, without status migrainosus History of kidney stones Vaginal intraepithelial neoplasia GERD (gastroesophageal reflux disease) Migraine Cervical radiculopathy Back pain IBS (irritable bowel syndrome) Nephrolithiasis Surgical History Surgical History (Updated 07/03/24 @ 12:31 by Tara Fine RN) History of esophagogastroduodenoscopy (EGD) Hx of ovarian cystectomy Hx of cystoscopy Hx of lithotripsy History of vaginal surgery History of partial hysterectomy Social History Social History Household Members: Children Alcohol intake: current Alcohol intake frequency: does not drink Patient Tobacco Use Status: Current everyday Tobacco user Tobacco use type: Cigarette Cigarettes Per Day: 10 Years Smoked: 36 years Substance Use Type: Marijuana Have you been hit, kicked, punched, or otherwise hurt by someone within the past year? If so, by whom?: No Are you DNR?: No Advance Directives: No Advance Directives Information Provided: Yes Patient : No Current occupational status: disabled Meds Allergies Allergy/AdvReac Type Severity Reaction Status Date / Time acetaminophen [Tylenol] Allergy Intermediate Vomiting Verified 07/03/24 12:32 aspirin Allergy Intermediate Vomiting Verified 07/03/24 12:32 ibuprofen Allergy Intermediate Abdominal Verified 07/03/24 12:32 Pain metronidazole [Flagyl] Allergy Intermediate Triggers Verified 07/03/24 12:32 migraines tramadol Allergy Intermediate Triggers Verified 07/03/24 12:32 migraine trazodone Allergy Intermediate Triggers Verified 07/03/24 12:32 Migrain Home Medications ?Medication ?Instructions ?Recorded ?Confirmed ?Last Taken ?Type albuterol sulfate 90 mcg/actuation 2 puff inhalation Q4-6H PRN 01/22/20 04/01/24 07/05/24 History aerosol inhaler Shortness Of Breath epinephrine 0.3 mg/0.3 mL 0.3 mg IM Q4H PRN Anaphylaxis 04/30/21 04/01/24 Unknown History injection, auto-injector (EpiPen 2-Rajesh) levalbuterol tartrate 45 2 inh inhalation Q6H 04/30/21 04/01/24 Unknown History mcg/actuation aerosol inhaler (Xopenex HFA) biotin 5,000 mcg disintegrating 10,000 mcg PO DAILY 09/29/21 04/01/24 Unknown History tablet promethazine 25 mg tablet 25 mg PO TID PRN Nausea And 08/04/22 07/03/24 07/05/24 History Vomiting omeprazole 40 mg capsule,delayed 40 mg PO DAILY 04/01/24 07/03/24 07/05/24 History release Exam Airway Mallampati Class: II TM Dist: >3cm Neck ROM: Full Heart: rrr Lungs: cta Assessment and Plan Assessment Anesthesia Assessment: Anesthesia Plan Discussed Final Anesthetic Review NPO: Yes ASA Class: II Final Preanesthetic Review: No Changes in Pt Med Stat, Meds/Allgs Chart Reviewed and Consent Obtained/Reviewed Patient Risk: Intermediate Procedure Risk: Intermediate Anesthetic Plan Anesthetic Plan: MAC: Disposition: Standard PACU
[2024-07-05 09:34] VITALS: BP 105/76; PULSE 95; RESP 18; TEMP 36.8; O2SAT 96; BMI 24.3
[2024-07-05] MEDS: Lactated Ringers 1,000 ML 100 ML IVCONT (09:54)
--- NOTE | 2024-07-05 10:01 | MHC.SHP ---
Pre-Procedural Eval Section A - 24 Hr Update-Section A only Date of Service: 07/05/24 Section B - Complete if H&P > 30 days Chief Complaint: Saldivar's esophagus without dysplasia Details of Present Illness: see H&P no changes Relevant Family History (Specify if Yes): No Relevant Social History: Tobacco Use Present Medications: see Short Stay Collaborative assessment Medical History: No relevant PMH History of Previous Operations: No relevant previous surgery Allergies: Allergies Allergy/AdvReac Type Severity Reaction Status Date / Time acetaminophen [Tylenol] Allergy Intermediate Vomiting Verified 07/03/24 12:32 aspirin Allergy Intermediate Vomiting Verified 07/03/24 12:32 ibuprofen Allergy Intermediate Abdominal Verified 07/03/24 12:32 Pain metronidazole [Flagyl] Allergy Intermediate Triggers Verified 07/03/24 12:32 migraines tramadol Allergy Intermediate Triggers Verified 07/03/24 12:32 migraine trazodone Allergy Intermediate Triggers Verified 07/03/24 12:32 Migrain Review of Systems Sugical H&P ROS: Negative: Constitution, Cardiovascular, Respiratory, Neurological, Psychiatric, Hem-Onc, Allergic/Immunologic, Gastrointestinal, Genitourinary, Musculoskeletal, Integumentary, Endocrine and Eyes/Ears/Nose/Throat Exam Surgical H&P Exam: Normal: HEENT, Normal: Heart, Normal: Lungs, Normal: Extremities, Normal: Abdomen, Normal: Skin and Normal: Neurological Plan Diagnosis/Plan: Unchanged I have reviewed the history and physical and performed a pertinent physical examination on my patient. No changes have occurred unless specified. Time Spent With Patient Time: Total time managing care of this patient today ____ minutes.
--- NOTE | 2024-07-05 10:29 | PM.OP ---
Brief Operative Note Date of Service: 07/05/24 Pre-op diagnosis: barretts Post-op diagnosis: same Procedure: EGD Surgeon: Kwabena Cook MD Anesthesia: MAC Was an Consumer Marketing Specialist used for this Procedure?: No Estimated blood loss (mL): 2 Pathology: other Condition: stable Disposition: PACU
[2024-07-05 10:34] VITALS: BP 91/62; PULSE 71; RESP 12; TEMP 36.3; O2SAT 100
--- NOTE | 2024-07-05 10:48 | OP_ITS ---
DATE OF SERVICE: 07/05/2024 SURGEON: Kwabena Cook MD INDICATIONS: Saldivar's esophagus. PREOPERATIVE DIAGNOSIS: POSTOPERATIVE DIAGNOSIS: PROCEDURE PERFORMED: Upper endoscopy with biopsy. ESTIMATED BLOOD LOSS: COMPLICATIONS: ANESTHESIA: Medications, monitored anesthesia care. ASSISTANTS: SPECIMENS: DESCRIPTION OF PROCEDURE: History and physical was performed. The risks and benefits of the procedure were explained to the patient. Informed consent was obtained. The patient was placed in the left lateral decubitus position. The Olympus video gastroscope was introduced into the esophagus, stomach, and duodenum. Examination was performed. The scope was removed. She tolerated the procedure well and was transferred to the recovery area in stable condition. FINDINGS: Esophagus: The esophagus showed an irregular EG junction with no raised lesions or ulcerated areas. Biopsies were obtained at this level. There was a sliding hiatal hernia. Stomach: The stomach showed no evidence of masses, ulcers, or polyps. Duodenum: The bulb and 2nd portion were normal. IMPRESSION: Saldivar esophagus. RECOMMENDATION: Follow up biopsy results. MD JOSE Freeman/SUZANL / [id number]
[2024-07-05 10:49] VITALS: BP 100/70; PULSE 78; RESP 16; TEMP 36.3; O2SAT 99
== END 2024-07-05 11:31 | disposition home or self-care (01) ==
PROVIDERS: PCP Internal Medicine; Visit Provider Internal Medicine Gastroenterology
PROC: 0DJ08ZZ Inspection of Upper Intestinal Tract, Via Natural or Artificial Opening Endoscopic (ICD-10-PCS; CPT 43235; principal; 2024-07-05 11:40)
DX: K22.70 Barrett's esophagus without dysplasia (principal); K21.9 Gastro-esophageal reflux disease without esophagitis; K58.2 Mixed irritable bowel syndrome; M54.12 Radiculopathy, cervical region; M54.30 Sciatica, unspecified side; N20.0 Calculus of kidney; G43.909 Migraine, unspecified, not intractable, without status migrainosus; D07.2 Carcinoma in situ of vagina; Z79.899 Other long term (current) drug therapy; Z88.5 Allergy status to narcotic agent; Z88.6 Allergy status to analgesic agent; Z88.8 Allergy status to other drugs, medicaments and biological substances; Z90.710 Acquired absence of both cervix and uterus; F17.210 Nicotine dependence, cigarettes, uncomplicated; Z98.890 Other specified postprocedural states
CPT/HCPCS: 43239; 88305; J1100; J1596; J2003; J2250; J2704

== ENCOUNTER 2024-09-17 09:37 | Outpatient (AMB) | payer OTHER, SELFPAY ==
[2024-09-17 09:45] VITALS: BP 120/78; PULSE 87; O2SAT 98
--- NOTE | 2024-09-17 09:45 | MHC.OFFVIS ---
Vital Signs 09/17/24 09:45 Weight 143 lb BP 120/78 Blood Pressure Location Rt brachial Position Sitting Pulse 87 Pulse Source Pulse Oximeter Pulse Oximetry (%) 98 Oxygen Delivery Method Room Air Intake Visit Reasons: Botox Intake Note: Patient presents for botox injection. practice supplied Allergies acetaminophen [Tylenol] Allergy (Intermediate, Verified 07/03/24 12:32) Vomiting aspirin Allergy (Intermediate, Verified 07/03/24 12:32) Vomiting ibuprofen Allergy (Intermediate, Verified 07/03/24 12:32) Abdominal Pain metronidazole [Flagyl] Allergy (Intermediate, Verified 07/03/24 12:32) Triggers migraines tramadol Allergy (Intermediate, Verified 07/03/24 12:32) Triggers migraine trazodone Allergy (Intermediate, Verified 07/03/24 12:32) Triggers Migrain Medication List - Last Reconciled 09/17/24 by Yuly Bennett MD albuterol sulfate 90 mcg/actuation 2 puffs inhalation Q4-6H PRN biotin 10,000 mcg PO DAILY carisoprodol 350 mg PO BID 30 days epinephrine (EpiPen 2-Rajesh) 0.3 mg IM Q4H PRN fluconazole 150 mg orally Start Diflucan after completing Levaquin repeat dose after 2 days levalbuterol tartrate 45 mcg/actuation (Xopenex HFA) 2 inhalations inhalation Q6H naproxen 500 mg PO BID 14 days omeprazole 40 mg PO DAILY onabotulinumtoxinA (Botox) 200 units IM ONCE 12 weeks ondansetron 8 mg PO .q8h PRN 5 days oxycodone mg PO prednisone 20 mg PO DAILY 5 days promethazine 25 mg PO TID PRN tamsulosin 0.4 mg PO BEDTIME 7 days ubrogepant (Ubrelvy) 100 mg orally at onset of migraine, may repeat in 2 hours (max of 200mg per day) PRN; 30 days HPI Comments Details: ? 49 y/o female comes for treatment of migraines with botox. How many migraine days prior to botox- 20 How long do the migraines last-2-3 days Intensity of aleyzrjn-7-09 ER visits related to igeglcne-6-6 Effectiveness of botox from last two treatment(s) How many migraine days since receiving treatment:2-3/month Change? in intensity of migraine?decreased Change in frequency of migraine?decreased Change in use of acute medication for migraine?decreased Change in quality of life?improved ER visits related to migraine?none Last treatment- 3 mths ??? Most frequent reported adverse reactions following injection of botox for chronic migraine include neck pain (9%), headache(5%), eyelid ptosis(4%), migraine(4%), muscular weakness(4%), musculuskeletal stiffness(4%), bronchitis(3%), injection site pain (3%), musculoskeletal pain(3%), myalgia(3%), facial par Lot no [id number] expiration Jan 2027 was diluted with 4 cc of normal saline . ??? Muscles injected- ??? Frontalis 4 sites zygomaticus major 2 sites ??? Procerus 1 site ??? Order Dispatcher- 2 sites ??? Temporalis- 8 sites ??? Occipitalis- 6 sites ??? Cervical paraspinals- 4 sites ??? Trapezius- 6 sites- 10 units each ??? 5 units each in 31 site ??? Total use- 195units ??? Discarded-5units [facility] Medical History Pancreatic cyst IBS (irritable bowel syndrome) Saldivar's esophagus Chronic migraine without aura, intractable, without status migrainosus History of kidney stones Vaginal intraepithelial neoplasia GERD (gastroesophageal reflux disease) Migraine Cervical radiculopathy Back pain IBS (irritable bowel syndrome) Nephrolithiasis Surgical History History of esophagogastroduodenoscopy (EGD) Hx of ovarian cystectomy Hx of cystoscopy Hx of lithotripsy History of vaginal surgery History of partial hysterectomy Social History Household Members: Children Alcohol intake: current Alcohol intake frequency: does not drink Patient Tobacco Use Status: Current everyday Tobacco user Tobacco use type: Cigarette Cigarettes Per Day: 10 Years Smoked: 36 years Substance Use Type: Marijuana Current occupational status: disabled Physical Exam Vital Signs: Last Vital Signs Pulse 87 09/17/24 09:45 BP 120/78 09/17/24 09:45 Pulse Ox 98 09/17/24 09:45 Oxygen Delivery Method Room Air 09/17/24 09:45 Const General: cooperative Orientation/consciousness: patient oriented x3 Resp Effort & Inspection: able to speak in complete sentences Neuro General: patient oriented x3 Psych Mental Status: mental status grossly normal Speech and movement: Clear speech present Affect: normal affect Attitude: cooperative Thought process: Normal thought process present Thought content: Normal thought content present Insight: Fair insight present (Psych) Judgement: Fair judgement present (Psych) Office Procedures Botulinum toxin Injection 39168 - Migraine Procedure code (CPT) selection complete Office Meds onabotulinumtoxinA 200 unit solution for injection Performing Provider: Yuly Bennett MD Performing Location: [facility] [place] [facility] Administered by: Yuly Bennett MD on 09/17/24 10:12 Dose Route Admin Location Dispensed Lot Number Expiration Date [facility] Rewrite Editor 195 unit subcut 200 units [id number] [employer]ER[employer]/BOTOX Comments: see hpi Assessment & Plan Assessment & Plan (1) Chronic migraine without aura, intractable, without status migrainosus: Code(s): G43.719 - Chronic migraine without aura, intractable, without status migrainosus Category: Medical (2) Migraine with aura, intractable, without status migrainosus: Code(s): G43.119 - Migraine with aura, intractable, without status migrainosus Category: Medical Plan Patient tolerated the procedure well she will call with any side effects. Orders: Orders AMB Botulinum toxin Injection Today G43.709 - Chronic migraine without aura, not intractable, without status migrainosus Medications: New onabotulinumtoxinA 200 units subcut ONCE 1 ea 0RF migraine G43.709 - Chronic migraine without aura, not intractable, without status migrainosus Coding Level of Care Code Est Pt Level 1 (83590) Diagnoses Chronic migraine without aura, intractable, without status migrainosus G43.719 Migraine with aura, intractable, without status migrainosus G43.119 CPT Codes Botox Injection - Botox 3: 89949 - Migraine ([id number])
--- OUTSIDE RECORDS SUMMARY | 2024-09-17 10:30 | XMS_ITS | Data Portability ---
Author Organization [place] [facility] Address [address] [place] [phone] Care Team Providers Care Paving Inspector Name Role Phone MAGNOLIA JUAN JOSE CISNEROS Primary Care Provider Assessment Encounter Date Assessment Date Assessment LastModified [...] Lab urinalysis , dipstick 2021 022 [email or web address] [facility], [address] [place] [address], [phone], 11:54:15 Referral None recorded. Procedures None recorded. Surgeries None recorded. Imaging None recorded. Medication Orders ketorolac 30 mg/mL (1 mL) injection solution 2021 022 [id number], [address] [place], [address], 13:13:36 Patient TargetsNo targets recorded. Patient InstructionsNo instructions recorded. Reason for Referral None Reported. Results Created Date Observation Date Name Description Value Unit Range Abnormal Flag Note LastModifiedBy Organization Detail LastModifiedTime 12/15/1912/14/2021 urina lysis , dipst ick Appearance clear Not Available Spr - [facility] [address] [place], [address], 12/14/2021 11:51:02 12/15/1912/14/2021 urina lysis , dipst ick Color yellow Not Available Spr - Home [address] [place], [address], 12/14/2021 11:51:02 12/15/19 22 12/14/2021 urina lysis , dipst ick Glucose (ref: neg) Neg Not Available [facility] - Home [address] [place], [address], 12/14/2021 11:51:02 12/15/19 22 12/14/2021 urina lysis , dipst ick Bilirubin (ref: neg) Neg Not Available Spr - Home [address] [place], [address], 12/14/2021 11:51:02 12/15/19 22 12/14/2021 urina lysis , dipst ick Ketones (ref: neg) Neg Not Available [facility] - Home [address] [place], [address], 12/14/2021 11:51:02 12/15/19 22 12/14/2021 urina lysis , dipst ick Specific Dennis (ref: 1.003 - 1.035) 1.020 Not Available [facility] [address] [place], [address], 12/14/2021 11:51:02 12/15/19 22 12/14/2021 urina lysis , dipst ick Blood (ref: neg) + Not Available [facility] [address] [place], [address], 12/14/2021 11:51:02 12/15/19 22 12/14/2021 urina lysis , dipst ick pH (ref: 5.0-7.0) 6.5 Not Available [place] [address] [place], [address], 12/14/2021 11:51:02 12/15/19 22 12/14/2021 urina lysis , dipst ick Protein (ref: neg) Neg Not Available [address] [place], [address], 12/14/2021 11:51:02 12/15/19 22 12/14/2021 urina lysis , dipst ick Urobilinogen (ref: 0.2-1.0) 0.2 Not Available [address] [place], [address], 12/14/2021 11:51:02 12/15/19 22 12/14/2021 urina lysis , dipst ick Nitrites (ref: neg) negati ve Not Available [address] [place], [address], 12/14/2021 11:51:02 12/15/19 22 12/14/2021 urina lysis , dipst ick Leukocytes (ref: neg) Neg Not Available [address] [place], [address], 12/14/2021 11:51:02 Result Notes None recorded. Medical Equipment None Reported. Allergies Allergen ID Allergen Name Allergen Category Reaction Reaction Severity Criticality Documentation Date Start Date Code Code System Note Provider Name and Address Organization Details Recorded Time 601831 Tylenol medicatio n Not available Not available Not available 12/14/2021 60263 3 RxNorm JANNIE SHAH, PAPERHANGER APPRENTICE [address], [place], [address], [place] [facility] 11:39:31 087171 aspirin medicatio n vomiting Not available Not available 12/14/2021 1191 RxNorm JANNIE FIERROIN, PAPERHANGER APPRENTICE [address], [place], [address], [place] [facility] 11:39:44 876088 ibuprofen medicatio n vomiting Not available Not available 12/14/2021 5640 RxNorm JANNIE FIERROIN, PAPERHANGER APPRENTICE [address], [place], [address], [place] [facility] 11:40:01 895339 trazodone medicatio n headache Not available Not available 12/14/2021 24886 RxNorm JANNIE FIERROIN, PAPERHANGER APPRENTICE [address], [place], [address], [place] [facility] 11:40:23 580880 honey bee venom medicatio n Not available Not available Not available 12/14/2021 30242 7 RxNorm JANNIE SHAH, PAPERHANGER APPRENTICE [address], [facility] [place], [address], [place] [facility] [...] CHF N Parkinson's Disease N Cancer N Stroke N Dementia N Asthma Y Depression N COPD N Rheumatoid Arthritis N Pulmonary Embolism N A-fib N Osteoporosis N Gynecological HistoryNo gynecological history recorded. Obstetrics History GPAL:G 0 P 0 0 0 0 Past Encounters Encounter ID Performer Location Encounter Start Date Encounter Closed Date Diagnosis/Indication Diagnosis SNOMED-CT Code Diagnosis ICD10 Code Diagnosis Note [id number] JANNIE SHAH NP [facility] [address] [facility] [place] [address] 12/14/2021 11:30:11 12/14/2021 15:16:26 Left flank pain 886508532 R10.9 History of calculus of kidney 161629610 Z87.442 Health Concerns Section Related Observation LastModified by Organization Detai ls LastModified Time None Recorded Concern Status LastModified by Organization Details LastModified Time None Recorded Advance Directives Directive None Recorded Payers Insurance Date Sequence Insurance Name Policy Number Policy Jorge Covered Member ID Jorge Member ID Guarantor Name 12/14/2021 1 *SELF PAY* Melva Tejada [id number] Melva Tejada 12/31/2021 1 [employer] (MEDICAID REPLACEMENT - HMO) [id number] Melva Tejada [id number] Melva Tejada Notes Date Note Type [...] her abdomen is distended as well. JANNIE SHAH NP [address], [place], [address], [place] [facility] 12/23/2021 13:13:51 OBGyn Episode No OBEpisode recorded.
== END 2024-09-17 10:06 | disposition home or self-care (01) ==
LOC: HO.HSMS 09:38
PROVIDERS: PCP Internal Medicine; Visit Provider Psychiatry & Neurology Neurology
DX: G43.719 Chronic migraine without aura, intractable, without status migrainosus (principal)
CPT/HCPCS: 64615

== ENCOUNTER → 2024-09-17 09:37 | Outpatient (BNVA) | payer OTHER, SELFPAY | PROVIDERS: PCP Internal Medicine; Visit Provider Psychiatry & Neurology Neurology | DX: G43.719 Chronic migraine without aura, intractable, without status migrainosus (principal) | CPT/HCPCS: 64615; 99211; J0585 ==

== ENCOUNTER 2024-10-14 10:21 | Outpatient (AMB) | payer OTHER, SELFPAY ==
--- NOTE | 2024-10-14 10:21 | A.OFFVIS_ITS ---
Intake Visit Reasons: [facility] f/u Intake Note: Patient is present via telehealth for litholink follow up * [facility] comp.07/08 Urology Med: Tamsulosin Antibiotic Allergy:None Blood Thinner: None Supervisor Audit Clerks Required: No Accompanied by: Self / Same As Patient Allergies acetaminophen (Tylenol) Allergy (Intermediate, Verified 10/17/24 10:47) Vomiting aspirin Allergy (Intermediate, Verified 10/17/24 10:47) Vomiting ibuprofen Allergy (Intermediate, Verified 10/17/24 10:47) Abdominal Pain metronidazole (Flagyl) Allergy (Intermediate, Verified 10/17/24 10:47) Triggers migraines tramadol Allergy (Intermediate, Verified 10/17/24 10:47) Triggers migraine trazodone Allergy (Intermediate, Verified 10/17/24 10:47) Triggers Migrain Medication List - Last Reconciled 10/14/24 by Arcenio Fine MD albuterol sulfate 90 mcg/actuation 2 puffs inhalation Q4-6H PRN biotin 10,000 mcg PO DAILY carisoprodol 350 mg PO BID 30 days epinephrine (EpiPen 2-Rajesh) 0.3 mg IM Q4H PRN fluconazole 150 mg orally Start Diflucan after completing Levaquin repeat dose after 2 days levalbuterol tartrate 45 mcg/actuation (Xopenex HFA) 2 inhalations inhalation Q6H naproxen 500 mg PO BID 14 days nitrofurantoin monohyd/m-cryst 100 mg (Macrobid) 100 mg PO BID 5 days omeprazole 40 mg PO DAILY onabotulinumtoxinA (Botox) 200 units IM ONCE 12 weeks ondansetron 8 mg PO .q8h PRN 5 days prednisone 20 mg PO DAILY 5 days promethazine 25 mg PO TID PRN tamsulosin 0.4 mg PO BEDTIME 14 days ubrogepant (Ubrelvy) 100 mg orally at onset of migraine, may repeat in 2 hours (max of 200mg per day) PRN; 30 days HPI Comments Details: 10/14/24-Discussed 24 hour urine results collected:07/08/24 Total volume 2.68 L, Calcium 104 mg; Oxalate 36 mg, Citrate 198 mg, Sodium 132. Instructed on increase citrate in diet. History of Present Illness - The patient is a 49-year-old female presenting with kidney stones. - She has a history of urinary frequency and bacteriuria, managed with low-dose medication for bladder stability. - Recurrent kidney stones have been managed with hydration and herbal remedies, including hibiscus flower. - A 24-hour urine collection indicated normal calcium and oxalate excretion but low citrate levels. - Day products recommended for citrate increase cause heartburn, complicating dietary management. - Herbal remedies combined with Tylenol have exacerbated IBS symptoms. Plan - Increase dietary citrate intake through lemon or citrus fruits, considering heartburn management. - Refer to nephrology for comprehensive kidney stone management and potential medical therapy. - Arrange a follow-up telehealth appointment with the nurse practitioner in six months. Results - 24-hour urine collection: Normal calcium and oxalate excretion, low citrate levels (198 mg). 06/07/24-- 48-year-old female presenting with nephrolithiasis. She suffers from recurrent renal colic due to small kidney stones. A recent CT scan confirmed non-obstructive small stones. She cannot tolerate Tylenol or NSAIDs for pain management due to IBS-related gastrointestinal issues, influencing dietary intake and weight maintenance. The patient has engaged in self-help strategies like hydration and dietary modifications but remains symptomatic. She complains of persistent pain. Discussed evaluation with 24 hr urine. Results - CT scan: 04/25/24--CTAP- Multiple small, non-obstructive renal stones--Kidneys- bilateral renal stones measuring up to 5 mm, bilateral renal cysts 04/01/24-- Telehealth - with Video- Melva is followed for kidney stones, renal cysts, complains of persistent flank pain. Discussed renal US results, no hydronephrosis, tiny bilateral renal stones. Will check a CT stone protocol. US Renal: Bilateral renal cortical cysts including Bosniak category 2 cystic lesions are seen, for which no follow-up imaging is recommended. Persistent Bilateral multiple nonobstructing renal calculi. No hydronephrosis. 12/20/2023--status post ESWL 11/08/23--Melva states she still has intermittent flank pain. will schedule renal ultrasound and KUB. 09/13/23--Melva is a 48-year-old female who I have been following due to nephrolithiasis. She had a CT KUB performed on 09/05/2023. I reviewed results no hydronephrosis punctate right kidney stone 8 mm left kidney lower pole stone. The patient has had left flank pain on and off. Plan schedule left ESWL. Eight tablets oxycodone sent to pharmacy for p.r.n. pain 7-10. Patient states unable to take NSAIDs or tramadol as listed under allergies. 08/14/23--Melva is followed for nephrolithiasis, she is s/p Left ESWL on 07/05/23. I have reviewed the recent renal US 08/03/23- bilateral nonobtructing stones and left kidney complex cyst. She states she feels like she is passing a stone, having flank pain, nausea and dysuria. I will send tamsulosin, a few pain meds, antinausea med and empirically place on levaquin. [facility] Medical History Pancreatic cyst IBS (irritable bowel syndrome) Saldivar's esophagus Chronic migraine without aura, intractable, without status migrainosus History of kidney stones Vaginal intraepithelial neoplasia GERD (gastroesophageal reflux disease) Migraine Cervical radiculopathy Back pain IBS (irritable bowel syndrome) Nephrolithiasis Surgical History History of esophagogastroduodenoscopy (EGD) Hx of ovarian cystectomy Hx of cystoscopy Hx of lithotripsy History of vaginal surgery History of partial hysterectomy Social History Household Members: Children Alcohol intake: current Alcohol intake frequency: does not drink Patient Tobacco Use Status: Current everyday Tobacco user Tobacco use type: Cigarette Cigarettes Per Day: 10 Years Smoked: 36 years Substance Use Type: Marijuana Current occupational status: disabled Review of Systems Const All systems reviewed & are unremarkable except as noted in HPI and below Reports no additional complaints Eyes Reports no additional complaints ENT Reports no additional complaints Card Reports no additional complaints Resp Reports no additional complaints GI Reports no additional complaints Reports as per HPI Musc Reports no additional complaints Skin/Breast Reports system reviewed and no additional complaints, except as documented Neuro Reports no additional complaints Psych Reports no additional complaints Endo Reports no additional complaints Edgar/Lymph Reports no additional complaints Aller/Immun Reports no additional complaints Telehealth Telehealth Telehealth Platform: [facility] Location of provider rendering services: practice address Location of patient: address on file Patient Identification confirmed using: Name, : Yes Telehealth method: voice only Patient verbally consented to treatment: Yes Patient verbally consented to billing insurance company: Yes Patient informed of any privacy concerns related to visit: Yes Minutes spent on Phone/Video with Pt.: 15 Results Reviewed Results Reviewed: 04/25/24--CTAP- Kidneys-bilateral renal stones measuring up to 5 mm, bilateral renal cysts Date of Service: 12/29/23 US RETROPERITONEAL LIMITED (RENAL ONLY) CLINICAL INFORMATION: Acquired renal cyst. COMPARISON: Ultrasound examination of kidneys on 08/03/2023, CT abdomen and pelvis on 09/05/2023 TECHNIQUE: Ultrasound along with color Doppler imaging and spectral analysis was performed of the kidneys. FINDINGS: RIGHT KIDNEY: 11.5 x 3.7 x 3.2 cm (SAG x AP x TRV). The kidney is normal in size, contour, and echogenicity. Renal cortical thickness is normal. No hydronephrosis. Right upper pole exophytic simple cyst is seen measuring 1.5 x 1.3 x 1.3 cm in size (previously 1.5 cm). A multiseptated complex right upper renal cortical cyst is seen measuring 1.9 x 1.7 x 1.2 cm in size. Multiple echogenic foci are present including mid right renal echogenic foci measuring 0.3 x 0.2 x 0.3 cm; 0.2 x 0.1 cm respectively; upper right renal echogenic foci measuring 0.1 cm in size, 0.2 x 0.1 cm (previously 0.4 cm), upper mid right renal echogenic focus measuring 0.2 x 0.1 cm (previously 0.4 cm). LEFT KIDNEY: 11.7 x 5.1 x 5.2 cm (SAG x AP x TRV). The kidney is normal in size, contour, and echogenicity. Renal cortical thickness is normal. No hydronephrosis. Left mid renal cortical simple cyst is seen measuring 0.7 x 0.6 x 0.8 cm in size. Slightly complex mildly exophytic left mid renal cortical hypoechoic cyst with calcified partial septation measures 2.8 x 2.0 x 2.8 cm in size (previously 2.0 x 3.2 x 2.2 cm). Echogenic foci are seen in mid left kidney measuring 0.5 x 0.2 x 0.4 cm and 0.4 x 0.2 cm respectively (previously up to 0.8 cm). IMPRESSION: 1. Bilateral renal cortical cysts including Bosniak category 2 cystic lesions are seen, for which no follow-up imaging is recommended. However, only one cyst with focal calcification is seen in the right kidney on CT scan of abdomen on 09/05/2023. 2. Persistent Bilateral multiple nonobstructing renal calculi. 3. No hydronephrosis. Date of Service: 09/05/23 EXAMINATION: CT ABDOMEN AND PELVIS WITHOUT CONTRAST CLINICAL INFORMATION: Calculus of kidney, flank pain COMPARISON: 08/03/2023 renal ultrasound TECHNIQUE: Multidetector volumetric imaging was performed from the superior aspect of the liver through the pubic symphysis. Sagittal and coronal reformatted images were obtained on the technologist's workstation. This CT examination was performed using dose optimization techniques as appropriate, variously including the following: *Automated exposure control *Adjustment of mA and/or kV according to patient size (this includes techniques or standardized protocols for targeted exams where dose is matched to indication/reason for exam; i.e. extremities or head) *Use of iterative reconstruction technique DLP: 369 mGy-cm FINDINGS: EXTRUSION FORMER: Nonobstructive bowel pattern. LUNG BASES: The visualized lung bases are unremarkable. LIVER, GALLBLADDER, AND BILIARY TREE: The liver is normal in size, shape, and attenuation. No focal hepatic lesion or biliary ductal dilatation is present. The gallbladder contains sludge with no evidence of radiopaque gallstones, gallbladder wall thickening, or obvious pericholecystic inflammatory changes. PANCREAS: Unremarkable. SPLEEN: Unremarkable. ADRENAL GLANDS: Unremarkable right adrenal gland. 2.1 x 2 cm fat density left adrenal lesion consistent with lipid rich adenoma. No further follow-up recommended. KIDNEYS AND URETERS: The kidneys are normal in size, shape, and attenuation. 1.4 cm right upper pole renal cyst. Multiple left renal cysts, largest in the midpole measures 2.9 cm. Bilateral nonobstructing renal calculi, punctate on the right, 8 mm in the lower pole on the left with Hounsfield units measuring 780. Mild left intrarenal collecting system and proximal ureteral prominence. No hydroureteronephrosis. BLADDER: Under distended but unremarkable. GASTROINTESTINAL TRACT: Moderately distended stomach. No CT evidence of obstruction. Unremarkable diverticulosis without diverticulitis ABDOMINAL WALL: No significant hernia is appreciated. LYMPH NODES: Normal. VASCULAR: Atherosclerotic calcifications nonaneurysmal aorta appear unremarkable inferior vena cava. PELVIC VISCERA: Unremarkable. OSSEOUS STRUCTURES: Unremarkable. CT/CT abdomen pelvis wo IV con IMPRESSION: Bilateral nonobstructing renal calculi, largest in the left lower pole measuring 8 mm. Bilateral renal cysts, largest on the left measuring 2.9 cm. Mild left intrarenal collecting system and proximal left ureteral prominence. No hydroureteronephrosis bilaterally. Diverticulosis without diverticulitis. Gallbladder sludge. Left adrenal lipid rich adenoma. Date of Service: 08/03/23 EXAMINATION: US RETROPERITONEAL LIMITED (RENAL ONLY) CLINICAL INFORMATION: Renal calculus. COMPARISON: CT urogram dated 05/26/2023; renal ultrasound dated 02/03/2023. TECHNIQUE: Real-time imaging of the kidneys. FINDINGS: RIGHT KIDNEY: 11.1 x 6.3 x 5.3 cm (SAG x AP x TRV). The kidney is normal in size, contour, and echogenicity. Renal cortical thickness is normal. No calculi or focal parenchymal solid lesions. No hydronephrosis. At the upper pole, a 4 mm nonobstructing calculus is seen, and at the interpolar aspect, a 4 mm nonobstructing calculus is seen, with twinkle artifact. At the upper pole, a 1.5 cm benign, simple cyst is seen, for which no imaging follow-up is recommended. LEFT KIDNEY: 11.7 x 5.2 x 4.4 cm (SAG x AP x TRV). The kidney is normal in size, contour, and echogenicity. Renal cortical thickness is normal. No focal parenchymal solid lesions. At the upper pole, an 8 mm nonobstructing calculus is seen. At the interpolar aspect, a 9 mm aggregation of calculi is seen. No hydronephrosis. At the interpolar aspect, a 9 mm and 9 mm and 1.5 cm benign, simple cysts are seen. At the lower pole, a 9 mm benign, simple cyst is seen. These require no imaging follow-up. At the lower pole, a 2.0 x 3.2 x 2.2 cm cyst is seen, with septation and wall calcifications. IMPRESSION: 1. There are nonobstructing bilateral renal calculi, as detailed. No hydronephrosis is seen. 2. A 3.2 cm mildly complex left renal lower pole cyst is seen, consistent with the CT appearance of 05/23/2023. This is a likely benign finding, for which no imaging follow-up is recommended. Date of Service: 05/23/23 EXAMINATION: CT ABDOMEN AND PELVIS WITHOUT AND WITH CONTRAST FINDINGS: LUNG BASES: The visualized lung bases are unremarkable. LIVER, GALLBLADDER, AND BILIARY TREE: The liver is normal in size, shape, and attenuation. There is a Pradeep's lobe configuration. A 6 mm low-attenuation probable cyst or benign hemangioma is seen within the left hepatic lobe (4:3), too small for full characterization with CT. No biliary ductal dilatation is present. The gallbladder is unremarkable with no evidence of radiopaque gallstones, gallbladder wall thickening, or obvious pericholecystic inflammatory changes. PANCREAS: Towards the deep margin of the pancreatic tail (4:12), an 8 mm low-attenuation simple cyst is seen, too small to fully characterize with CT. No solid mass, focal enlargement or ductal dilatation is noted. There is no peripancreatic fat stranding or acute fluid collection. SPLEEN: The included portion is unremarkable. ADRENAL GLANDS: The right adrenal gland is unremarkable. The left adrenal gland contains a 2.3 x 1.7 cm benign, fat-containing adenoma with precontrast Hounsfield value of -8.5 units (3:9). KIDNEYS AND URETERS: The kidneys are normal in size, shape, and attenuation. No perinephric stranding. At the lower pole of the left kidney laterally (4:37 and 7:49), a 3.3 x 2.4 x 1.9 cm mildly complex cyst (Bosniak 2) is seen. This shows a fine septation and small punctate wall calcifications. This is a likely benign finding, for which no imaging follow-up is recommended. There are multiple further bilateral benign, simple (Bosniak 1) appearing bilateral renal cysts, which require no imaging follow-up. At the lower pole of the right kidney (3:53 and 54), 2 adjacent nonobstructing 2 mm calculi are seen. There are approximately 9 small nonobstructing left renal calculi, the largest at the upper pole measuring 6 mm (3:23). GASTROINTESTINAL TRACT: The included small and large bowel are unremarkable. The vermiform appendix is not included in the [id number]. ABDOMINAL WALL: No significant hernia is appreciated. LYMPH NODES: Normal. VASCULAR: There is mild aortic atherosclerotic calcification. No aortic aneurysm or dissection is seen. OSSEUS STRUCTURES: Unremarkable. IMPRESSION: 1. A mildly complex (Bosniak 2) cyst is seen at the lower pole the left kidney, with fine septation and wall calcification. This corresponds with the ultrasound finding in question. There is a likely benign finding, for which no imaging follow-up is recommended. 2. There are small nonobstructing bilateral renal calculi. 3. An 8 mm low-attenuation simple appearing cyst is seen posteriorly within the pancreatic tail. Recommend repeat imaging at a one-year interval to ensure stability of this finding. 4. A 6 mm low-attenuation probable cyst or benign hemangioma is seen within the left hepatic lobe. This is of doubtful clinical significance. If of continued clinical concern (i.e., history of hepatocellular disease or known malignancy), this can be further evaluated with ultrasound or MRI. 5. A 2.3 cm benign, fat-containing left adrenal adenoma is seen. Assessment & Plan Assessment & Plan (1) Nephrolithiasis: Code(s): N20.0 - Calculus of kidney Category: Medical (2) Flank pain: Code(s): R10.9 - Unspecified abdominal pain Category: Medical (3) Bilateral kidney stones: Code(s): N20.0 - Calculus of kidney Category: Medical (4) Bilateral renal cysts: Code(s): N28.1 - Cyst of kidney, acquired Category: Medical Plan Plan - Increase dietary citrate intake through lemon or citrus fruits, considering heartburn management. - Refer to nephrology for comprehensive kidney stone management and potential medical therapy. - Arrange a follow-up telehealth appointment with the nurse practitioner in six months. Orders: Referrals Nephrology Referral N20.0 - Calculus of kidney Patient Instructions: The patient had an opportunity to ask questions regarding treatment plan. The patient expressed understanding and agreement with the above treatment plan. The patient is aware they should contact our office by phone for worsening of their current condition or the appearance of new symptoms. Compliance is encouraged with any medications and followup testing that is ordered. It is a privilege to be allowed the opportunity to participate in the urologic care of your patient. If you have any questions or concerns regarding treatment for the above conditions please do not hesitate to contact me. The office telephone contact is [phone]. This note is constructed in part using voice recognition software. While every effort has been made to ensure accuracy assistant warehouse manager errors may have been included. Yours sincerely, Arcenio Fine MD Scribe Plan - Not visible on output: Patient was informed and verbally consented to the use of an ambient scribe for clinic note documentation during this visit. Coding Level of Care Code Tele Est Pt Level 4 (32101) Diagnoses Nephrolithiasis N20.0 Flank pain R10.9 Bilateral kidney stones N20.0 Bilateral renal cysts N28.1
--- OUTSIDE RECORDS SUMMARY | 2024-10-14 11:02 | XMS_ITS | Encounter Summary ---
Author Organization [employer] Address [address] [place] [address] Care Team Providers Care Nuclear Medicine Officer Name Role Phone Genesis Bundy NP Primary Care [facility] Encounter Details Date Type Department Care Team (Latest Contact Info) Description 07/10/2024 Lab Requisition [facility] - Main Lab [address] Pending Sale [place] [facility] [place] [phone] Dillon Montoya MD [address] [phone] Urinary tract infection, site not specified; Encounter for screening for infections with a predominantly sexual mode of transmission; Acute vaginitis Social History Tobacco Use Types Packs/Day Years [...] not to disclose 2024 12:44 PM EST documented as of this encounter Plan of Treatment Not on file documented as of this encounter Procedures Procedure Name Priority Date/Time Associated Diagnosis Comments URINALYSIS WITH REFLEX MICROSCOPIC Routine 07/10/2024 12:00 AM EDT Urinary tract infection, site not specified Encounter for screening for infections with a predominantly sexual mode of transmission Acute vaginitis URINALYSIS WITH REFLEX MICROSCOPIC Routine 07/10/2024 12:00 AM EDT Urinary tract infection, site not specified Encounter for screening for infections with a predominantly sexual mode of transmission Acute vaginitis VAGINITIS PATHOGENS BY PCR Routine 07/10/2024 12:00 AM EDT Urinary tract infection, site not specified Encounter for screening for infections with a predominantly sexual mode of transmission Acute vaginitis CHLAMYDIA TRACHOMATIS AND NEISSERIA GONORRHOEAE PCR Routine 07/10/2024 12:00 AM EDT Urinary tract infection, site not specified Encounter for screening for infections with a predominantly sexual mode of transmission Acute vaginitis CULTURE URINE Routine 07/10/2024 12:00 AM EDT Urinary tract infection, site not specified Encounter for screening for infections with a predominantly sexual mode of transmission Acute vaginitis documented in this encounter Results * Urinalysis with reflex microscopic (07/10/2024 12:00 AM EDT) Pathologist [facility] Specific [place] Urine 1.013 1.003 - 1.030 LAB URINALYSIS - AUTOMATED METHOD 07/10/2024 1:42 PM [facility] pH, Urine 7.0 5.0 - 8.0 pH LAB URINALYSIS - AUTOMATED METHOD 07/10/2024 1:42 PM [facility] Leukocytes, Urine Negative Negative LAB URINALYSIS - AUTOMATED METHOD 07/10/2024 1:42 PM [facility] Nitrite, Urine Negative Negative LAB URINALYSIS - AUTOMATED METHOD 07/10/2024 1:42 PM [facility] Protein, Urine Negative <=Trace mg/dL LAB URINALYSIS - AUTOMATED METHOD 07/10/2024 1:42 PM [facility] Glucose, Urine Negative Negative mg/dL LAB URINALYSIS - AUTOMATED METHOD 07/10/2024 1:42 PM [facility] Ketones, Urine Negative Negative mg/dL LAB URINALYSIS - AUTOMATED METHOD 07/10/2024 1:42 PM EDT [facility] Urobilinogen, Urine 0.2 0.2 - 1.0 mg/dL LAB URINALYSIS - AUTOMATED METHOD 07/10/2024 1:42 PM EDT [facility] Bilirubin, Urine Negative Negative LAB URINALYSIS - AUTOMATED METHOD 07/10/2024 1:42 PM EDT [facility] Blood, Urine Negative Negative LAB URINALYSIS - AUTOMATED METHOD 07/10/2024 1:42 PM EDT [facility] Urine Urine specimen obtained by clean catch procedure / Unknown 07/10/2024 07/10/2024 1:32 PM EDT us Dillon Montoya MD LAB URINE ORDERABLES Final Res ult Performing Organization Address [facility]/ZIP Co de Phone Number [facility] [address] [place] [address], [place] [phone] * Culture urine (07/10/2024 12:00 AM EDT) Pathologist [facility] Culture, Urine <10,000 CFU/mL gram positive cocci, insignificant count, no further workup 07/11/2024 10:55 AM EDT [facility] Urine Urine specimen obtained by clean catch procedure / Unknown 07/10/2024 07/10/2024 1:32 PM EDT us Dillon Montoya MD LAB MICROBIOLOGY - GENERAL ORD ERABLES Final Result [facility] [address] [place] [address], [place] [phone] * (ABNORMAL) Vaginitis pathogens molecular study (07/10/2024 12:00 AM EDT) Trichomonas vaginalis Negative Negative 07/11/2024 9:35 AM EDT [facility] Gardnerella vaginalis Positive(A) Negative 07/11/2024 9:35 AM EDT [facility] Amaris Species Negative Negative 9:35 AM EDT [facility] Swab Vaginal structure / Unknown 07/10/2024 07/10/2024 1:32 PM EDT us Dillon Montoya MD LAB MICROBIOLOGY - GENERAL ORD ERABLES Final Result [facility] [address] [place] [address], [place] [phone] * Chlamydia trachomatis and Neisseria gonorrhoeae molecular study (07/10/2024 12:00 AM EDT) Neisseria gonorrhoeae PCR Negative Negative LAB MOLECULAR DIAGNOSTICS METHOD 07/10/2024 4:53 PM EDT [facility] Chlamydia trachomatis PCR Negative Negative LAB MOLECULAR DIAGNOSTICS METHOD 07/10/2024 4:53 PM EDT [facility] Swab Cervix uteri structure / Unknown 07/10/2024 07/10/2024 1:32 PM EDT us Dillon Montoya MD LAB MICROBIOLOGY - GENERAL ORD ERABLES Final Result [facility] [address] [place] [address], [place] [phone] documented in this encounter Visit Diagnoses Diagnosis Urinary tract infection, site not specified Encounter for screening for infections with a predominantly sexual mode of transmission Acute vaginitis Unspecified vaginitis and vulvovaginitis documented in this encounter Care Teams Nuclear Medicine Officer Relationship Specialty Start Date End Date Genesis Bundy NP [address] [place] [id number] PCP - General Family Medicine 03/19/24 documented as of this encounter
--- OUTSIDE RECORDS SUMMARY | 2024-10-14 11:03 | XMS_ITS | Patient Health Record ---
Author Organization [facility] Address [address] [place] [phone] Care Team Providers Care Grant Coordinator Name Role Phone Ksenia Sultana Blank Primary Care Provider Kwabena Marroquin Jr Unavailable Allergies Allergen (clinical drug ingredient) Drug/Non Drug Allergy documented on EMR Reaction Allergy Type Onset Date Status acetaminophen Tylenol Unknown Drug Allergy Act shaquille trazodone Trazodone HCl Unknown Drug Allergy Act shaquille tramadol Tramadol HCl Unknown Drug Allergy Acti ve Motrin Unknown Drug Allergy Active aspirin Aspirin Unknown Drug Allergy Active ibuprofen Advil Unknown Drug Allergy Active Results Component Value Reference Range Notes Pathology Reviewed date:07/09/2024 04:24:56 PM Interpretation: Performing Lab:[facility], [address] [place] [phone] Notes/Report: Reason For Referral No Information Medications Medication SIG (Take, Route, Fr equency, Duration) Notes Start Date End Date Status oxyCODONE HCl 5 MG 1 capsule as needed Orally every 6 hrs Active Dicyclomine HCl 20 MG 1 tablet Orally 2- 4 times a day for 30 days 06/12/2024 Active Omeprazole 40 MG 1 capsule 30 minutes before morning meal Orally Once a day for 30 days 12/30/2020 Active Promethazine HCl 25 MG 1 tablet as neede d Orally every 6 hrs for 30 days 07/03/2020 Active Carisoprodol 350 MG Orally Active Vitamin B12 Active Probiotic - as directed Orally Active Immunizations Vaccine Route Administration Date Status [...] Problem Status W/U Status Risk Notes Problem 57701227 Rectal bleeding (K62.5) Active confirmed Problem 428281904 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 Problem 226817053 Gastroesophageal reflux disease without esophagitis (K21.9) Active confirmed Problem 31447734 Pancreatic cyst (K86.2) Active confirmed Problem 09627735 Irritable bowel syndrome with both constipation and diarrhea (K58.2) Active confirmed Vital Signs Temperature 97.5 degrees Fahrenheit 06/12/2024 Blood pressure diastolic 01 mm Hg 06/12/2024 Height 64.5 in 06/12/2024 Blood pressure systolic 001 mm Hg 06/12/2024 Weight 142 lbs 06/12/2024 BMI 24 kg/m2 06/12/2024 Encounters Encounter Location Date Provider Diagnosis [facility] [address] [place] [phone] 07/05/2024 Kwabena Cook Jr Saldivar''s esophagus without dysplasia K22.70 [facility] [address] [place] [phone] 06/12/2024 Kwabena Cook Jr Saldivar's esophagus without dysplasia K22.70 ; Irritable bowel syndrome with both constipation and diarrhea K58.2 and Pancreatic cyst K86.2 [facility] [address] [place] [phone] 05/22/2024 Kwabena Cook Jr [facility] [address] [place] [phone] 07/09/2024 Kwabena Cook Jr Assessments Encounter Date Diagnosis (ICD Code) Assessment Notes Treatment Notes Treatment Clinical Notes Section Notes 07/05/2024 Saldivar''s esophagus without dysplasia (ICD-10 - K22.70) 06/12/2024 Saldivar's esophagus without dysplasia (ICD-10 - K22.70) We discussed Saldivar's esophagus today. We discussed gastroesophageal reflux disease and diet, lifestyle modifications and weight management. She will continue omeprazole. IBS symptoms were discussed in detail as well. She will continue fiber supplementation and she can use [id number] antidiarrheals as needed for diarrhea. Her pancreatic cyst has resolved. Endoscopy will be scheduled. She is aware of risks and benefits and agrees to proceed.Today's visit was 30 minutes. 06/12/2024 Irritable bowel syndrome with both constipation and diarrhea (ICD-10 - K58.2) We discussed Saldivar's esophagus today. We discussed gastroesophageal reflux disease and diet, lifestyle modifications and weight management. She will continue omeprazole. IBS symptoms were discussed in detail as well. She will continue fiber supplementation and she can use [id number]-[id number] antidiarrheals as needed for diarrhea. Her pancreatic cyst has resolved. Endoscopy will be scheduled. She is aware of risks and benefits and agrees to proceed.Today's visit was 30 minutes. 06/12/2024 Pancreatic cyst (ICD-10 - K86.2) We discussed Saldivar's esophagus today. We discussed gastroesophageal reflux disease and diet, lifestyle modifications and weight management. She will continue omeprazole. IBS symptoms were discussed in detail as well. She will continue fiber supplementation and she can use [id number]-[id number] antidiarrheals as needed for diarrhea. Her pancreatic cyst has resolved. Endoscopy will be scheduled. She is aware of risks and benefits and agrees to proceed.Today's visit was 30 minutes. Plan Of Treatment Future Test Test Name Order Date UPPER GI ENDOSCOPY 12/26/2019 COLONOSCOPY 12/26/2019 UPPER GI ENDOSCOPY 06/12/2024 Next Appt Details Provider Name:Kwabena champagne , 06/18/2025 10:00:00 AM, [address], [address], [place], [address], Insurance Providers Payer Name Payer Address Payer Phone Subscriber Number Group Number Insured Name Patient Relationship to Insured Coverage Start Date Coverage End Date [facility] [address] [place] [phone] [id number] KEVIN MALIK Self - patient is the insured Medical (General) History Medical History History ICD Code IBS, diarrhea and constipation. back pain cervical radiculopathy nephrolithiasis migraines gastroesophageal reflux dise ase/Saldivar's esophagus, EGD 01/20, Saldivar's at EG junction, no dysplasia, no H. 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
--- OUTSIDE RECORDS SUMMARY | 2024-10-14 11:03 | XMS_ITS | Clinical Summary ---
Author Organization [facility] Address [address] [place] [address] Care Team Providers Care Dermatology Nurse Name Role Phone Camelia Robles MD Primary [...] 90 11/21/2023 12:23 PM EDT Temperature 36.7 C (98 F) 11/21/2023 12:23 PM EDT Respiratory Rate 16 [...] Vaccine ( season) 2023 05/28/2023, 08/20/2020, 07/28/2020 Breast Cancer Screening (Mammogram) 2024 Shingrix-Zoster Vaccine (1 of 2) 2024 Influenza Vaccine (#1) 2024 8, 07/08/2015, 01/28/2008, Additional history exists RSV Ped < 20 months Aged Out No longe r eligible based on patient's age to complete this topic Care Teams Dermatology Nurse Relationship Specialty Start Date End Date Camelia Robles MD [address] [place] [address] PCP - General Internal Medicine 02/03/16
--- OUTSIDE RECORDS SUMMARY | 2024-10-14 11:04 | XMS_ITS ---
Author Name [facility] Organization Unknown Results Test Name/Text Value Interpretation Date Range Source pH Ur 7.5 pH 09/05/2024 5 - 8 [facility] Glucose Ur Ql Negative 09/05/2024 - [facility] Leukocyte esterase Ur Ql Strip Negative 09/05/2024 - [facility] Clarity Ur Clear 09/05/2024 - [facility] Ketones Ur-mCnc Negative 09/05/2024 - [facility] Nitrite Ur Ql Negative 09/05/2024 - [facility] Hgb Ur Ql Negative 09/05/2024 - [facility] Prot Ur Strip-mCnc Negative 09/05/2024 - [facility] Color Ur Yellow 09/05/2024 - [facility] Sp Gr Ur 1.01 09/05/2024 1.005 - 1.03 [facility] WBC #/area UrnS HPF 1.0 /HPF Normal 04/25/2024 0 - 5 [facility] Bacteria #/area UrnS HPF 1+ Abnormal 04/25/2024 - [facility] Squamous Epithelial, Urine 1.0 /HPF Normal 04/25/2024 0 - 5 [facility] CaOx Cry #/area UrnS HPF Trace Abnormal 04/25/2024 - [facility] Amorph Cry #/area UrnS HPF Trace Abnormal 04/25/2024 - [facility] RBC #/area UrnS HPF 2.0 /HPF Normal 04/25/2024 0 - 3 [facility] Leukocyte esterase Ur Ql Strip Negative Normal 04/25/2024 - [facility] Sp Gr Ur 1.015 Normal 04/25/2024 1.005 - 1.03 [facility] Glucose Ur Ql Negative Normal 04/25/2024 - [facility] Color Ur Yellow Normal 04/25/2024 - [facility] pH Ur 7.5 pH Normal 04/25/2024 5 - 8 [facility] Hgb Ur Ql Trace Abnormal 04/25/2024 - [facility] Nitrite Ur Ql Negative Normal 04/25/2024 - [facility] Clarity Ur Clear Normal 04/25/2024 - [facility] Ketones Ur-mCnc Negative Normal 04/25/2024 - [facility] Prot Ur Strip-mCnc Negative Normal 04/25/2024 - [facility] Anion Gap SerPl-sCnc 12.0 Normal 04/25/2024 5 - 14 [facility] BUN SerPl-mCnc 10.0 mg/dL Normal 04/25/2024 7 - 17 [facility] Calcium SerPl-mCnc 9.9 mg/dL Normal 04/25/2024 8.4 - 10.2 [facility] CO2 SerPl-sCnc 24.0 mmol/L Normal 04/25/2024 24 - 32 [facility] ALT SerPl-cCnc 8.0 unit/L Normal 04/25/2024 7 - 52 [facility] Albumin SerPl-mCnc 4.4 g/dL Normal 04/25/2024 3.5 - 5 [facility] Prot SerPl-mCnc 7.3 g/dL Normal 04/25/2024 6.4 - 8.5 [facility] Bilirub SerPl-mCnc 0.3 mg/dL Normal 04/25/2024 0.3 - 1 [facility] Creat SerPl-mCnc 0.65 mg/dL Normal 04/25/2024 0.5 - 1 C [facility] Chloride SerPl-sCnc 103.0 mmol/L Normal 04/25/2024 98 - 107 [facility] Potassium SerPl-sCnc 3.5 mmol/L Normal 04/25/2024 3.5 - 5.1 [facility] BUN/Creat SerPl 15.4 Normal 04/25/2024 12 - 20 [facility] Sodium SerPl-sCnc 139.0 mmol/L Normal 04/25/2024 135 - 14 5 [facility] ALP SerPl-cCnc 71.0 unit/L Normal 04/25/2024 34 - 104 CT [facility] Glucose SerPl-mCnc 104.0 mg/dL Normal 04/25/2024 70 - 199 [facility] eGFRcr SerPlBld CKD-EPI 2020 108.0 mL/min/1.73m2 Normal 04/25/2024 - [facility] AST SerPl-cCnc 17.0 unit/L Normal 04/25/2024 5 - 40 CT [facility] Magnesium SerPl-mCnc 1.5 mg/dL Below low normal 04/25/2024 1.7 - 2.8 [facility] Neutrophils # Bld Auto 3.05 K/mcL Normal 04/25/2024 1.8 - 7.8 [facility] Eosinophil # Bld Auto 0.07 K/mcL Normal 04/25/2024 0 - 0.5 [facility] WBC # Bld Auto 6.2 K/mcL Normal 04/25/2024 4 - 10.5 [facility] Neutrophils/leuk NFr Bld Auto 49.0 % Normal 04/25/2024 44 - 74 [facility] MCV RBC Auto 86.0 FL Normal 04/25/2024 78 - 100 [facility] Hct VFr Bld Auto 39.8 % Normal 04/25/2024 37 - 47 [facility] Basophils # Bld Auto <0.03 K/mcL Normal 04/25/2024 0 - 0.2 [facility] RBC # Bld Auto 4.63 M/mcL Normal 04/25/2024 4.2 - 5.4 [facility] Lymphocytes # Bld Auto 2.63 K/mcL Normal 04/25/2024 1 - 3.2 [facility] Basophils/leuk NFr Bld Auto 0.3 % Normal 04/25/2024 0 - 2 [facility] Monocytes/leuk NFr Bld Auto 7.2 % Normal 04/25/2024 2 - 12 [facility] PMV Bld Auto 9.1 FL Normal 04/25/2024 7.4 - 11.4 [facility] RDW RBC Auto-Rto 14.0 % Normal 04/25/2024 12.1 - 16.2 [facility] Platelet # Bld Auto 372.0 K/mcL Normal 04/25/2024 150 - 450 [facility] Eosinophil/leuk NFr Bld Auto 1.1 % Normal 04/25/2024 0 - 6 [facility] Lymphocytes/leuk NFr Bld Auto 42.1 % Normal 04/25/2024 20 - 48 [facility] MCH RBC Qn Auto 28.9 pcg Normal 04/25/2024 25 - 33 [facility] Hgb Bld-mCnc 13.4 g/dL Normal 04/25/2024 12.5 - 16 [facility] MCHC RBC Auto-mCnc 33.7 g/dL Normal 04/25/2024 32 - 36 [facility] Monocytes # Bld Auto 0.45 K/mcL Normal 04/25/2024 0 - 0.8 [facility] NUCLEATED RBC 0.0 % Normal 11/21/2023 0 - [facility] BAS[facility] NFR BLD AUTO 1.2 % Normal 11/21/2023 0 - 2 [facility] EOSINOPHIL NO. BLD AUTO 0.1 K/uL Normal 11/21/2023 [facility] LYMPHOC[facility] NO. BLD AUTO 4.2 K/uL Above high normal 11/21/2023 1 - 3.2 [facility] IMMATURE GRANULOCYTE, PERCENT 0.6 % Normal 11/21/2023 0 - 1 [facility] NEUTROPHILS NO. BLD AUTO 1.7 K/uL Below low normal 11/21/2023 1.8 - 7.8 [facility] EOSINOPHIL NFR BLD AUTO 2.1 % Normal 11/21/2023 0 - 6 [facility] MONOCYTES NFR BLD AUTO 8.5 % Normal 11/21/2023 2 - 12 [facility] MONOCYTES NO. BLD AUTO 0.6 K/uL Normal 11/21/2023 0 - 0.8 [facility] BASOPHILS IN BLOOD BY AUTOMATED COUNT 0.1 K/uL Normal 11/21/2023 0 - 0.2 [facility] LYMPHOC[facility]TES NFR BLD AUTO 62.0 % Above high normal 11/21/2023 20 - 48 [facility] NEUTROPHILS NFR BLD AUTO 25.6 % Below low normal 11/21/2023 44 - 74 [facility] IMMATURE GRANULOCYTE, ABSOLUTE 0.04 k/uL Normal 11/21/2023 - 0.1 [facility] HGB BLD MCNC 13.0 g/dL Normal 11/21/2023 12.5 - 16 [facility] PMV BLD AUTO 10.3 fL Normal 11/21/2023 7.4 - 11.4 [facility] M[facility] RBC AUTO MCNC 33.1 g/dL Normal 11/21/2023 32 - 36 [facility] RBC NO. BLD AUTO 4.48 M/uL Normal 11/21/2023 4.2 - 5.4 [facility] PLATELET NO. BLD AUTO 348.0 K/uL Normal 11/21/2023 150 - 450 [facility] HCT VFR BLD AUTO 39.3 % Normal 11/21/2023 37 - 47 [facility] MCH RBC QN AUTO 29.0 pg Normal 11/21/2023 25 - 33 [facility] MCV RBC AUTO 87.7 fL Normal 11/21/2023 78 - 100 [facility] RDW RBC AUTO RTO 13.6 % Normal 11/21/2023 12.1 - 16.2 [facility] WBC NO. BLD AUTO 6.7 K/uL Normal 11/21/2023 4 - 10.5 [facility] HCO3 SER SCNC 25.0 mmol/L Normal 11/21/2023 24 - 32 [facility] SODIUM SERPL SCNC 138.0 mmol/L Normal 11/21/2023 135 - 14 5 [facility] CHLORIDE SERPL SCNC 105.0 mmol/L Normal 11/21/2023 98 - 107 [facility] BUN SERPL MCNC 8.0 mg/dL Normal 11/21/2023 7 - 17 [facility] MCNC 0.8 mg/dL Normal 11/21/2023 0.5 - 1 [facility] Glomerular filtration rate/1.73 sq M. predicted 90.0 Normal 11/21/2023 60 - [facility] ANION GAP SERPL SCNC 8.0 mmol/L Normal 11/21/2023 5 - 14 [facility] GLUCOSE SERPL MCNC 122.0 mg/dL Normal 11/21/2023 70 - 199 [facility] CALCIUM SERPL MCNC 9.6 mg/dL Normal 11/21/2023 8.4 - 10.2 [facility] POTASSIUM SERPL SCNC 3.9 mmol/L Normal 11/21/2023 3.5 - 5.1 [facility] WBC number/area UrnS Auto 0.0 /HPF Normal 11/21/2023 0 - 5 [facility] SQUAMOUS NO./AREA URNS LPF 1.0 /LPF Normal 11/21/2023 0 - 5 [facility] RBC number/area UrnS Auto 2.0 /HPF Normal 11/21/2023 0 - 3 [facility] Nitrite Ur Ql Strip.auto NEGATIVE Normal 11/21/2023 - [facility] Ketones Ur Ql Strip.auto NEGATIVE Normal 11/21/2023 - [facility] Hgb Ur Ql Strip.auto TRACE Abnormal 11/21/2023 - [facility] Leukocyte esterase Ur Ql Strip.auto NEGATIVE Normal 11/21/2023 - [facility] Clarity Ur Refract.auto CLEAR Normal 11/21/2023 [facility] pH Ur Strip.auto 7.0 Normal 11/21/2023 4.5 - 8 CT [facility] Sp Gr Ur Strip.auto 1.01 Normal 11/21/2023 1.005 - 1.03 [facility] Glucose Ur Ql Strip.auto NEGATIVE Normal 11/21/2023 - [facility] Prot Ur Ql Strip.auto NEGATIVE Normal 11/21/2023 - [facility] SPECIMEN SOURCE XXX URINE CLEAN CATCH Normal 11/21/2023 [facility] FLUBV RNA Nph Ql KAYE+non-probe NEGATIVE Normal 04/28/2023 [facility] Service [facility] XXX-Imp Cepheid GeneXpert (RT-PCR) [facility] Normal 04/28/2023 [facility] RSV RNA Nph Ql KAYE+non-probe NEGATIVE Normal 04/28/2023 [facility] FLUAV RNA Nph Ql KAYE+non-probe NEGATIVE Normal 04/28/2023 [facility] SPECIMEN SOURCE XXX NASOPHARYNGEAL Normal 04/28/2023 [facility] AMYLASE SERPL CCNC 49.0 U/L Normal 04/28/2023 29 - 103 [facility] MAGNESIUM SERPL MCNC 1.7 mg/dL Normal 04/28/2023 1.7 - 2.8 [facility] CHLORIDE SERPL SCNC 104.0 mmol/L Normal 04/28/2023 98 - 107 [facility] GLUCOSE SERPL MCNC 80.0 mg/dL Normal 04/28/2023 70 - 199 [facility] CREAT SERPL MCNC 0.8 mg/dL Normal 04/28/2023 0.5 - 1 CT [facility] CALCIUM SERPL MCNC 9.6 mg/dL Normal 04/28/2023 8.4 - 10.2 [facility] HCO3 SER SCNC 25.0 mmol/L Normal 04/28/2023 24 - 32 [facility] Glomerular filtration rate/1.73 sq M. predicted 91.0 Normal 04/28/2023 60 - [facility] SODIUM SERPL SCNC 139.0 mmol/L Normal 04/28/2023 135 - 14 5 [facility] BUN SERPL MCNC 9.0 mg/dL Normal 04/28/2023 7 - 17 [facility] ANION GAP SERPL SCNC 10.0 mmol/L Normal 04/28/2023 5 - 14 [facility] POTASSIUM SERPL SCNC 3.5 mmol/L Normal 04/28/2023 3.5 - 5.1 [facility] HCG PREG SERPL QL NEGATIVE Normal 04/28/2023 C [facility] ALP SERPL-CCNC 68.0 U/L Normal 04/28/2023 34 - 104 [facility] ALT SERPL CCNC 16.0 U/L Normal 04/28/2023 7 - 52 [facility] LDH SERPL L TO P CCNC 135.0 U/L Normal 04/28/2023 125 - 220 [facility] AST SERPL CCNC 21.0 U/L Normal 04/28/2023 5 - 40 [facility] IMMATURE GRANULOCYTE, PERCENT 0.3 % Normal 04/28/2023 0 - 1 [facility] LYMPHOCYTES NFR BLD AUTO 53.6 % Above high normal 04/28/2023 20 - 48 [facility] BASOPHILS IN BLOOD BY AUTOMATED COUNT 0.0 K/uL Normal 04/28/2023 0 - 0.2 [facility] MONOCYTES NFR BLD AUTO 9.3 % Normal 04/28/2023 2 - 12 [facility] EOSINOPHIL NFR BLD AUTO 1.3 % Normal 04/28/2023 0 - 6 [facility] IMMATURE GRANULOCYTE, ABSOLUTE 0.01 k/uL Normal 04/28/2023 - 0.1 [facility] NUCLEATED RBC 0.0 % Normal 04/28/2023 0 - 1 [facility] EOSINOPH[facility] NO. BLD AUTO 0.1 K/uL Normal 04/28/2023 0 - 0.5 [facility] NEUTROPHILS NFR BLD AUTO 34.7 % Below low normal 04/28/2023 44 - 74 [facility] MONOCYTES NO. BLD AUTO 0.4 K/uL Normal 04/28/2023 0 - 0.8 [facility] LYMPHOCYTES NO. BLD AUTO 2.1 K/uL Normal 04/28/2023 1 - 3.2 [facility] BASOPHILS NFR BLD AUTO 0.8 % Normal 04/28/2023 0 - 2 [facility] NEUTROPHILS NO. BLD AUTO 1.4 K/uL Below low normal 04/28/2023 1.8 - 7.8 [facility] MCHC RBC AUTO MCNC 33.3 g/dL Normal 04/28/2023 32 - 36 [facility] RBC NO. BLD AUTO 4.81 M/uL Normal 04/28/2023 4.2 - 5.4 CT [facility] MCV RBC AUTO 86.7 fL Normal 04/28/2023 78 - 100 [facility] H WBC NO. BLD AUTO 3.9 K/uL Below low normal 04/28/2023 4 - 1 0.5 [facility] HCT VFR BLD AUTO 41.7 % Normal 04/28/2023 37 - 47 [facility] RDW RBC AUTO RTO 13.2 % Normal 04/28/2023 12.1 - 16.2 [facility] HGB BLD MCNC 13.9 g/dL Normal 04/28/2023 12.5 - 16 [facility] MCH RBC QN AUTO 28.9 pg Normal 04/28/2023 25 - 33 [facility] PLATELET NO. BLD AUTO 378.0 K/uL Normal 04/28/2023 150 - 450 [facility] PMV BLD AUTO 9.3 fL Normal 04/28/2023 7.4 - 11.4 [facility] BILIRUB SERPL MCNC 0.3 mg/dL Normal 04/28/2023 0.3 - 1 [facility] BILIRUB DIRECT SERPL MCNC 0.1 mg/dL Normal 04/28/2023 0 - 0.2 [facility] LIPASE SERPL CCNC 27.0 U/L Normal 04/28/2023 11 - 82 [facility] Clarity Ur Refract.auto CLEAR Normal 04/28/2023 [facility] Glucose Ur Ql Strip.auto NEGATIVE Normal 04/28/2023 - [facility] Prot Ur Ql Strip.auto 30.0 mg/dL Abnormal 04/28/2023 - [facility] pH Ur Strip.auto 6.0 Normal 04/28/2023 4.5 - 8 CT [facility] Nitrite Ur Ql Strip.auto NEGATIVE Normal 04/28/2023 - [facility] Sp Gr Ur Strip.auto >1.030 Above high normal 04/28/2023 1.005 - 1.03 [facility] Leukocyte esterase Ur Ql Strip.auto NEGATIVE Normal 04/28/2023 - [facility] Hgb Ur Ql Strip.auto TRACE Abnormal 04/28/2023 - [facility] Ketones Ur Ql Strip.auto NEGATIVE Normal 04/28/2023 - [facility] SPECIMEN SOURCE XXX URINE CLEAN CATCH Normal 04/28/2023 [facility] RBC number/area UrnS Auto 1.0 /HPF Normal 04/28/2023 0 - 3 [facility] SQUAMOUS NO./AREA URNS LPF 9.0 /LPF Above high normal 04/28/2023 0 - 5 [facility] WBC number/area UrnS Auto 1.0 /HPF Normal 04/28/2023 0 - 5 [facility] History of Medication Use Medication Directions Dispensed Refills Start Date End Date Status methylPREDNISolone sodium succ (SOLU-Medrol) injection 125 mg 125 mg, intravenous, Once, On Jessica 09/05/24 at 1257, For 1 dose, Reconstitute each 125 mg vial with 2 mL sterile water for injection to a concentration of 62.5 mg/mL. 5 09/06/19 completed diazePAM (VALIUM) 5 mg tablet Take 1 tablet (5 mg total) by mouth 2 (two) times a day for 3 days. Max Daily Amount: 10 mg 5 active HYDROmorphone (DILAUDID) injection 0.5 mg 0.5 mg, intravenous, Once, On Jessica 04/25/24 at 1709, For 1 dose 5 04/25/19 25 completed HYDROmorphone (DILAUDID) injection 1 mg 1 mg, intravenous, Once, On Jessica 04/25/24 at 1503, For 1 dose 5 04/25/19 completed iopamidoL (ISOVUE-370) 370 mg iodine /mL (76 %) injection 100 mL 100 mL, intravenous, Once in imaging, Starting on Jessica 04/25/24 at 1402, For 1 dose 5 04/25/19 completed magnesium sulfate 2 gram/50 mL (4 %) IVPB 2 g 2 g, intravenous, at 25 mL/hr, Administer over 2 Hours, Once, On Jessica 04/25/24 at 1436, For 1 dose 5 04/25/19 completed metoclopramide (REGLAN) injection 10 mg 10 mg, intravenous, Once, On Jessica 04/25/24 at 1709, For 1 dose, Doses LESS than or equal to 10 mg can be given IV push undiluted over 1 minute 5 04/25/19 completed ondansetron (PF) (ZOFRAN) injection 4 mg 4 mg, intravenous, Once, On Jessica 04/25/24 at 1233, For 1 dose 5 04/25/19 completed sodium chloride 0.9 % bolus 1,000 mL 1,000 mL, intravenous, at 1,000 mL/hr, Administer over 1 Hours, Once, On Jessica 04/25/24 at 1233, For 1 dose 5 04/25/19 completed sodium chloride 0.9 % flush 10 mL 10 mL, intravenous, Once, On Jessica 04/25/24 at 1403, For 1 dose 5 04/25/19 completed sodium chloride 0.9 % intravenous solution 50 mL 50 mL, intravenous, Once in imaging, Starting on Jessica 04/25/24 at 1402, For 1 dose 5 04/25/19 completed ondansetron ODT (ZOFRAN-ODT) 4 mg disintegrating tablet Let 1 tablet dissolve under the tongue three times daily as needed for nausea or vomiting. 5 active oxyCODONE (OXY-IR) 5 mg immediate release capsule Take 1 capsule (5 mg total) by mouth every 6 (six) hours if needed for severe pain for up to 6 doses. Max Daily Amount: 20 mg 5 active morphine sulfate injection 4 mg 4 mg, Intravenous, Once, On Mon11/21/23 at 1300, For 1 dose 4 11/21/19 24 completed oxyCODONE (ROXICODONE) 5 MG immediate release tablet Take 1 tablet (5 mg total) by mouth every 4 (four) hours as needed for pain. 3 active promethazine (PHENERGAN) tablet 25 mg TK 1 T PO 4 -6 H PRN FOR NAUSEA 0 active SUMAtriptan (IMITREX) 100 MG tablet 0 active topiramate (TOPAMAX) 25 MG tablet TK 2 TS PO QD 0 active metroNIDAZOLE (METROGEL) 0.75 % vaginal gel 8 active SUMAtriptan (IMITREX) 20 MG/ACT nasal spray spray or apply 1 spray (20 mg total) inside Nose daily as needed for migraine. 6 active prochlorperazine (COMPAZINE) [address] 25 mg rectally every 12 (twelve) hours as needed for nausea. active Allergies Allergen Reaction Severity Comment Documented Date Source Status ACETAMINOPHEN GI INTOLERANCEOTHER (SEE COMMENTS) Patient states she develops IBS symptoms. 04/25/2024 [facility] active ASPIRIN GI INTOLERANCE IBS flare [facility] IBUPROFEN GI INTOLERANCEOTHER (SEE COMMENTS) Patient states it flares her IBS [facility] METRONIDAZOLE OTHER (SEE COMMENTS) headaches [facility] TRAMADOL OTHER (SEE COMMENTS) IBS [facility] TRAZODONE OTHER (SEE COMMENTS) IBS [facility] Problems Problem Status Onset Date Problem Type Date of Resolution Source Chronic bilateral back pain, unspecified back location active EncounterDiagnosisAct [facility] Right hand pain active EncounterDiagnosisAct [facility] Flank pain active EncounterDiagnosisAct [facility] Kidney stones active EncounterDiagnosisAct [facility] Immunizations Vaccine Date Source Lot Number Status [facility] SARS-CoV-2 COVID-19, mRNA, LNP-S, preservative free 08/20/2020 [facility] [id number] completed [facility] SARS-CoV-2 COVID-19, mRNA, LNP-S, preservative free 07/28/2020 [facility] [id number] completed Encounters Encounter Type Encounter Reason Primary Diagnosis Location Date Emergency abdominal pain Dorsalgia, unspecified [facility] 09/05/2024 Emergency left side flank pain Unspecified abdominal pain [facility] 04/25/2024 Emergency Unspecified abdomina l pain Unspecified abdominal pain [facility] 11/21/2023 Emergency Unspecified abdomina l pain Unspecified abdominal pain [facility] 04/28/2023 Emergency Hydronephrosis with renal and ureteral calculous obstruction Hydronephrosis with renal and ureteral calculous obstruction [facility] 12/03/2022 Care Team Organization Name Specialty Phone Email Start Date End Da te [facility] GINO PHAN Primary Care [facility] LEWIS PHAN Primary Care 04/25/2024 [facility] 04/23/2023 [facility] JUAN JOSE KEANE Primary Care 12/03/2022 12/03/2022 [facility] 12/03/2022
== END 2024-10-14 10:59 | disposition home or self-care (01) ==
LOC: HO.HUSH 10:21
PROVIDERS: PCP Internal Medicine; Visit Provider Urology
DX: N20.0 Calculus of kidney (principal); R10.9 Unspecified abdominal pain; N28.1 Cyst of kidney, acquired
CPT/HCPCS: 99214

== ENCOUNTER 2024-10-17 10:23 | Outpatient (AMB) | payer OTHER, SELFPAY ==
--- NOTE | 2024-10-17 10:40 | HO.NEPHOV_ITS ---
Vital Signs 10/17/24 10:47 Height 5 ft 4.5 in Weight 137 lb 6 oz BMI 23.2 BP 140/90 H Blood Pressure Location Lt brachial Position Sitting Intake Visit Reasons: INP: Calculus of kidney Branner Machine Tender Required: No Accompanied by: Self / Same As Patient Allergies acetaminophen (Tylenol) Allergy (Intermediate, Verified 10/17/24 10:47) Vomiting aspirin Allergy (Intermediate, Verified 10/17/24 10:47) Vomiting ibuprofen Allergy (Intermediate, Verified 10/17/24 10:47) Abdominal Pain metronidazole (Flagyl) Allergy (Intermediate, Verified 10/17/24 10:47) Triggers migraines tramadol Allergy (Intermediate, Verified 10/17/24 10:47) Triggers migraine trazodone Allergy (Intermediate, Verified 10/17/24 10:47) Triggers Migrain HPI Comments Details: I had the pleasure of seeing Melva in consultation for her ongoing nephrolithiasis. She has been having B/L flank pain, left more than right. She had imaging studies and urology consultation as well as ESWL. She was found to have B/L renal calculi as well as renal cyst including a bigger, questionable complex cyst on the left lower pole. She denies nausea, vomiting, hematuria, fever or dysuria. She is on a lot of pain medications and still complaining of back and flank pain. She had litholink which showed hypocitrauria. She is not hypertensive or diabetic and has no H/O metabolic acidosis. She has not taken HCTZ or K citrate. She has strong family H/O renal calculi but no family H/O medullary sponge kidney, ESRD or renal transplantation. [facility] Medical History Pancreatic cyst IBS (irritable bowel syndrome) Saldivar's esophagus Chronic migraine without aura, intractable, without status migrainosus History of kidney stones Vaginal intraepithelial neoplasia GERD (gastroesophageal reflux disease) Migraine Cervical radiculopathy Back pain IBS (irritable bowel syndrome) Nephrolithiasis Surgical History History of esophagogastroduodenoscopy (EGD) Hx of ovarian cystectomy Hx of cystoscopy Hx of lithotripsy History of vaginal surgery History of partial hysterectomy Social History Household Members: Children Alcohol intake: current Alcohol intake frequency: does not drink Patient Tobacco Use Status: Current everyday Tobacco user Tobacco use type: Cigarette Cigarettes Per Day: 10 Years Smoked: 36 years Substance Use Type: Marijuana Current occupational status: disabled Review of Systems Const All systems reviewed & are unremarkable except as noted in HPI and below Physical Exam Vital Signs: Last Vital Signs BP 140/90 H 10/17/24 10:47 BMI result Body Mass Index 23.2 Const General: comfortable and no acute distress Orientation/consciousness: patient oriented x3 HEENT Head: Yes normocephalic Mouth: Normal oral and palatal mucosa present Eyes EOM: EOMs intact bilaterally Neck Neck: Yes supple Resp Auscultation: clear to auscultation bilaterally Cardio Jugular venous distension: no JVD Rate: regular rate GI Palpation (GI): Soft to palpation Auscultation: normal bowel sounds General: Yes no CVA tenderness Back/Spine/Pelvis Back: no CVA tenderness Skin General skin exam: no rashes or lesions noted Neuro General: patient oriented x3 and moves all extremities Extrem General: Yes no pedal edema Results Reviewed Nephrology Results: Renal US 12/29/23 Assessment & Plan Assessment & Plan (1) Bilateral kidney stones: Code(s): N20.0 - Calculus of kidney Category: Medical Plan Has hypocitrauria with calcium oxalate stone Low sodium diet; Good hydration; Less meat More fruits and vegetables in diet; Normal Ca in diet Started HCTZ 12.5 mg daily( may have to increase dose) Common side effects of HCTZ explained; F/U labs ordered Shall start potassium citrate at next visit Follow up with Urology; Answered all questions Orders: Orders Electrolytes 6 Weeks N20.0 - Calculus of kidney Calcium 6 Weeks N20.0 - Calculus of kidney Blood Urea Nitrogen 6 Weeks N20.0 - Calculus of kidney Creatinine 6 Weeks N20.0 - Calculus of kidney Medications: New hydrochlorothiazide 12.5 mg PO DAILY 90 tabs 3RF Coding Level of Care Code New Pt Level 4 (51646) Diagnoses Bilateral kidney stones N20.0
[2024-10-17 10:47] VITALS: BP 140/90; BMI 23.2
--- OUTSIDE RECORDS SUMMARY | 2024-10-17 10:54 | XMS_ITS | Data Portability ---
Author Organization [place] [facility] Address [address] [place] [phone] Care Team Providers Care Heel Pricker Name Role Phone MAGNOLIAJUAN JOSE RANDLE Primary Care Provider Assessment Encounter Date Assessment [...] [email or web address] [facility], [address] [place] [address], [place], [address], 11:54:15 Referral None recorded. Procedures None recorded. Surgeries None recorded. Imaging None recorded. Medication Orders ketorolac 30 mg/mL (1 mL) injection solution 2021 022 [email or web address] [id number], [address] [place], [address], 13:13:36 Patient TargetsNo targets recorded. Patient InstructionsNo instructions recorded. Reason for Referral None Reported. Results Created Date Observation Date Name Description Value Unit Range Abnormal Flag Note LastModifiedBy Organization Detail LastModifiedTime 12/15/1912/14/2021 urina lysis , dipst ick Appearance clear Not Available [facility] [address] [place], [address], 12/14/2021 11:51:02 12/15/1912/14/2021 urina lysis , dipst ick Color yellow Not Available [facility] [address] [place], [address], 12/14/2021 11:51:02 12/15/1912/14/2021 urina lysis , dipst ick Glucose (ref: neg) Neg Not Available [facility] [address] [place], [address], 12/14/2021 11:51:02 12/15/1912/14/2021 urina lysis , dipst ick Bilirubin (ref: neg) Neg Not Available [facility] [address] [place], [address], 12/14/2021 11:51:02 12/15/1912/14/2021 urina lysis , dipst ick Ketones (ref: neg) Neg Not Available [facility] [address] [place], [address], 12/14/2021 11:51:02 12/15/1912/14/2021 urina lysis , dipst ick Specific [place] (ref: 1.003 - 1.035) 1.020 Not Available [facility] [address] [place], [address], 12/14/2021 11:51:02 12/15/19 22 12/14/2021 urina lysis , dipst ick Blood (ref: neg) + Not Available [facility] [address] [place], [address], 12/14/2021 11:51:02 12/15/1912/14/2021 urina lysis , dipst ick pH (ref: 5.0-7.0) 6.5 Not Available [facility] [address] [place], [address], 12/14/2021 11:51:02 12/15/19 22 12/14/2021 urina lysis , dipst ick Protein (ref: neg) Neg Not Available [facility] [address] [place], [address], 12/14/2021 11:51:02 12/15/1912/14/2021 urina lysis , dipst ick Urobilinogen (ref: 0.2-1.0) 0.2 Not Available [facility] [address] [place], [address], 12/14/2021 11:51:02 12/15/1912/14/2021 urina lysis , dipst ick Nitrites (ref: neg) negati ve Not Available [facility] [address] [place], [address], 12/14/2021 11:51:02 12/15/1912/14/2021 urina lysis , dipst ick Leukocytes (ref: neg) Neg Not Available [facility] [address] [place], [address], 12/14/2021 11:51:02 Result Notes None recorded. Medical Equipment None Reported. Allergies Allergen ID Allergen Name Allergen Category Reaction Reaction Severity Criticality Documentation Date Start Date Code Code System Note Provider Name and Address Organization Details Recorded Time 030614 Tylenol medicatio n Not available Not available Not available 12/14/2021 66980 3 RxNorm JANNIE SHAH, EMPLOYEE PLACEMENT SPECIALIST [address], [place], [address], [place] [facility] 11:39:31 409681 aspirin medicatio n vomiting Not available Not available 12/14/2021 1191 RxNorm JANNIE SHAH, EMPLOYEE PLACEMENT SPECIALIST [address], [place], [address], [place] [facility] 11:39:44 341959 ibuprofen medicatio n vomiting Not available Not available 12/14/2021 5640 RxNorm JANNIE SHAH, EMPLOYEE PLACEMENT SPECIALIST [address], [place], [address], [place] [facility] 2 11:40:01 762827 trazodone medicatio n headache Not available Not available 12/14/2021 30561 RxNorm JANNIE SHAH, EMPLOYEE PLACEMENT SPECIALIST [address], [place], [address], [place] [facility] 2 11:40:23 813278 honey bee venom medicatio n Not available Not available Not available 12/14/2021 28982 7 RxNorm JANNIE SHAH, EMPLOYEE PLACEMENT SPECIALIST [address], [facility] [place], [address], [place] [facility] [...] Pulse oximetry Respiratory rate Body temperature Systolic And Diastolic Provider Name and Address Organization Details Last Updated DateTime 2 100 /min 98 % 98 % 16 /min 98.6 [degF] 128/86 mm[Hg] Not Available [facility] 11:38:06 Social [...] SNOMED-CT Code Diagnosis ICD10 Code Diagnosis Note [id number] JANNIE SHAH NP [facility] [address] [facility] [place] [address] 12/14/2021 11:30:11 12/14/2021 15:16:26 Left flank pain 209997961 R10.9 History of calculus of kidney 758002159 Z87.442 Health Concerns Section Related Observation LastModified by Organization Detai ls LastModified Time None Recorded Concern Status LastModified by Organization Details LastModified Time None Recorded Advance Directives Directive None Recorded Payers Insurance Date Sequence Insurance Name Policy Number Policy Jorge Covered Member ID Jorge Member ID Guarantor Name 12/14/2021 1 *SELF PAY* Melva Tejada [id number] Melva Tejada 12/31/2021 1 [employer] (MEDICAID REPLACEMENT - HMO) [id number] Melva Tejada [id number] Melva Tejada Notes Date Note Type [...] distended as well. JANNIE SHAH NP [address], [place], [address], [place] [facility] 12/23/2021 13:13:51 OBGyn Episode No OBEpisode recorded.
--- OUTSIDE RECORDS SUMMARY | 2024-10-17 10:54 | XMS_ITS | Encounter Summary ---
Author Organization [employer] Address [address] [place] [address] Care Team Providers Care Plant Supervisor Name Role Phone Genesis Bundy NP Primary Care Provi west Encounter Details Date Type Department Care Team (Latest Contact Info) Description 07/10/2024 Lab Requisition [facility] Lab 299 [facility] [place] [phone] Dillon Montoya MD [address] [phone] Urinary tract infection, site not specified; Encounter [...] microscopic (07/10/2024 12:00 AM EDT) Pathologist [facility] Specific [place] Urine 1.013 1.003 - 1.030 LAB URINALYSIS [...] - AUTOMATED METHOD 07/10/2024 1:42 PM EDT [facility] Urobilinogen, Urine 0.2 0.2 - 1.0 mg/dL LAB URINALYSIS - AUTOMATED METHOD 07/10/2024 1:42 PM EDT [facility] Bilirubin, Urine Negative Negative LAB URINALYSIS - AUTOMATED METHOD 07/10/2024 1:42 PM EDT [facility] Blood, Urine Negative Negative LAB URINALYSIS - AUTOMATED METHOD 07/10/2024 1:42 PM EDT [facility] Urine Urine specimen obtained by clean catch procedure / Unknown 07/10/2024 07/10/2024 1:32 PM EDT us Dillon Montoya MD LAB URINE ORDERABLES Final Res ult Performing Organization Address [facility]/ZIP Co de Phone Number [facility] [address] [place] [address], [place] [phone] * Culture urine (07/10/2024 12:00 AM EDT) Pathologist [facility] Culture, Urine <10,000 CFU/mL gram positive cocci, insignificant count, no further workup 07/11/2024 10:55 AM EDT [facility] Urine Urine specimen obtained by clean catch procedure / Unknown 07/10/2024 07/10/2024 1:32 PM EDT us Dillon Montoya MD LAB MICROBIOLOGY - GENERAL ORD ERABLES Final Result [facility] [address] [place] [address], [place] [phone] * (ABNORMAL) Vaginitis pathogens molecular study (07/10/2024 12:00 AM EDT) Trichomonas vaginalis Negative Negative 07/11/2024 9:35 AM EDT [facility] Gardnerella vaginalis Positive(A) Negative 07/11/2024 9:35 AM EDT [facility] Amaris Species Negative Negative 9:35 AM EDT [facility] Swab Vaginal structure / Unknown 07/10/2024 07/10/2024 1:32 PM EDT us Dillon Montoya MD LAB MICROBIOLOGY - GENERAL ORD ERABLES Final Result [facility] [address] [place] [address], [place] [phone] * Chlamydia trachomatis and Neisseria gonorrhoeae molecular study (07/10/2024 12:00 AM EDT) Neisseria gonorrhoeae PCR Negative Negative LAB MOLECULAR DIAGNOSTICS METHOD 07/10/2024 4:53 PM EDT [facility] Chlamydia trachomatis PCR Negative Negative LAB MOLECULAR DIAGNOSTICS METHOD 07/10/2024 4:53 PM EDT [facility] Swab Cervix uteri structure / Unknown 07/10/2024 07/10/2024 1:32 PM EDT us Dillon Montoya MD LAB MICROBIOLOGY - GENERAL ORD ERABLES Final Result [facility] [address] [place] [address], [place] [phone] documented in this encounter Visit Diagnoses Diagnosis Urinary tract infection, site not specified Encounter for screening for infections with a predominantly sexual mode of transmission Acute vaginitis Unspecified vaginitis and vulvovaginitis documented in this encounter Care Teams Plant Supervisor Relationship Specialty Start Date End Date Genesis Bundy NP [address] [place] [address] PCP - General Family Medicine 03/19/24 documented as of this encounter
--- OUTSIDE RECORDS SUMMARY | 2024-10-17 10:54 | XMS_ITS | Patient Health Record ---
Author Organization [facility] Address [address] [place] [address] Care Team Providers Care Industrial Engineering Technologist Name Role Phone Ksenia Sultana Blank Primary Care Provider Margarito Cook Jr Kwabena Unavailable [phone] Allergies Allergen (clinical drug ingredient) Drug/Non Drug Allergy documented on EMR Reaction Allergy Type Onset Date Status tramadol Tramadol HCl Unknown Drug Allergy Acti ve Motrin Unknown Drug Allergy Active aspirin Aspirin Unknown Drug Allergy Active ibuprofen Advil Unknown Drug Allergy Active acetaminophen Tylenol Unknown Drug Allergy Act shaquille trazodone Trazodone HCl Unknown Drug Allergy Act shaquille Results Component Value Reference Range Notes Pathology Reviewed date:07/09/2024 04:24:56 PM Interpretation: Performing Lab:[facility], [address] [place] [phone] Notes/Report: Reason For Referral No Information Medications [...] Problem Status W/U Status Risk Notes Problem 94522389 Rectal bleeding (K62.5) Active confirmed Problem 050925413 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 Problem 825584824 Gastroesophageal reflux disease without esophagitis (K21.9) Active confirmed Problem 58765898 Pancreatic cyst (K86.2) Active confirmed Problem 47909278 Irritable bowel syndrome with both constipation and diarrhea (K58.2) Active confirmed Vital Signs Temperature 97.5 degrees Fahrenheit 06/12/2024 Blood pressure diastolic 01 mm Hg 06/12/2024 Height 64.5 in 06/12/2024 Blood pressure systolic 001 mm Hg 06/12/2024 Weight 142 lbs 06/12/2024 BMI 24 kg/m2 06/12/2024 Encounters Encounter Location Date Provider Diagnosis [facility] Outpatient [address] [place] [phone] 07/05/2024 Kwabena Cook Jr Saldivar''s esophagus without dysplasia K22.70 [facility] [address] [place] [phone] 06/12/2024 Kwabena Cook Jr Saldivar's esophagus without dysplasia K22.70 ; Irritable bowel syndrome with both constipation and diarrhea K58.2 and Pancreatic cyst K86.2 [facility] [address] [place] [phone] 05/22/2024 Kwabena Cook Jr [facility] [address] [place] [phone] 07/09/2024 Kwabena Cook Jr Assessments Encounter Date [...] continue fiber supplementation and she can use efmc-ywq-csleqfx antidiarrheals as needed for diarrhea. Her pancreatic [...] continue fiber supplementation and she can use mzmj-lsl-cnpnaui antidiarrheals as needed for diarrhea. Her pancreatic cyst has resolved. Endoscopy will be scheduled. She is aware of risks and benefits and agrees to proceed.Today's visit was 30 minutes. 06/12/2024 Pancreatic cyst (ICD-10 - K86.2) We discussed Saldiavr's esophagus today. We discussed gastroesophageal reflux disease and diet, lifestyle modifications and weight management. She will continue omeprazole. IBS symptoms were discussed in detail as well. She will continue fiber supplementation and she can use wixu-mgm-chfaodn antidiarrheals as needed for diarrhea. Her pancreatic cyst has resolved. Endoscopy will be scheduled. She is aware of risks and benefits and agrees to proceed.Today's visit was 30 minutes. Plan Of Treatment Future Test Test Name Order Date UPPER GI ENDOSCOPY 12/26/2019 COLONOSCOPY 12/26/2019 UPPER GI ENDOSCOPY 06/12/2024 Next Appt Details Provider Name:Kwabena champagne , 06/18/2025 10:00:00 AM, [address], [place], [address], Insurance Providers Payer Name Payer Address Payer Phone Subscriber Number Group Number Insured Name Patient Relationship to Insured Coverage Start Date Coverage End Date [facility] [address] [place] [address] [phone] [id number] KEVIN MALIK Self - patient is the [...]
== END 2024-10-17 11:19 | disposition home or self-care (01) ==
LOC: HO.HKAS 10:24
PROVIDERS: PCP Internal Medicine; Referring Provider Urology; Visit Provider Internal Medicine Nephrology
DX: N20.0 Calculus of kidney (principal)
CPT/HCPCS: 99204

== ENCOUNTER → 2024-10-17 10:23 | Outpatient (BNVA) | payer OTHER, SELFPAY | PROVIDERS: PCP Internal Medicine; Referring Provider Urology; Visit Provider Internal Medicine Nephrology | DX: N20.0 Calculus of kidney (principal) | CPT/HCPCS: 99202 ==

== ENCOUNTER 2024-12-17 08:56 | Outpatient (AMB) | payer OTHER, SELFPAY ==
--- OUTSIDE RECORDS SUMMARY | 2024-07-05 07:40 | XMS_ITS ---
Author Organization [facility] Address [address] [place] [address] [address] [place] [address] Care Team Providers Care Machine Accountant Name Role Phone Sultana Mccormack N.P Primary Care Provider Kwabena Marroquin Jr [phone] REASON FOR VISIT Saldivar's Esophagus Encounters Encounter Location Date Provider [place] [facility] [place] [address] [place] [id number] 07/05/2024 Kwabena Cook Jr Saldivar''s esophagus without dysplasia K22.70 Assessments Encounter Date Diagnosis (ICD Code) Assessment Notes Treatment Notes Treatment Clinical Notes Section Notes 07/05/2024 Saldivar''s esophagus without dysplasia (ICD-10 - K22.70) Plan Of Treatment Next Appt Details Provider Name:Kwabena champagne Jr, 06/18/2025 10:00:00 AM, [address] [place] [address], [address], [place], [address], Progress Notes * RASHEED MALIKOB: [birth year] (49 yo F)Acc No.[id number]:07/05/2024 EGD/MAC Patient: KEVIN WOODY Provider: Mekhi Cook MD :1975 A ge:48 Y S ex:Female Date:07/05/2024 Address:[address] [place], [place] [phone] Pcp:Sultana Mccormack N.Don Subjective: * Chief Complaints: [...] 0 07/05/2024 Generated for Jorden campbell/Shekhar/Jgsmitting on: 0 12/17/2024 11:01 AM EDT
--- NOTE | 2024-12-17 08:59 | A.OFFVIS_ITS ---
Vital Signs 12/17/24 09:00 Height 5 ft 4.5 in Weight 144 lb BMI 24.3 BP 108/70 Blood Pressure Location Rt brachial Position Sitting Pulse 88 Pulse Source Pulse Oximeter Pulse Oximetry (%) 98 Oxygen Delivery Method Room Air Intake Visit Reasons: Botox Intake Note: Botox District Engineer Required: No Accompanied by: Self / Same As Patient Allergies acetaminophen (Tylenol) Allergy (Intermediate, Verified 12/17/24 09:00) Vomiting aspirin Allergy (Intermediate, Verified 12/17/24 09:00) Vomiting ibuprofen Allergy (Intermediate, Verified 12/17/24 09:00) Abdominal Pain metronidazole (Flagyl) Allergy (Intermediate, Verified 12/17/24 09:00) Triggers migraines tramadol Allergy (Intermediate, Verified 12/17/24 09:00) Triggers migraine trazodone Allergy (Intermediate, Verified 12/17/24 09:00) Triggers Migrain Medication List - Last Reconciled 12/17/24 by Yuly Bennett MD albuterol sulfate 90 mcg/actuation 2 puffs inhalation Q4-6H PRN carisoprodol 350 mg PO BID 30 days epinephrine (EpiPen 2-Rajesh) 0.3 mg IM Q4H PRN fluconazole 150 mg orally Start Diflucan after completing Levaquin repeat dose after 2 days hydrochlorothiazide 12.5 mg PO DAILY levalbuterol tartrate 45 mcg/actuation (Xopenex HFA) 2 inhalations inhalation Q6H multivitamin 1 tab PO DAILY nitrofurantoin monohyd/m-cryst 100 mg (Macrobid) 100 mg PO BID 5 days omeprazole 40 mg PO DAILY onabotulinumtoxinA (Botox) 200 units IM ONCE 12 weeks promethazine 25 mg PO TID PRN tamsulosin 0.4 mg PO BEDTIME 14 days ubrogepant (Ubrelvy) 100 mg orally at onset of migraine, may repeat in 2 hours (max of 200mg per day) PRN; 30 days valacyclovir 500 mg PO BID HPI Comments Details: ? 49 y/o female comes for treatment of migraines with botox. How many migraine days prior to botox- 20 How long do the migraines last-2-3 days Intensity of kboivzaj-1-39 ER visits related to vadmnxdt-2-5 Effectiveness of botox from last two treatment(s) How many migraine days since receiving treatment:2-3/month Change? in intensity of migraine?decreased Change in frequency of migraine?decreased Change in use of acute medication for migraine?decreased Change in quality of life?improved ER visits related to migraine?none Last treatment- 3 mths ??? Most frequent reported adverse reactions following injection of botox for chronic migraine include neck pain (9%), headache(5%), eyelid ptosis(4%), migraine(4%), muscular weakness(4%), musculuskeletal stiffness(4%), bronchitis(3%), injection site pain (3%), musculoskeletal pain(3%), myalgia(3%), facial par Lot no [id number] expiration Feb 2027 was diluted with 4 cc of normal saline . ??? Muscles injected- ??? Frontalis 4 sites zygomaticus major 2 sites ??? Procerus 1 site ??? Spring Former Hand- 2 sites ??? Temporalis- 8 sites ??? Occipitalis- 6 sites ??? Cervical paraspinals- 4 sites ??? Trapezius- 6 sites- 10 units each ??? 5 units each in 31 site ??? Total use- 195units ??? Discarded-5units [facility] Medical History Pancreatic cyst IBS (irritable bowel syndrome) Saldivar's esophagus Chronic migraine without aura, intractable, without status migrainosus History of kidney stones Vaginal intraepithelial neoplasia GERD (gastroesophageal reflux disease) Migraine Cervical radiculopathy Back pain IBS (irritable bowel syndrome) Nephrolithiasis Surgical History History of esophagogastroduodenoscopy (EGD) Hx of ovarian cystectomy Hx of cystoscopy Hx of lithotripsy History of vaginal surgery History of partial hysterectomy Social History Household Members: Children Alcohol intake: current Alcohol intake frequency: does not drink Patient Tobacco Use Status: Current everyday Tobacco user Tobacco use type: Cigarette Cigarettes Per Day: 10 Years Smoked: 36 years Substance Use Type: Marijuana Current occupational status: disabled Physical Exam Vital Signs: Last Vital Signs Pulse 88 12/17/24 09:00 BP 108/70 12/17/24 09:00 Pulse Ox 98 12/17/24 09:00 Oxygen Delivery Method Room Air 12/17/24 09:00 BMI result Body Mass Index 24.3 Const General: cooperative Orientation/consciousness: patient oriented x3 Resp Effort & Inspection: able to speak in complete sentences Neuro General: patient oriented x3 Psych Mental Status: mental status grossly normal Speech and movement: Clear speech present Affect: normal affect Attitude: cooperative Thought process: Normal thought process present Thought content: Normal thought content present Insight: Fair insight present (Psych) Judgement: Fair judgement present (Psych) Office Procedures Botulinum toxin Injection 68846 - Migraine Procedure code (CPT) selection complete Office Meds onabotulinumtoxinA 200 unit solution for injection Performing Provider: Yuly Bennett MD Performing Location: [facility] Administered by: Yuly Bennett MD on 12/17/24 09:43 Dose Route Admin Location Dispensed Lot Number Expiration Date [facility] Channel Worker 195 unit subcut 200 units [id number] ALLERGAN /BOTOX Total Dispensed Waste 200 units 2.5 % Comments: see hpi Assessment & Plan Assessment & Plan (1) Chronic migraine without aura, intractable, without status migrainosus: Code(s): G43.719 - Chronic migraine without aura, intractable, without status migrainosus Category: Medical (2) Migraine with aura, intractable, without status migrainosus: Code(s): G43.119 - Migraine with aura, intractable, without status migrainosus Category: Medical Plan Patient tolerated the procedure well she will call with any side effects. Orders: Orders AMB Botulinum toxin Injection Today G43.719 - Chronic migraine without aura, intractable, without status migrainosus Coding Level of Care Code Est Pt Level 1 (80649) Diagnoses Chronic migraine without aura, intractable, without status migrainosus G43.719 Migraine with aura, intractable, without status migrainosus G43.119 CPT Codes Botox Injection - Botox 3: 60673 - Migraine ([id number])
[2024-12-17 09:00] VITALS: BP 108/70; PULSE 88; O2SAT 98; BMI 24.3
--- OUTSIDE RECORDS SUMMARY | 2024-12-17 11:01 | XMS_ITS | Encounter Summary ---
Author Organization [employer] Address [address] [place] [address] Care Team Providers Care Maintenance Controller Name Role Phone KseniaSultana dorman LEIF Primary Care Provider + Encounter Details Date Type Department Care Team (Latest Contact Info) Description 07/11/2024 Lab Requisition [facility] - Main Lab 299 [facility] [place] [phone] Dillon Montoya MD [address] [phone] Encounter for gynecological examination (general) (routine) without abnormal findings Social History Tobacco Use Types Packs/Day Years [...] Procedure Name Priority Date/Time Associated Diagnosis Comments HPV WITH REFLEX GENOTYPE Routine 07/10/2024 12:00 AM EDT Encounter for gynecological examination (general) (routine) without abnormal findings PAP SMEAR Routine 07/10/2024 12:00 AM EDT Encounter for gynecological examination (general) (routine) without abnormal findings documented in this encounter Results * HPV with reflex genotype (07/10/2024 12:00 AM EDT) HPV Negative Negative LAB MICROBIOLOGY METHOD 07/12/2024 6:28 AM EDT [facility] Brushing/Spatula Cervix uteri structure / Unknown 07/10/2024 07/11/2024 6:21 AM EDT us Dillon Montoya MD LAB MOLECULAR DIAGNOSTICS DYANA OQUENDO Final Result [facility] [address] [place] [address], * Pap smear (07/10/2024 12:00 AM EDT) Interpretation Negative for intraepithelial lesion or malignancy 07/16/2024 2:26 PM EDT [facility] General Categorization Negative 07/16/2024 2:26 PM EDT [facility] Other Findings Reparative changes 07/16/2024 2:26 PM EDT [facility] Specimen Adequacy Satisfactory for evaluation, endocervical/tam sformation zone component absent 07/16/2024 2:26 PM EDT [facility] Pap Methodology Liquid Based Pap Test 07/16/2024 2:26 PM EDT [facility] Disclaimer The Pap test is a screening test which carries an inherent false negative rate. These test results should be correlated with the patient's clinical findings and history. This Pap test was processed using an automated screening system. Technical cytopathology services provided by [facility], at [address] [place] [address] (CLIA # [id number]/Gurjit Gregory MD, Engineering Inspector.) 07/16/2024 2:26 PM EDT [facility] Console Pap Interpretation Reported 07/16/2024 2:26 PM EDT [facility] Brushing/Spatula Vaginal structure / Unknown 07/10/2024 07/11/2024 6:21 AM EDT us Dillon Montoya MD LAB CYTOLOGY ORDERABLES Final Result [facility] [address] [place] [address], documented in this encounter Visit Diagnoses Diagnosis Encounter for gynecological examination (general) (routine) without abnormal findings documented in this encounter Care Teams Maintenance Controller Relationship Specialty Start Date End Date Sultana Mccormack NP [address] [facility] [address] [place] [address] PCP - General Family Medicine 10/17/24 documented as of this encounter
--- OUTSIDE RECORDS SUMMARY | 2024-12-17 11:01 | XMS_ITS | Encounter Summary ---
Author Organization [employer] Address [address] [place] [address] Care Team Providers Care Counselling Psychologist Name Role Phone Sultana Mccormack LEIF Primary Care Provider + Encounter Details Date Type Department Care Team (Latest Contact Info) Description 07/10/2024 Lab Requisition [facility] - Main Lab [address] [facility] [place] [phone] Dillon Montoya MD [address] [phone] Urinary tract infection, site not specified; Encounter [...] reflex microscopic (07/10/2024 12:00 AM EDT) Pathologist [facility] Specific [place] Urine 1.013 1.003 - 1.030 LAB URINALYSIS - AUTOMATED METHOD 07/10/2024 1:42 PM [facility] pH, Urine 7.0 5.0 - 8.0 pH LAB URINALYSIS - AUTOMATED METHOD 07/10/2024 1:42 PM [facility] Leukocytes, Urine Negative Negative LAB URINALYSIS - AUTOMATED METHOD 07/10/2024 1:42 PM [facility] Nitrite, Urine Negative Negative LAB URINALYSIS - AUTOMATED METHOD 07/10/2024 1:42 PM [facility] Protein, Urine Negative <=Trace mg/dL LAB URINALYSIS - AUTOMATED METHOD 07/10/2024 1:42 PM [facility] Glucose, Urine Negative Negative mg/dL LAB URINALYSIS - AUTOMATED METHOD 07/10/2024 1:42 PM [facility] Ketones, Urine Negative Negative mg/dL LAB URINALYSIS - AUTOMATED METHOD 07/10/2024 1:42 PM EDT [facility] Urobilinogen, Urine 0.2 0.2 - 1.0 mg/dL LAB URINALYSIS - AUTOMATED METHOD 07/10/2024 1:42 PM EDT [facility] Bilirubin, Urine Negative Negative LAB URINALYSIS - AUTOMATED METHOD 07/10/2024 1:42 PM EDT [facility] Blood, Urine Negative Negative LAB URINALYSIS - AUTOMATED METHOD 07/10/2024 1:42 PM EDT [facility] Urine Urine specimen obtained by clean catch procedure / Unknown 07/10/2024 07/10/2024 1:32 PM EDT us Dillon Montoya MD LAB URINE ORDERABLES Final Res ult Performing Organization Address [facility]/ZIP Co de Phone Number [facility] [address] [place] [address], [place] [phone] * Culture urine (07/10/2024 12:00 AM EDT) Culture, Urine <10,000 CFU/mL gram positive cocci, insignificant count, no further workup 07/11/2024 10:55 AM EDT [facility] Urine Urine specimen obtained by clean catch procedure / Unknown 07/10/2024 07/10/2024 1:32 PM EDT us Dillon Montoya MD LAB MICROBIOLOGY - GENERAL ORD ERABLES Final Result [facility] [address] [place] [address], [place] [phone] * (ABNORMAL) Vaginitis pathogens molecular study (07/10/2024 12:00 AM EDT) Trichomonas vaginalis Negative Negative 07/11/2024 9:35 AM EDT [facility] Gardnerella vaginalis Positive(A) Negative 07/11/2024 9:35 AM EDT [facility] Amaris Species Negative Negative 9:35 AM EDT [facility] Swab Vaginal structure / Unknown 07/10/2024 07/10/2024 1:32 PM EDT us Dillon Montoya MD LAB MICROBIOLOGY - GENERAL ORD ERABLES Final Result [facility] [address] [place] [address], [place] [phone] * Chlamydia trachomatis and Neisseria gonorrhoeae molecular study (07/10/2024 12:00 AM EDT) Neisseria gonorrhoeae PCR Negative Negative LAB MOLECULAR DIAGNOSTICS METHOD 07/10/2024 4:53 PM EDT [facility] Chlamydia trachomatis PCR Negative Negative LAB MOLECULAR DIAGNOSTICS METHOD 07/10/2024 4:53 PM EDT [facility] Swab Cervix uteri structure / Unknown 07/10/2024 07/10/2024 1:32 PM EDT us Dillon Montoya MD LAB MICROBIOLOGY - GENERAL ORD ERABLES Final Result [facility] [address] [place] [address], [place] [phone] documented in this encounter Visit Diagnoses Diagnosis Urinary tract infection, site not specified Encounter for screening for infections with a predominantly sexual mode of transmission Acute vaginitis Unspecified vaginitis and vulvovaginitis documented in this encounter Care Teams Counselling Psychologist Relationship Specialty Start Date End Date Sultana Mccormack NP [address] [place] [address] PCP - General Family Medicine 10/17/24 documented as of this encounter
--- OUTSIDE RECORDS SUMMARY | 2024-12-17 11:02 | XMS_ITS | Patient Health Record ---
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 Problem 872350856 Gastroesophageal reflux disease without esophagitis (K21.9) Active confirmed Problem 37363502 Pancreatic cyst (K86.2) Active confirmed Problem 22129026 Irritable bowel syndrome with both constipation and diarrhea (K58.2) Active confirmed Vital Signs Temperature 97.5 degrees Fahrenheit 06/12/2024 Blood pressure diastolic 01 mm Hg 06/12/2024 Height 64.5 in 06/12/2024 Blood pressure systolic 001 mm Hg 06/12/2024 Weight 142 lbs 06/12/2024 BMI 24 kg/m2 06/12/2024 Encounters Encounter Location Date Provider Diagnosis [facility] [address] [place] [phone] 07/05/2024 Kwabena Cook Jr Saldivar''s esophagus without dysplasia K22.70 [facility] [address] [place] [phone] 06/12/2024 Kwabena Cook Jr Saldivar's esophagus without dysplasia K22.70 ; Irritable bowel syndrome with both constipation and diarrhea K58.2 and Pancreatic cyst K86.2 [facility] [address] [place] [phone] 05/22/2024 Kwabena Cook Jr [facility] [address] [place] [phone] 07/09/2024 Kwabena Cook Jr Assessments Encounter Date [...] continue fiber supplementation and she can use [id number]-mtevvec antidiarrheals as needed for diarrhea. Her pancreatic [...] continue fiber supplementation and she can use [id number] antidiarrheals as needed for diarrhea. Her pancreatic [...] continue fiber supplementation and she can use [id number]-[id number] antidiarrheals as needed for diarrhea. Her pancreatic cyst has resolved. Endoscopy will be scheduled. She is aware of risks and benefits and agrees to proceed.Today's visit was 30 minutes. Plan Of Treatment Future Test Test Name Order Date UPPER GI ENDOSCOPY 12/26/2019 COLONOSCOPY 12/26/2019 UPPER GI ENDOSCOPY 06/12/2024 Next Appt Details Provider Name:Kwabena champagne , 06/18/2025 10:00:00 AM, [address], [address], [place], [address], Insurance Providers Payer Name Payer Address Payer Phone Subscriber Number Group Number Insured Name Patient Relationship to Insured Coverage Start Date Coverage End Date [facility] [address] [place] [phone] [id number] KEVIN MALIK Self - patient is the [...]
--- OUTSIDE RECORDS SUMMARY | 2024-12-17 11:02 | XMS_ITS | Clinical Summary ---
Author Organization [address] [facility] Address [address] [place] [address] Phone Care Team Providers Care Navigating Officer Name Role Phone Ksenia, Sultana Felipe LEIF Primary Care Provider + Allergies Active Allergy Reactions Criticality Noted Date [...] Max Daily Amount: 20 mg 6 capsule 04/25/19 25 Active ondansetron ODT (ZOFRAN-ODT) 4 mg disintegrating tablet Let 1 tablet dissolve under the tongue three times daily as needed for nausea or vomiting. 20 tablet 04/25/19 25 Active Additional Information Patient not taking.Reported on 12/06/2024 albuterol sulfate 90 mcg/actuation aerosol powdr breath activated Inhale 180 mcg by mouth. 08/17/19 25 Active carisoprodoL (SOMA) 350 mg tablet Take 1 tablet (350 mg total) by mouth. 06/30/19 23 Active dicyclomine (BENTYL) 20 mg tablet Take 1 tablet (20 mg total) by mouth. 08/09/19 25 Active EpiPen 2-Rajesh 0.3 mg/0.3 mL injection Inject 0.3 mL (0.3 mg total) into the thigh if needed. 09/19/19 Active famotidine (PEPCID) 40 mg tablet Take 1 tablet (40 mg total) by mouth 2 (two) times a day. 11/29/19 Active fluconazole (DIFLUCAN) 150 mg tablet Take 1 tablet (150 mg total) by mouth. 10/17/19 Active fluticasone propionate (FLONASE) 50 mcg/actuation nasal spray Administer 1 spray into affected nostril(s). 01/23/20 Active hydroCHLOROthiazid e 12.5 mg tablet Take 1 tablet (12.5 mg total) by mouth 1 (one) time each day. 10/18/19 Active ipratropium (ATROVENT) 42 mcg (0.06 %) nasal spray 10/18/19 Active omeprazole (PriLOSEC) [address] capsule Take 1 capsule (40 mg total) by mouth 1 (one) time each day. Active onabotulinumtoxinA (Botox) 200 unit injection 01/19/20 Active promethazine (PHENERGAN) 25 mg tablet Take 1 tablet (25 mg total) by mouth. 11/20/19 Active tretinoin (RETIN-A) 0.025 % cream Apply small amount QHS 01/16/20 Active Ubrelvy 100 mg tablet Take 1 tablet (100 mg total) by mouth. 04/05/19 Active valACYclovir (VALTREX) 500 mg tablet Take 1 tablet (500 mg total) by mouth. 10/17/19 Active metroNIDAZOLE (FLAGYL) 500 mg tablet 11/21/19 Active tamsulosin (FLOMAX) 0.4 mg 24 hr capsule 11/04/19 Active gabapentin (NEURONTIN) 100 mg capsule Take 1 capsule (100 mg total) by mouth 3 (three) times a day if needed (pain) for up to 30 doses. 30 capsule 11/26/19 25 Active naproxen (NAPROSYN) 500 mg tablet 11/04/19 Active predniSONE (DELTASONE) 20 mg tablet Take 3 tablets (60 mg total) by mouth 1 (one) time each day for 1 day, THEN 2 tablets (40 mg total) 1 (one) time each day for 2 days, THEN 1 tablet (20 mg total) 1 (one) time each day for 2 days. See instructions.. 9 tablet 11/26/19 025 lidocaine (LIDODERM) 5 % patch Apply 1 patch topically 1 (one) time each day for 7 days. Remove & discard patch within 12 hours or as directed by . 7 patch 11/26/19 025 Active Problems Problem Noted Date Diagnosed Date Chronic midline low back pain with left-sided sc iatica 12/06/2024 Assessment & Plan (12/11/2024 5:00 PM EDT): Ms. Tejada describes low back pain with radiation to the left leg in a combination L5 and S1 distribution. She has pain throughout her body but she says that that is the worst of it. She says that she has been through chiropractic treatment, acupuncture, cortisone injections and physical therapy over the years. She most recently had a course of home therapy this past September. She does not get any relief and does not regularly take any medications. She says that she cannot take NSAIDs because they upset her IBS. Exam, she had giveaway weakness throughout but with significant encouragement she was able to demonstrate good strength in all major muscle groups of the upper and lower extremities. A CT of the lumbar spine on September 05, 2024 revealed very mild disc bulges at L2-3, L3-4, and L4-5 without any obvious canal or foraminal stenosis. Similarly, CTs of the cervical and thoracic spine were unrevealing. I told Ms. Tejada that I was not sure whether or not her home physical therapy would fulfill the requirements for the insurance company to approve an MRI. She asked me to try to order it and I told her I would. Encounters Date Type Department Care Team Description 12/06/2024 1:00 PM EDT Consult Neurosurgery [place] [address] [place] [address] Dillon Gomez PA Chronic midline low back pain with left-sided sciatica (Primary Dx) 11/25/2024 12:48 PM EDT - 11/25/2024 2:[address] [facility] Emergency [address] [place] [address] Sciatica, left side (Primary Dx); Hypokalemia Discharge Disposition: Home or Self Care 10/17/2024 1:46 PM EDT - 10/17/2024 6:[address] [facility] Emergency [address] [place] [address] Sebastian Ramirez MD Bacterial sinusitis (Primary Dx); Mucous retention cyst of maxillary sinus; Nicotine use disorder Discharge Disposition: Home or Self Care from Last 3 Months Immunizations Name Administration Dates Next Due Pfizer SARS-CoV-2 COVID-19, mRNA, LNP-S, preservative free 08/20/2020,07/28/2020 [...] D X:IBS (irritable bowel syndrome) Hernia DX:Hernia High blood pressure Social History Tobacco Use Types Packs/Day Years Used Date Smoking Tobacco: Every Day Cigarettes Smokeless Tobacco: Never Tobacco Cessation:Ready to Q uit: Not Asked; Counseling Given: Not Answered Alcohol Use Standard Drinks/Week Comments No 0 [...] Sign Reading Time Taken Comments Blood Pressure 146/109 11/25/2024 12:47 PM EDT Pulse 80 11/25/2024 12:47 PM EDT Temperature 36.6 C (97.9 F) 11/25/2024 12:47 PM EDT Respiratory Rate 20 11/25/2024 12:47 PM EDT Oxygen Saturation 100% 11/25/2024 12:47 PM EDT Inhaled Oxygen Concentration - - Weight 62.6 kg (138 lb) 12/06/2024 12:43 PM EDT Height 163.8 cm (5' 4.5 ) 12/06/2024 12:43 PM ED T Body Mass Index 23.32 12/06/2024 12:43 PM EDT Plan of Treatment Health Maintenance Due Date Last Done Comments Breast Cancer Screening 1974 Hepatitis B Vaccines (1 of 3 - 19+ 3-dose series) 1993 Pneumococcal Vaccine: 50+ Years (2 of 2 - PCV) 08/27/2014 08/27/2013 Cholesterol Screening (Lipid Panel) 03/06/2022 Colorectal Cancer Screening: Colonoscopy 03/06/2022 Social Influencers of Health Screening 03/06/2022 Depression Screening 04/03/2024 Zoster Vaccines (1 of 2) 2024 COVID-19 Vaccine ( - season) 2024 05/28/2023, 08/20/2020, 07/28/2020 Influenza Vaccine (#1) 2024 , 01/17/2020, 01/02/2020, Additional history exists Cervical Cancer Screening: HPV 07/10/2029 07/10/2024 DTaP,Tdap,and Td Vaccines (3 - Td or Tdap) 10/10/2033 10/11/2023, 08/27/2013 HIV Screening Completed 07/10/2024 Hepatitis C Screening Completed 07/10/2024 HIB Vaccines Aged Out No longer eligi ble based on patient's age to complete this topic HPV Vaccines Aged Out No longer eligi ble based on patient's age to complete this topic Hepatitis A Vaccines Aged Out No long er eligible based on patient's age to complete this topic IPV Vaccines Aged Out No longer eligi ble based on patient's age to complete this topic MMR Vaccines Aged Out No longer eligi ble based on patient's age to complete this topic Meningococcal ACWY Vaccine Aged Out N o longer eligible based on patient's age to complete this topic Meningococcal B Vaccine Aged Out No l onger eligible based on patient's age to complete this topic RSV Immunization Patients Under 20 months Aged Out No longer eligible based on patient's age to complete this topic Varicella Vaccines Aged Out No longer eligible based on patient's age to complete this topic Procedures Procedure Name Priority Date/Time Associated Diagnosis Comments CBC WITH AUTO DIFFERENTIAL STAT 11/25/2024 1:31 PM EDT CBC AND DIFFERENTIAL STAT 11/25/2024 1:31 PM EDT COMPREHENSIVE METABOLIC PANEL STAT 11/25/2024 1:31 PM EDT URINALYSIS WITH REFLEX MICROSCOPIC AND CULTURE STAT 11/25/2024 1:24 PM EDT URINALYSIS WITH REFLEX MICROSCOPIC AND CULTURE STAT 11/25/2024 1:[address] HEAD WO CONTRAST STAT 10/17/2024 4 :[address] MAXILLOFACIAL W CONTRAST STAT 10/17/2024 4:54 PM EDT CBC WITH AUTO DIFFERENTIAL STAT 10/17/2024 4:09 PM EDT HCG, SERUM, QUALITATIVE STAT 10/18/19 4:09 PM EDT CBC AND DIFFERENTIAL STAT 10/17/2024 4:09 PM EDT COMPREHENSIVE METABOLIC PANEL STAT 10/17/2024 4:09 PM EDT GREEN YELLOW PST Routine 10/17/2024 3:58 PM EDT EXTRA TUBES Routine 10/17/2024 3:58 PM EDT HEPATITIS C ANTIBODY Routine 07/10/2024 10:28 AM EDT Venereal disease contact HIV 1, 2 ANTIBODY, P24 ANTIGEN WITH REFLEX TO DIFFERENTIATION Routine 07/10/2024 10:28 AM EDT Venereal disease contact HPV WITH REFLEX GENOTYPE Routine 07/10/2024 12:00 AM EDT Encounter for gynecological examination (general) (routine) without abnormal findings from Last 3 Months or Most Recently Relevant to Health Maintenance Results * CBC auto differential (11/25/2024 1:31 PM EDT) Only the most recent of2 resultswithin the time period is included. WBC 6.1 4.0 - 10.5 K/mcL LAB HEMETOLOGY METHOD 11/25/2024 1:39 PM EDT [facility] RBC 4.62 4.20 - 5.40 M/mcL LAB HEMETOLOGY [facility] Hemoglobin 13.1 12.5 - 16.0 g/dL LAB HEMETOLOGY METHOD 11/25/2024 1:39 [facility] Hematocrit 39.0 37.0 - 47.0 % LAB HEMETOLOGY METHOD 11/25/2024 1:39 [facility] MCV 84.4 78.0 - 100.0 FL LAB HEMETOLOGY METHOD 11/25/2024 1:39 [facility] MCH 28.4 25.0 - 33.0 pcg LAB HEMETOLOGY METHOD 11/25/2024 1:39 [facility] MCHC 33.6 32.0 - 36.0 g/dL LAB HEMETOLOGY METHOD 11/25/2024 1:39 [facility] RDW 13.8 12.1 - 16.2 % LAB HEMETOLOGY METHOD 11/25/2024 1:39 [facility] Platelets 417 150 - 450 K/mcL LAB HEMETOLOGY METHOD 11/25/2024 1:39 [facility] MPV 8.8 7.4 - 11.4 FL LAB HEMETOLOGY METHOD 11/25/2024 1:39 PM [facility] Neutrophils Relative 47.3 44.0 - 74.0 % LAB HEMETOLOGY METHOD 11/25/2024 1:39 PM [facility] Lymphocytes Relative 44.0 20.0 - 48.0 % LAB HEMETOLOGY METHOD 11/25/2024 1:39 PM [facility] Monocytes Relative 7.4 2.0 - 12.0 % LAB HEMETOLOGY METHOD 11/25/2024 1:39 PM [facility] Eosinophils Relative 0.5 0.0 - 6.0 % LAB HEMETOLOGY METHOD 11/25/2024 1:39 PM [facility] Basophils Relative 0.5 0.0 - 2.0 % LAB HEMETOLOGY METHOD 11/25/2024 1:39 PM [facility] Neutrophils Absolute 2.89 1.80 - 7.80 K/mcL LAB HEMETOLOGY METHOD 11/25/2024 1:39 PM [facility] Lymphocytes Absolute 2.69 1.00 - 3.20 K/mcL LAB HEMETOLOGY METHOD 11/25/2024 1:39 PM [facility] Monocytes Absolute 0.45 0.00 - 0.80 K/mcL LAB HEMETOLOGY METHOD 11/25/2024 1:39 PM [facility] Eosinophils Absolute 0.03 0.00 - 0.50 K/mcL LAB HEMETOLOGY METHOD 11/25/2024 1:39 PM [facility] Basophils Absolute 0.03 0.00 - 0.20 K/mcL LAB HEMETOLOGY METHOD 11/25/2024 1:39 PM [facility] Blood Venous blood specimen / Unknown Venipuncture / Unknown 11/25/2024 1:31 PM EDT 11/25/2024 1:37 PM EDT us Daisha SAINZ LAB BLOOD ORDERABLES Final Result [facility] [address] [place] [address], [place] [phone] * (ABNORMAL) Comprehensive Metabolic Panel (CMP) (11/25/2024 1:31 PM EDT) Only the most recent of2 resultswithin the time period is included. Sodium 137 135 - 145 mmol/L LAB CHEMISTRY METHOD 11/25/2024 2:02 [facility] Potassium 3.1(L) 3.5 - 5.1 mmol/L LAB CHEMISTRY METHOD 11/25/2024 2:02 PM [facility] Chloride 101 98 - 107 mmol/L LAB CHEMISTRY METHOD 11/25/2024 2:02 PM [facility] CO2 27 24 - 32 mmol/L LAB CHEMISTRY METHOD 11/25/2024 2:02 [facility] Anion Gap 9 5 - 14 LAB CHEMISTRY METHOD 11/25/2024 2:02 PM [facility] Glucose 96 70 - 199 mg/dL LAB CHEMISTRY METHOD 11/25/2024 2:02 PM [facility] BUN 13 7 - 17 mg/dL LAB CHEMISTRY METHOD 11/25/2024 2:02 PM [facility] Creatinine 0.71 0.50 - 1.00 mg/dL LAB CHEMISTRY METHOD 11/25/2024 2:02 PM [facility] eGFR 104 >=60 mL/min/1. 73m2 LAB CHEMISTRY METHOD 11/25/2024 2:02 PM [facility] Comment:Calculation based on the Chronic Kidney Disease Epidemiology Collaboration (CKD-EPI) equation refit without adjustment for race. BUN/Creatinine Ratio 18.3 12.0 - 20.0 LAB CHEMISTRY METHOD 11/25/2024 2:02 PM EDT [facility] Calcium 9.9 8.4 - 10.2 mg/dL LAB CHEMISTRY METHOD 11/25/2024 2:02 PM [facility] AST (SGOT) 22 5 - 40 unit/L LAB CHEMISTRY METHOD 11/25/2024 2:02 PM [facility] ALT (SGPT) 14 7 - 52 unit/L LAB CHEMISTRY METHOD 11/25/2024 2:02 PM [facility] Alkaline Phosphatase 66 34 - 104 unit/L LAB CHEMISTRY METHOD 11/25/2024 2:02 PM [facility] Total Protein 7.8 6.4 - 8.5 g/dL LAB CHEMISTRY METHOD 11/25/2024 2:02 PM [facility] Albumin 4.7 3.5 - 5.0 g/dL LAB CHEMISTRY METHOD 11/25/2024 2:02 PM [facility] Total Bilirubin 0.4 0.3 - 1.0 mg/dL LAB CHEMISTRY METHOD 11/25/2024 2:02 PM [facility] Blood Venous blood specimen / Unknown Venipuncture / Unknown 11/25/2024 1:31 PM EDT 11/25/2024 1:37 PM EDT us Daisha SAINZ LAB BLOOD ORDERABLES Final Result [facility] [address] [place] [address], [place] [phone] * (ABNORMAL) Urinalysis with reflex microscopic and culture (11/25/2024 1:24 PM EDT) Color, Urine Yellow Colorless, Yellow LAB URINALYSIS - AUTOMATED METHOD 11/25/2024 1:29 PM EDT [facility] Clarity, Urine Turbid(A) Clear LAB URINALYSIS - AUTOMATED METHOD 11/25/2024 1:29 [facility] Specific [place] Urine 1.015 1.005 - 1.030 LAB URINALYSIS - AUTOMATED METHOD 11/25/2024 1:29 PM [facility] pH, Urine 8.0 5.0 - 8.0 pH LAB URINALYSIS - AUTOMATED METHOD 11/25/2024 1:29 PM [facility] Leukocytes, Urine Negative Negative WBCs/mcL LAB URINALYSIS - AUTOMATED METHOD 11/25/2024 1:29 PM [facility] Nitrite, Urine Negative Negative LAB URINALYSIS - AUTOMATED METHOD 11/25/2024 1:29 PM [facility] Protein, Urine Negative Negative mg/dL LAB URINALYSIS - AUTOMATED METHOD 11/25/2024 1:29 PM [facility] Glucose, Urine Negative Negative mg/dL LAB URINALYSIS - AUTOMATED METHOD 11/25/2024 1:29 PM [facility] Ketones, Urine Negative Negative mg/dL LAB URINALYSIS - AUTOMATED METHOD 11/25/2024 1:29 PM [facility] Blood, Urine Negative Negative mg/dL LAB URINALYSIS - AUTOMATED METHOD 11/25/2024 1:29 PM [facility] Urine Urine specimen obtained by clean catch procedure / Unknown Non-blood Collection / Unknown 11/25/2024 1:24 PM EDT 11/25/2024 1:26 PM EDT us Daisha SAINZ LAB URINE ORDERABLES Final Result [facility] CT [facility] [address] [facility] [place] [address], [place] [phone] * CT Head wo Contrast (10/17/2024 4:56 PM EDT) Anatomical Region Laterality Modality Head and Neck Computed Tomogra phy 10/17/2024 5:23 PM EDT Impressions 10/17/2024 5:29 PM EDT 1. Negative for acute intracranial process. Report reviewed and signed by : Dr. Anastacio Riley on 10/17/2024 5:29 PM. Workstation Name - [id number] -------- FINAL REPORT -------- Dictated By: Anastacio Riley Dictated Date: 10/17/2024 17:23 ET Assigned Physician: Anastacio Riley Reviewed and Electronically Signed By: Anastacio Riley Signed Date: 10/17/2024 17:29 ET Workstation ID: [id number] Transcribed By: Self Edit Transcribed Date: 10/17/2024 17:23 ET Narrative 10/17/2024 5:[address] OF THE BRAIN WITHOUT IV CONTRAST CLINICAL HISTORY: Headache TECHNIQUE: Exam is performed without intravenous contrast. Per PQRS, CT exam is performed using one or more of the following dose reduction techniques: Automated exposure control, adjustment of the mA and/or KV according to patient size, or use of iterative reconstruction techniques. COMPARISON: None FINDINGS: Negative for acute bleed. Negative for acute infarct. Normal sized ventricles. Extra-axial compartments are normal. Sinuses are clear. Mastoid air spaces are clear. Middle ear cavities are clear. Calvarium is intact. Scalp is unremarkable. Procedure Note Anastacio Riley MD - 10/17/2024 CT OF THE BRAIN WITHOUT IV CONTRAST CLINICAL HISTORY: Headache TECHNIQUE: Exam is performed without intravenous contrast. Per PQRS, CT exam is performed using one or more of the following dosereduction techniques: Automated exposure control, adjustment of the mAand/or KV according to patient size, or use of iterative reconstructiontechniques. COMPARISON: None FINDINGS: Negative for acute bleed. Negative for acute infarct. Normal sized ventricles. Extra-axial compartments are normal. Sinuses are clear. Mastoid air spaces are clear. Middle ear cavities are clear. Calvarium is intact. Scalp is unremarkable. IMPRESSION: 1. Negative for acute intracranial process. Report reviewed and signed by : Dr. Anastacio Riley on 10/17/2024 5:29 PM.Workstation Name - [id number] -------- FINAL REPORT -------- Dictated By: Anastacio Riley Dictated Date: 10/17/2024 17:23 ET Assigned Physician: Anastacio Riley Reviewed and Electronically Signed By: Anastacio Riley Signed Date: 10/17/2024 17:29 ET Workstation ID: [id number] Transcribed By: Self Edit Transcribed Date: 10/17/2024 17:23 ET us Sebastian Ramirez MD IMG CT PROCEDURES Final Result * CT Maxillofacial w Contrast (10/17/2024 4:54 PM EDT) Anatomical Region Laterality Modality Head and Neck Computed Tomogra phy 10/17/2024 5:29 PM EDT Impressions 10/17/2024 5:36 PM EDT 1. Negative for acute fracture, lytic or blastic lesion. 2. Mucous retention cyst in the right maxillary sinus. Report reviewed and signed by : Dr. Anastacio Riley on 10/17/2024 5:36 PM. Workstation Name - [id number] -------- FINAL REPORT -------- Dictated By: Anastacio Riley Dictated Date: 10/17/2024 17:29 ET Assigned Physician: Anastacio Riley Reviewed and Electronically Signed By: Anastacio Riley Signed Date: 10/17/2024 17:36 ET Workstation ID: [id number] Transcribed By: Self Edit Transcribed Date: 10/17/2024 17:29 ET Narrative 10/17/2024 5:[address] OF THE FACIAL BONES AND SINUSES WITHOUT IV CONTRAST CLINICAL HISTORY: Persistent severe sinus headache and drainage for several months TECHNIQUE: Serial axial images obtained. Sagittal reconstructed images obtained. Coronal reconstructed images obtained. Exam is performed without intravenous contrast. Per PQRS, CT exam is performed using one or more of the following dose reduction techniques: Automated exposure control, adjustment of the mA and/or KV according to patient size, or use of iterative reconstruction techniques. COMPARISON: None. FINDINGS: Negative for acute fracture. No evidence for lytic or blastic lesion. Nasal bones, orbital kelley, zygomatic arches, and mandible are intact. Mucous retention cyst in the right maxillary sinus Mastoid air spaces are clear. Soft tissues are unremarkable. Negative for radiodense foreign body. Procedure Note Anastacio Riley MD - 10/17/2024 CT OF THE FACIAL BONES AND SINUSES WITHOUT IV CONTRAST CLINICAL HISTORY: Persistent severe sinus headache and drainage forseveral months TECHNIQUE: Serial axial images obtained. Sagittal reconstructed images obtained. Coronal reconstructed images obtained. Exam is performed without intravenous contrast. Per PQRS, CT exam is performed using one or more of the following dosereduction techniques: Automated exposure control, adjustment of the mAand/or KV according to patient size, or use of iterative reconstructiontechniques. COMPARISON: None. FINDINGS: Negative for acute fracture. No evidence for lytic or blastic lesion. Nasal bones, orbital kelley, zygomatic arches, and mandible are intact. Mucous retention cyst in the right maxillary sinus Mastoid air spaces are clear. Soft tissues are unremarkable. Negative for radiodense foreign body. IMPRESSION: 1. Negative for acute fracture, lytic or blastic lesion. 2. Mucous retention cyst in the right maxillary sinus. Report reviewed and signed by : Dr. Anastacio Riley on 10/17/2024 5:36 PM.Workstation Name - [id number] -------- FINAL REPORT -------- Dictated By: Anastacio Riley Dictated Date: 10/17/2024 17:29 ET Assigned Physician: Anastacio Riley Reviewed and Electronically Signed By: Anastacio Riley Signed Date: 10/17/2024 17:36 ET Workstation ID: [id number] Transcribed By: Self Edit Transcribed Date: 10/17/2024 17:29 ET us Sebastian Ramirez MD [facility] CT PROCEDURES Final Result * hCG, serum, qualitative (10/17/2024 4:09 PM EDT) [facility] hCG Qual Negative Negative 10/17/2024 4:28 PM EDT [facility] Blood Venous blood specimen / Unknown Venipuncture / Unknown 10/17/2024 4:09 PM EDT 10/17/2024 4:13 PM EDT us Sebastian Ramirez MD LAB BLOOD ORDERABLES Final Res ult [facility] [address] [place] [address], [place] [phone] * PST green LI heparin tube (10/17/2024 3:58 PM EDT) [facility] Extra Tube Hold for add-ons. 10/17/2024 6:01 PM EDT [facility] Comment:Auto resulted. Blood Venous blood specimen / Unknown 10/17/2024 3:58 PM EDT 10/17/2024 4:13 PM EDT us Sebastian Ramirez MD LAB BLOOD ORDERABLES Final Res ult Performing Organization Address City/[facility]/ZIP Co de Phone Number [facility] [address] [place] [address], [place] [phone] * Hepatitis C antibody (07/10/2024 10:28 AM EDT) [facility] Hepatitis C Antibody Negative Negative LAB CHEMISTRY METHOD 07/10/2024 3:[address] [facility] Blood Venous blood specimen / Unknown Venipuncture / Unknown 07/10/2024 10:28 AM EDT 07/10/2024 12:31 PM EDT us Dillon Montoya MD LAB BLOOD ORDERABLES Final Res ult [facility] [address] [place] [address], [place] [phone] * HIV 1,2 antibody, p24 antigen with reflex to differentiation (07/10/2024 10:28 AM EDT) HIV Combo AB/AG Negative Negative LAB CHEMISTRY METHOD 07/10/2024 3:[address] [facility] Blood Venous blood specimen / Unknown Venipuncture / Unknown 07/10/2024 10:28 AM EDT 07/10/2024 12:[address] [facility] - 07/10/2024 3:29 PM EDT This assay is a 4th generation assay allowing for earlier detection of HIV infection by detecting the presence of the HIV-1 p24 antigen as well as the traditional antibodies to HIV type 1 (including group O) and type 2. Use of a 4th generation assay is the current CDC recommendation for HIV screening. us Dillon Montoya MD LAB BLOOD ORDERABLES Final Res ult Performing Organization Address [facility]/ZIP Co de Phone Number [facility] [address] [place] [address], [place] [phone] * HPV with reflex genotype (07/10/2024 12:00 AM EDT) HPV Negative Negative LAB MICROBIOLOGY METHOD 07/12/2024 6:[address] [facility] Brushing/Spatula Cervix uteri structure / Unknown 07/10/2024 07/11/2024 6:21 AM EDT us Dillon Montoya MD LAB MOLECULAR DIAGNOSTICS ORDE [id number] Final Result Performing Organization Address [facility]/ZIP Co de Phone Number [facility] [address] [place] [address], [place] [phone] from Last 3 Months or Most Recently Relevant to Health Maintenance Insurance [employer] [address] [id number] Care Teams Navigating Officer Relationship Specialty Start Date End Date Sultana Mccormack NP [address] [facility] [address] [id number] PCP - General Family Medicine 10/17/24
== END 2024-12-17 09:39 | disposition home or self-care (01) ==
LOC: HO.HSMS 08:57
PROVIDERS: PCP Internal Medicine; Visit Provider Psychiatry & Neurology Neurology
DX: G43.719 Chronic migraine without aura, intractable, without status migrainosus (principal)
CPT/HCPCS: 64615

== ENCOUNTER → 2024-12-17 08:56 | Outpatient (BNVA) | payer OTHER, SELFPAY | PROVIDERS: PCP Internal Medicine; Visit Provider Psychiatry & Neurology Neurology | DX: G43.719 Chronic migraine without aura, intractable, without status migrainosus (principal) | CPT/HCPCS: 64615; 99211; J0585 ==

== ENCOUNTER 2024-12-18 11:19 | Outpatient (REF) | payer OTHER, SELFPAY ==
--- OUTSIDE RECORDS SUMMARY | 2024-07-05 07:40 | XMS_ITS ---
Author Organization [facility] Address [address] [place] [address] [address] [place] [address] Care Team Providers Care Polishing Machine Operator Helper Name Role Phone Sultana Mccormack N.P Primary Care Provider Kwabena Marroquin Jr REASON FOR VISIT Saldivar's Esophagus Encounters Encounter Location Date Provider Diagnosis [facility] [place] [address] [place] [id number] 07/05/2024 Kwabena Cook Jr Saldivar''s esophagus without dysplasia K22.70 Assessments Encounter Date Diagnosis (ICD Code) Assessment Notes Treatment Notes Treatment Clinical Notes Section Notes 07/05/2024 Saldivar''s esophagus without dysplasia (ICD-10 - K22.70) Plan Of Treatment Next Appt Details Provider Name:Kwabena champagne Jr, 06/18/2025 10:00:00 AM, [address] [place] [address], [address], [place], [address], Progress Notes * RASHEED MALIKOB: [birth year]75 (49 yo F)Acc No.[id number]:07/05/2024 EGD/MAC Patient: KEVIN WOODY Provider: Mekhi Cook MD :1975 A ge:48 Y S ex:Female Date:07/05/2024 Address:[address] [place], [place] [phone] Pcp:Sultana Mccormack N.Don Subjective: * Chief Complaints: [...] MD Date: 0 07/05/2024 Generated for Jorden campbell/Shekhar/Fionaitting on: 0 12/18/2024 02:33 PM EDT
--- OUTSIDE RECORDS SUMMARY | 2024-12-18 14:34 | XMS_ITS | Encounter Summary ---
Author Organization [employer] Address [address] [place] [address] Care Team Providers Care Refueler Name Role Phone Sultana Mccormack LEIF Primary Care Provider + Encounter Details Date Type Department Care Team (Latest Contact Info) Description 07/10/2024 Lab Requisition [facility] - Main Lab 299 [facility] [place] [phone] Dillon Montoya MD [address] [phone] Urinary tract infection, site not specified; Encounter [...] reflex microscopic (07/10/2024 12:00 AM EDT) Pathologist [facility] Specific [place] Urine 1.013 1.003 - 1.030 LAB URINALYSIS - AUTOMATED METHOD 07/10/2024 1:[address] [facility] pH, Urine 7.0 5.0 - 8.0 pH LAB URINALYSIS - AUTOMATED METHOD 07/10/2024 1:[address] [facility] Leukocytes, Urine Negative Negative LAB URINALYSIS - AUTOMATED METHOD 07/10/2024 1:[address] [facility] Nitrite, Urine Negative Negative LAB URINALYSIS - AUTOMATED METHOD 07/10/2024 1:[address] [facility] Protein, Urine Negative <=Trace mg/dL LAB URINALYSIS - AUTOMATED METHOD 07/10/2024 1:[address] [facility] Glucose, Urine Negative Negative mg/dL LAB URINALYSIS - AUTOMATED METHOD 07/10/2024 1:[address] [facility] Ketones, Urine Negative Negative mg/dL LAB URINALYSIS - AUTOMATED METHOD 07/10/2024 1:42 PM EDT [facility] Urobilinogen, Urine 0.2 0.2 - 1.0 mg/dL LAB URINALYSIS - AUTOMATED METHOD 07/10/2024 1:42 PM EDT [facility] Bilirubin, Urine Negative Negative LAB URINALYSIS - AUTOMATED METHOD 07/10/2024 1:42 PM EDT [facility] Blood, Urine Negative Negative LAB URINALYSIS - AUTOMATED METHOD 07/10/2024 1:42 PM EDT [facility] Urine Urine specimen obtained by clean catch procedure / Unknown 07/10/2024 07/10/2024 1:32 PM EDT us Dillon Montoya MD LAB URINE ORDERABLES Final Res ult Performing Organization Address [facility]/ZIP Co de Phone Number [facility] [address] [place] [address], [place] [phone] * Culture urine (07/10/2024 12:00 AM EDT) Culture, Urine <10,000 CFU/mL gram positive cocci, insignificant count, no further workup 07/11/2024 10:55 AM EDT [facility] Urine Urine specimen obtained by clean catch procedure / Unknown 07/10/2024 07/10/2024 1:32 PM EDT us Dillon Montoya MD LAB MICROBIOLOGY - GENERAL ORD ERABLES Final Result [facility] [address] [place] [address], [place] [phone] * (ABNORMAL) Vaginitis pathogens molecular study (07/10/2024 12:00 AM EDT) Trichomonas vaginalis Negative Negative 07/11/2024 9:35 AM EDT [facility] Gardnerella vaginalis Positive(A) Negative 07/11/2024 9:35 AM EDT [facility] Amaris Species Negative Negative 9:35 AM EDT [facility] Swab Vaginal structure / Unknown 07/10/2024 07/10/2024 1:32 PM EDT us Dillon Montoya MD LAB MICROBIOLOGY - GENERAL ORD ERABLES Final Result [facility] [address] [place] [address], [place] [phone] * Chlamydia trachomatis and Neisseria gonorrhoeae molecular study (07/10/2024 12:00 AM EDT) Neisseria gonorrhoeae PCR Negative Negative LAB MOLECULAR DIAGNOSTICS METHOD 07/10/2024 4:53 PM EDT [facility] Chlamydia trachomatis PCR Negative Negative LAB MOLECULAR DIAGNOSTICS METHOD 07/10/2024 4:53 PM EDT [facility] Swab Cervix uteri structure / Unknown 07/10/2024 07/10/2024 1:32 PM EDT us Dillon Montoya MD LAB MICROBIOLOGY - GENERAL ORD ERABLES Final Result [facility] [address] [place] [address], [place] [phone] documented in this encounter Visit Diagnoses Diagnosis Urinary tract infection, site not specified Encounter for screening for infections with a predominantly sexual mode of transmission Acute vaginitis Unspecified vaginitis and vulvovaginitis documented in this encounter Care Teams Refueler Relationship Specialty Start Date End Date Sultana Mccormack NP [address] [place] [address] PCP - General Family Medicine 10/17/24 documented as of this encounter
--- OUTSIDE RECORDS SUMMARY | 2024-12-18 14:34 | XMS_ITS | Clinical Summary ---
Author Organization Formerly [facility] Address [address] [place] [address] Care Team Providers Care Associate Quality Engineer Name Role Phone Camelia Robles MD Primary [...] (2 - Td or Tdap) 08/28/2023 08/27/2013 Breast Cancer Screening (Mammogram) 2024 Shingrix-Zoster Vaccine (1 of 2) 2024 COVID-19 Vaccine (4 - season) 2024 05/28/2023, 08/20/2020, 07/28/2020 Influenza Vaccine (#1) 2024 8, 07/08/2015, 01/28/2008, Additional history exists RSV Ped < 20 months Aged Out No longe r eligible based on patient's age to complete this topic Care Teams Associate Quality Engineer Relationship Specialty Start Date End Date Camelia Robles MD [address] [place] [id number] PCP - General Internal Medicine 02/03/16
--- OUTSIDE RECORDS SUMMARY | 2024-12-18 14:34 | XMS_ITS | Encounter Summary ---
Author Organization [employer] Address [address] [place] [address] Care Team Providers Care Watch Repairer Name Role Phone KseniaSultana dorman LEIF Primary Care Provider + Encounter Details Date Type Department Care Team (Latest Contact Info) Description 07/11/2024 Lab Requisition [facility] - Main Lab 299 [facility] [place] [phone] Dillon Motnoya MD [address] [phone] Encounter for gynecological examination (general) (routine) without [...] LAB MICROBIOLOGY METHOD 07/12/2024 6:28 AM EDT [facility] Brushing/Spatula Cervix uteri structure / Unknown 07/10/2024 07/11/2024 6:21 AM EDT us Dillon Montoya MD LAB MOLECULAR DIAGNOSTICS DYANA OQUENDO Final Result [facility] [address] [place] [address], * Pap smear (07/10/2024 12:00 AM EDT) Interpretation Negative for intraepithelial lesion or malignancy 07/16/2024 2:26 PM EDT [facility] General Categorization Negative 07/16/2024 2:26 PM EDT [facility] Other Findings Reparative changes 07/16/2024 2:26 PM EDT [facility] Specimen Adequacy Satisfactory for evaluation, endocervical/tam sformation zone component absent 07/16/2024 2:26 PM EDT [facility] Pap Methodology Liquid Based Pap Test 07/16/2024 2:26 PM EDT [facility] Disclaimer The Pap test is a screening test which carries an inherent false negative rate. These test results should be correlated with the patient's clinical findings and history. This Pap test was processed using an automated screening system. Technical cytopathology services provided by [facility], at [address] [place] [address] (CLIA # [id number]/Gurjit Gregory MD, New Account Interviewer.) 07/16/2024 2:26 PM EDT [facility] Console Pap Interpretation Reported 07/16/2024 2:26 PM EDT [facility] Brushing/Spatula Vaginal structure / Unknown 07/10/2024 07/11/2024 6:21 AM EDT us Dillon Montoya MD LAB CYTOLOGY ORDERABLES Final Result [facility] [address] [place] [address], documented in this encounter Visit Diagnoses Diagnosis Encounter for gynecological examination (general) (routine) without abnormal findings documented in this encounter Care Teams Watch Repairer Relationship Specialty Start Date End Date Sultana Mccormack NP 21 [facility] [address] [place] [address] PCP - General Family Medicine 10/17/24 documented as of this encounter
--- OUTSIDE RECORDS SUMMARY | 2024-12-18 14:34 | XMS_ITS | Patient Health Record ---
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 Problem 355438889 Gastroesophageal reflux disease without esophagitis (K21.9) Active confirmed Problem 86275505 Pancreatic cyst (K86.2) Active confirmed Problem 12143743 Irritable bowel syndrome with both constipation and diarrhea (K58.2) Active confirmed Vital Signs Temperature 97.5 degrees Fahrenheit 06/12/2024 Blood pressure diastolic 01 mm Hg 06/12/2024 Height 64.5 in 06/12/2024 Blood pressure systolic 001 mm Hg 06/12/2024 Weight 142 lbs 06/12/2024 BMI 24 kg/m2 06/12/2024 Encounters Encounter Location Date Provider Diagnosis [facility] Outpatient [address] [place] [phone] 07/05/2024 Kwabena Cook Jr Saldivar''s esophagus without dysplasia K22.70 [facility] [address] [place] [phone] 06/12/2024 Kwabena Cook Jr Saldivar's esophagus without dysplasia K22.70 ; Irritable bowel syndrome with both constipation and diarrhea K58.2 and Pancreatic cyst K86.2 [facility] [address] [place] [phone] 05/22/2024 Kwabena Cook Jr [facility] [address] [place] [phone] 07/09/2024 Kwabena Cook Jr Assessments Encounter Date [...] continue fiber supplementation and she can use [id number]-[id number] antidiarrheals as needed for diarrhea. Her pancreatic [...] continue fiber supplementation and she can use [id number] antidiarrheals as needed for diarrhea. Her pancreatic [...] continue fiber supplementation and she can use [id number] antidiarrheals as needed for diarrhea. Her pancreatic cyst has resolved. Endoscopy will be scheduled. She is aware of risks and benefits and agrees to proceed.Today's visit was 30 minutes. Plan Of Treatment Future Test Test Name Order Date UPPER GI ENDOSCOPY 12/26/2019 COLONOSCOPY 12/26/2019 UPPER GI ENDOSCOPY 06/12/2024 Next Appt Details Provider Name:Kwabena champagne , 06/18/2025 10:00:00 AM, [address], [address], [place], [phone], Insurance Providers Payer Name Payer Address Payer Phone Subscriber Number Group Number Insured Name Patient Relationship to Insured Coverage Start Date Coverage End Date [facility] [address] [place] [phone] [id number] KEVIN MALIK Self - patient is the [...]
--- OUTSIDE RECORDS SUMMARY | 2024-12-18 14:34 | XMS_ITS | Clinical Summary ---
Author Organization [facility] Address [address] [place] [address] Phone Care Team Providers Care Cotton Wringer Name Role Phone Ksenia, Sultana Felipe LEIF [...] Description 12/06/2024 1:00 PM EDT Consult Neurosurgery [place] [address] [place] [address] Dillon Gomez PA Chronic midline low back pain with left-sided sciatica (Primary Dx) 11/25/2024 12:48 PM EDT - 11/25/2024 2:46 PM EDT Emergency Day [facility] Emergency [address] [place] [address] Sciatica, left side (Primary Dx); Hypokalemia Discharge Disposition: Home or Self Care 10/17/2024 1:46 PM EDT - 10/17/2024 6:32 PM EDT Emergency Day [facility] Emergency [address] [place] [address] Sebastian Ramirez MD Bacterial sinusitis [...] LAB HEMETOLOGY METHOD 11/25/2024 1:39 PM EDT [facility] RBC 4.62 4.20 - 5.40 M/mcL LAB HEMETOLOGY METHOD [facility]24 [facility] Hemoglobin 13.1 12.5 - 16.0 g/dL LAB HEMETOLOGY METHOD 11/25/2024 1:[facility] Hematocrit 39.0 37.0 - 47.0 % LAB HEMETOLOGY METHOD 11/25/2024 1:[facility] MCV 84.4 78.0 - 100.0 FL LAB HEMETOLOGY METHOD 11/25/2024 1:[facility] MCH 28.4 25.0 - 33.0 pcg LAB HEMETOLOGY METHOD 11/25/2024 1:[facility] MCHC 33.6 32.0 - 36.0 g/dL LAB HEMETOLOGY METHOD 11/25/2024 1:[facility] RDW 13.8 12.1 - 16.2 % LAB HEMETOLOGY METHOD 11/25/2024 1:39 [facility] Platelets 417 150 - 450 K/mcL LAB HEMETOLOGY METHOD 11/25/2024 1:[facility] MPV 8.8 7.4 - 11.4 FL LAB HEMETOLOGY METHOD 11/25/2024 1:39 PM [facility] Neutrophils Relative 47.3 44.0 - 74.0 % LAB HEMETOLOGY METHOD 11/25/2024 1:39 PM [facility] Lymphocytes Relative 44.0 20.0 - 48.0 % LAB HEMETOLOGY METHOD 11/25/2024 1:39 PM [facility] Monocytes Relative 7.4 2.0 - 12.0 % LAB HEMETOLOGY METHOD 11/25/2024 1:39 PM [facility] Eosinophils Relative 0.5 0.0 - 6.0 % LAB HEMETOLOGY METHOD 11/25/2024 1:39 PM [facility] Basophils Relative 0.5 0.0 - 2.0 % LAB HEMETOLOGY METHOD 11/25/2024 1:39 PM [facility] Neutrophils Absolute 2.89 1.80 - 7.80 K/mcL LAB HEMETOLOGY METHOD 11/25/2024 1:39 PM [facility] Lymphocytes Absolute 2.69 1.00 - 3.20 K/mcL LAB HEMETOLOGY METHOD 11/25/2024 1:39 PM [facility] Monocytes Absolute 0.45 0.00 - 0.80 K/mcL LAB HEMETOLOGY METHOD 11/25/2024 1:39 PM [facility] Eosinophils Absolute 0.03 0.00 - 0.50 K/mcL LAB HEMETOLOGY METHOD 11/25/2024 1:39 PM [facility] Basophils Absolute 0.03 0.00 - 0.20 K/mcL LAB HEMETOLOGY METHOD 11/25/2024 1:39 PM [facility] Blood Venous blood specimen / Unknown Venipuncture / Unknown 11/25/2024 1:31 PM EDT 11/25/2024 1:37 PM EDT us Daisha SAINZ LAB BLOOD ORDERABLES Final Result [facility] [address] [place] [address], [place] [phone] * (ABNORMAL) Comprehensive Metabolic Panel (CMP) (11/25/2024 1:31 PM EDT) Only the most recent of2 resultswithin the time period is included. Sodium 137 135 - 145 mmol/L LAB CHEMISTRY METHOD 11/25/2024 2:[facility] Potassium 3.1(L) 3.5 - 5.1 mmol/L LAB CHEMISTRY METHOD 11/25/2024 2:[facility] Chloride 101 98 - 107 mmol/L LAB CHEMISTRY METHOD 11/25/2024 2:02 PM [facility] CO2 27 24 - 32 mmol/L LAB CHEMISTRY METHOD 11/25/2024 2:[facility] PM [facility] Anion Gap 9 5 - 14 LAB CHEMISTRY METHOD 11/25/2024 2:02 PM [facility] Glucose 96 70 - 199 mg/dL LAB CHEMISTRY METHOD 11/25/2024 2:02 PM [facility] BUN 13 7 - 17 mg/dL LAB CHEMISTRY METHOD 11/25/2024 2:[facility] PM [facility] Creatinine 0.71 0.50 - 1.00 mg/dL LAB CHEMISTRY METHOD 11/25/2024 2:02 PM [facility] eGFR 104 >=60 mL/min/1. 73m2 LAB CHEMISTRY METHOD 11/25/2024 2:02 PM [facility] Comment:Calculation based on the Chronic Kidney Disease Epidemiology Collaboration (CKD-EPI) equation refit without adjustment for race. BUN/Creatinine Ratio 18.3 12.0 - 20.0 LAB CHEMISTRY METHOD 11/25/2024 2:02 PM EDT [facility] Calcium 9.9 8.4 - 10.2 mg/dL LAB CHEMISTRY METHOD 11/25/2024 2:[facility] PM [facility] AST (SGOT) 22 5 - 40 unit/L LAB CHEMISTRY METHOD 11/25/2024 2:02 PM [facility] ALT (SGPT) 14 7 - 52 unit/L LAB CHEMISTRY METHOD 11/25/2024 2:02 PM [facility] Alkaline Phosphatase 66 34 - 104 unit/L LAB CHEMISTRY METHOD 11/25/2024 2:02 PM [facility] Total Protein 7.8 6.4 - 8.5 g/dL LAB CHEMISTRY METHOD 11/25/2024 2:02 PM [facility] Albumin 4.7 3.5 - 5.0 g/dL LAB CHEMISTRY METHOD 11/25/2024 2:02 PM [facility] Total Bilirubin 0.4 0.3 - 1.0 mg/dL LAB CHEMISTRY METHOD 11/25/2024 2:02 PM [facility] Blood Venous blood specimen / Unknown Venipuncture / Unknown 11/25/2024 1:31 PM EDT 11/25/2024 1:37 PM EDT us Daisha SAINZ LAB BLOOD ORDERABLES Final Result [facility] [address] [place] [address], [place] [phone] * (ABNORMAL) Urinalysis with reflex microscopic and culture (11/25/2024 1:24 PM EDT) Color, Urine Yellow Colorless, Yellow LAB URINALYSIS - AUTOMATED METHOD 11/25/2024 1:29 PM EDT [facility] Clarity, Urine Turbid(A) Clear LAB URINALYSIS - AUTOMATED METHOD 11/25/2024 1:29 PM [facility] Specific [place] Urine 1.015 1.005 - 1.030 LAB URINALYSIS - AUTOMATED METHOD 11/25/2024 1:29 PM [facility] pH, Urine 8.0 5.0 - 8.0 pH LAB URINALYSIS - AUTOMATED METHOD 11/25/2024 1:29 PM [facility] Leukocytes, Urine Negative Negative WBCs/mcL LAB URINALYSIS - AUTOMATED METHOD 11/25/2024 1:29 PM [facility] Nitrite, Urine Negative Negative LAB URINALYSIS - AUTOMATED METHOD 11/25/2024 1:29 PM [facility] Protein, Urine Negative Negative mg/dL LAB URINALYSIS - AUTOMATED METHOD 11/25/2024 1:29 PM [facility] Glucose, Urine Negative Negative mg/dL LAB URINALYSIS - AUTOMATED METHOD 11/25/2024 1:29 PM [facility] Ketones, Urine Negative Negative mg/dL LAB URINALYSIS - AUTOMATED METHOD 11/25/2024 1:29 PM [facility] Blood, Urine Negative Negative mg/dL LAB URINALYSIS - AUTOMATED METHOD 11/25/2024 1:29 PM [facility] Urine Urine specimen obtained by clean catch procedure / Unknown Non-blood Collection / Unknown 11/25/2024 1:24 PM EDT 11/25/2024 1:26 PM EDT us Daisha SAINZ LAB URINE ORDERABLES Final Result [facility] CT [facility] [address] [place] [address], [place] [phone] * CT Head wo Contrast (10/17/2024 4:56 PM EDT) Anatomical Region Laterality Modality Head and Neck Computed Tomogra phy 10/17/2024 5:23 PM EDT Impressions 10/17/2024 5:29 PM EDT 1. Negative for acute intracranial process. Report reviewed and signed by : Dr. Anastacio Riley on 10/17/2024 5:29 PM. Workstation Name - [id number] -------- FINAL REPORT -------- Dictated By: Anastacio Riley Dictated Date: 10/17/2024 17:23 ET Assigned Physician: Anastacio Riley Reviewed and Electronically Signed By: Anastacio Riley Signed Date: 10/17/2024 17:29 ET Workstation ID: [id number] Transcribed By: Self Edit Transcribed Date: 10/17/2024 [...] Riley on 10/17/2024 5:29 PM.Workstation Name - [id number] -------- FINAL REPORT -------- Dictated By: Anastacio Riley Dictated Date: 10/17/2024 17:23 ET Assigned Physician: Anastacio Riley Reviewed and Electronically Signed By: Anastacio Riley Signed Date: 10/17/2024 17:29 ET Workstation ID: [id number] Transcribed By: Self Edit Transcribed Date: 10/17/2024 [...] on 10/17/2024 5:36 PM. Workstation Name - [id number] -------- FINAL REPORT -------- Dictated By: Anastacio Riley Dictated Date: 10/17/2024 17:29 ET Assigned Physician: Anastacio Riley Reviewed and Electronically Signed By: Anastacio Riley Signed Date: 10/17/2024 17:36 ET Workstation ID: [id number] Transcribed By: Self Edit Transcribed Date: 10/17/2024 [...] Riley on 10/17/2024 5:36 PM.Workstation Name - [id number] -------- FINAL REPORT -------- Dictated By: Anastacio Riley Dictated Date: 10/17/2024 17:29 ET Assigned Physician: Anastacio Riley Reviewed and Electronically Signed By: Anastacio Riley Signed Date: 10/17/2024 17:36 ET Workstation ID: [id number] Transcribed By: Self Edit Transcribed Date: 10/17/2024 17:29 ET us Sebastian Ramirez MD [facility] [place] PROCEDURES Final Result * hCG, serum, qualitative (10/17/2024 4:09 PM EDT) [facility] hCG Qual Negative Negative 10/17/2024 4:28 PM EDT [facility] Blood Venous blood specimen / Unknown Venipuncture / Unknown 10/17/2024 4:09 PM EDT 10/17/2024 4:13 PM EDT us Sebastian Ramirez MD LAB BLOOD ORDERABLES Final Res ult [facility] [address] [place] [address], [place] [phone] * PST green LI heparin tube (10/17/2024 3:58 PM EDT) [facility] Extra Tube Hold for add-ons. 10/17/2024 6:01 PM EDT [facility] Comment:Auto resulted. Blood Venous blood specimen / Unknown 10/17/2024 3:58 PM EDT 10/17/2024 4:13 PM EDT us Sebastian Ramirez MD LAB BLOOD ORDERABLES Final Res ult Performing Organization Address City/[facility]/ZIP Co de Phone Number [facility] [address] [place] [address], [place] [phone] * Hepatitis C antibody (07/10/2024 10:28 AM EDT) [facility] Hepatitis C Antibody Negative Negative LAB CHEMISTRY METHOD 07/10/2024 3:28 PM EDT [facility] Blood Venous blood specimen / Unknown Venipuncture / Unknown 07/10/2024 10:28 AM EDT 07/10/2024 12:31 PM EDT us Dillon Montoya MD LAB BLOOD ORDERABLES Final Res ult [facility] [address] [place] [address], [place] [phone] * HIV 1,2 antibody, p24 antigen with reflex to differentiation (07/10/2024 10:28 AM EDT) HIV Combo AB/AG Negative Negative LAB CHEMISTRY METHOD 07/10/2024 3:29 PM EDT [facility] Blood Venous blood specimen / Unknown Venipuncture / Unknown 07/10/2024 10:28 AM EDT 07/10/2024 12:31 PM EDT Narrative [facility] - 07/10/2024 3:29 PM EDT [...] ORDERABLES Final Res ult Performing Organization Address [facility]/ZIP Co de Phone Number [facility] [address] [place] [address], [place] [phone] * HPV with reflex genotype (07/10/2024 12:00 AM EDT) HPV Negative Negative LAB MICROBIOLOGY METHOD 07/12/2024 6:28 AM EDT [facility] Brushing/Spatula Cervix uteri structure / Unknown 07/10/2024 07/11/2024 6:21 AM EDT us Dillon Montoya MD LAB MOLECULAR DIAGNOSTICS ORDE RABRUCHI Final Result Performing Organization Address [facility]/ZIP Co de Phone Number [facility] [address] [place] [address], [place] [phone] from Last 3 Months or Most Recently Relevant to Health Maintenance Insurance [employer] [address] [phone] Care Teams Cotton Wringer Relationship Specialty Start Date End Date Sultana Mccormack NP [address] [facility] [address] [place] [address] PCP - General Family Medicine 10/17/24
[2024-12-18 18:45] LABS: Anion Gap 12 (12-20); Blood Urea Nitrogen 12 mg/dL (9-16); Calcium 9.5 mg/dL (8.4-10.2); Carbon Dioxide 28 mmol/L (22-29); Chloride 105 mmol/L (96-108); Estimated Glomerular Filt Rate > 60; Potassium 4.3 mmol/L (3.3-5.1); Sodium 141 mmol/L (135-145)
== END 2024-12-18 11:20 | disposition home or self-care (01) ==
LOC: HO.HKASLDS 11:19
PROVIDERS: Visit Provider Internal Medicine Nephrology
DX: N20.0 Calculus of kidney (principal)
CPT/HCPCS: 36415; 80051; 82310; 82565; 84520

== ENCOUNTER 2024-12-19 11:08 | Outpatient (AMB) | payer OTHER, SELFPAY ==
--- OUTSIDE RECORDS SUMMARY | 2024-07-05 07:40 | XMS_ITS ---
Author Organization [facility] Address [address] [place] [address] [address] [place] [address] Care Team Providers Care Pathologist Name Role Phone Sultana Mccormack N.P Primary Care Provider Kwabena Marroquin Jr [phone] REASON FOR VISIT Saldivar's Esophagus Encounters Encounter Location Date Provider Diagnosis [facility] [place] [address] [place] [id number] 07/05/2024 Kwabena Cook Jr Saldivar''s esophagus without dysplasia K22.70 Assessments Encounter Date Diagnosis (ICD Code) Assessment Notes Treatment Notes Treatment Clinical Notes Section Notes 07/05/2024 Saldivar''s esophagus without dysplasia (ICD-10 - K22.70) Plan Of Treatment Next Appt Details Provider Name:Kwabena champagne Jr, 06/18/2025 10:00:00 AM, [address] [place] [address], [address], [place], [address], Progress Notes * RASHEED MALIKOB: [birth year] (49 yo F)Acc No.[id number]:07/05/2024 EGD/MAC Patient: KEVIN WOODY Provider: Mekhi Cook MD :1975 A ge:48 Y S ex:Female Date:07/05/2024 Address:[address] [place], [place] [phone] Pcp:Sultana Mccormack N.Don Subjective: * Chief Complaints: [...] 07/05/2024 Generated for Jorden campbell/Shekhar/Fionaitting on: 0 12/19/2024 01:28 PM EDT
--- NOTE | 2024-12-19 12:03 | HO.NEPHOV ---
Vital Signs 12/19/24 12:09 Height 5 ft 4.5 in Weight 158 lb 4 oz BMI 26.7 BP 122/80 Blood Pressure Location Lt brachial Position Sitting Intake Visit Reasons: 2mnth w labs-LVM Telephonic Nurse Case Manager Required: No Accompanied by: Self / Same As Patient Allergies acetaminophen (Tylenol) Allergy (Intermediate, Verified 12/19/24 12:09) Vomiting aspirin Allergy (Intermediate, Verified 12/19/24 12:09) Vomiting ibuprofen Allergy (Intermediate, Verified 12/19/24 12:09) Abdominal Pain metronidazole (Flagyl) Allergy (Intermediate, Verified 12/19/24 12:09) Triggers migraines tramadol Allergy (Intermediate, Verified 12/19/24 12:09) Triggers migraine trazodone Allergy (Intermediate, Verified 12/19/24 12:09) Triggers Migrain HPI Comments Details: Melva was seen for her ongoing nephrolithiasis. She denies any flank pain. She has H/O ESWL. She was found to have B/L renal calculi as well as renal cyst including a bigger, questionable complex cyst on the left lower pole. She denies nausea, vomiting, hematuria, fever or dysuria. She had litholink which showed hypocitrauria. She is not hypertensive or diabetic and has no H/O metabolic acidosis. I have started her on HCTZ at the last visit but not on K citrate. She has strong family H/O renal calculi but no family H/O medullary sponge kidney, ESRD or renal transplantation [facility] Medical History Pancreatic cyst IBS (irritable bowel syndrome) Saldivar's esophagus Chronic migraine without aura, intractable, without status migrainosus History of kidney stones Vaginal intraepithelial neoplasia GERD (gastroesophageal reflux disease) Migraine Cervical radiculopathy Back pain IBS (irritable bowel syndrome) Nephrolithiasis Surgical History History of esophagogastroduodenoscopy (EGD) Hx of ovarian cystectomy Hx of cystoscopy Hx of lithotripsy History of vaginal surgery History of partial hysterectomy Social History Household Members: Children Alcohol intake: current Alcohol intake frequency: does not drink Patient Tobacco Use Status: Current everyday Tobacco user Tobacco use type: Cigarette Cigarettes Per Day: 10 Years Smoked: 36 years Substance Use Type: Marijuana Current occupational status: disabled Review of Systems Const All systems reviewed & are unremarkable except as noted in HPI and below Physical Exam Vital Signs: Last Vital Signs BP 122/80 12/19/24 12:09 BMI result Body Mass Index 26.7 Const General: comfortable and no acute distress Orientation/consciousness: patient oriented x3 HEENT Head: Yes normocephalic Mouth: Normal oral and palatal mucosa present Eyes EOM: EOMs intact bilaterally Neck Neck: Yes supple Resp Auscultation: clear to auscultation bilaterally Cardio Jugular venous distension: no JVD Rate: regular rate GI Palpation (GI): Soft to palpation Auscultation: normal bowel sounds General: Yes no CVA tenderness Back/Spine/Pelvis Back: no CVA tenderness Skin General skin exam: no rashes or lesions noted Neuro General: patient oriented x3 and moves all extremities Extrem General: Yes no pedal edema Results Reviewed Nephrology Results: Sodium, (135-145) 141 mmol/L 12/18/24 Potassium, (3.3-5.1) 4.3 mmol/L 12/18/24 Chloride, (96-108) 105 mmol/L 12/18/24 Carbon Dioxide, (22-29) 28 mmol/L 12/18/24 BUN, (9-16) 12 mg/dL 12/18/24 Creatinine, (0.5-1.4) 0.64 mg/dL 12/18/24 Calcium, (8.4-10.2) 9.5 mg/dL 12/18/24 Renal US 12/29/23 Assessment & Plan Assessment & Plan (1) Bilateral kidney stones: Code(s): N20.0 - Calculus of kidney Category: Medical Plan Has hypocitrauria with calcium oxalate stone Low sodium diet; Good hydration; Less meat More fruits and vegetables in diet; Normal Ca in diet Increased HCTZ to 25 mg daily; Started K cirtrate Common side effects of HCTZ/K citrate explained F/U labs ordered; Follow up with Urology Answered all questions Orders: Orders Electrolytes 3 Months N20.0 - Calculus of kidney Creatinine 3 Months N20.0 - Calculus of kidney Blood Urea Nitrogen 3 Months N20.0 - Calculus of kidney Calcium 3 Months N20.0 - Calculus of kidney Medications: New potassium citrate ER 10 mEq PO BID 180 tabs 3RF 90 days Changed From hydrochlorothiazide 12.5 mg PO DAILY 90 tabs 3RF To hydrochlorothiazide 25 mg PO DAILY 90 tabs 3RF 90 days Coding Level of Care Code Est Pt Level 4 (45899) Diagnoses Bilateral kidney stones N20.0
[2024-12-19 12:09] VITALS: BP 122/80; BMI 26.7
--- OUTSIDE RECORDS SUMMARY | 2024-12-19 13:28 | XMS_ITS | Encounter Summary ---
Author Organization [employer] Address [address] [place] [address] Care Team Providers Care Vice President Of Operations Name Role Phone KseniaSultana dorman LEIF Primary Care Provider + Encounter Details Date Type Department Care Team (Latest Contact Info) Description 07/11/2024 Lab Requisition [facility] - Main Lab [address] [facility] [place] [phone] Dillon Montoya MD [address] [phone] Encounter for gynecological examination (general) (routine) without [...] LAB MICROBIOLOGY METHOD 07/12/2024 6:28 AM EDT [facility] Brushing/Spatula Cervix uteri structure / Unknown 07/10/2024 07/11/2024 6:21 AM EDT us Dillon Montoya MD LAB MOLECULAR DIAGNOSTICS DYANA OQUENDO Final Result [facility] [address] [place] [address], * Pap smear (07/10/2024 12:00 AM EDT) Interpretation Negative for intraepithelial lesion or malignancy 07/16/2024 2:26 PM EDT [facility] General Categorization Negative 07/16/2024 2:26 PM EDT [facility] Other Findings Reparative changes 07/16/2024 2:26 PM EDT [facility] Specimen Adequacy Satisfactory for evaluation, endocervical/tam sformation zone component absent 07/16/2024 2:26 PM EDT [facility] Pap Methodology Liquid Based Pap Test 07/16/2024 2:26 PM EDT [facility] Disclaimer The Pap test is a screening test which carries an inherent false negative rate. These test results should be correlated with the patient's clinical findings and history. This Pap test was processed using an automated screening system. Technical cytopathology services provided by [facility], at [address] [place] [address] (CLIA # [id number]/Gurjit Gregory MD, Contract Negotiation Manager.) 07/16/2024 2:26 PM EDT [facility] Console Pap Interpretation Reported 07/16/2024 2:26 PM EDT [facility] Brushing/Spatula Vaginal structure / Unknown 07/10/2024 07/11/2024 6:21 AM EDT us Dillon Montoya MD LAB CYTOLOGY ORDERABLES Final Result [facility] [address] [place] [address], documented in this encounter Visit Diagnoses Diagnosis Encounter for gynecological examination (general) (routine) without abnormal findings documented in this encounter Care Teams Vice President Of Operations Relationship Specialty Start Date End Date Sultana Mccormack NP 21 [facility] [address] [place] [address] PCP - General Family Medicine 10/17/24 documented as of this encounter
--- OUTSIDE RECORDS SUMMARY | 2024-12-19 13:28 | XMS_ITS | Encounter Summary ---
Author Organization [employer] Address [address] [place] [address] Care Team Providers Care Baby Formula Mixer Name Role Phone Sultana Mccormack LEIF Primary Care Provider + Encounter Details Date Type Department Care Team (Latest Contact Info) Description 07/10/2024 Lab Requisition [facility] - Main Lab [address] [facility] [place] [phone] Dillon Montoya MD [address] [phone] Urinary tract infection, site not specified; Encounter [...] reflex microscopic (07/10/2024 12:00 AM EDT) Pathologist [facility] Specific [place] Urine 1.013 1.003 - 1.030 LAB URINALYSIS - AUTOMATED METHOD 07/10/2024 1:42 PM [facility] pH, Urine 7.0 5.0 - 8.0 pH LAB URINALYSIS - AUTOMATED METHOD 07/10/2024 1:42 PM [facility] Leukocytes, Urine Negative Negative LAB URINALYSIS - AUTOMATED METHOD 07/10/2024 1:42 PM [facility] Nitrite, Urine Negative Negative LAB URINALYSIS - AUTOMATED METHOD 07/10/2024 1:42 PM [facility] Protein, Urine Negative <=Trace mg/dL LAB URINALYSIS - AUTOMATED METHOD 07/10/2024 1:42 PM [facility] Glucose, Urine Negative Negative mg/dL LAB URINALYSIS - AUTOMATED METHOD 07/10/2024 1:42 PM [facility] Ketones, Urine Negative Negative mg/dL LAB URINALYSIS - AUTOMATED METHOD 07/10/2024 1:[address] [facility] Urobilinogen, Urine 0.2 0.2 - 1.0 mg/dL LAB URINALYSIS - AUTOMATED METHOD 07/10/2024 1:[address] [facility] Bilirubin, Urine Negative Negative LAB URINALYSIS - AUTOMATED METHOD 07/10/2024 1:[address] [facility] Blood, Urine Negative Negative LAB URINALYSIS - AUTOMATED METHOD 07/10/2024 1:[address] [facility] Urine Urine specimen obtained by clean catch procedure / Unknown 07/10/2024 07/10/2024 1:32 PM EDT us Dillon Montoya MD LAB URINE ORDERABLES Final Res ult Performing Organization Address [facility]/ZIP Co de Phone Number [facility] [address] [place] [address], [place] [phone] * Culture urine (07/10/2024 12:00 AM EDT) Culture, Urine <10,000 CFU/mL gram positive cocci, insignificant count, no further workup 07/11/2024 10:[address] [facility] Urine Urine specimen obtained by clean catch procedure / Unknown 07/10/2024 07/10/2024 1:32 PM EDT us Dillon Montoya MD LAB MICROBIOLOGY - GENERAL ORD ERABLES Final Result [facility] [address] [place] [address], [place] [phone] * (ABNORMAL) Vaginitis pathogens molecular study (07/10/2024 12:00 AM EDT) Trichomonas vaginalis Negative Negative 07/11/2024 9:[address] [facility] Gardnerella vaginalis Positive(A) Negative 07/11/2024 9:[address] [facility] Amaris Species Negative Negative 9:[address] [facility] Swab Vaginal structure / Unknown 07/10/2024 07/10/2024 1:32 PM EDT us Dillon Montoya MD LAB MICROBIOLOGY - GENERAL ORD ERABLES Final Result [facility] [address] [place] [address], [place] [phone] * Chlamydia trachomatis and Neisseria gonorrhoeae molecular study (07/10/2024 12:00 AM EDT) Neisseria gonorrhoeae PCR Negative Negative LAB MOLECULAR DIAGNOSTICS METHOD 07/10/2024 4:[address] [facility] Chlamydia trachomatis PCR Negative Negative LAB MOLECULAR DIAGNOSTICS METHOD 07/10/2024 4:[address] [facility] Swab Cervix uteri structure / Unknown 07/10/2024 07/10/2024 1:32 PM EDT us Dillon Montoya MD LAB MICROBIOLOGY - GENERAL ORD ERABLES Final Result [facility] [address] [place] [address], [place] [phone] documented in this encounter Visit Diagnoses Diagnosis Urinary tract infection, site not specified Encounter for screening for infections with a predominantly sexual mode of transmission Acute vaginitis Unspecified vaginitis and vulvovaginitis documented in this encounter Care Teams Baby Formula Mixer Relationship Specialty Start Date End Date Sultana Mccormack NP [address] [place] [address] PCP - General Family Medicine 10/17/24 documented as of this encounter
--- OUTSIDE RECORDS SUMMARY | 2024-12-19 13:29 | XMS_ITS | Clinical Summary ---
Author Organization [address] [facility] Address [address] [place] [address] Phone Care Team Providers Care Lens Fabricating Machine Tender Name Role Phone Ksenia, Sultana Felipe LEIF [...] Description 12/06/2024 1:00 PM EDT Consult Neurosurgery [place] [address] [place] [address] Dillon Gomez PA Chronic midline low back pain with left-sided sciatica (Primary Dx) 11/25/2024 12:48 PM EDT - 11/25/2024 2:[address] [facility] Emergency [address] [place] [address] Sciatica, left side (Primary Dx); Hypokalemia Discharge Disposition: Home or Self Care 10/17/2024 1:46 PM EDT - 10/17/2024 6:[address] [facility] Emergency [address] [place] [address] Sebastian Ramirez MD Bacterial sinusitis [...] LAB HEMETOLOGY METHOD 11/25/2024 1:39 PM EDT [facility] RBC 4.62 4.20 - 5.40 M/mcL LAB HEMETOLOGY METHOD [facility]24 [facility] Hemoglobin 13.1 12.5 - 16.0 g/dL LAB HEMETOLOGY METHOD 11/25/2024 1:39 [facility] Hematocrit 39.0 37.0 - 47.0 % LAB HEMETOLOGY METHOD 11/25/2024 1:39 [facility] MCV 84.4 78.0 - 100.0 FL LAB HEMETOLOGY METHOD 11/25/2024 1:39 [facility] MCH 28.4 25.0 - 33.0 pcg LAB HEMETOLOGY METHOD 11/25/2024 1:39 [facility] MCHC 33.6 32.0 - 36.0 g/dL LAB HEMETOLOGY METHOD 11/25/2024 1:39 [facility] RDW 13.8 12.1 - 16.2 % LAB HEMETOLOGY METHOD 11/25/2024 1:39 [facility] Platelets 417 150 - 450 K/mcL LAB HEMETOLOGY METHOD 11/25/2024 1:39 [facility] MPV 8.8 7.4 - 11.4 FL LAB HEMETOLOGY METHOD 11/25/2024 1:39 PM [facility] Neutrophils Relative 47.3 44.0 - 74.0 % LAB HEMETOLOGY METHOD 11/25/2024 1:39 PM [facility] Lymphocytes Relative 44.0 20.0 - 48.0 % LAB HEMETOLOGY METHOD 11/25/2024 1:39 PM [facility] Monocytes Relative 7.4 2.0 - 12.0 % LAB HEMETOLOGY METHOD 11/25/2024 1:39 PM [facility] Eosinophils Relative 0.5 0.0 - 6.0 % LAB HEMETOLOGY METHOD 11/25/2024 1:39 PM [facility] Basophils Relative 0.5 0.0 - 2.0 % LAB HEMETOLOGY METHOD 11/25/2024 1:39 PM [facility] Neutrophils Absolute 2.89 1.80 - 7.80 K/mcL LAB HEMETOLOGY METHOD 11/25/2024 1:39 PM [facility] Lymphocytes Absolute 2.69 1.00 - 3.20 K/mcL LAB HEMETOLOGY METHOD 11/25/2024 1:39 PM [facility] Monocytes Absolute 0.45 0.00 - 0.80 K/mcL LAB HEMETOLOGY METHOD 11/25/2024 1:39 PM [facility] Eosinophils Absolute 0.03 0.00 - 0.50 K/mcL LAB HEMETOLOGY METHOD 11/25/2024 1:39 PM [facility] Basophils Absolute 0.03 0.00 - 0.20 K/mcL LAB HEMETOLOGY METHOD 11/25/2024 1:39 PM [facility] Blood Venous blood specimen / Unknown Venipuncture / Unknown 11/25/2024 1:31 PM EDT 11/25/2024 1:37 PM EDT us Daisha SAINZ LAB BLOOD ORDERABLES Final Result [facility] [address] [place] [address], [place] [phone] * (ABNORMAL) Comprehensive Metabolic Panel (CMP) (11/25/2024 1:31 PM EDT) Only the most recent of2 resultswithin the time period is included. Sodium 137 135 - 145 mmol/L LAB CHEMISTRY METHOD 11/25/2024 2:02 PM [facility] Potassium 3.1(L) 3.5 - 5.1 mmol/L LAB CHEMISTRY METHOD 11/25/2024 2:02 PM [facility] Chloride 101 98 - 107 mmol/L LAB CHEMISTRY METHOD 11/25/2024 2:02 PM [facility] CO2 27 24 - 32 mmol/L LAB CHEMISTRY METHOD 11/25/2024 2:02 PM [facility] Anion Gap 9 5 - 14 LAB CHEMISTRY METHOD 11/25/2024 2:02 PM [facility] Glucose 96 70 - 199 mg/dL LAB CHEMISTRY METHOD 11/25/2024 2:02 PM [facility] BUN 13 7 - 17 mg/dL LAB CHEMISTRY METHOD 11/25/2024 2:02 PM [facility] Creatinine 0.71 0.50 - 1.00 mg/dL LAB CHEMISTRY METHOD 11/25/2024 2:02 PM [facility] eGFR 104 >=60 mL/min/1. 73m2 LAB CHEMISTRY METHOD 11/25/2024 2:02 PM [facility] Comment:Calculation based on the Chronic Kidney Disease Epidemiology Collaboration (CKD-EPI) equation refit without adjustment for race. BUN/Creatinine Ratio 18.3 12.0 - 20.0 LAB CHEMISTRY METHOD 11/25/2024 2:02 PM EDT [facility] Calcium 9.9 8.4 - 10.2 mg/dL LAB CHEMISTRY METHOD 11/25/2024 2:02 PM [facility] AST (SGOT) 22 5 - 40 unit/L LAB CHEMISTRY METHOD 11/25/2024 2:02 PM [facility] ALT (SGPT) 14 7 - 52 unit/L LAB CHEMISTRY METHOD 11/25/2024 2:02 PM [facility] Alkaline Phosphatase 66 34 - 104 unit/L LAB CHEMISTRY METHOD 11/25/2024 2:02 PM [facility] Total Protein 7.8 6.4 - 8.5 g/dL LAB CHEMISTRY METHOD 11/25/2024 2:02 PM [facility] Albumin 4.7 3.5 - 5.0 g/dL LAB CHEMISTRY METHOD 11/25/2024 2:02 PM [facility] Total Bilirubin 0.4 0.3 - 1.0 mg/dL LAB CHEMISTRY METHOD 11/25/2024 2:02 PM [facility] Blood Venous blood specimen / Unknown Venipuncture / Unknown 11/25/2024 1:31 PM EDT 11/25/2024 1:37 PM EDT us Daisha SAINZ LAB BLOOD ORDERABLES Final Result [facility] [address] [place] [address], [place] [phone] * (ABNORMAL) Urinalysis with reflex microscopic and culture (11/25/2024 1:24 PM EDT) Color, Urine Yellow Colorless, Yellow LAB URINALYSIS - AUTOMATED METHOD 11/25/2024 1:29 PM EDT [facility] Clarity, Urine Turbid(A) Clear LAB URINALYSIS - AUTOMATED METHOD 11/25/2024 1:29 PM [facility] Specific [place] Urine 1.015 1.005 - 1.030 LAB URINALYSIS - AUTOMATED METHOD 11/25/2024 1:29 PM [facility] pH, Urine 8.0 5.0 - 8.0 pH LAB URINALYSIS - AUTOMATED METHOD 11/25/2024 1:29 PM [facility] Leukocytes, Urine Negative Negative WBCs/mcL LAB URINALYSIS - AUTOMATED METHOD 11/25/2024 1:29 PM [facility] Nitrite, Urine Negative Negative LAB URINALYSIS - AUTOMATED METHOD 11/25/2024 1:29 PM [facility] Protein, Urine Negative Negative mg/dL LAB URINALYSIS - AUTOMATED METHOD 11/25/2024 1:29 PM [facility] Glucose, Urine Negative Negative mg/dL LAB URINALYSIS - AUTOMATED METHOD 11/25/2024 1:29 PM [facility] Ketones, Urine Negative Negative mg/dL LAB URINALYSIS - AUTOMATED METHOD 11/25/2024 1:29 PM [facility] Blood, Urine Negative Negative mg/dL LAB URINALYSIS - AUTOMATED METHOD 11/25/2024 1:29 PM [facility] Urine Urine specimen obtained by clean catch procedure / Unknown Non-blood Collection / Unknown 11/25/2024 1:24 PM EDT 11/25/2024 1:26 PM EDT us Daisha SAINZ LAB URINE ORDERABLES Final Result [facility] [address] [place] [address], [place] [phone] * CT Head wo Contrast (10/17/2024 4:56 PM EDT) Anatomical Region Laterality Modality Head and Neck Computed Tomogra phy 10/17/2024 5:23 PM EDT Impressions 10/17/2024 5:29 PM EDT 1. Negative for acute intracranial process. Report reviewed and signed by : Dr. Anastacio Riley on 10/17/2024 5:29 PM. Workstation Name - [id number] -------- FINAL REPORT -------- Dictated By: Anastacio Riley Dictated Date: 10/17/2024 17:23 ET Assigned Physician: Anastacio Riley Reviewed and Electronically Signed By: Anastacio Riley Signed Date: 10/17/2024 17:29 ET Workstation ID: [id number] Transcribed By: Self Edit Transcribed Date: 10/17/2024 [...] Riley on 10/17/2024 5:29 PM.Workstation Name - [id number] -------- FINAL REPORT -------- Dictated By: Anastacio Riley Dictated Date: 10/17/2024 17:23 ET Assigned Physician: Anastacio Riley Reviewed and Electronically Signed By: Anastacio Riley Signed Date: 10/17/2024 17:29 ET Workstation ID: [id number] Transcribed By: Self Edit Transcribed Date: 10/17/2024 [...] on 10/17/2024 5:36 PM. Workstation Name - [id number] -------- FINAL REPORT -------- Dictated By: Anastacio Riley Dictated Date: 10/17/2024 17:29 ET Assigned Physician: Anastacio Riley Reviewed and Electronically Signed By: Anastacio Riley Signed Date: 10/17/2024 17:36 ET Workstation ID: [id number] Transcribed By: Self Edit Transcribed Date: 10/17/2024 [...] Riley on 10/17/2024 5:36 PM.Workstation Name - [id number] -------- FINAL REPORT -------- Dictated By: Anastacio Riley Dictated Date: 10/17/2024 17:29 ET Assigned Physician: Anastacio Riley Reviewed and Electronically Signed By: Anastacio Riley Signed Date: 10/17/2024 17:36 ET Workstation ID: [id number] Transcribed By: Self Edit Transcribed Date: 10/17/2024 17:29 ET us Sebastian Ramirez MD [facility] CT PROCEDURES Final Result * hCG, serum, qualitative (10/17/2024 4:09 PM EDT) [facility] hCG Qual Negative Negative 10/17/2024 4:28 PM EDT [facility] Blood Venous blood specimen / Unknown Venipuncture / Unknown 10/17/2024 4:09 PM EDT 10/17/2024 4:13 PM EDT us Sbeastian Ramirez MD LAB BLOOD ORDERABLES Final Res ult [facility] [address] [place] [address], [place] [phone] * PST green LI heparin tube (10/17/2024 3:58 PM EDT) [facility] Extra Tube Hold for add-ons. 10/17/2024 6:01 PM EDT [facility] Comment:Auto resulted. Blood Venous blood specimen / Unknown 10/17/2024 3:58 PM EDT 10/17/2024 4:13 PM EDT us Sebastian Ramirez MD LAB BLOOD ORDERABLES Final Res ult Performing Organization Address City/[facility] [address]/ZIP Co de Phone Number [facility] [address] [place] [address], [place] [phone] * Hepatitis C antibody (07/10/2024 10:28 AM EDT) [facility] Hepatitis C Antibody Negative Negative LAB CHEMISTRY METHOD 07/10/2024 3:28 PM EDT [facility] Blood Venous blood specimen / Unknown Venipuncture / Unknown 07/10/2024 10:28 AM EDT 07/10/2024 12:31 PM EDT us Dillon Montoya MD LAB BLOOD ORDERABLES Final Res ult [facility] [address] [place] [address], [place] [phone] * HIV 1,2 antibody, p24 antigen with reflex to differentiation (07/10/2024 10:28 AM EDT) HIV Combo AB/AG Negative Negative LAB CHEMISTRY METHOD 07/10/2024 3:29 PM EDT [facility] Blood Venous blood specimen / Unknown Venipuncture / Unknown 07/10/2024 10:28 AM EDT 07/10/2024 12:31 PM EDT Narrative [facility] - 07/10/2024 3:29 PM EDT This [...] ORDERABLES Final Res ult Performing Organization Address [facility] [address]/ZIP Co de Phone Number [facility] [address] [place] [address], [place] [phone] * HPV with reflex genotype (07/10/2024 12:00 AM EDT) HPV Negative Negative LAB MICROBIOLOGY METHOD 07/12/2024 6:28 AM EDT [facility] Brushing/Spatula Cervix uteri structure / Unknown 07/10/2024 07/11/2024 6:21 AM EDT us Dillon Montoya MD LAB MOLECULAR DIAGNOSTICS ORDE RABRUCHI Final Result Performing Organization Address [facility] [address]/ZIP Co de Phone Number [facility] [address] [place] [address], [place] [phone] from Last 3 Months or Most Recently Relevant to Health Maintenance Insurance [employer] [address] [id number] Care Teams Lens Fabricating Machine Tender Relationship Specialty Start Date End Date Sultana Mccormack NP 21 [facility] [address] [address] PCP - General Family Medicine 10/17/24
--- OUTSIDE RECORDS SUMMARY | 2024-12-19 13:29 | XMS_ITS | Clinical Summary ---
Author Organization [facility] Address [address] [place] [address] Care Team Providers Care Emergency Room Technician Name Role Phone Camelia Robles MD Primary [...] age to complete this topic Care Teams Emergency Room Technician Relationship Specialty Start Date End Date Camelia Robles MD [address] [place] [address] PCP - General Internal Medicine 02/03/16
--- OUTSIDE RECORDS SUMMARY | 2024-12-19 13:29 | XMS_ITS | Patient Health Record ---
Author Organization [facility] Address [address] [place] [address] Care Team Providers Care Refractory Manager Name Role Phone Ksenia Sultana Blank Primary Care Provider Margarito Cook Jr Kwabena Unavailable [phone] Allergies Allergen (clinical drug ingredient) Drug/Non Drug Allergy documented on EMR Reaction Allergy Type Onset Date Status trazodone Trazodone HCl Unknown Drug Allergy Act shaquille tramadol Tramadol HCl Unknown Drug Allergy Acti ve Motrin Unknown Drug Allergy Active aspirin Aspirin Unknown Drug Allergy Active ibuprofen Advil Unknown Drug Allergy Active acetaminophen Tylenol Unknown Drug Allergy Act shaquille Results Component Value Reference Range Notes Pathology Reviewed date:07/09/2024 04:24:56 PM Interpretation: Performing Lab:[facility], [address] [place] [phone] Notes/Report: Reason For Referral No Information Medications [...] Problem Status W/U Status Risk Notes Problem 23612503 Rectal bleeding (K62.5) Active confirmed Problem 530297762 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 Problem 898476933 Gastroesophageal reflux disease without esophagitis (K21.9) Active confirmed Problem 53431398 Pancreatic cyst (K86.2) Active confirmed Problem 39018597 Irritable bowel syndrome with both constipation and diarrhea (K58.2) Active confirmed Vital Signs Temperature 97.5 degrees Fahrenheit 06/12/2024 Blood pressure diastolic 01 mm Hg 06/12/2024 Height 64.5 in 06/12/2024 Blood pressure systolic 001 mm Hg 06/12/2024 Weight 142 lbs 06/12/2024 BMI 24 kg/m2 06/12/2024 Encounters Encounter Location Date Provider Diagnosis [facility] Outpatient [address] [place] [id number] 07/05/2024 Kwabena Cook Jr Saldivar''s esophagus without dysplasia K22.70 [facility] [address] [place] [phone] 06/12/2024 Kwabena Cook Jr Saldivar's esophagus without dysplasia K22.70 ; Irritable bowel syndrome with both constipation and diarrhea K58.2 and Pancreatic cyst K86.2 [facility] [address] [place] [phone] 05/22/2024 Kwabena Cook Jr [facility] [address] [place] [phone] 07/09/2024 Kwabena Cook Jr Assessments Encounter Date [...] continue fiber supplementation and she can use jwrp-mnq-rphfudy antidiarrheals as needed for diarrhea. Her pancreatic [...] continue fiber supplementation and she can use fvul-kud-ygbkjde antidiarrheals as needed for diarrhea. Her pancreatic [...] continue fiber supplementation and she can use pprp-inw-tamqjzb antidiarrheals as needed for diarrhea. Her pancreatic cyst has resolved. Endoscopy will be scheduled. She is aware of risks and benefits and agrees to proceed.Today's visit was 30 minutes. Plan Of Treatment Future Test Test Name Order Date UPPER GI ENDOSCOPY 12/26/2019 COLONOSCOPY 12/26/2019 UPPER GI ENDOSCOPY 06/12/2024 Next Appt Details Provider Name:Kwabena champagne , 06/18/2025 10:00:00 AM, [address], [address], [place], [address], Insurance Providers Payer Name Payer Address Payer Phone Subscriber Number Group Number Insured Name Patient Relationship to Insured Coverage Start Date Coverage End Date [facility] [address] [place] [address] [phone] [id number] KEVIN MALIK Self - patient is the [...]
== END 2024-12-19 12:20 | disposition home or self-care (01) ==
LOC: HO.HKAS 11:08
PROVIDERS: PCP Internal Medicine; Visit Provider Internal Medicine Nephrology
DX: N20.0 Calculus of kidney (principal)
CPT/HCPCS: 99214

== ENCOUNTER → 2024-12-19 11:08 | Outpatient (BNVA) | payer OTHER, SELFPAY | PROVIDERS: PCP Internal Medicine; Visit Provider Internal Medicine Nephrology | DX: N20.0 Calculus of kidney (principal); R82.991 Hypocitraturia | CPT/HCPCS: 99212 ==

== ENCOUNTER 2025-01-31 12:50 | Outpatient (REF) | payer OTHER, SELFPAY ==
--- OUTSIDE RECORDS SUMMARY | 2024-07-05 07:40 | XMS_ITS ---
Author Organization [facility] Address [address] [place] [address] [address] [place] [address] Care Team Providers Care Service Vehicle Operator Name Role Phone Sultana Mccormack N.P Primary Care Provider Kwabena Marroquin Jr [phone] REASON FOR VISIT Saldivar's Esophagus Encounters Encounter Location Date Provider Diagnosis [facility] [place] [address] [place] [id number] 07/05/2024 Kwabena Cook Jr Saldivar''s esophagus without dysplasia K22.70 Assessments Encounter Date Diagnosis (ICD Code) Assessment Notes Treatment Notes Treatment Clinical Notes Section Notes 07/05/2024 Saldivar''s esophagus without dysplasia (ICD-10 - K22.70) Plan Of Treatment Next Appt Details Provider Name:Kwabena champagne Jr, 06/18/2025 10:00:00 AM, [address] [place] [address], [address], [place], [address], Progress Notes * RASHEED MALIKOB: [birth year] (49 yo F)Acc No.[id number]:07/05/2024 EGD/MAC Patient: KEVIN WOODY Provider: Mekhi Cook MD :1975 A ge:48 Y S ex:Female Date:07/05/2024 Address:[address] [place], [place] [phone] Pcp:Sultana Mccormack N.Don Subjective: * Chief Complaints: * 1 . Saldivar's Esophagus. * Medical History: Objective: * Vitals: Assessment: * Assessment: 1. B arrett''s esophagus without dysplasia - K22.70 (Primary) Plan: * Treatment: * Procedure Codes: 4 3239 UPPER GI ENDOSCOPY, BIOPSY * * The named appointment provid er may or may not be the originator of this progress note, and it is not deemed complete until electronically signed by the appointment provider. Sign off status: Pending * Provider: Mekhi Cook MD Date: 0 07/05/2024 Generated for Jorden campbell/Shekhar/Jgsmitting on: 1 01:57 PM EDT
--- NOTE | ~2025-01-31 | US_ITS ---
CLINICAL HISTORY: N20.0 - Calculus of kidney US Renal Comparison: 12/29/2023 10:00 AM EDT: US Findings: Right kidney normal size and echotexture, 11.2 cm length. Left kidney normal size and echotexture, 10.2 cm length. There are bilateral renal cortical bosniak 1 cysts and bilateral renal parenchymal calculi. No collecting system dilatation of either kidney. Normal color Doppler. IMPRESSION: 1. Bilateral renal parenchymal calculi. No acute findings This document has been electronically signed by: Gallito Doll MD on 02/01/2025 08:56:14
--- OUTSIDE RECORDS SUMMARY | 2025-01-31 13:57 | XMS_ITS | Encounter Summary ---
Author Organization [facility] Address [address] [place] [address] Care Team Providers Care Portfolio Assistant Name Role Phone Sultana LEIF Primary Care Provider + Encounter Details Date Type Department Care Team (Late st Contact Info) Description 01/01/2025 Telephone Neurosurgery [facility] [address] [place] [address] Dillon Gomez PA [address] [place] [phone] Social History Tobacco Use Types Packs/Day Years [...] PM EST documented as of this encounter Progress Notes * EMELI Chavis - 01/03/2025 5:46 PM EDT Called patient again and left another message. * EMELI Chavis - 01/01/2025 3:46 PM EDT I spoke with a physician and a peer to peer for Ms. Tejada. Her insurance company has denied our request for an MRI. Her home physical therapy was in July and May would have to be within the last 12 weeks. They require 6 weeks of provider directed conservative treatment within the last 12 weeks.Called the patient to discuss and left a message on her voicemail to call me back. documented in this encounter Plan of Treatment Not on file documented as of this encounter Visit Diagnoses Not on filedocumented in this encounter Care Teams Portfolio Assistant Relationship Specialty Start Date End Date Sultana Mccormack NP [address] [facility] [address] [place] [address] PCP - General Family Medicine 10/17/24 documented as of this encounter
--- OUTSIDE RECORDS SUMMARY | 2025-01-31 13:57 | XMS_ITS | Data Portability ---
Author Organization [place] [facility], Allergy Address [address] [facility] [address] [place] [address] Care Team Providers Care Molasses Coloring Operator Name Role Phone JULITO MCCORMACK Primary Care Provider Assessment Encounter Date Assessment Date Assessment LastModified by Organization Details LastModified Time 01/20/2025 01/20/2025 Melva Tejada is a 49-year-old female with migraines, deviated nasal septum, and persistent nasal drainage. The patient's symptoms of facial pain and pressure are likely attributable to migraines rather than a sinus infection. The scan performed at [facility] demonstrated a small cyst in the right sinus, which is not considered a major issue. The deviated septum is noted to cause nasal obstruction but is not contributing to the patient's headaches. I recommend the patient continue her current regimen of magnesium supplements, increasing the dosage to up to 400 mg daily. Additionally, vitamin B2 (riboflavin) supplementation was recommended. A brochure on migraines was provided to the patient for education. The patient was reassured that there is no indication of a worrisome condition at this time. FOLLOW-UP: The patient should follow up with her primary care provider, Lisa Mccormack, for ongoing management and any additional concerns. [email or web address] Not available 01/20/2025 14:00:04 Plan of Treatment Reminders Order Date Submit Date Provider Last Modified By Organization Details Last Modified Time Details Appointments None record ed. Lab None record ed. Referral None record ed. Procedures None record ed. Surgeries None record ed. Imaging None record ed. Medication Orders None record ed. Patient TargetsNo targets recorded. Patient Instructions Encounter Date Encounter Id Patient Instructions Last Modified By Organization Details Last Modified Time 01/20/2025 [id number] - Continue magnesium supplementation, increasing dosage to up to 400 mg daily. - Begin vitamin B2 (riboflavin) supplementation. - Follow up with primary care provider for ongoing management. [email or web address] Not available 01/20/2025 14:00:04 Please note: Parts of this encounter note have been generated by AI based on audio conversation. Patient consent was required prior to utilizing this technology. Content review was required prior to finalizing the note. [email or web address] Not available 01/20/2025 14:00:04 Reason for Referral None Reported. Problems Name Problem SNOMED Code Status Onset Date Resolution Date Notes Provider Name and Address Organization Details Recorded Time Tobacco user 333727385 Active 2015 Tobacco use; Note: Date Diagnosed : 03/10/2016 11:39 AM (Z72.0) Not Available [facility] 4 03:27:26 Migraine without aura, not refractor y 667939722 Active 2015 Migraine without aura, not intractab le, without status migrainos us; Note: Date Diagnosed : 03/10/2016 11:39 AM (G43.009) Not Available [facility] 4 03:27:26 Deviated nasal septum 681264728 Active 2024 ROSIE FLORENTINO MD [address] [place] [address],[place] [address], [facility] [place], [address] , [place] - [facility] 13:58:57 Mucocele of maxillary sinus 64913948341 949807 Active 2024 ROSIE FLORENTINO MD [address] [place] [address],[place] [address], [place], [address] , [place] [facility] 5 13:59:10 Problem Notes None recorded. Procedures Surgical History Date Name Laterality Status Provider Name and Address Organization Details Recorded Time JMSNasal/Sinus Endoscopy completed ROSIE BROWNLEE MD [address] [place] [address],[place] [address], [place], [address], [place] [facility] 01/20/2025 14:01:35 Kidney Stone Removal completed Veronica Go [place] - [facility] 01/20/2025 13:58:06 Imaging Results None recorded. Procedure Notes None recorded. Medical Equipment None Reported. Allergies Allergen ID Allergen Name Allergen Category Reaction Reaction Severity Criticality Documentation Date Start Date Code Code System Note Provider Name and Address Organization Details Recorded Time 34173 Tylenol medicatio n other Not available Not available 08/15/202360328 3 RxNorm React ion: unkno wn, unspe cifie d;; Not Available [facility] 4 00:49:11 74118 Motrin medicatio n other Not available Not available 08/15/202312886 8 RxNorm React ion: unkno wn, unspe cifie d;; Not Available [facility] 4 00:49:53 29412 trazodone medicatio n other Not available Not available 08/15/2023 51355 RxNorm React ion: unkno wn, unspe cifie d;; Not Available [facility] 4 00:50:09 29814 tramadol Not available other Not available Not available 08/15/2023 37994 RxNorm React ion: unkno wn, unspe cifie d;; Not Available [facility] 4 00:50:10 77453 Flagyl medicatio n other Not available Not available 08/15/2023 6 RxNorm React ion: unkno wn, unspe cifie d;; Not Available [facility] 4 00:50:23 Medications Name Sig Start Date Stop Date Status Note LastModified by Organization Details LastModified Time Soma 350 mg tablet Take 1 tablet 3 times a day by oral route. active Not Available Not Available No t Available hydrochlo rothiazid e 25 mg tablet Take 1 tablet every day by oral route. active Not Available Not Available No t Available oxycodone 5 mg tablet 01/20 completed Medicatio n ID: [id number] Du ration Value: 14 Brand Name: oxycodone Send Method: E-Prescri bed Subs Allowed: subs OK Medica tionGener icName: oxycodone Not Available Not Available Not Available Prilosec OTC 20 mg tablet,de layed release Take by oral route. active Not Available Not Available No t Available Zantac 01/20 completed Medicatio n ID: [id number] Br and Name: Zantac Se nd Method: E-Prescri bed Subs Allowed: subs OK Specia l Instructi on: Take 1 tablet by mouth every day at bedtime M edication GenericNa me: Zantac Not Available Not Available Not Available Valium 01/20 completed Medicatio n ID: [id number] Br and Name: Valium Se nd Method: E-Prescri bed Subs Allowed: subs OK Medica tionGener icName: Valium Not Available Not Available Not Available potassium active Not Available Not Nadja ilable Not Available Soma 01/20 completed Medicatio n ID: [id number] Br and Name: Soma Send Method: E-Prescri bed Subs Allowed: subs OK Medica tionGener icName: Soma Not Available Not Available Not Available Topamax 01/20 completed Medicatio n ID: [id number] Br and Name: Topamax S end Method: E-Prescri bed Subs Allowed: subs OK Medica tionGener icName: Topamax Not Available Not Available Not Available multivita min active Not Available Not Available Not Available Probiotic active Not Available Not Nadja ilable Not Available Ubrelvy 100 mg tablet Take by oral route. active Not Available Not Available No t Available Vitals Date Recorded Body height Body weight Provider Name and Address Organization Details Last Updated DateTime 01/20/2025 163.83 cm 68720.3 g Veronica Go [place] [facility] 01/20/2025 13:52:30 Social History None recorded. Functional Status None recorded. Mental Status None recorded. Family History Nothing Reported. Medical History Condition Response Arthritis Y Anxiety Y Cancer Y Migraines Y Headaches Y Hypertension Y Depression Y Asthma Y Kidney Disease Y Gynecological HistoryNo gynecological history recorded. Obstetrics History GPAL:G 0 P 0 0 0 0 Past Encounters Encounter ID Performer Location Encounter Start Date Encounter Closed Date Diagnosis/Indication Diagnosis SNOMED-CT Code Diagnosis ICD10 Code Diagnosis IMO Codes Diagnosis Note [id number] ROSIE FLORENTINO MD [facility] [address] [phone] 01/20/2025 13:25:55 01/20/2025 14:03:06 Migraine without aura, not refractory 284329720 G43.009 Deviated nasal septum 12 5798737 J34.2 79594 Mucocele o f maxillary sinus 3930593650 5695633 J34.1 4225347 Health Concerns Section Related Observation LastModified by Organization Detai ls LastModified Time None Recorded Concern Status LastModified by Organization Details LastModified Time None Recorded Advance Directives Directive None Recorded Payers Insurance Date Sequence Insurance Name Policy Number Policy Jorge Covered Member ID Jorge Member ID Guarantor Name 01/20/2025 1 [facility] (MEDICAID HMO) [id number] Melva Tejada [id number] Melva Tejada Notes Date Note Type Note Provider Name and Address Organization Details Recorded Time 01/20/2025 text/html ROS as noted in the HPI Melva Tejada is a 49-year-old female who presents for evaluation of sinus-related symptoms and facial pain. She reports experiencing throbbing pain in her left sinus cavity and holiness area. She visited [facility] approximately three to four months ago, where a scan was performed, and she was informed of a small cyst in her right sinus. She was prescribed Augmentin at that time. She has a history of migraines for which she receives Botox treatments, kidney stones, asthma, depression, arthritis, and irritable bowel syndrome (IBS). She has been receiving allergy shots for the past year due to persistent nasal symptoms, including constant nasal drainage. She also reports having a deviated septum causing nasal obstruction. She takes magnesium and potassium supplements, with magnesium being purchased over the counter. Her primary care provider is Lisa Mccormack, a nurse practitioner at [facility] in [place]. ROSIE BROWNLEE MD [address] [place] [address], [phone] [place] [facility] 01/20/2025 14:01:57 OBGyn Episode No OBEpisode recorded.
--- OUTSIDE RECORDS SUMMARY | 2025-01-31 13:57 | XMS_ITS | Data Portability ---
Author Organization [place] [facility], [facility] Address [address] [place] [address] Care Team Providers Care Scada Technician Name Role Phone MAGNOLIAJUAN JOSE RANDLE Primary [...] Lab urinalysis , dipstick 2021 022 [email or web address] [facility], [address] [place] [address], [place], [address], 11:54:15 Referral None recorded. Procedures None recorded. Surgeries None recorded. Imaging None recorded. Medication Orders ketorolac 30 mg/mL (1 mL) injection solution 2021 022 [email or web address] [facility], [address] [place], [address], 13:13:36 Patient TargetsNo targets recorded. Patient InstructionsNo instructions recorded. Reason for Referral None Reported. Results Created Date Observation Date Name Description Value Unit Range Abnormal Flag Note LastModifiedBy Organization Detail LastModifiedTime 12/15/1912/14/2021 urina lysis , dipst ick Appearance clear Not Available [facility] [address] [place], [address], 12/14/2021 11:51:02 12/15/1912/14/2021 urina lysis , dipst ick Color yellow Not Available [facility] [address] [place], [address], 12/14/2021 11:51:02 12/15/1912/14/2021 urina lysis , dipst ick Glucose (ref: neg) Neg Not Available [facility] [address] [place], [address], 12/14/2021 11:51:02 12/15/1912/14/2021 urina lysis , dipst ick Bilirubin (ref: neg) Neg Not Available [facility] [address] [place], [address], 12/14/2021 11:51:02 12/15/1912/14/2021 urina lysis , dipst ick Ketones (ref: neg) Neg Not Available [facility] [address] [place], [address], 12/14/2021 11:51:02 12/15/1912/14/2021 urina lysis , dipst ick Specific [place] (ref: 1.003 - 1.035) 1.020 Not Available [facility] [address] [place], [address], 12/14/2021 11:51:02 12/15/19 22 12/14/2021 urina lysis , dipst ick Blood (ref: neg) + Not Available [facility] [address] [place], [address], 12/14/2021 11:51:02 12/15/1912/14/2021 urina lysis , dipst ick pH (ref: 5.0-7.0) 6.5 Not Available [facility] [address] [place], [address], 12/14/2021 11:51:02 12/15/19 22 12/14/2021 urina lysis , dipst ick Protein (ref: neg) Neg Not Available [facility] [address] [place], [address], 12/14/2021 11:51:02 12/15/1912/14/2021 urina lysis , dipst ick Urobilinogen (ref: 0.2-1.0) 0.2 Not Available [facility] [address] [place], [address], 12/14/2021 11:51:02 12/15/1912/14/2021 urina lysis , dipst ick Nitrites (ref: neg) negati ve Not Available [facility] [address] [place], [address], 12/14/2021 11:51:02 12/15/1912/14/2021 urina lysis , dipst ick Leukocytes (ref: neg) Neg Not Available [facility] [address] [place], [address], 12/14/2021 11:51:02 Result Notes None recorded. Medical Equipment None Reported. Allergies Allergen ID Allergen Name Allergen Category Reaction Reaction Severity Criticality Documentation Date Start Date Code Code System Note Provider Name and Address Organization Details Recorded Time 901022 Tylenol medicatio n Not available Not available Not available 12/14/2021 03068 3 RxNorm JANNIE SHAH, FLOORING MECH[employer]IC [address], [place], [address], [place] [facility] 11:39:31 150395 aspirin medicatio n vomiting Not available Not available 12/14/2021 1191 RxNorm JANNIE SHAH, FLOORING MECHANIC [address], [place], [address], [place] [facility] 11:39:44 475466 ibuprofen medicatio n vomiting Not available Not available 12/14/2021 5640 RxNorm JANNIE SHAH, FLOORING MECHANIC [address], [place], [address], [place] [facility] 11:40:01 803162 trazodone medicatio n headache Not available Not available 12/14/2021 46320 RxNorm JANNIE SHAH, FLOORING MECHANIC [address], [place], [address], [place] [facility] 11:40:23 112086 honey bee venom medicatio n Not available Not available Not available 12/14/2021 07396 7 RxNorm JANNIE SHAH, FLOORING MECHANIC [address], [place], [address], [place] [facility] [...] History Nothing Reported. Medical History Condition Response Coronary Artery Disease N Parkinson's Disease N COPD N Depression N A-fib N Diabetes N CHF N Cancer N Stroke N Dementia N Asthma Y Rheumatoid Arthritis N Pulmonary Embolism N Osteoporosis N Gynecological HistoryNo gynecological history recorded. Obstetrics History GPAL:G 0 P 0 0 0 0 Past Encounters Encounter ID Performer Location Encounter Start Date Encounter Closed Date Diagnosis/Indication Diagnosis SNOMED-CT Code Diagnosis ICD10 Code Diagnosis IMO Codes Diagnosis Note [id number] JANNIE SHAH NP [facility] [address] [facility] [place] [address] 12/14/2021 11:30:11 12/14/2021 15:16:26 Left flank pain 370961934 R10.9 History of calculus of kidney 590721813 Z87.442 Health Concerns Section Related Observation LastModified by Organization Detai ls LastModified Time None Recorded Concern Status LastModified by Organization Details LastModified Time None Recorded Advance Directives Directive None Recorded Payers Insurance Date Sequence Insurance Name Policy Number Policy Jorge Covered Member ID Jorge Member ID Guarantor Name 12/14/2021 1 *SELF PAY* Melva Tejada [id number] Melva Tejada 12/31/2021 1 [employer] (MEDICAID REPLACEMENT - HMO) [id number] Melva Tejada [id number] Melva Tejada Notes Date Note Type [...] distended as well. JANNIE SHAH NP [address] [facility], [address], [place] [facility] 12/23/2021 13:13:51 OBGyn Episode No OBEpisode recorded.
--- OUTSIDE RECORDS SUMMARY | 2025-01-31 13:57 | XMS_ITS | Encounter Summary ---
Author Organization [facility] Address [address] [place] [address] Care Team Providers Care Grinding Supervisor Name Role Phone Sultana Mccormack LEIF Primary Care Provider + Encounter Details Date Type Department Care Team (Latest Contact Info) Description 07/10/2024 Lab Requisition [facility] - Main Lab 299 [facility] [place] [phone] Dillon Montoya MD [address] [phone] Urinary tract infection, site not specified; Encounter [...] EDT) Pathologist [facility] [place] Specific [place] Urine 1.013 1.003 - 1.030 LAB URINALYSIS [...] - AUTOMATED METHOD 07/10/2024 1:42 PM EDT [facility] Urobilinogen, Urine 0.2 0.2 - 1.0 mg/dL LAB URINALYSIS - AUTOMATED METHOD 07/10/2024 1:42 PM EDT [facility] Bilirubin, Urine Negative Negative LAB URINALYSIS - AUTOMATED METHOD 07/10/2024 1:42 PM EDT [facility] Blood, Urine Negative Negative LAB URINALYSIS - AUTOMATED METHOD 07/10/2024 1:42 PM EDT [facility] Urine Urine specimen obtained by clean catch procedure / Unknown 07/10/2024 07/10/2024 1:32 PM EDT us Dillon Montoya MD LAB URINE ORDERABLES Final Res ult Performing Organization Address [facility]/ZIP Co de Phone Number [facility] [address] [place] [address], [place] [phone] * Culture urine (07/10/2024 12:00 AM EDT) Culture, Urine <10,000 CFU/mL gram positive cocci, insignificant count, no further workup 07/11/2024 10:55 AM EDT [facility] Urine Urine specimen obtained by clean catch procedure / Unknown 07/10/2024 07/10/2024 1:32 PM EDT us Dillon Montoya MD LAB MICROBIOLOGY - GENERAL ORD ERABLES Final Result [facility] [address] [place] [address], [place] [phone] * (ABNORMAL) Vaginitis pathogens molecular study (07/10/2024 12:00 AM EDT) Trichomonas vaginalis Negative Negative 07/11/2024 9:35 AM EDT [facility] Gardnerella vaginalis Positive(A) Negative 07/11/2024 9:35 AM EDT [facility] Amaris Species Negative Negative 9:35 AM EDT [facility] Swab Vaginal structure / Unknown 07/10/2024 07/10/2024 1:32 PM EDT us Dillon Montoya MD LAB MICROBIOLOGY - GENERAL ORD ERABLES Final Result [facility] [address] [place] [address], [place] [phone] * Chlamydia trachomatis and Neisseria gonorrhoeae molecular study (07/10/2024 12:00 AM EDT) Neisseria gonorrhoeae PCR Negative Negative LAB MOLECULAR DIAGNOSTICS METHOD 07/10/2024 4:53 PM EDT [facility] Chlamydia trachomatis PCR Negative Negative LAB MOLECULAR DIAGNOSTICS METHOD 07/10/2024 4:53 PM EDT [facility] Swab Cervix uteri structure / Unknown 07/10/2024 07/10/2024 1:32 PM EDT us Dillon Montoya MD LAB MICROBIOLOGY - GENERAL ORD ERABLES Final Result [facility] [address] [place] [address], [place] [phone] documented in this encounter Visit Diagnoses Diagnosis Urinary tract infection, site not specified Encounter for screening for infections with a predominantly sexual mode of transmission Acute vaginitis Unspecified vaginitis and vulvovaginitis documented in this encounter Care Teams Grinding Supervisor Relationship Specialty Start Date End Date Sultana Mccormack NP [address] [place] [address] PCP - General Family Medicine 10/17/24 documented as of this encounter
--- OUTSIDE RECORDS SUMMARY | 2025-01-31 13:58 | XMS_ITS | Patient Health Record ---
Author Organization [facility] Address [address] [place] [address] Care Team Providers Care Cell Lead Name Role Phone Ksenia Sultana Blank Primary Care Provider Margarito Cook Jr Kwabena Unavailable Allergies Allergen (clinical drug ingredient) Drug/Non [...] Pathology Reviewed date:07/09/2024 04:24:56 PM Interpretation: Performing Lab:[facility], [address] [place] [phone] Notes/Report: Reason For Referral No Information Medications Medication SIG (Take, Route, Fr equency, Duration) Notes Start Date End Date Status oxyCODONE HCl 5 MG 1 capsule as needed Orally every 6 hrs Active Dicyclomine HCl 20 MG 1 tablet Orally 2- 4 times a day; Duration: 30 days 06/12/2024 Active Omeprazole 40 MG 1 capsule 30 minutes before morning meal Orally Once a day; Duration: 30 days 12/30/2020 Active Promethazine HCl 25 MG 1 tablet as neede d Orally every 6 hrs; Duration: 30 days 07/03/2020 Active Carisoprodol 350 MG [...] Problem Status W/U Status Risk Notes Problem Rectal bleeding (48573614) Rectal bleeding (K62.5) Active confirmed Problem Saldivar's esophagus (171152777) Saldivar's esophagus without dysplasia (K22.70) Active confirmed Problem Gastroesophageal reflux disease without esophagitis (995156210) Gastroesophageal reflux disease without esophagitis (K21.9) Active confirmed Problem Pancreatic cyst (88414643) Pancreatic cyst (K86.2) Active confirmed Problem Irritable bowel syndrome (59090969) Irritable bowel syndrome with both constipation and diarrhea (K58.2) Active confirmed Vital Signs Temperature 97.5 degrees Fahrenheit 06/12/2024 Blood pressure diastolic 01 mm Hg 06/12/2024 Height 64.5 in 06/12/2024 Blood pressure systolic 001 mm Hg 06/12/2024 Weight 142 lbs 06/12/2024 BMI 24 kg/m2 06/12/2024 Encounters Encounter Location Date Provider Diagnosis [facility] [place] [address] [place] [phone] 07/05/2024 Kwabena Cook Jr Saldivar''s esophagus without dysplasia K22.70 [facility] [address] [place] [phone] 06/12/2024 Kwabena Cook Jr Saldivar's esophagus without dysplasia K22.70 ; Irritable bowel syndrome with both constipation and diarrhea K58.2 and Pancreatic cyst K86.2 [facility] [address] [place] [phone] 05/22/2024 Kwabena Cook Jr [facility] [address] [place] [phone] 07/09/2024 Kwabena Cook Jr Assessments Encounter Date [...] continue fiber supplementation and she can use [id number] antidiarrheals as needed for diarrhea. Her pancreatic [...] continue fiber supplementation and she can use [id number] antidiarrheals as needed for diarrhea. Her pancreatic [...] continue fiber supplementation and she can use [id number]-tec-[id number] antidiarrheals as needed for diarrhea. Her pancreatic cyst has resolved. Endoscopy will be scheduled. She is aware of risks and benefits and agrees to proceed.Today's visit was 30 minutes. Plan Of Treatment Future Test Test Name Order Date UPPER GI ENDOSCOPY 12/26/2019 COLONOSCOPY 12/26/2019 UPPER GI ENDOSCOPY 06/12/2024 Next Appt Details Provider Name:Kwabena champagne Jr, 06/18/2025 10:00:00 AM, [address] [place] [address], [address], [place], [phone], Insurance Providers Payer Name Payer Address Payer Phone Subscriber Number Group Number Insured Name Patient Relationship to Insured Coverage Start Date Coverage End Date [facility] [address] [place] [phone] [id number] KEVIN MALIK Self - patient is the [...]
--- OUTSIDE RECORDS SUMMARY | 2025-01-31 13:58 | XMS_ITS | Encounter Summary ---
Author Organization [facility] Address [address] [place] [address] Care Team Providers Care Psych Social Worker Name Role Phone KseniaSultana dorman LEIF Primary Care Provider + Encounter Details Date Type Department Care Team (Latest Contact Info) Description 07/11/2024 Lab Requisition [facility] - Main Lab 299 [facility] [place] [phone] Dillon Montoya MD [address] [phone] Encounter for gynecological examination (general) (routine) without [...] LAB MICROBIOLOGY METHOD 07/12/2024 6:28 AM EDT [facility] Brushing/Spatula Cervix uteri structure / Unknown 07/10/2024 07/11/2024 6:21 AM EDT us Dillon Montoya MD LAB MOLECULAR DIAGNOSTICS DYANA OQUENDO Final Result [facility] [address] [place] [address], * Pap smear (07/10/2024 12:00 AM EDT) Interpretation Negative for intraepithelial lesion or malignancy 07/16/2024 2:26 PM EDT [facility] General Categorization Negative 07/16/2024 2:26 PM EDT [facility] Other Findings Reparative changes 07/16/2024 2:26 PM EDT [facility] Specimen Adequacy Satisfactory for evaluation, endocervical/tam sformation zone component absent 07/16/2024 2:26 PM EDT [facility] Pap Methodology Liquid Based Pap Test 07/16/2024 2:26 PM EDT [facility] Disclaimer The Pap test is a screening test which carries an inherent false negative rate. These test results should be correlated with the patient's clinical findings and history. This Pap test was processed using an automated screening system. Technical cytopathology services provided by [facility], at [address] [place] [address] (CLIA # [id number]/Gurjit Gregory MD, Drilling Plant Operator.) 07/16/2024 2:26 PM EDT [facility] Console Pap Interpretation Reported 07/16/2024 2:26 PM EDT [facility] Brushing/Spatula Vaginal structure / Unknown 07/10/2024 07/11/2024 6:21 AM EDT us Dillon Montoya MD LAB CYTOLOGY ORDERABLES Final Result [facility] [address] [place] [address], documented in this encounter Visit Diagnoses Diagnosis Encounter for gynecological examination (general) (routine) without abnormal findings documented in this encounter Care Teams Psych Social Worker Relationship Specialty Start Date End Date Sultana Mccormack NP 21 [facility] [address] [place] [address] PCP - General Family Medicine 10/17/24 documented as of this encounter
--- OUTSIDE RECORDS SUMMARY | 2025-01-31 13:58 | XMS_ITS | Clinical Summary ---
Author Organization [address] [facility] Address [address] [place] [address] Phone Care Team Providers Care Kettle Cleaner Name Role Phone Ksenia, Sultana Felipe LEIF [...] naproxen (NAPROSYN) 500 mg tablet 11/04/19 Active Active Problems Problem Noted Date Diagnosed Date [...] Encounters Date Type Department Care Team Description 01/01/2025 Telephone [address] [phone] Dillon Gomez PA 12/06/2024 1:00 PM EDT Consult Neurosurgery [address] [phone] Dillon Gomez PA Chronic midline low back pain with left-sided sciatica (Primary Dx) 11/25/2024 12:48 PM EDT - 11/25/2024 2:46 PM EDT Emergency [facility] Emergency [address] [place] [address] Sciatica, left side (Primary Dx); Hypokalemia Discharge Disposition: Home or Self Care from Last 3 Months Immunizations Immunization Administration Dates Next Due Pfizer SARS-CoV-2 COVID-19, [...] Last Done Comments Breast Cancer Screening 1974 Colorectal Cancer Screening: Colonoscopy 1974 Hepatitis B Vaccines (1 of 3 - 19+ 3-dose series) 1993 Pneumococcal Vaccine: 50+ Years (2 of 2 - PCV) 08/27/2014 08/27/2013 Cholesterol Screening (Lipid Panel) 03/06/2022 Social Influencers of Health Screening 03/06/2022 Depression Screening 04/03/2024 RSV Immunization Adult Patients (1 - Risk 50-74 years 1-dose series) 2024 Zoster Vaccines (1 of 2) 2024 COVID-19 Vaccine (4 - 2024- season) 2024 05/28/2023, 08/20/2020, 07/28/2020 Influenza Vaccine [...] AND CULTURE STAT 11/25/2024 1:24 PM EDT HEPATITIS C ANTIBODY Routine 07/10/2024 [...] CBC auto differential (11/25/2024 1:31 PM EDT) WBC 6.1 4.0 - 10.5 K/mcL LAB HEMETOLOGY METHOD 11/25/2024 1:39 PM EDT [facility] RBC 4.62 4.20 - 5.40 M/mcL LAB HEMETOLOGY METHOD 11/25/2024 1:39 PM EDT [facility] Hemoglobin 13.1 12.5 - 16.0 g/dL LAB HEMETOLOGY METHOD 11/25/2024 1:39 PM EDT [facility] Hematocrit 39.0 37.0 - 47.0 % LAB HEMETOLOGY METHOD 11/25/2024 1:39 PM EDT [facility] MCV 84.4 78.0 - 100.0 FL LAB HEMETOLOGY METHOD 11/25/2024 1:39 PM EDT [facility] MCH 28.4 25.0 - 33.0 pcg LAB HEMETOLOGY METHOD 11/25/2024 1:39 PM EDT [facility] MCHC 33.6 32.0 - 36.0 g/dL LAB HEMETOLOGY METHOD 11/25/2024 1:39 PM EDT [facility] RDW 13.8 12.1 - 16.2 % LAB [facility]OLOGY [facility] Platelets 417 150 - 450 K/mcL LAB HEMETOLOGY METHOD 11/25/2024 1:39 PM [facility] MPV 8.8 7.4 - 11.4 FL LAB HEMETOLOGY METHOD 11/25/2024 1:39 PM [facility] Neutrophils Relative 47.3 44.0 - 74.0 % LAB HEMETOLOGY METHOD 11/25/2024 1:39 PM [facility] Lymphocytes Relative 44.0 20.0 - 48.0 % LAB HEMETOLOGY METHOD 11/25/2024 1:39 PM [facility] Monocytes Relative 7.4 2.0 - 12.0 % LAB HEMETOLOGY METHOD 11/25/2024 1:39 PM [facility] Eosinophils Relative 0.5 0.0 - 6.0 % LAB HEMETOLOGY METHOD 11/25/2024 1:39 PM [facility] Basophils Relative 0.5 0.0 - 2.0 % LAB HEMETOLOGY METHOD 11/25/2024 1:39 PM [facility] Neutrophils Absolute 2.89 1.80 - 7.80 K/mcL LAB HEMETOLOGY METHOD 11/25/2024 1:39 PM [facility] Lymphocytes Absolute 2.69 1.00 - 3.20 K/mcL LAB HEMETOLOGY METHOD 11/25/2024 1:39 PM [facility] Monocytes Absolute 0.45 0.00 - 0.80 K/mcL LAB HEMETOLOGY METHOD 11/25/2024 1:39 PM [facility] Eosinophils Absolute 0.03 0.00 - 0.50 K/mcL LAB HEMETOLOGY METHOD 11/25/2024 1:39 PM EDT [facility] Basophils Absolute 0.03 0.00 - 0.20 K/mcL LAB HEMETOLOGY METHOD 11/25/2024 1:39 PM EDT [facility] Blood Venous blood specimen / Unknown Venipuncture / Unknown 11/25/2024 1:31 PM EDT 11/25/2024 1:37 PM EDT Daisha SAINZ LAB BLOOD ORDERABLES Final Result [facility] [address] [place] [address], [place] [phone] * (ABNORMAL) Comprehensive Metabolic Panel (CMP) (11/25/2024 1:31 PM EDT) Sodium 137 135 - 145 mmol/L LAB CHEMISTRY METHOD 11/25/2024 2:02 PM [facility] Potassium 3.1(L) 3.5 - 5.1 mmol/L LAB CHEMISTRY METHOD 11/25/2024 2:02 PM [facility] Chloride 101 98 - 107 mmol/L LAB CHEMISTRY METHOD 11/25/2024 2:02 PM [facility] CO2 27 24 - 32 mmol/L LAB CHEMISTRY METHOD 11/25/2024 2:02 PM [facility] Anion Gap 9 5 - 14 LAB CHEMISTRY METHOD 11/25/2024 2:02 PM [facility] Glucose 96 70 - 199 mg/dL LAB CHEMISTRY METHOD 11/25/2024 2:02 PM [facility] BUN 13 7 - 17 mg/dL LAB CHEMISTRY METHOD 11/25/2024 2:02 PM [facility] Creatinine 0.71 0.50 - 1.00 mg/dL LAB CHEMISTRY METHOD 11/25[facility]2024 [facility] eGFR 104 >=60 mL/min/1. 73m2 LAB CHEMISTRY METHOD 11/25/2024 2:02 PM [facility] Comment:Calculation based on the Chronic Kidney Disease Epidemiology Collaboration (CKD-EPI) equation refit without adjustment for race. BUN/Creatinine Ratio 18.3 12.0 - 20.0 LAB CHEMISTRY METHOD 11/25/2024 2:02 PM [facility] Calcium 9.9 8.4 - 10.2 mg/dL LAB CHEMISTRY METHOD 11/25/2024 2:[facility] AST (SGOT) 22 5 - 40 unit/L LAB CHEMISTRY METHOD 11/25/2024 2:02 PM [facility] ALT (SGPT) 14 7 - 52 unit/L LAB CHEMISTRY METHOD 11/25/2024 2:[facility] Alkaline Phosphatase 66 34 - 104 unit/L LAB CHEMISTRY METHOD 11/25/2024 2:02 PM [facility] Total Protein 7.8 6.4 - 8.5 g/dL LAB CHEMISTRY METHOD 11/25/2024 2:02 PM [facility] Albumin 4.7 3.5 - 5.0 g/dL LAB CHEMISTRY METHOD 11/25/2024 2:[facility] Total Bilirubin 0.4 0.3 - 1.0 mg/dL LAB CHEMISTRY METHOD 11/25/2024 2:02 PM [facility] Blood Venous blood specimen / Unknown Venipuncture / Unknown 11/25/2024 1:31 PM EDT 11/25/2024 1:37 PM EDT Daisha SAINZ LAB BLOOD ORDERABLES Final Result [facility] [address] [place] [address], [place] [phone] * (ABNORMAL) Urinalysis with reflex microscopic and culture (11/25/2024 1:24 PM EDT) Color, Urine Yellow Colorless, Yellow LAB URINALYSIS - AUTOMATED METHOD 11/25/2024 1:29 PM EDT [facility] Clarity, Urine Turbid(A) Clear LAB URINALYSIS - AUTOMATED METHOD 11/25/2024 1:29 [facility] Specific [place] Urine 1.015 1.005 - 1.030 LAB URINALYSIS - AUTOMATED METHOD 11/25/2024 1:29 [facility] pH, Urine 8.0 5.0 - 8.0 pH LAB URINALYSIS - AUTOMATED METHOD 11/25/2024 1:29 [facility] Leukocytes, Urine Negative Negative WBCs/mcL LAB URINALYSIS - AUTOMATED METHOD 11/25/2024 1:29 [facility] Nitrite, Urine Negative Negative LAB URINALYSIS - AUTOMATED METHOD 11/25/2024 1:29 PM [facility] Protein, Urine Negative Negative mg/dL LAB URINALYSIS - AUTOMATED METHOD 11/25/2024 1:29 PM [facility] Glucose, Urine Negative Negative mg/dL LAB URINALYSIS - AUTOMATED METHOD 11/25/2024 1:29 [facility] Ketones, Urine Negative Negative mg/dL LAB URINALYSIS - AUTOMATED METHOD 11/25/2024 1:29 PM [facility] Blood, Urine Negative Negative mg/dL LAB URINALYSIS - AUTOMATED METHOD 11/25/2024 1:29 [facility] Urine Urine specimen obtained by clean catch procedure / Unknown Non-blood Collection / Unknown 11/25/2024 1:24 PM EDT 11/25/2024 1:26 PM EDT Daisha SAINZ LAB URINE ORDERABLES Final Result [facility] [address] [place] [address], [place] [phone] * Hepatitis C antibody (07/10/2024 10:28 AM EDT) Hepatitis C Antibody Negative Negative LAB CHEMISTRY METHOD 07/10/2024 3:28 PM EDT [facility] Blood Venous blood specimen / Unknown Venipuncture / Unknown 07/10/2024 10:28 AM EDT 07/10/2024 12:31 PM EDT Dillon Montoya MD LAB BLOOD ORDERABLES Final Res ult [facility] [address] [place] [address], [place] [phone] * HIV 1,2 antibody, p24 antigen with reflex to differentiation (07/10/2024 10:28 AM EDT) HIV Combo AB/AG Negative Negative LAB CHEMISTRY METHOD 07/10/2024 3:29 PM EDT [facility] Blood Venous blood specimen / Unknown Venipuncture / Unknown 07/10/2024 10:28 AM EDT 07/10/2024 12:31 PM EDT Narrative [facility] - 07/10/2024 3:29 [...] MD LAB BLOOD ORDERABLES Final Res ult [facility] [address] [place] [address], [place] [phone] * HPV with reflex genotype (07/10/2024 12:00 AM EDT) HPV Negative Negative LAB MICROBIOLOGY METHOD 07/12/2024 6:28 AM EDT [facility] Brushing/Spatula Cervix uteri structure / Unknown 07/10/2024 07/11/2024 6:21 AM EDT Dillon Montoya MD LAB MOLECULAR DIAGNOSTICS ORDE RABLES Final Result Performing Organization Address City/[facility]/ZIP Co de Phone Number [facility] [address] [place] [address], from Last 3 Months or Most Recently Relevant to Health Maintenance Insurance [facility] MEDICAID ADVANTAGE [place] [address] Care Teams Kettle Cleaner Relationship Specialty Start Date End Date Ksenia, Sultana Felipe NP [address] [place] [address] [place] [address] PCP - General Family Medicine 10/17/24
--- OUTSIDE RECORDS SUMMARY | 2025-01-31 13:58 | XMS_ITS | Clinical Summary ---
Author Organization [facility] Address [address] [place] [address] Care Team Providers Care Toolroom Helper Name Role Phone Camelia Robles MD Primary [...] age to complete this topic Care Teams Toolroom Helper Relationship Specialty Start Date End Date Camelia Robles MD [address] [place] [address] PCP - General Internal Medicine 02/03/16
== END 2025-01-31 12:51 | disposition home or self-care (01) ==
LOC: HO.US 12:50
PROVIDERS: PCP Internal Medicine; Visit Provider Urology
DX: N20.0 Calculus of kidney (principal)
CPT/HCPCS: 76775

== ENCOUNTER → 2025-01-31 12:52 | Outpatient (BNV) | payer OTHER, SELFPAY | PROVIDERS: PCP Internal Medicine; Visit Provider Specialist | DX: N20.0 Calculus of kidney (principal) | CPT/HCPCS: 76775 ==

== ENCOUNTER 2025-02-21 16:07 | Outpatient (AMB) | payer OTHER, SELFPAY ==
--- OUTSIDE RECORDS SUMMARY | 2024-07-05 06:40 | XMS_ITS ---
Author Organization [facility] Address [address] [place] [address] [address] [place] [address] Care Team Providers Care Alum Plant Operator Name Role Phone Sultana Mccormack N.P Primary Care Provider Kwabena Marroquin Jr REASON FOR VISIT Saldivar's Esophagus Encounters Encounter Location Date Provider Diagnosis [facility] [place] [address] [place] [id number] 07/05/2024 Kwabena Cook Jr Saldivar''s esophagus without dysplasia K22.70 Assessments Encounter Date Diagnosis (ICD Code) Assessment Notes Treatment Notes Treatment Clinical Notes Section Notes 07/05/2024 Saldivar''s esophagus without dysplasia (ICD-10 - K22.70) Plan Of Treatment Next Appt Details Provider Name:Kwabena champagne Jr, 06/18/2025 10:00:00 AM, [address] [place] [address], [address], [place], [address], Progress Notes * RASHEED MALIKOB: [birth year] (49 yo F)Acc No.[id number]:07/05/2024 EGD/MAC Patient: KEVIN WOODY Provider: Mekhi Cook MD :1975 A ge:48 Y S ex:Female Date:07/05/2024 Address:[address] [place], [place] [phone] Pcp:Sultana Mccormack N.Don Subjective: * Chief Complaints: * B arrett's Esophagus Assessment: * Assessment: 1. B arrett''s esophagus without dysplasia - K22.70 (Primary) Plan: * Procedure Codes: 4 3239 UPPER GI ENDOSCOPY, BIOPSY Billing Information: * Procedure Codes: 29721 UPPER GI ENDOSCOPY, BIOPSY. * The named appointment provid er may or may not be the originator of this progress note, and it is not deemed complete until electronically signed by the appointment provider. Sign off status: Pending * Provider: Mekhi Cook MD Date: 0 07/05/2024 Generated for Jorden campbell/Shekhar/Jgsmitting on: 04/23/2024 04:14 PM EST
--- NOTE | 2025-02-21 16:08 | A.OFFVIS_ITS ---
Intake Visit Reasons: follow up/US Intake Note: Patient is present via telehealth for US follow up * 02/01 Renal US Urology Med: Tamsulosin, Potassium Antibiotic Allergy:None Blood Thinner: None State Game Protector Required: No Accompanied by: Self / Same As Patient Allergies acetaminophen (Tylenol) Allergy (Intermediate, Verified 04/16/25 12:23) Vomiting aspirin Allergy (Intermediate, Verified 04/16/25 12:23) Vomiting ibuprofen Allergy (Intermediate, Verified 04/16/25 12:23) Abdominal Pain metronidazole (Flagyl) Allergy (Intermediate, Verified 04/16/25 12:23) Triggers migraines tramadol Allergy (Intermediate, Verified 04/16/25 12:23) Triggers migraine trazodone Allergy (Intermediate, Verified 04/16/25 12:23) Triggers Migrain Medication List - Last Reconciled 02/21/25 by Arcenio Fine MD albuterol sulfate 90 mcg/actuation 2 puffs inhalation Q4-6H PRN carisoprodol 350 mg PO BID 30 days epinephrine (EpiPen 2-Rajesh) 0.3 mg IM Q4H PRN fluconazole 150 mg orally Start Diflucan after completing Levaquin repeat dose after 2 days hydrochlorothiazide 25 mg PO DAILY 90 days levalbuterol tartrate 45 mcg/actuation (Xopenex HFA) 2 inhalations inhalation Q6H multivitamin 1 tab PO DAILY nitrofurantoin monohyd/m-cryst 100 mg (Macrobid) 100 mg PO BID 5 days omeprazole 40 mg PO DAILY onabotulinumtoxinA (Botox) 200 units IM ONCE 12 weeks oxycodone 5 mg PO .q12 h PRN potassium citrate ER 10 mEq PO BID 90 days promethazine 25 mg PO TID PRN tamsulosin 0.4 mg PO BEDTIME 30 days ubrogepant (Ubrelvy) 100 mg orally at onset of migraine, may repeat in 2 hours (max of 200mg per day) PRN; 30 days valacyclovir 500 mg PO BID PRN HPI Comments Details: 02/21/25--Melva is a 49-year-old female followed for bilateral renal calculi. History of Present Illness The patient is a 49-year-old individual presenting with bilateral renal calculi. A renal ultrasound on January 31, 2025, confirmed small stones in both kidneys, each 3 mm or smaller. The patient visited the emergency room on February 14 due to pain, where a CT scan again revealed kidney stones. The patient reports significant pain and fatigue, affecting daily activities. The patient has been prescribed oxycodone prn for pain and was previously on tamsulosin. Results - Renal ultrasound on 01/31/2025: Bilateral renal calculi, stones 3 mm or smal ler - CT scan at ER on 02/14/2025: Kidney stones Plan 1. Bilateral Renal Calculi - Referral to Dr. Kulkarni for ureteroscopy to address smaller stones. - Prescribe six tablets of oxycodone for pain management. - Refill tamsulosin prescription. 10/14/24-Discussed 24 hour urine results collected:07/08/24 Total volume 2.68 L, Calcium 104 mg; Oxalate 36 mg, Citrate 198 mg, Sodium 132. Instructed on increase citrate in diet. History of Present Illness - The patient is a 49-year-old female presenting with kidney stones. - She has a history of urinary frequency and bacteriuria, managed with low-dose medication for bladder stability. - Recurrent kidney stones have been managed with hydration and herbal remedies, including hibiscus flower. - A 24-hour urine collection indicated normal calcium and oxalate excretion but low citrate levels. - [place] products recommended for citrate increase cause heartburn, complicating dietary management. - Herbal remedies combined with Tylenol have exacerbated IBS symptoms. Plan - Increase dietary citrate intake through lemon or citrus fruits, considering heartburn management. - Refer to nephrology for comprehensive kidney stone management and potential medical therapy. - Arrange a follow-up telehealth appointment with the nurse practitioner in six months. Results - 24-hour urine collection: Normal calcium and oxalate excretion, low citrate levels (198 mg). 06/07/24-- 48-year-old female presenting with nephrolithiasis. She suffers from recurrent renal colic due to small kidney stones. A recent CT scan confirmed non-obstructive small stones. She cannot tolerate Tylenol or NSAIDs for pain management due to IBS-related gastrointestinal issues, influencing dietary intake and weight maintenance. The patient has engaged in self-help strategies like hydration and dietary modifications but remains symptomatic. She complains of persistent pain. Discussed evaluation with 24 hr urine. Results - CT scan: 04/25/24--CTAP- Multiple small, non-obstructive renal stones--Kidneys- bilateral renal stones measuring up to 5 mm, bilateral renal cysts 04/01/24-- Telehealth - with Video- Melva is followed for kidney stones, renal cysts, complains of persistent flank pain. Discussed renal US results, no hydronephrosis, tiny bilateral renal stones. Will check a CT stone protocol. US Renal: Bilateral renal cortical cysts including Bosniak category 2 cystic lesions are seen, for which no follow-up imaging is recommended. Persistent Bilateral multiple nonobstructing renal calculi. No hydronephrosis. 12/20/2023--status post ESWL 11/08/23--Melva states she still has intermittent flank pain. will schedule renal ultrasound and KUB. 09/13/23--Melva is a 48-year-old female who I have been following due to nephrolithiasis. She had a CT KUB performed on 09/05/2023. I reviewed results no hydronephrosis punctate right kidney stone 8 mm left kidney lower pole stone. The patient has had left flank pain on and off. Plan schedule left ESWL. Eight tablets oxycodone sent to pharmacy for p.r.n. pain 7-10. Patient states unable to take NSAIDs or tramadol as listed under allergies. 08/14/23--Melva is followed for nephrolithiasis, she is s/p Left ESWL on 07/05/23. I have reviewed the recent renal US 08/03/23- bilateral nonobtructing stones and left kidney complex cyst. She states she feels like she is passing a stone, having flank pain, nausea and dysuria. I will send tamsulosin, a few pain meds, antinausea med and empirically place on levaquin. [facility] Medical History Pancreatic cyst IBS (irritable bowel syndrome) Saldivar's esophagus Chronic migraine without aura, intractable, without status migrainosus History of kidney stones Vaginal intraepithelial neoplasia GERD (gastroesophageal reflux disease) Migraine Cervical radiculopathy Back pain IBS (irritable bowel syndrome) Nephrolithiasis Surgical History History of esophagogastroduodenoscopy (EGD) Hx of ovarian cystectomy Hx of cystoscopy Hx of lithotripsy History of vaginal surgery History of partial hysterectomy Social History Household Members: Children Alcohol intake: current Alcohol intake frequency: does not drink Patient Tobacco Use Status: Current everyday Tobacco user Tobacco use type: Cigarette Cigarettes Per Day: 10 Years Smoked: 36 years Substance Use Type: Marijuana Current occupational status: disabled Review of Systems Const All systems reviewed & are unremarkable except as noted in HPI and below Reports no additional complaints Eyes Reports no additional complaints ENT Reports no additional complaints Card Reports no additional complaints Resp Reports no additional complaints GI Reports no additional complaints Reports as per HPI Musc Reports no additional complaints Skin/Breast Reports system reviewed and no additional complaints, except as documented Neuro Reports no additional complaints Psych Reports no additional complaints Endo Reports no additional complaints Edgar/Lymph Reports no additional complaints Aller/Immun Reports no additional complaints Telehealth Telehealth Telehealth Platform: [email or web address] Location of provider rendering services: practice address Location of patient: address on file Patient Identification confirmed using: Name, : Yes Telehealth method: video Patient verbally consented to treatment: Yes Patient verbally consented to billing insurance company: Yes Patient informed of any privacy concerns related to visit: Yes Results Reviewed Results Reviewed: Date of Service: 01/31/25 CLINICAL HISTORY: N20.0 - Calculus of kidney US Renal Comparison: 12/29/2023 10:00 AM EDT: US Findings: Right kidney normal size and echotexture, 11.2 cm length. Left kidney normal size and echotexture, 10.2 cm length. There are bilateral renal cortical bosniak 1 cysts and bilateral renal parenchymal calculi. No collecting system dilatation of either kidney. Normal color Doppler. IMPRESSION: 1. Bilateral renal parenchymal calculi. No acute findings 04/25/24--CTAP- Kidneys-bilateral renal stones measuring up to 5 mm, bilateral renal cysts Date of Service: 12/29/23 US RETROPERITONEAL LIMITED (RENAL ONLY) CLINICAL INFORMATION: Acquired renal cyst. COMPARISON: Ultrasound examination of kidneys on 08/03/2023, CT abdomen and pelvis on 09/05/2023 TECHNIQUE: Ultrasound along with color Doppler imaging and spectral analysis was performed of the kidneys. FINDINGS: RIGHT KIDNEY: 11.5 x 3.7 x 3.2 cm (SAG x AP x TRV). The kidney is normal in size, contour, and echogenicity. Renal cortical thickness is normal. No hydronephrosis. Right upper pole exophytic simple cyst is seen measuring 1.5 x 1.3 x 1.3 cm in size (previously 1.5 cm). A multiseptated complex right upper renal cortical cyst is seen measuring 1.9 x 1.7 x 1.2 cm in size. Multiple echogenic foci are present including mid right renal echogenic foci measuring 0.3 x 0.2 x 0.3 cm; 0.2 x 0.1 cm respectively; upper right renal echogenic foci measuring 0.1 cm in size, 0.2 x 0.1 cm (previously 0.4 cm), upper mid right renal echogenic focus measuring 0.2 x 0.1 cm (previously 0.4 cm). LEFT KIDNEY: 11.7 x 5.1 x 5.2 cm (SAG x AP x TRV). The kidney is normal in size, contour, and echogenicity. Renal cortical thickness is normal. No hydronephrosis. Left mid renal cortical simple cyst is seen measuring 0.7 x 0.6 x 0.8 cm in size. Slightly complex mildly exophytic left mid renal cortical hypoechoic cyst with calcified partial septation measures 2.8 x 2.0 x 2.8 cm in size (previously 2.0 x 3.2 x 2.2 cm). Echogenic foci are seen in mid left kidney measuring 0.5 x 0.2 x 0.4 cm and 0.4 x 0.2 cm respectively (previously up to 0.8 cm). IMPRESSION: 1. Bilateral renal cortical cysts including Bosniak category 2 cystic lesions are seen, for which no follow-up imaging is recommended. However, only one cyst with focal calcification is seen in the right kidney on CT scan of abdomen on 09/05/2023. 2. Persistent Bilateral multiple nonobstructing renal calculi. 3. No hydronephrosis. Date of Service: 09/05/23 EXAMINATION: CT ABDOMEN AND PELVIS WITHOUT CONTRAST CLINICAL INFORMATION: Calculus of kidney, flank pain COMPARISON: 08/03/2023 renal ultrasound TECHNIQUE: Multidetector volumetric imaging was performed from the superior aspect of the liver through the pubic symphysis. Sagittal and coronal reformatted images were obtained on the technologist's workstation. This CT examination was performed using dose optimization techniques as appropriate, variously including the following: *Automated exposure control *Adjustment of mA and/or kV according to patient size (this includes techniques or standardized protocols for targeted exams where dose is matched to indication/reason for exam; i.e. extremities or head) *Use of iterative reconstruction technique DLP: 369 mGy-cm FINDINGS: FIRE BOSS: Nonobstructive bowel pattern. LUNG BASES: The visualized lung bases are unremarkable. LIVER, GALLBLADDER, AND BILIARY TREE: The liver is normal in size, shape, and attenuation. No focal hepatic lesion or biliary ductal dilatation is present. The gallbladder contains sludge with no evidence of radiopaque gallstones, gallbladder wall thickening, or obvious pericholecystic inflammatory changes. PANCREAS: Unremarkable. SPLEEN: Unremarkable. ADRENAL GLANDS: Unremarkable right adrenal gland. 2.1 x 2 cm fat density left adrenal lesion consistent with lipid rich adenoma. No further follow-up recommended. KIDNEYS AND URETERS: The kidneys are normal in size, shape, and attenuation. 1.4 cm right upper pole renal cyst. Multiple left renal cysts, largest in the midpole measures 2.9 cm. Bilateral nonobstructing renal calculi, punctate on the right, 8 mm in the lower pole on the left with Hounsfield units measuring 780. Mild left intrarenal collecting system and proximal ureteral prominence. No hydroureteronephrosis. BLADDER: Under distended but unremarkable. GASTROINTESTINAL TRACT: Moderately distended stomach. No CT evidence of obstruction. Unremarkable diverticulosis without diverticulitis ABDOMINAL WALL: No significant hernia is appreciated. LYMPH NODES: Normal. VASCULAR: Atherosclerotic calcifications nonaneurysmal aorta appear unremarkable inferior vena cava. PELVIC VISCERA: Unremarkable. OSSEOUS STRUCTURES: Unremarkable. CT/CT abdomen pelvis wo IV con IMPRESSION: Bilateral nonobstructing renal calculi, largest in the left lower pole measuring 8 mm. Bilateral renal cysts, largest on the left measuring 2.9 cm. Mild left intrarenal collecting system and proximal left ureteral prominence. No hydroureteronephrosis bilaterally. Diverticulosis without diverticulitis. Gallbladder sludge. Left adrenal lipid rich adenoma. Date of Service: 08/03/23 EXAMINATION: US RETROPERITONEAL LIMITED (RENAL ONLY) CLINICAL INFORMATION: Renal calculus. COMPARISON: CT urogram dated 05/26/2023; renal ultrasound dated 02/03/2023. TECHNIQUE: Real-time imaging of the kidneys. FINDINGS: RIGHT KIDNEY: 11.1 x 6.3 x 5.3 cm (SAG x AP x TRV). The kidney is normal in size, contour, and echogenicity. Renal cortical thickness is normal. No calculi or focal parenchymal solid lesions. No hydronephrosis. At the upper pole, a 4 mm nonobstructing calculus is seen, and at the interpolar aspect, a 4 mm nonobstructing calculus is seen, with twinkle artifact. At the upper pole, a 1.5 cm benign, simple cyst is seen, for which no imaging follow-up is recommended. LEFT KIDNEY: 11.7 x 5.2 x 4.4 cm (SAG x AP x TRV). The kidney is normal in size, contour, and echogenicity. Renal cortical thickness is normal. No focal parenchymal solid lesions. At the upper pole, an 8 mm nonobstructing calculus is seen. At the interpolar aspect, a 9 mm aggregation of calculi is seen. No hydronephrosis. At the interpolar aspect, a 9 mm and 9 mm and 1.5 cm benign, simple cysts are seen. At the lower pole, a 9 mm benign, simple cyst is seen. These require no imaging follow-up. At the lower pole, a 2.0 x 3.2 x 2.2 cm cyst is seen, with septation and wall calcifications. IMPRESSION: 1. There are nonobstructing bilateral renal calculi, as detailed. No hydronephrosis is seen. 2. A 3.2 cm mildly complex left renal lower pole cyst is seen, consistent with the CT appearance of 05/23/2023. This is a likely benign finding, for which no imaging follow-up is recommended. Date of Service: 05/23/23 EXAMINATION: CT ABDOMEN AND PELVIS WITHOUT AND WITH CONTRAST FINDINGS: LUNG BASES: The visualized lung bases are unremarkable. LIVER, GALLBLADDER, AND BILIARY TREE: The liver is normal in size, shape, and attenuation. There is a Pradeep's lobe configuration. A 6 mm low-attenuation probable cyst or benign hemangioma is seen within the left hepatic lobe (4:3), too small for full characterization with CT. No biliary ductal dilatation is present. The gallbladder is unremarkable with no evidence of radiopaque gallstones, gallbladder wall thickening, or obvious pericholecystic inflammatory changes. PANCREAS: Towards the deep margin of the pancreatic tail (4:12), an 8 mm low-attenuation simple cyst is seen, too small to fully characterize with CT. No solid mass, focal enlargement or ductal dilatation is noted. There is no peripancreatic fat stranding or acute fluid collection. SPLEEN: The included portion is unremarkable. ADRENAL GLANDS: The right adrenal gland is unremarkable. The left adrenal gland contains a 2.3 x 1.7 cm benign, fat-containing adenoma with precontrast Hounsfield value of -8.5 units (3:9). KIDNEYS AND URETERS: The kidneys are normal in size, shape, and attenuation. No perinephric stranding. At the lower pole of the left kidney laterally (4:37 and 7:49), a 3.3 x 2.4 x 1.9 cm mildly complex cyst (Bosniak 2) is seen. This shows a fine septation and small punctate wall calcifications. This is a likely benign finding, for which no imaging follow-up is recommended. There are multiple further bilateral benign, simple (Bosniak 1) appearing bilateral renal cysts, which require no imaging follow-up. At the lower pole of the right kidney (3:53 and 54), 2 adjacent nonobstructing 2 mm calculi are seen. There are approximately 9 small nonobstructing left renal calculi, the largest at the upper pole measuring 6 mm (3:23). GASTROINTESTINAL TRACT: The included small and large bowel are unremarkable. The vermiform appendix is not included in the [id number]. ABDOMINAL WALL: No significant hernia is appreciated. LYMPH NODES: Normal. VASCULAR: There is mild aortic atherosclerotic calcification. No aortic aneurysm or dissection is seen. OSSEUS STRUCTURES: Unremarkable. IMPRESSION: 1. A mildly complex (Bosniak 2) cyst is seen at the lower pole the left kidney, with fine septation and wall calcification. This corresponds with the ultrasound finding in question. There is a likely benign finding, for which no imaging follow-up is recommended. 2. There are small nonobstructing bilateral renal calculi. 3. An 8 mm low-attenuation simple appearing cyst is seen posteriorly within the pancreatic tail. Recommend repeat imaging at a one-year interval to ensure stability of this finding. 4. A 6 mm low-attenuation probable cyst or benign hemangioma is seen within the left hepatic lobe. This is of doubtful clinical significance. If of continued clinical concern (i.e., history of hepatocellular disease or known malignancy), this can be further evaluated with ultrasound or MRI. 5. A 2.3 cm benign, fat-containing left adrenal adenoma is seen. Assessment & Plan Assessment & Plan (1) Flank pain: Code(s): R10.9 - Unspecified abdominal pain Category: Medical (2) Nephrolithiasis: Code(s): N20.0 - Calculus of kidney Category: Medical Plan Plan 1. Bilateral Renal Calculi - Referral to Dr. Kulkarni for ureteroscopy to address smaller stones. - Prescribe six tablets of oxycodone for pain management. - Refill tamsulosin prescription. Medications: New oxycodone Partial Fill upon patient request. 5 mg PO .q12 h PRN 6 tabs 0RF pain Changed From tamsulosin 0.4 mg PO BEDTIME 14 days 14 caps 0RF To tamsulosin 0.4 mg PO BEDTIME 30 caps 0RF 30 days Patient Instructions: The patient had an opportunity to ask questions regarding treatment plan. The patient expressed understanding and agreement with the above treatment plan. The patient is aware they should contact our office by phone for worsening of their current condition or the appearance of new symptoms. Compliance is encouraged with any medications and followup testing that is ordered. It is a privilege to be allowed the opportunity to participate in the urologic care of your patient. If you have any questions or concerns regarding treatment for the above conditions please do not hesitate to contact me. The office telephone contact is [phone]. This note is constructed in part using voice recognition software. While every effort has been made to ensure accuracy continuous dryout operator errors may have been included. Yours sincerely, Arcenio Fine MD Scribe Plan - Not visible on output: Patient was informed and verbally consented to the use of an ambient scribe for clinic note documentation during this visit. Coding Level of Care Code Tele Est Pt Level 4 (25038) Diagnoses Flank pain R10.9 Nephrolithiasis N20.0
--- OUTSIDE RECORDS SUMMARY | 2025-02-21 16:14 | XMS_ITS | Patient Health Record ---
Author Organization [facility] Address [address] [place] [address] Care Team Providers Care Frame Aligner Name Role Phone Ksenia Sultana Blank Primary Care Provider Kwabena Marroquin Jr Unavailable [phone] Allergies Allergen (clinical drug ingredient) Drug/Non Drug Allergy documented on EMR Reaction Allergy Type Onset Date Status ibuprofen Advil Unknown Drug Allergy Active aspirin Aspirin Unknown Drug Allergy Active Motrin Unknown Drug Allergy Active tramadol Tramadol HCl Unknown Drug Allergy Acti ve trazodone Trazodone HCl Unknown Drug Allergy Act shaquille acetaminophen Tylenol Unknown Drug Allergy Act shaquille Results Component Value Reference Range Notes Pathology Reviewed date:07/09/2024 04:24:56 PM Interpretation: Performing Lab:[facility], [address] [place] [phone] Notes/Report: Reason For Referral No Information Medications Medication SIG (Take, Route, Frequency, Duration) Notes Start Date End Date Status oxyCODONE HCl 5 MG Capsule 1 capsule as needed Orally every 6 hrs Active Dicyclomine HCl 20 MG Tablet 1 tablet Orally 2-4 times a day; Duration: 30 days 06/12/2024 Active Omeprazole 40 MG Capsule Delayed Release 1 capsule 30 minutes before morning meal Orally Once a day; Duration: 30 days 12/30/2020 Active Promethazine HCl 25 MG Tablet 1 tablet as needed Orally every 6 hrs; Duration: 30 days 07/03/2020 Active Carisoprodol 350 MG Tablet Orally Active Vitamin B12 Active Probiotic - Capsule as directed Orally Active Immunizations Vaccine Route Administration Date Status Comme nts Influenza Unknown 12/26/2019 Refused Influenza Unknown 01/02/2020 Administered Influenza Unknown 06/28/2021 Refused Influenza Unknown 06/14/2023 Refused Social History Tobacco Use: Social History Observation Description Date Details (start date - stop date) Current Smoker NA - NA Social History Drugs/Alcohol: Social Info Question Answer Notes Alcohol Screen Did you have a drink containing alcohol in the past year? No Points 0 Interpretation Negative Tobacco Use: Social Info Question Answer Notes Tobacco Use/Smoking Patient is a current smoker How often do you smoke cigarettes? every day How many cigarettes a day do you smoke? 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 Problems Problem Type SNOMED Code ICD Code Onset Dates Problem Status W/U Status Risk Notes Problem Rectal bleeding (64548393) Rectal bleeding (K62.5) Active confirmed Problem Saldivar's esophagus (566461988) Saldivar's esophagus without dysplasia (K22.70) Active confirmed Problem Gastroesophageal reflux disease without esophagitis (048094298) Gastroesophageal reflux disease without esophagitis (K21.9) Active confirmed Problem Pancreatic cyst (20978103) Pancreatic cyst (K86.2) Active confirmed Problem Irritable bowel syndrome (27297927) Irritable bowel syndrome with both constipation and diarrhea (K58.2) Active confirmed Vital Signs Temperature 97.5 degrees Fahrenheit 06/12/2024 Blood pressure diastolic 01 mm Hg 06/12/2024 Height 64.5 in 06/12/2024 Blood pressure systolic 001 mm Hg 06/12/2024 Weight 142 lbs 06/12/2024 BMI 24 kg/m2 06/12/2024 Encounters Encounter Location Date Provider Diagnosis [facility] Outpatient [address] [place] [id number] 07/05/2024 Kwabena Cook Jr Saldivar''s esophagus without dysplasia K22.70 [facility] [address] [place] [address] 06/12/2024 Kwabena Cook Jr Saldivar's esophagus without dysplasia K22.70 ; Irritable bowel syndrome with both constipation and diarrhea K58.2 and Pancreatic cyst K86.2 [facility] [address] [place] [phone] 05/22/2024 Kwabena Cook Jr [facility] [address] [place] [address], [place] [address] 07/09/2024 Kwabena Cook Jr Assessments Encounter Date [...] continue fiber supplementation and she can use rivc-ffz-cgtqobp antidiarrheals as needed for diarrhea. Her pancreatic [...] continue fiber supplementation and she can use fqjb-uhb-hkbpoyy antidiarrheals as needed for diarrhea. Her pancreatic [...] continue fiber supplementation and she can use mpei-fgs-sdnikwd antidiarrheals as needed for diarrhea. Her pancreatic cyst has resolved. Endoscopy will be scheduled. She is aware of risks and benefits and agrees to proceed.Today's visit was 30 minutes. Plan Of Treatment Future Test Test Name Order Date UPPER GI ENDOSCOPY 12/26/2019 COLONOSCOPY 12/26/2019 UPPER GI ENDOSCOPY 06/12/2024 Next Appt Details Provider Name:Kwabena champagne Jr, 06/18/2025 10:00:00 AM, [address], [address], [place], [address], Insurance Providers Payer Name Payer Address Payer Phone Subscriber Number Group Number Insured Name Patient Relationship to Insured Coverage Start Date Coverage End Date [facility] [address] [facility] [place] [phone] [id number] KEVIN MALIK Self - patient is the insured Medical (General) History Medical History History ICD Code IBS, diarrhea and constipation. back pain cervical radiculopathy nephrolithiasis migraines gastroesophageal reflux dise ase/Saldivar's esophagus, EGD 01/20, Saldivar's at EG junction, no dysplasia, no H. pylori, five-year followup vaginal intraepithelial neoplasia, grade 3 Colonoscopy 01/20 normal, including biop sies, ten-year followup kidney stones Surgical History Surgery Date(Month/Year) partial hysterectomy 10/10/17 ovarian cyst 03/1998 Multiple kidney stone procedures Hospitalization History Reason Date(Month/Year)
--- OUTSIDE RECORDS SUMMARY | 2025-02-21 16:14 | XMS_ITS | Clinical Summary ---
Author Organization [facility] Address [address] [place] [address] Care Team Providers Care Force Adjustment Supervisor Name Role Phone Camelia Robles MD Primary [...] age to complete this topic Care Teams Force Adjustment Supervisor Relationship Specialty Start Date End Date Camelia Robles MD [address] [place] [address] PCP - General Internal Medicine 02/03/16
--- OUTSIDE RECORDS SUMMARY | 2025-02-21 16:14 | XMS_ITS | Continuity of Care Document ---
Author Organization [place] [facility], [facility] Address [address] [place] [address] Care Team Providers Care Volunteer Services Specialist Name Role Phone JULITO MCCORMACK Primary Care Provider [phone] Assessment Encounter Date Assessment Date Assessment LastModified by Organization Details LastModified Time 01/20/2025 01/20/2025 Melva Tejada is a 49-year-old female with migraines, deviated nasal septum, and persistent nasal drainage. The patient's symptoms of facial pain and pressure are likely attributable to migraines rather than a sinus infection. The scan performed at [facility] demonstrated a small cyst in the right [...] By Organization Details Last Modified Time 01/20/2025 47703 - Continue magnesium supplementation, increasing dosage to [...] was required prior to finalizing the note. roshan Not available 01/20/2025 14:00:04 Reason for Referral None Reported. Problems Name Problem SNOMED Code Status Onset Date Resolution Date Notes Provider Name and Address Organization Details Recorded Time Tobacco user 361251402 Active 2015 Tobacco use; Note: Date Diagnosed : 03/10/2016 11:39 AM (Z72.0) Not Available [facility] 4 03:27:26 Migraine without aura, not refractor y 407308203 Active 2015 Migraine without aura, not intractab le, without status migrainos us; Note: Date Diagnosed : 03/10/2016 11:39 AM (G43.009) Not Available [facility] 4 03:27:26 Deviated nasal septum 264798985 Active 2024 ROSIE FLORENTINO MD [address] [place] [address],[place] [address], [place], [address] , [place] - [facility] 5 13:58:57 Mucocele of maxillary sinus 38205502298 301020 Active 2024 ROSIE FLORENTINO MD [address] [place] [address], [place], [address] , [place] - [facility] 5 13:59:10 Problem Notes None recorded. Procedures Surgical History Date Name Laterality Status Provider Name and Address Organization Details Recorded Time JMSNasal/Sinus Endoscopy completed ROSIE BROWNLEE MD [address] [place] [address],[address], [address], [place] - [facility] 01/20/2025 14:01:35 Kidney Stone Removal completed Veronica Go [place] - [facility] 01/20/2025 13:58:06 Imaging Results None recorded. Procedure Notes None recorded. Medical Equipment None Reported. Allergies Allergen ID Allergen Name Allergen Category Reaction Reaction Severity Criticality Documentation Date Start Date Code Code System Note Provider Name and Address Organization Details Recorded Time 64581 Tylenol medicatio n other Not available Not available 08/15/202326735 3 RxNorm React ion: unkno wn, unspe cifie d;; Not Available [facility] 4 00:49:11 78262 Motrin medicatio n other Not available Not available 08/15/202317972 8 RxNorm React ion: unkno wn, unspe cifie d;; Not Available [facility] 4 00:49:53 22709 trazodone medicatio n other Not available Not available 08/15/2023 36718 RxNorm React ion: unkno wn, unspe cifie d;; Not Available [facility] 4 00:50:09 84508 tramadol Not available other Not available Not available 08/15/2023 62628 RxNorm React ion: unkno wn, unspe cifie d;; Not Available [facility] 4 00:50:10 38680 Flagyl medicatio n other Not available Not available 08/15/202369281 6 RxNorm React ion: unkno wn, unspe cifie d;; Not Available [facility] 4 00:50:23 Medications Name Sig Start Date [...] mg tablet 01/20 completed Medicatio n ID: [id number] Du ration Value: 14 Brand Name: oxycodone Send Method: E-Prescri bed Subs Allowed: subs [place] Medica tionGener icName: oxycodone Not Available Not Available Not Available Prilosec OTC 20 mg tablet,de layed release Take by oral route. active Not Available Not Available No t Available Zantac 01/20 completed Medicatio n ID: [id number] Br and Name: Zantac Se nd Method: E-Prescri bed Subs Allowed: subs [place] Specia l Instructi on: Take 1 tablet by mouth every day at bedtime M edication GenericNa me: Zantac Not Available Not Available Not Available Valium 01/20 completed Medicatio n ID: [id number] Br and Name: Valium Se nd Method: E-Prescri bed Subs Allowed: subs [place] Medica tionGener icName: Valium Not Available Not Available Not Available potassium active Not Available Not Nadja ilable Not Available Soma 01/20 completed Medicatio n ID: [id number] Br and Name: Soma Send Method: E-Prescri bed Subs Allowed: subs [place] Medica tionGener icName: Soma Not Available Not Available Not Available Topamax 01/20 completed Medicatio n ID: [id number] Br and Name: Topamax S end Method: [...] Details Last Updated DateTime 01/20/2025 163.83 cm 45996.3 g Veronica Go [place] - [facility] 01/20/2025 13:52:30 Social History None recorded. Functional [...] ICD10 Code Diagnosis IMO Codes Diagnosis Note [id number] ROSIE FLORENTINO MD [facility] [address] [address] 01/20/2025 13:25:55 01/20/2025 14:03:06 Migraine without aura, not refractory 135144212 G43.009 Deviated nasal septum 12 1272070 J34.2 43120 Mucocele o f maxillary sinus 9845637994 1824178 J34.1 0527745 Health Concerns Section Related Observation LastModified by Organization Detai ls LastModified Time None Recorded Concern Status LastModified by Organization Details LastModified Time None Recorded Payers Encounter Date Sequence Insurance Name Policy Number Policy Jorge Covered Member ID Jorge Member ID Guarantor Name 01/20/2025 1 [facility] (MEDICAID HMO) [id number] Melva Tejada [id number] Melva Tejada Notes Date Note Type Note Provider Name and Address Organization Details Recorded Time 01/20/2025 text/html ROS as noted in the HPI Melva Tejada is a 49-year-old female who presents for evaluation of sinus-related symptoms and facial pain. She reports experiencing throbbing pain in her left sinus cavity and buddhist area. She visited [facility] approximately three to four months ago, where [...] is Lisa Mccormack, a nurse practitioner at [facility] in [place]. ROSIE BROWNLEE MD [address] [place] [address], [address], [place] - [facility] 01/20/2025 14:01:57 OBGyn Episode No OBEpisode recorded.
--- OUTSIDE RECORDS SUMMARY | 2025-02-21 16:14 | XMS_ITS | Data Portability ---
Author Organization [place] [facility], [facility] Address [address] [place] [address] Care Team Providers Care Coding Director Name Role Phone MAGNOLIAJUAN JOSE RANDLE Primary [...] Lab urinalysis , dipstick 2021 022 [email or web address] [facility], [address] [place] [address], [place], [address], 11:54:15 Referral None recorded. Procedures None recorded. Surgeries None recorded. Imaging None recorded. Medication Orders ketorolac 30 mg/mL (1 mL) injection solution 2021 022 [email or web address] [id number], [address] [place], [address], 13:13:36 Patient TargetsNo targets recorded. Patient InstructionsNo instructions recorded. Reason for Referral None Reported. Results Created Date Observation Date Name Description Value Unit Range Abnormal Flag Note LastModifiedBy Organization Detail LastModifiedTime 12/15/1912/14/2021 urina lysis , dipst ick Appearance clear Not Available [facility] [address] [place], [address], 12/14/2021 11:51:02 12/15/1912/14/2021 urina lysis , dipst ick Color yellow Not Available [facility] - Home [address] [place], [address], 12/14/2021 11:51:02 12/15/1912/14/2021 urina lysis , dipst ick Glucose (ref: neg) Neg Not Available [facility] - Home [address] [place], [address], 12/14/2021 11:51:02 12/15/1912/14/2021 urina lysis , dipst ick Bilirubin (ref: neg) Neg Not Available Spr - Home [address] [place], [address], 12/14/2021 11:51:02 12/15/1912/14/2021 urina lysis , dipst ick Ketones (ref: neg) Neg Not Available Spr - Home [address] [place], [address], 12/14/2021 11:51:02 12/15/1912/14/2021 urina lysis , dipst ick Specific Vest (ref: 1.003 - 1.035) 1.020 Not Available [facility] [address] [place], [address], 12/14/2021 11:51:02 12/15/19 22 12/14/2021 urina lysis , dipst ick Blood (ref: neg) + Not Available [facility] [address] [place], [address], 12/14/2021 11:51:02 12/15/1912/14/2021 urina lysis , dipst ick pH (ref: 5.0-7.0) 6.5 Not Available [facility] [address] [place], [address], 12/14/2021 11:51:02 12/15/19 22 12/14/2021 urina lysis , dipst ick Protein (ref: neg) Neg Not Available [facility] [address] [place], [address], 12/14/2021 11:51:02 12/15/1912/14/2021 urina lysis , dipst ick Urobilinogen (ref: 0.2-1.0) 0.2 Not Available [facility] [address] [place], [address], 12/14/2021 11:51:02 12/15/1912/14/2021 urina lysis , dipst ick Nitrites (ref: neg) negati ve Not Available [facility] [address] [place], [address], 12/14/2021 11:51:02 12/15/1912/14/2021 urina lysis , dipst ick Leukocytes (ref: neg) Neg Not Available [facility] [address] [place], [address], 12/14/2021 11:51:02 Result Notes None recorded. Medical Equipment None Reported. Allergies Allergen ID Allergen Name Allergen Category Reaction Reaction Severity Criticality Documentation Date Start Date Code Code System Note Provider Name and Address Organization Details Recorded Time 704489 Tylenol medicatio n Not available Not available Not available 12/14/2021 45339 3 RxNorm JANNIE SHAH, MANAGER [employer] [address], [place], [address], [place] [facility] 2 11:39:31 093810 aspirin medicatio n vomiting Not available Not available 12/14/2021 1191 RxNorm JANNIE SHAH, MANAGER [employer] [address], [place], [address], [place] [facility] 2 11:39:44 784244 ibuprofen medicatio n vomiting Not available Not available 12/14/2021 5640 RxNorm JANNIE HSAH, MANAGER [employer] [address], [place], [address], [place] [facility] 2 11:40:01 969524 trazodone medicatio n headache Not available Not available 12/14/2021 19008 RxNorm JANINE SHAH, MANAGER [employer] [address], [place], [address], [place] [facility] 2 11:40:23 465734 honey bee venom medicatio n Not available Not available Not available 12/14/2021 11748 7 RxNorm JANNIE SHAH, MANAGER [employer] [address], [place], [address], [place] [facility] [...] Vitals Date Recorded Heart rate Oxygen saturation Respiratory rate Body temperature Systolic And Diastolic Provider Name and Address Organization Details Last Updated DateTime 2 100 /min 98 % 16 /min 98.6 [degF] 128/86 mm[Hg] Not Available [facility] 11:38:06 Social History None recorded. Functional Status None recorded. Mental Status None recorded. Family History Nothing Reported. Medical History Condition Response Diabetes N Coronary Artery Disease N CHF N Parkinson's Disease N Cancer N Stroke N Dementia N COPD N Depression N Asthma Y Rheumatoid Arthritis N Pulmonary Embolism N A-fib N Osteoporosis N Gynecological HistoryNo gynecological history recorded. Obstetrics History GPAL:G 0 P 0 0 0 0 Past Encounters Encounter ID Performer Location Encounter Start Date Encounter Closed Date Diagnosis/Indication Diagnosis SNOMED-CT Code Diagnosis ICD10 Code Diagnosis IMO Codes Diagnosis Note [id number] JANNIE SHAH NP [facility] [address] [facility] [place] [address] 12/14/2021 11:30:11 12/14/2021 15:16:26 Left flank pain 517046293 R10.9 History of calculus of kidney 551313766 Z87.442 Health Concerns Section Related Observation LastModified by Organization Detai ls LastModified Time None Recorded Concern Status LastModified by Organization Details LastModified Time None Recorded Advance Directives Directive None Recorded Payers Insurance Date Sequence Insurance Name Policy Number Policy Jorge Covered Member ID Jorge Member ID Guarantor Name 12/14/2021 1 *SELF PAY* Melva Tejada [id number] Melva Tejada 12/31/2021 1 [employer] (MEDICAID REPLACEMENT - HMO) [id number] Melva Tejada [id number] Melva Tejada Notes Date Note Type [...] distended as well. JANNIE SHAH NP [address], [place], [address], [place] [facility] 12/23/2021 13:13:51 OBGyn Episode No OBEpisode recorded.
--- OUTSIDE RECORDS SUMMARY | 2025-02-21 16:14 | XMS_ITS | Encounter Summary ---
Author Organization [facility] Address [address] [place] [address] Care Team Providers Care Geotechnical Engineering Technician Name Role Phone KseniaSultana dorman LEIF Primary Care Provider + Encounter Details Date Type Department Care Team (Latest Contact Info) Description 07/11/2024 Lab Requisition [facility] - Main Lab [address] [facility] [place] [phone] Dillon Montoya MD [address] [phone] Encounter for gynecological examination (general) (routine) without [...] LAB MICROBIOLOGY METHOD 07/12/2024 6:28 AM EDT [facility] Brushing/Spatula Cervix uteri structure / Unknown 07/10/2024 07/11/2024 6:21 AM EDT us Dillon Montoya MD LAB MOLECULAR DIAGNOSTICS DYANA OQUENDO Final Result [facility] [address] [place] [address], * Pap smear (07/10/2024 12:00 AM EDT) Interpretation Negative for intraepithelial lesion or malignancy 07/16/2024 2:26 PM EDT [facility] General Categorization Negative 07/16/2024 2:26 PM EDT [facility] Other Findings Reparative changes 07/16/2024 2:26 PM EDT [facility] Specimen Adequacy Satisfactory for evaluation, endocervical/tam sformation zone component absent 07/16/2024 2:26 PM EDT [facility] Pap Methodology Liquid Based Pap Test 07/16/2024 2:26 PM EDT [facility] Disclaimer The Pap test is a screening test which carries an inherent false negative rate. These test results should be correlated with the patient's clinical findings and history. This Pap test was processed using an automated screening system. Technical cytopathology services provided by [facility], at [address] [place] [address] (CLIA # [id number]/Gurjit Gregory MD, Press Cleaner.) 07/16/2024 2:26 PM EDT [facility] Console Pap Interpretation Reported 07/16/2024 2:26 PM EDT [facility] Brushing/Spatula Vaginal structure / Unknown 07/10/2024 07/11/2024 6:21 AM EDT us Dillon Montoya MD LAB CYTOLOGY ORDERABLES Final Result [facility] [address] [place] [address], documented in this encounter Visit Diagnoses Diagnosis Encounter for gynecological examination (general) (routine) without abnormal findings documented in this encounter Care Teams Geotechnical Engineering Technician Relationship Specialty Start Date End Date Sultana Mccormack NP [address] [facility] [address] [place] [address] PCP - General Family Medicine 10/17/24 documented as of this encounter
--- OUTSIDE RECORDS SUMMARY | 2025-02-21 16:14 | XMS_ITS | Clinical Summary ---
Author Organization 175 [facility] Address [address] [place] [address] Phone Care Team Providers Care Scale Installer Name Role Phone Ksenia, Sultana Felipe LEIF Primary Care Provider + Allergies Active Allergy Reactions Criticality Noted Date Comments Aspirin GI intolerance 04/25/2024 IBS flare Bee Venom Protein (Honey Bee) Anaphylaxis High 02/14/2025 Ibuprofen GI intolerance 04/25/2024 Patient states it flares her IBS Metronidazole Other 02/03/2016 headaches Naproxen GI intolerance 02/14/2025 Tramadol Headache,Other,Unkno w n 07/20/2007 IBS Trazodone Headache,Other,Unkno w n 02/03/2016 IBS Acetaminophen GI intolerance 04/25/2024 Patient states she develops IBS symptoms. Medications ondansetron ODT (ZOFRAN-ODT) 4 mg disintegrating tablet [...] (FLOMAX) 0.4 mg 24 hr capsule 11/04/19 25 Active gabapentin (NEURONTIN) 100 mg capsule Take 1 capsule (100 mg total) by mouth 3 (three) times a day if needed (pain) for up to 30 doses. 30 capsule 11/26/19 25 Active naproxen (NAPROSYN) 500 mg tablet 11/04/19 25 Active amoxicillin-clavul anate (AUGMENTIN) 875-125 mg per tablet Take 1 tablet by mouth every 12 (twelve) hours for 7 days. 14 tablet 02/15/20 25 025 Active oxyCODONE (ROXICODONE) 5 mg immediate release tablet Take 1 tablet (5 mg total) by mouth every 6 (six) hours if needed for severe pain. Max Daily Amount: 20 mg 12 tablet 02/16/20 25 Active oxyCODONE (OXY-IR) 5 mg immediate release capsule Take 1 capsule (5 mg total) by mouth every 6 (six) hours if needed for severe pain for up to 6 doses. Max Daily Amount: 20 mg 6 capsule 04/25/19 25 025 Discontinu ed(Alterna te therapy) predniSONE (DELTASONE) 20 mg tablet Take 2 tablets (40 mg total) by mouth 1 (one) time each day for 5 days. Take with food in the morning 10 tablet 02/15/20 25 025 oxyCODONE (OXY-IR) 5 mg immediate release capsule Take 1 capsule (5 mg total) by mouth every 6 (six) hours if needed for severe pain for up to 3 days. Max Daily Amount: 20 mg 12 capsule 02/15/20 25 025 Active Problems Problem Noted Date Diagnosed [...] Encounters Date Type Department Care Team Description 02/14/2025 2:22 PM EST - 02/14/2025 8:28 PM EST Emergency [facility] Emergency [address] [place] [address] Bertha Clifford MD Griscom, Andrew, MD Acute ethmoidal sinusitis, recurrence not specified (Primary Dx); Bilateral kidney stones; Bronchiolitis; Thyroid nodule Discharge Disposition: Home or Self Care 01/01/2025 Telephone Neurosurgery [facility] [address] [phone] Dillon Gomez PA 12/06/2024 1:00 PM EDT Consult [facility] 175 [facility] [address] [place] [address] Dillon Gomez PA Chronic midline low back pain with left-sided sciatica (Primary Dx) 11/25/2024 12:48 PM EDT - 11/25/2024 2:46 PM EDT Emergency [facility] Emergency [address] [place] [phone] Sciatica, left side (Primary Dx); Hypokalemia Discharge [...] Sign Reading Time Taken Comments Blood Pressure 105/74 02/14/2025 8:02 PM EST Pulse 81 02/14/2025 8:02 PM EST Temperature 36.7 C (98.1 F) 02/14/2025 6:41 PM EST Respiratory Rate 18 02/14/2025 8:02 PM EST Oxygen Saturation 97% 02/14/2025 8:02 PM EST Inhaled Oxygen Concentration - - Weight 64.4 kg (142 lb) 02/14/2025 2:18 PM EST Height 162.6 cm (5' 4 ) 02/14/2025 2:18 PM EST Body Mass Index 24.37 02/14/2025 2:18 PM EST Plan of Treatment Health Maintenance [...] of 2) 2024 COVID-19 Vaccine ( - 2024- season) 2024 05/28/2023, 08/20/2020, 07/28/2020 Influenza Vaccine (#1) 2024 , 01/17/2020, 01/04/2018, Additional history exists Cervical Cancer Screening: HPV [...] Procedure Name Priority Date/Time Associated Diagnosis Comments LACTATE, WITH REFLEX Timed 02/14/2025 7:48 PM EST CBC WITH AUTO DIFFERENTIAL STAT 02/14/2025 4:22 PM EST LACTATE, WITH REFLEX STAT 02/14/2025 4:22 PM EST MAGNESIUM STAT 02/14/2025 4:22 PM EST BASIC METABOLIC PANEL STAT 02/14/2025 4:22 PM EST CBC AND DIFFERENTIAL STAT 02/14/2025 4:[address] CHEST/ABDOMEN/PELVIS WO CONTRAST STAT 02/14/2025 4:[address] MAXILLOFACIAL WO CONTRAST STAT 02/14/2025 4:13 PM EST URINALYSIS WITH REFLEX MICROSCOPIC AND CULTURE STAT 02/14/2025 4:01 PM EST URINALYSIS WITH REFLEX MICROSCOPIC AND CULTURE STAT 02/14/2025 4:01 PM EST CBC WITH AUTO DIFFERENTIAL STAT 11/25/2024 1:31 [...] Recently Relevant to Health Maintenance Results * Lactate, with reflex (02/14/2025 7:48 PM EST) Only the most recent of2 resultswithin the time period is included. LACTIC ACID 0.8 <=2.0 mmol/L LAB BLOOD GAS METHOD 02/14/2025 7:51 PM EST [facility] Blood Venous blood specimen / Unknown Venipuncture / Unknown 02/14/2025 7:48 PM EST 02/14/2025 7:49 PM EST us Bertha Clifford MD LAB BLOOD ORDERABLES Final R esult [facility] [place] Reg. #:[id number] [address] [place] [address], * (ABNORMAL) CBC auto differential (02/14/2025 4:22 PM EST) Only the most recent of2 resultswithin the time period is included. [facility] WBC 8.0 4.0 - 10.5 K/mcL LAB HEMETOLOGY METHOD 02/14/2025 4:29 PM [facility] RBC 4.29 4.20 - 5.40 M/mcL LAB HEMETOLOGY METHOD 02/14/2025 4:29 PM [facility] Hemoglobin 12.3(L) 12.5 - 16.0 g/dL LAB HEMETOLOGY METHOD 02/14/2025 4:29 PM [facility] Hematocrit 36.9(L) 37.0 - 47.0 % LAB HEMETOLOGY METHOD 02/14/2025 4:29 PM [facility] MCV 86.0 78.0 - 100.0 FL LAB HEMETOLOGY METHOD 02/14/2025 4:29 PM [facility] MCH 28.7 25.0 - 33.0 pcg LAB HEMETOLOGY METHOD 02/14/2025 4:29 PM [facility] MCHC 33.3 32.0 - 36.0 g/dL LAB HEMETOLOGY METHOD 02/14/2025 4:29 PM [facility] RDW 13.3 12.1 - 16.2 % LAB HEMETOLOGY METHOD 02/14/2025 4:29 PM [facility] Platelets 383 150 - 450 K/mcL LAB HEMETOLOGY METHOD 02/14/2025 4:29 PM [facility] MPV 9.1 7.4 - 11.4 FL LAB HEMETOLOGY METHOD 02/14/2025 4:29 PM [facility] Neutrophils Relative 50.4 44.0 - 74.0 % LAB HEMETOLOGY METHOD 02/14/2025 4:29 PM [facility] Lymphocytes Relative 41.9 20.0 - 48.0 % LAB HEMETOLOGY METHOD 02/14/2025 4:29 PM [facility] Monocytes Relative 6.4 2.0 - 12.0 % LAB HEMETOLOGY METHOD 02/14/2025 4:29 PM [facility] Eosinophils Relative 0.4 0.0 - 6.0 % LAB HEMETOLOGY METHOD 02/14/2025 4:29 PM [facility] Basophils Relative 0.5 0.0 - 2.0 % LAB HEMETOLOGY METHOD 02/14/2025 4:29 PM [facility] Neutrophils Absolute 4.01 1.80 - 7.80 K/mcL LAB HEMETOLOGY METHOD 02/14/2025 4:29 PM [facility] Lymphocytes Absolute 3.33(H) 1.00 - 3.20 K/mcL LAB HEMETOLOGY METHOD 02/14/2025 4:29 PM [facility] Monocytes Absolute 0.51 0.00 - 0.80 K/mcL LAB HEMETOLOGY METHOD 02/14/2025 4:29 PM [facility] Eosinophils Absolute 0.03 0.00 - 0.50 K/mcL LAB HEMETOLOGY METHOD 02/14/2025 4:29 PM [facility] Basophils Absolute 0.04 0.00 - 0.20 K/mcL LAB HEMETOLOGY METHOD 02/14/2025 4:29 PM [facility] Blood Venous blood specimen / Unknown Venipuncture / Unknown 02/14/2025 4:22 PM EST 02/14/2025 4:24 PM EST Bertha Clifford MD LAB BLOOD ORDERABLES Final R esult Performing Organization Address [facility] de Phone Number [facility] Reg. #:[id number] [address] [place] [address], [place] [phone] * Magnesium (02/14/2025 4:22 PM EST) [facility] Magnesium 1.9 1.7 - 2.8 mg/dL LAB CHEMISTRY METHOD 02/14/2025 5:09 PM EST [facility] Comment:Slight Hemolysis may affect test result(s). Blood Venous blood specimen / Unknown Venipuncture / Unknown 02/14/2025 4:22 PM EST 02/14/2025 4:24 PM EST Bertha Clifford MD LAB BLOOD ORDERABLES Final R esult Performing Organization Address [facility] de Phone Number [facility] [place] Reg. #:[id number] [address] [place] [address], [place] [phone] * Basic metabolic panel (02/14/2025 4:22 PM EST) [facility] Sodium 137 135 - 145 mmol/L LAB CHEMISTRY METHOD 02/14/2025 5:09 PM EST [facility] Potassium 4.8 3.5 - 5.1 mmol/L LAB CHEMISTRY METHOD 02/14/2025 5:09 PM [facility] Comment:Slight Hemolysis may affect test result(s). Chloride 104 98 - 107 mmol/L LAB CHEMISTRY METHOD 02/14/2025 5:09 PM [facility] CO2 24 24 - 32 mmol/L LAB CHEMISTRY METHOD 02/14/2025 5:09 PM EST [facility] Anion Gap 9 5 - 14 LAB CHEMISTRY METHOD 02/14/2025 5:09 PM [facility] Glucose 112 70 - 199 mg/dL LAB CHEMISTRY METHOD 02/14/2025 5:09 PM [facility] BUN 9 7 - 17 mg/dL LAB CHEMISTRY METHOD 02/14/2025 5:09 PM [facility] Creatinine 0.70 0.50 - 1.00 mg/dL LAB CHEMISTRY METHOD 02/14/2025 5:09 PM [facility] eGFR 106 >=60 mL/min/1. 73m2 LAB CHEMISTRY METHOD 02/14/2025 5:09 PM [facility] Comment:Calculation based on the Chronic Kidney Disease Epidemiology Collaboration (CKD-EPI) equation refit without adjustment for race. BUN/Creatinine Ratio 12.9 12.0 - 20.0 LAB CHEMISTRY METHOD 02/14/2025 5:09 PM [facility] Calcium 9.4 8.4 - 10.2 mg/dL LAB CHEMISTRY METHOD 02/14/2025 5:09 PM EST [facility] Blood Venous blood specimen / Unknown Venipuncture / Unknown 02/14/2025 4:22 PM EST 02/14/2025 4:24 PM EST Bertha Clifford MD LAB BLOOD ORDERABLES Final R esult [facility] [place] Reg. #:[id number] [address] [place] [address], [place] [phone] * CT Chest/Abdomen/Pelvis wo Contrast (02/14/2025 4:13 PM EST) Anatomical Region Laterality Modality Body Computed Tomogra phy 02/14/2025 4:22 PM EST Impressions 02/14/2025 4:41 PM EST * No specific source of pain is identified. No acute imaging abnormalities in the chest, abdomen or pelvis. * Mild centrilobular emphysema and mild respiratory bronchiolitis from chronic cigarette smoking. * 2 cm hypodense nodule the left thyroid lobe is stable compared to 09/05/2024. If not already performed elsewhere, recommend routine thyroid ultrasound follow- up for further characterization. * 1 cm structure in the anterior mediastinum is of uncertain chronicity. This region of the mediastinum was excluded from the [id number] on 09/05/2024. There are no comparison chest CT imaging exams. It is uncertain whether this represents a slightly enlarged lymph node, mildly hyperdense proteinaceous cyst or other lesion. Consider follow-up in 6 months to assess stability. * Small bilateral renal stones. No ureteral stones or hydronephrosis. -------- FINAL REPORT -------- Dictated By: Dave Edgar Dictated Date: 02/14/2025 16:22 ET Assigned Physician: Dave Edgar Reviewed and Electronically Signed By: Dave Edgar Signed Date: 02/14/2025 16:41 ET Workstation ID: [id number] Transcribed By: Self Edit Transcribed Date: 02/14/2025 16:22 ET Narrative 02/14/2025 4:[address] CHEST, ABDOMEN AND PELVIS WITHOUT IV CONTRAST CLINICAL INFORMATION: pain COMPARISON: CT imaging of abdomen and pelvis from 04/25/2024. Thoracic spine CT from 09/05/2024. TECHNIQUE: Multidetector CT imaging examination of the chest, abdomen and pelvis performed without use of intravenous contrast. Oral contrast was not administered. Axial images as well as sagittal and coronal reformatted images are reviewed. CT imaging is performed using dose optimization techniques when appropriate, variously including the following: automated exposure control; adjustment of mA and/or kV according to patient size; use of iterative reconstruction technique. FINDINGS: CHEST- Lungs/Pleura: Lungs are well-expanded. Mild centrilobular emphysema. No pulmonary consolidation or pleural effusion. The bronchial kelley are diffusely thickened and there are subtle centrilobular opacities that likely reflect respiratory bronchiolitis from chronic cigarette smoking. Incidentally noted is a micronodule in the posterior left lower lobe (series 13, image 187). Based on Fleischner Society guidelines, no chest CT imaging follow-up is required. A small, normal-sized lymph node is seen along the left major fissure. No suspicious lung nodule or mass. Lymphatics: A well-circumscribed structure within the anterior mediastinum of 1 cm short axis dimension and density of 39 Hounsfield units could represent a slightly prominent lymph node or perhaps a old hyperdense proteinaceous cyst. Cardiovascular: The heart size is normal. Mild atherosclerotic calcification of the left anterior descending coronary artery. No pericardial effusion. Pulmonary arteries and thoracic aorta are normal in caliber. Mediastinum/Lower Neck: The esophagus has normal wall thickness. A hypodense nodule of the left thyroid lobe is 2 cm AP and stable compared to 09/05/2024. Skeletal/Chest Wall: Unremarkable. ABDOMEN AND PELVIS- Hepatobiliary: Unremarkable. Pancreas: No evidence of mass, pancreatic ductal dilatation or peripancreatic fluid. Spleen: Unremarkable. Adrenal Glands: No acute abnormality. Findings include nodule of 1.1 cm transverse dimension in the left adrenal gland of 3 Hounsfield unit attenuation, consistent with adrenal adenoma, unchanged in size compared to 12/17/2019. Kidneys: Kidneys are normal in size. There are a few 0.2 cm calyceal stones of the right kidney. Also, there are multiple calyceal stones of less than 0.3 cm size of the left kidney. Bosniak category 1 and category 2 cysts of the kidneys. No suspicious renal lesions. No ureteral stones, hydroureter or hydronephrosis. Gastrointestinal Tract: No dilated loops of bowel. No focal bowel wall thickening, mesenteric fat stranding, free fluid or pneumoperitoneum. The appendix is normal. There are a few diverticula of the descending colon without evidence of diverticulitis. Abdominal Wall: Unremarkable. Vascular: Mild atherosclerosis of the abdominal aorta without aneurysm. Lymphatics: No pathologic sized lymph nodes in the abdomen or pelvis. Urinary Bladder: Unremarkable. Pelvic Viscera: Status post hysterectomy. No adnexal mass or pelvic fluid collection. Musculoskeletal: No acute or suspicious osseous abnormality in the lumbar spine or pelvis. Procedure Note Dave Edgar MD - 02/14/2025 CT CHEST, ABDOMEN AND PELVIS WITHOUT IV CONTRAST CLINICAL INFORMATION: pain COMPARISON: CT imaging of abdomen and pelvis from 04/25/2024. Thoracic spine CT from09/05/2024. TECHNIQUE: Multidetector CT imaging examination of the chest, abdomen and pelvisperformed without use of intravenous contrast. Oral contrast was notadministered. Axial images as well as sagittal and coronal reformattedimages are reviewed. CT imaging is performed using dose optimizationtechniques when appropriate, variously including the following: automatedexposure control; adjustment of mA and/or kV according to patient size;use of iterative reconstruction technique. FINDINGS: CHEST- Lungs/Pleura: Lungs are well-expanded. Mild centrilobular emphysema. Nopulmonary consolidation or pleural effusion. The bronchial kelley arediffusely thickened and there are subtle centrilobular opacities thatlikely reflect respiratory bronchiolitis from chronic cigarette smoking.Incidentally noted is a micronodule in the posterior left lower lobe(series 13, image 187). Based on Fleischner Society guidelines, no chestCT imaging follow-up is required. A small, normal-sized lymph node isseen along the left major fissure. No suspicious lung nodule or mass. Lymphatics: A well-circumscribed structure within the anterior mediastinumof 1 cm short axis dimension and density of 39 Hounsfield units couldrepresent a slightly prominent lymph node or perhaps a old hyperdenseproteinaceous cyst. Cardiovascular: The heart size is normal. Mild atheroscleroticcalcification of the left anterior descending coronary artery. Nopericardial effusion. Pulmonary arteries and thoracic aorta are normal incaliber. Mediastinum/Lower Neck: The esophagus has normal wall thickness. Ahypodense nodule of the left thyroid lobe is 2 cm AP and stable comparedto 09/05/2024. Skeletal/Chest Wall: Unremarkable. ABDOMEN AND PELVIS- Hepatobiliary: Unremarkable. Pancreas: No evidence of mass, pancreatic ductal dilatation orperipancreatic fluid. Spleen: Unremarkable. Adrenal Glands: No acute abnormality. Findings include nodule of 1.1 cmtransverse dimension in the left adrenal gland of 3 Hounsfield unitattenuation, consistent with adrenal adenoma, unchanged in size comparedto 12/17/2019. Kidneys: Kidneys are normal in size. There are a few 0.2 cm calycealstones of the right kidney. Also, there are multiple calyceal stones ofless than 0.3 cm size of the left kidney. Bosniak category 1 and category2 cysts of the kidneys. No suspicious renal lesions. No ureteral stones,hydroureter or hydronephrosis. Gastrointestinal Tract: No dilated loops of bowel. No focal bowel wallthickening, mesenteric fat stranding, free fluid or pneumoperitoneum. Theappendix is normal. There are a few diverticula of the descending colonwithout evidence of diverticulitis. Abdominal Wall: Unremarkable. Vascular: Mild atherosclerosis of the abdominal aorta without aneurysm. Lymphatics: No pathologic sized lymph nodes in the abdomen or pelvis. Urinary Bladder: Unremarkable. Pelvic Viscera: Status post hysterectomy. No adnexal mass or pelvic fluidcollection. Musculoskeletal: No acute or suspicious osseous abnormality in the lumbarspine or pelvis. IMPRESSION: * No specific source of pain is identified. No acute imagingabnormalities in the chest, abdomen or pelvis. * Mild centrilobular emphysema and mild respiratory bronchiolitis fromchronic cigarette smoking. * 2 cm hypodense nodule the left thyroid lobe is stable compared to09/05/2024. If not already performed elsewhere, recommend routine thyroidultrasound follow-up for further characterization. * 1 cm structure in the anterior mediastinum is of uncertain chronicity.This region of the mediastinum was excluded from the [id number] on09/05/2024. There are no comparison chest CT imaging exams. It isuncertain whether this represents a slightly enlarged lymph node, mildlyhyperdense proteinaceous cyst or other lesion. Consider follow-up in 6months to assess stability. * Small bilateral renal stones. No ureteral stones or hydronephrosis. -------- FINAL REPORT -------- Dictated By: Dave Edgar Dictated Date: 02/14/2025 16:22 ET Assigned Physician: Dave Edgar Reviewed and Electronically Signed By: Dave Edgar Signed Date: 02/14/2025 16:41 ET Workstation ID: [id number] Transcribed By: Self Edit Transcribed Date: 02/14/2025 16:22 ET Bertha Clifford MD IMG CT PROCEDURES Final Resu lt * CT Maxillofacial wo Contrast (02/14/2025 4:13 PM EST) Anatomical Region Laterality Modality Head and Neck Computed Tomogra phy 02/14/2025 4:46 PM EST Impressions 02/14/2025 5:01 PM EST No acute facial bone fracture. Mucous retention cyst or polyp in the right maxillary sinus. Mucoperiosteal thickening in the ethmoid air cells which may reflect ethmoid sinusitis. -------- FINAL REPORT -------- Dictated By: Xiomy García Dictated Date: 02/14/2025 16:46 ET Assigned Physician: Xiomy García Reviewed and Electronically Signed By: Xiomy García Signed Date: 02/14/2025 17:01 ET Workstation ID: [id number] Transcribed By: Self Edit Transcribed Date: 02/14/2025 16:46 ET Narrative 02/14/2025 5:01 PM EST PROCEDURE: CT MAXILLOFACIAL WO CONTRAST TECHNIQUE: CT examination of the facial bones was performed utilizing contiguous axial sections with coronal and sagittal reformats. No contrast was given. 3 D volumetric rendering was obtained by post processing in multiple planes for optimal visualization of osseous structures. A patient individualized dose optimization technique was employed for this procedure. COMPARISON: None is available. FINDINGS: BONES: No acute fracture identified. The orbital floors are intact. ORBITS: The globes and orbits have a normal appearance. There is no retro-orbital infiltration or hemorrhage. Extraocular muscles are normal and symmetric. Optic nerves are symmetric. SINUSES: There is a mucous retention cyst or polyp in the right maxillary sinus measuring 1.8 x 1.3 cm. No acute air-fluid levels are identified. There is mucoperiosteal thickening identified in the ethmoid air cells which may reflect ethmoid sinusitis. Frontal and sphenoid sinuses are clear. NASAL CAVITY: Nasal septum is deviated to the right. SOFT TISSUES: Within normal limits. VISUALIZED BRAIN: Within normal limits. Procedure Note Xiomy García MD - 02/14/2025 PROCEDURE: CT MAXILLOFACIAL WO CONTRAST TECHNIQUE: CT examination of the facial bones was performed utilizingcontiguous axial sections with coronal and sagittal reformats. No contrastwas given. 3 D volumetric rendering was obtained by post processing inmultiple planes for optimal visualization of osseous structures. A patientindividualized dose optimization technique was employed for thisprocedure. COMPARISON: None is available. FINDINGS: BONES: No acute fracture identified. The orbital floors are intact. ORBITS: The globes and orbits have a normal appearance. There is noretro-orbital infiltration or hemorrhage. Extraocular muscles are normaland symmetric. Optic nerves are symmetric. SINUSES: There is a mucous retention cyst or polyp in the right maxillarysinus measuring 1.8 x 1.3 cm. No acute air-fluid levels are identified.There is mucoperiosteal thickening identified in the ethmoid air cellswhich may reflect ethmoid sinusitis. Frontal and sphenoid sinuses are clear. NASAL CAVITY: Nasal septum is deviated to the right. SOFT TISSUES: Within normal limits. VISUALIZED BRAIN: Within normal limits. IMPRESSION: No acute facial bone fracture. Mucous retention cyst or polyp in the rightmaxillary sinus. Mucoperiosteal thickening in the ethmoid air cells whichmay reflect ethmoid sinusitis. -------- FINAL REPORT -------- Dictated By: Xiomy García Dictated Date: 02/14/2025 16:46 ET Assigned Physician: Xiomy García Reviewed and Electronically Signed By: Xiomy García Signed Date: 02/14/2025 17:01 ET Workstation ID: [id number] Transcribed By: Self Edit Transcribed Date: 02/14/2025 16:46 ET Bertha Clifford MD IMG CT PROCEDURES Final Resu lt * (ABNORMAL) Urinalysis with reflex microscopic and culture (02/14/2025 4:01 PM EST) Only the most recent of2 resultswithin the time period is included. Color, Urine Yellow Colorless, Yellow LAB URINALYSIS - AUTOMATED METHOD 02/14/2025 4:06 PM [facility] Clarity, Urine Slightly Cloudy(A) Clear LAB URINALYSIS - AUTOMATED METHOD 02/14/2025 4:06 PM [facility] Specific Mobile Urine 1.010 1.005 - 1.030 LAB URINALYSIS - AUTOMATED METHOD 02/14/2025 4:06 PM [facility] pH, Urine 7.5 5.0 - 8.0 pH LAB URINALYSIS - AUTOMATED METHOD 02/14/2025 4:06 PM [facility] Leukocytes, Urine Negative Negative WBCs/mcL LAB URINALYSIS - AUTOMATED METHOD 02/14/2025 4:06 PM [facility] Nitrite, Urine Negative Negative LAB URINALYSIS - AUTOMATED METHOD 02/14/2025 4:06 PM [facility] Protein, Urine Negative Negative mg/dL LAB URINALYSIS - AUTOMATED METHOD 02/14/2025 4:06 PM [facility] Glucose, Urine Negative Negative mg/dL LAB URINALYSIS - AUTOMATED METHOD 02/14/2025 4:06 PM [facility] Ketones, Urine Negative Negative mg/dL LAB URINALYSIS - AUTOMATED METHOD 02/14/2025 4:06 PM [facility] Blood, Urine Negative Negative mg/dL LAB URINALYSIS - AUTOMATED METHOD 02/14/2025 4:06 PM [facility] Urine Urine specimen obtained by clean catch procedure / Unknown Non-blood Collection / Unknown 02/14/2025 4:01 PM EST 02/14/2025 4:03 PM EST Lis Mary Clifford MD LAB URINE ORDERABLES Final R esult [facility] [place] Reg. #:[id number] [address] [place] [address], * (ABNORMAL) Comprehensive Metabolic Panel (CMP) (11/25/2024 1:31 PM EDT) Sodium 137 135 - 145 mmol/L LAB CHEMISTRY METHOD 11/25/2024 2:02 PM EDT [facility] Potassium 3.1(L) 3.5 - 5.1 mmol/L LAB CHEMISTRY METHOD 11/25/2024 2:02 PM EDT [facility] Chloride 101 98 - 107 mmol/L LAB CHEMISTRY METHOD 11/25/2024 2:02 PM [facility] CO2 27 24 - 32 mmol/L LAB CHEMISTRY METHOD 11/25/2024 2:02 PM [facility] Anion Gap 9 5 - 14 LAB CHEMISTRY METHOD 11/25/2024 2:02 PM [facility] Glucose 96 70 - 199 mg/dL LAB CHEMISTRY METHOD 11/25/2024 2:02 PM [facility] BUN 13 7 - 17 mg/dL LAB CHEMISTRY METHOD 11/25/2024 2:02 PM [facility] Creatinine 0.71 0.50 - 1.00 mg/dL LAB CHEMISTRY METHOD 11/25/2024 2:02 PM [facility] eGFR 104 >=60 mL/min/1. 73m2 LAB CHEMISTRY METHOD 11/25/2024 2:02 PM [facility] Comment:Calculation based on the Chronic Kidney Disease Epidemiology Collaboration (CKD-EPI) equation refit without adjustment for race. BUN/Creatinine Ratio 18.3 12.0 - 20.0 LAB CHEMISTRY METHOD 11/25/2024 2:02 PM [facility] Calcium 9.9 8.4 - 10.2 mg/dL LAB CHEMISTRY METHOD 11/25/2024 2:02 PM [facility] AST (SGOT) 22 5 - 40 unit/L LAB CHEMISTRY METHOD 11/25/2024 2:02 PM [facility] ALT (SGPT) 14 7 - 52 unit/L LAB CHEMISTRY METHOD 11/25/2024 2:02 PM [facility] Alkaline Phosphatase 66 34 - 104 unit/L LAB CHEMISTRY METHOD 11/25/2024 2:02 PM [facility] Total Protein 7.8 6.4 - 8.5 g/dL LAB CHEMISTRY METHOD 11/25/2024 2:02 PM EDT [facility] Albumin 4.7 3.5 - 5.0 g/dL LAB CHEMISTRY METHOD 11/25/2024 2:02 PM EDT [facility] Total Bilirubin 0.4 0.3 - 1.0 mg/dL LAB CHEMISTRY METHOD 11/25/2024 2:02 PM EDT [facility] Blood Venous blood specimen / Unknown Venipuncture / Unknown 11/25/2024 1:31 PM EDT 11/25/2024 1:37 PM EDT Daisha SAINZ LAB BLOOD ORDERABLES Final Result [facility] [address] [place] [address], [place] [phone] * Hepatitis C antibody (07/10/2024 10:28 AM EDT) Hepatitis C Antibody Negative Negative LAB CHEMISTRY METHOD 07/10/2024 3:28 PM EDT [facility] Blood Venous blood specimen / Unknown Venipuncture / Unknown 07/10/2024 10:28 AM EDT 07/10/2024 12:31 PM EDT Dillon Montoya MD LAB BLOOD ORDERABLES Final Res ult [facility] [address] [place] [address], [place] [phone] * HIV 1,2 antibody, p24 antigen with reflex to differentiation (07/10/2024 10:28 AM EDT) HIV Combo AB/AG Negative Negative LAB CHEMISTRY METHOD 07/10/2024 3:29 PM EDT [facility] Blood Venous blood specimen / Unknown Venipuncture / Unknown 07/10/2024 10:28 AM EDT 07/10/2024 12:31 PM EDT Narrative [facility] - 07/10/2024 3:29 PM [...] MD LAB BLOOD ORDERABLES Final Res ult [facility] [address] [place] [address], * HPV with reflex genotype (07/10/2024 12:00 AM EDT) HPV Negative Negative LAB MICROBIOLOGY METHOD 07/12/2024 6:28 AM EDT [facility] Brushing/Spatula Cervix uteri structure / Unknown 07/10/2024 07/11/2024 6:21 AM EDT us Dillon Montoya MD LAB MOLECULAR DIAGNOSTICS ORDE RABLES Final Result Performing Organization Address [facility]/ZIP Co de Phone Number [facility] [address] [place] [address], from Last 3 Months or Most Recently Relevant to Health Maintenance Insurance [facility] MEDICAID ADVANTAGE Care Teams Scale Installer Relationship Specialty Start Date End Date Sultana Mccormack NP [facility] [address] [address] PCP - General Family Medicine 10/17/24
--- OUTSIDE RECORDS SUMMARY | 2025-02-21 16:14 | XMS_ITS | Encounter Summary ---
Author Organization [employer] Address [address] [place] [address] Care Team Providers Care Ingot Supervisor Name Role Phone Sultana Mccormack LEIF Primary Care Provider + Encounter Details Date Type Department Care Team (Latest Contact Info) Description 07/10/[address] [facility] - Main Lab [address] [facility] [place] [phone] Dillon Montoya MD [address] [phone] Urinary tract infection, site not specified; Encounter [...] 12:00 AM EDT) Pathologist [facility] Specific [place] Urine 1.013 1.003 - 1.030 LAB URINALYSIS - AUTOMATED METHOD 07/10/2024 1:42 PM [facility] pH, Urine 7.0 5.0 - 8.0 pH LAB URINALYSIS - AUTOMATED METHOD 07/10/2024 1:42 PM [facility] Leukocytes, Urine Negative Negative LAB URINALYSIS - AUTOMATED METHOD 07/10/2024 1:42 PM [facility] Nitrite, Urine Negative Negative LAB URINALYSIS - AUTOMATED METHOD 07/10/2024 1:42 PM [facility] Protein, Urine Negative <=Trace mg/dL LAB URINALYSIS - AUTOMATED METHOD 07/10/2024 1:42 PM [facility] Glucose, Urine Negative Negative mg/dL LAB URINALYSIS - AUTOMATED METHOD 07/10/2024 1:42 PM [facility] Ketones, Urine Negative Negative mg/dL [...] ORDERABLES Final Res ult Performing Organization Address [facility]/ZIP Co de Phone Number [facility] [address] [place] [address], [place] [phone] * Culture urine (07/10/2024 12:00 AM EDT) Culture, Urine <10,000 CFU/mL gram positive cocci, insignificant count, no further workup 07/11/2024 10:55 AM EDT [facility] Urine Urine specimen obtained by clean catch procedure / Unknown 07/10/2024 07/10/2024 1:32 PM EDT us Dillon Montoya MD LAB MICROBIOLOGY - GENERAL ORD ERABLES Final Result [facility] [address] [place] [address], [place] [phone] * (ABNORMAL) Vaginitis pathogens molecular study (07/10/2024 [...] Final Result [facility] [address] [place] [address], [place] [phone] * Chlamydia trachomatis and Neisseria gonorrhoeae molecular [...] Final Result [facility] [address] [place] [address], [place] [phone] documented in this encounter Visit Diagnoses Diagnosis Urinary tract infection, site not specified Encounter for screening for infections with a predominantly sexual mode of transmission Acute vaginitis Unspecified vaginitis and vulvovaginitis documented in this encounter Care Teams Ingot Supervisor Relationship Specialty Start Date End Date Sultana Mccormack NP [address] [place] [address] PCP - General Family Medicine 10/17/24 documented as of this encounter
--- OUTSIDE RECORDS SUMMARY | 2025-02-21 16:14 | XMS_ITS | Data Portability ---
Author Organization [place] - [facility], Allergy Address [address] [facility] [address] [place] [address] Care Team Providers Care Manager Unit Name Role Phone JULITO MCCORMACK Primary Care Provider Assessment Encounter Date Assessment Date Assessment LastModified by Organization Details LastModified Time 01/20/2025 01/20/2025 Melva Tejada is a 49-year-old female with migraines, deviated nasal septum, and persistent nasal drainage. The patient's symptoms of facial pain and pressure are likely attributable to migraines rather than a sinus infection. The scan performed at [facility] demonstrated a small cyst in the [...] By Organization Details Last Modified Time 01/20/2025 18374 - Continue magnesium supplementation, increasing dosage to [...] Address Organization Details Recorded Time Tobacco user 234093553 Active 2015 Tobacco use; Note: Date Diagnosed : 03/10/2016 11:39 AM (Z72.0) Not Available [facility] 4 03:27:26 Migraine without aura, not refractor y 725344967 Active 2015 Migraine without aura, not intractab le, without status migrainos us; Note: Date Diagnosed : 03/10/2016 11:39 AM (G43.009) Not Available [facility] 4 03:27:26 Deviated nasal septum 452368808 Active 2024 ROSIE FLORENTINO MD [address] [place] [address],[place] [address], [place], [address] , [place] - [facility] 13:58:57 Mucocele of maxillary sinus 14692524414 741973 Active 2024 ROSIE FLORENTINO MD [address] [place] [address],[place] [address], [place], [address] , [place] - [facility] 5 13:59:10 Problem Notes None recorded. Procedures Surgical History Date Name Laterality Status Provider Name and Address Organization Details Recorded Time JMSNasal/Sinus Endoscopy completed ROSIE BROWNLEE MD [address] [place] [address],[place] [address], [place], [phone], [place] - [facility] 01/20/2025 14:01:35 Kidney Stone Removal completed Veronica Go [place] - [facility] 01/20/2025 13:58:06 Imaging Results None recorded. Procedure Notes None recorded. Medical Equipment None Reported. Allergies Allergen ID Allergen Name Allergen Category Reaction Reaction Severity Criticality Documentation Date Start Date Code Code System Note Provider Name and Address Organization Details Recorded Time 91750 Tylenol medicatio n other Not available Not available 08/15/202328609 3 RxNorm React ion: unkno wn, unspe cifie d;; Not Available [facility] 4 00:49:11 47523 Motrin medicatio n other Not available Not available 08/15/202312452 8 RxNorm React ion: unkno wn, unspe cifie d;; Not Available [facility] 4 00:49:53 77523 trazodone medicatio n other Not available Not available 08/15/2023 75162 RxNorm React ion: unkno wn, unspe cifie d;; Not Available [facility] 4 00:50:09 60779 tramadol Not available other Not available Not available 08/15/2023 74538 RxNorm React ion: unkno wn, unspe cifie d;; Not Available [facility] 4 00:50:10 18174 Flagyl medicatio n other Not available Not available 08/15/2023 6 RxNorm React ion: unkno wn, unspe cifie d;; Not Available [facility] 4 00:50:23 Medications Name Sig Start Date [...] mg tablet 01/20 completed Medicatio n ID: [id number] Du ration Value: 14 Brand Name: oxycodone Send Method: E-Prescri bed Subs Allowed: subs OK Medica tionGener icName: oxycodone Not Available Not Available Not Available Prilosec OTC 20 mg tablet,de layed release Take by oral route. active Not Available Not Available No t Available Zantac 01/20 completed Medicatio n ID: [id number] Br and Name: Zantac Se nd Method: E-Prescri bed Subs Allowed: subs OK Specia l Instructi on: Take 1 tablet by mouth every day at bedtime M edication GenericNa me: Zantac Not Available Not Available Not Available Valium 01/20 completed Medicatio n ID: [id number] Br and Name: Valium Se nd Method: E-Prescri bed Subs Allowed: subs OK Medica tionGener icName: Valium Not Available Not Available Not Available potassium active Not Available Not Nadja ilable Not Available Soma 01/20 completed Medicatio n ID: [id number] Br and Name: Soma Send Method: E-Prescri bed Subs Allowed: subs OK Medica tionGener icName: Soma Not Available Not Available Not Available Topamax 01/20 completed Medicatio n ID: [id number] Br and Name: Topamax S end Method: [...] Details Last Updated DateTime 01/20/2025 163.83 cm 59302.3 g Veronica Go [place] - [facility] 01/20/2025 13:52:30 Social History None recorded. Functional [...] ICD10 Code Diagnosis IMO Codes Diagnosis Note [id number] ROSIE FLORENTINO MD [facility] [address] [phone] 01/20/2025 13:25:55 01/20/2025 14:03:06 Migraine without aura, not refractory 405400726 G43.009 Deviated nasal septum 12 3922798 J34.2 40892 Mucocele o f maxillary sinus 2443935392 5122426 J34.1 [id number] Health Concerns Section Related Observation LastModified by Organization Detai ls LastModified Time None Recorded Concern Status LastModified by Organization Details LastModified Time None Recorded Advance Directives Directive None Recorded Payers Insurance Date Sequence Insurance Name Policy Number Policy Jorge Covered Member ID Jorge Member ID Guarantor Name 01/20/2025 1 [facility] (MEDICAID HMO) [id number] Melva Tejada [id number] Melva Tejada Notes Date Note Type Note Provider Name and Address Organization Details Recorded Time 01/20/2025 text/html ROS as noted in the HPI Melva Tejada is a 49-year-old female who presents for evaluation of sinus-related symptoms and facial pain. She reports experiencing throbbing pain in her left sinus cavity and bapt[place] area. She visited [facility] approximately three to four months ago, [...] is Lisa Mccormack, a nurse practitioner at [facility] in [place]. ROSIE BROWNLEE MD [address] [place] [address], [phone] [place] - [facility] 01/20/2025 14:01:57 OBGyn Episode No OBEpisode recorded.
== END 2025-02-21 16:32 | disposition home or self-care (01) ==
LOC: HO.HUSH 16:07
PROVIDERS: PCP Nurse Practitioner Family; Visit Provider Urology
DX: R10.9 Unspecified abdominal pain (principal); N20.0 Calculus of kidney
CPT/HCPCS: 99214

== ENCOUNTER 2025-03-03 14:10 | Outpatient (REF) | payer OTHER, SELFPAY ==
--- OUTSIDE RECORDS SUMMARY | 2025-03-03 17:33 | XMS_ITS | Encounter Summary ---
Author Organization [employer] Address [address] [place] [address] Care Team Providers Care Case Management Coordinator Name Role Phone Sultana Mccormack LEIF Primary Care Provider + Encounter Details Date Type Department Care Team (Latest Contact Info) Description 07/10/2024 Lab Requisition [facility] - Main Lab 299 [facility] [place] [phone] Dillon Montoya MD [address] [phone] Urinary tract infection, site not specified; Encounter [...] reflex microscopic (07/10/2024 12:00 AM EDT) Pathologist [facility] Specific [place] Urine 1.013 1.003 - 1.030 LAB URINALYSIS - AUTOMATED METHOD 07/10/2024 1:42 PM [facility] pH, Urine 7.0 5.0 - 8.0 pH LAB URINALYSIS - AUTOMATED METHOD 07/10/2024 1:42 PM [facility] Leukocytes, Urine Negative Negative LAB URINALYSIS - AUTOMATED METHOD 07/10/2024 1:42 PM [facility] Nitrite, Urine Negative Negative LAB URINALYSIS - AUTOMATED METHOD 07/10/2024 1:42 PM [facility] Protein, Urine Negative <=Trace mg/dL LAB URINALYSIS - AUTOMATED METHOD 07/10/2024 1:42 PM [facility] Glucose, Urine Negative Negative mg/dL LAB URINALYSIS - AUTOMATED METHOD 07/10/2024 1:42 PM [facility] Ketones, Urine Negative Negative [...] Res ult Performing Organization Address [facility]/ZIP Co de Phone Number [facility] [address] [place] [address], [place] [phone] * Culture urine (07/10/2024 12:00 AM EDT) Culture, Urine <10,000 CFU/mL gram positive cocci, insignificant count, no further workup 07/11/2024 10:[address] [facility] Urine Urine specimen obtained by clean catch procedure / Unknown 07/10/2024 07/10/2024 1:32 PM EDT us Dillon Montoya MD LAB MICROBIOLOGY - GENERAL ORD ERABLES Final Result [facility] [address] [place] [address], [place] [phone] * (ABNORMAL) Vaginitis pathogens molecular study (07/10/2024 [...] Final Result [facility] [address] [place] [address], [place] [phone] * Chlamydia trachomatis and Neisseria gonorrhoeae molecular [...] Final Result [facility] [address] [place] [address], [place] [phone] documented in this encounter Visit Diagnoses Diagnosis Urinary tract infection, site not specified Encounter for screening for infections with a predominantly sexual mode of transmission Acute vaginitis Unspecified vaginitis and vulvovaginitis documented in this encounter Care Teams Case Management Coordinator Relationship Specialty Start Date End Date Sultana Mccormack NP [address] [place] [address] PCP - General Family Medicine 10/17/24 documented as of this encounter
--- OUTSIDE RECORDS SUMMARY | 2025-03-03 17:33 | XMS_ITS | Data Portability ---
Author Organization [place] [facility] Address [address] [place] [phone] Care Team Providers Care Rehabilitation Caseworker Name Role Phone MAGNOLIAJUAN JOSE RANDLE Primary [...] Lab urinalysis , dipstick 2021 022 [email or web address] [facility], [address] [place] [address], [place], [address], 11:54:15 Referral None recorded. Procedures None recorded. Surgeries None recorded. Imaging None recorded. Medication Orders ketorolac 30 mg/mL (1 mL) injection solution 2021 022 [email or web address] [id number], [address] [place], [address], 13:13:36 Patient TargetsNo targets recorded. Patient InstructionsNo instructions recorded. Reason for Referral None Reported. Results Created Date Observation Date Name Description Value Unit Range Abnormal Flag Note LastModifiedBy Organization Detail LastModifiedTime 12/15/1912/14/2021 urina lysis , dipst ick Appearance clear Not Available [facility] [address] [place], [address], 12/14/2021 11:51:02 12/15/1912/14/2021 urina lysis , dipst ick Color yellow Not Available [facility] [address] [place], [address], 12/14/2021 11:51:02 12/15/1912/14/2021 urina lysis , dipst ick Glucose (ref: neg) Neg Not Available [facility] [address] [place], [address], 12/14/2021 11:51:02 12/15/1912/14/2021 urina lysis , dipst ick Bilirubin (ref: neg) Neg Not Available [facility] [address] [place], [address], 12/14/2021 11:51:02 12/15/1912/14/2021 urina lysis , dipst ick Ketones (ref: neg) Neg Not Available [facility] Home [address] [place], [address], 12/14/2021 11:51:02 12/15/1912/14/2021 urina lysis , dipst ick Specific [place] (ref: 1.003 - 1.035) 1.020 Not Available [facility] [address] [place], [address], 12/14/2021 11:51:02 12/15/19 22 12/14/2021 urina lysis , dipst ick Blood (ref: neg) + Not Available [facility] [address] [place], [address], 12/14/2021 11:51:02 12/15/1912/14/2021 urina lysis , dipst ick pH (ref: 5.0-7.0) 6.5 Not Available [facility] [address] [place], [address], 12/14/2021 11:51:02 12/15/19 22 12/14/2021 urina lysis , dipst ick Protein (ref: neg) Neg Not Available [facility] [address] [place], [address], 12/14/2021 11:51:02 12/15/1912/14/2021 urina lysis , dipst ick Urobilinogen (ref: 0.2-1.0) 0.2 Not Available [facility] [address] [place], [address], 12/14/2021 11:51:02 12/15/1912/14/2021 urina lysis , dipst ick Nitrites (ref: neg) negati ve Not Available [facility] [address] [place], [address], 12/14/2021 11:51:02 12/15/1912/14/2021 urina lysis , dipst ick Leukocytes (ref: neg) Neg Not Available [facility] [address] [place], [address], 12/14/2021 11:51:02 Result Notes None recorded. Medical Equipment None Reported. Allergies Allergen ID Allergen Name Allergen Category Reaction Reaction Severity Criticality Documentation Date Start Date Code Code System Note Provider Name and Address Organization Details Recorded Time 382993 Tylenol medicatio n Not available Not available Not available 12/14/2021 54665 3 RxNorm JANNIE SHAH, [employer] [address], [place], [address], [place] [facility] 11:39:31 651861 aspirin medicatio n vomiting Not available Not available 12/14/2021 1191 RxNorm JANNIE SHAH, [employer] [address], [place], [address], [place] [facility] 11:39:44 062873 ibuprofen medicatio n vomiting Not available Not available 12/14/2021 5640 RxNorm JANNIE SHAH, [employer] [address], [place], [address], [place] [facility] 11:40:01 921883 trazodone medicatio n headache Not available Not available 12/14/2021 35148 RxNorm JANNIE SHAH, [employer] [address], [place], [address], [place] [facility] 11:40:23 696786 honey bee venom medicatio n Not available Not available Not available 12/14/2021 90617 7 RxNorm JANNIE SHAH, [employer] [address], [facility] [place], [address], [place] [facility] [...] History Condition Response Coronary Artery Disease N COPD N Depression N A-fib N Cancer N Stroke N Rheumatoid Arthritis N Parkinson's Disease N Diabetes N CHF N Dementia N Asthma Y Pulmonary Embolism N Osteoporosis N Gynecological HistoryNo gynecological history recorded. Obstetrics History GPAL:G 0 P 0 0 0 0 Past Encounters Encounter ID Performer Location Encounter Start Date Encounter Closed Date Diagnosis/Indication Diagnosis SNOMED-CT Code Diagnosis ICD10 Code Diagnosis IMO Codes Diagnosis Note [id number] JANNIE SHAH NP [facility] [address] [facility] [place] [address] 12/14/2021 11:30:11 12/14/2021 15:16:26 Left flank pain 546646978 R10.9 History of calculus of kidney 190364888 Z87.442 Health Concerns Section Related Observation LastModified by Organization Detai ls LastModified Time None Recorded Concern Status LastModified by Organization Details LastModified Time None Recorded Advance Directives Directive None Recorded Payers Insurance Date Sequence Insurance Name Policy Number Policy Jorge Covered Member ID Jorge Member ID Guarantor Name 12/14/2021 1 *SELF PAY* Melva Tejada [id number] Melva Tejada 12/31/2021 1 [employer] (MEDICAID REPLACEMENT - HMO) [id number] Melva Tejada [id number] Melva Tejada Notes Date Note Type [...] distended as well. JANNIE SHAH NP [address], [place], [address], [place] [facility] 12/23/2021 13:13:51 OBGyn Episode No OBEpisode recorded.
--- OUTSIDE RECORDS SUMMARY | 2025-03-03 17:33 | XMS_ITS | Data Portability ---
Author Organization [place] [facility], Allergy Address [address] [facility] [address] [place] [address] Care Team Providers Care Flat Bed Operator Name Role Phone JULITO MCCORMACK Primary Care Provider Assessment Encounter Date Assessment Date Assessment LastModified by Organization Details LastModified Time 01/20/2025 01/20/2025 Melva Tejada is a 49-year-old female with migraines, deviated nasal septum, and persistent nasal drainage. The patient's symptoms of facial pain and pressure are likely attributable to migraines rather than a sinus infection. The scan performed at [facility] demonstrated a small cyst in the [...] By Organization Details Last Modified Time 01/20/2025 16002 - Continue magnesium supplementation, increasing dosage to [...] Address Organization Details Recorded Time Tobacco user 652963079 Active 2015 Tobacco use; Note: Date Diagnosed : 03/10/2016 11:39 AM (Z72.0) Not Available [facility] 4 03:27:26 Migraine without aura, not refractor y 761975487 Active 2015 Migraine without aura, not intractab le, without status migrainos us; Note: Date Diagnosed : 03/10/2016 11:39 AM (G43.009) Not Available [facility] 4 03:27:26 Deviated nasal septum 327540130 Active 2024 ROSIE FLORENTINO MD [address] [place] [address],[place] [address], [facility] [place], [address] , [place] - [facility] 13:58:57 Mucocele of maxillary sinus 68351542436 077923 Active 2024 ROSIE FLORENTINO MD [address] [place] [address],[place] [address], [place], [address] , [place] [facility] 5 13:59:10 Problem Notes None recorded. Procedures Surgical History Date Name Laterality Status Provider Name and Address Organization Details Recorded Time JMSNasal/Sinus Endoscopy completed ROSIE BROWNLEE MD [address] [place] [address],[place] [address], [place], [address], [place] - [facility] 01/20/2025 14:01:35 Kidney Stone Removal completed Veronica Go [place] - [facility] 01/20/2025 13:58:06 Imaging Results None recorded. Procedure Notes None recorded. Medical Equipment None Reported. Allergies Allergen ID Allergen Name Allergen Category Reaction Reaction Severity Criticality Documentation Date Start Date Code Code System Note Provider Name and Address Organization Details Recorded Time 78801 Tylenol medicatio n other Not available Not available 08/15/202309565 3 RxNorm React ion: unkno wn, unspe cifie d;; Not Available [facility] 4 00:49:11 25515 Motrin medicatio n other Not available Not available 08/15/202398681 8 RxNorm React ion: unkno wn, unspe cifie d;; Not Available [facility] 4 00:49:53 36515 trazodone medicatio n other Not available Not available 08/15/2023 18555 RxNorm React ion: unkno wn, unspe cifie d;; Not Available [facility] 4 00:50:09 76175 tramadol Not available other Not available Not available 08/15/2023 92974 RxNorm React ion: unkno wn, unspe cifie d;; Not Available [facility] 4 00:50:10 55555 Flagyl medicatio n other Not available Not available 08/15/2023 6 RxNorm React ion: unkno wn, unspe cifie d;; Not Available [facility] 4 00:50:23 Medications Name Sig Start [...] mg tablet 01/20 completed Medicatio n ID: [id number] Du ration Value: 14 Brand Name: oxycodone Send Method: E-Prescri bed Subs Allowed: subs OK Medica tionGener icName: oxycodone Not Available Not Available Not Available Prilosec OTC 20 mg tablet,de layed release Take by oral route. active Not Available Not Available No t Available Zantac 01/20 completed Medicatio n ID: [id number] Br and Name: Zantac Se nd Method: E-Prescri bed Subs Allowed: subs OK Specia l Instructi on: Take 1 tablet by mouth every day at bedtime M edication GenericNa me: Zantac Not Available Not Available Not Available Valium 01/20 completed Medicatio n ID: [id number] Br and Name: Valium Se nd Method: E-Prescri bed Subs Allowed: subs OK Medica tionGener icName: Valium Not Available Not Available Not Available potassium active Not Available Not Nadja ilable Not Available Soma 01/20 completed Medicatio n ID: [id number] Br and Name: Soma Send Method: E-Prescri bed Subs Allowed: subs OK Medica tionGener icName: Soma Not Available Not Available Not Available Topamax 01/20 completed Medicatio n ID: [id number] Br and Name: Topamax S end Method: [...] Details Last Updated DateTime 01/20/2025 163.83 cm 82912.3 g Veronica Go [place] - [facility] 01/20/2025 13:52:30 Social History None recorded. Functional Status None recorded. Mental Status None recorded. Family History Nothing Reported. Medical History Condition Response Arthritis Y Anxiety Y Cancer Y Headaches Y Migraines Y Hypertension Y Depression Y Asthma Y Kidney Disease Y Gynecological HistoryNo gynecological history recorded. Obstetrics History GPAL:G 0 P 0 0 0 0 Past Encounters Encounter ID Performer Location Encounter Start Date Encounter Closed Date Diagnosis/Indication Diagnosis SNOMED-CT Code Diagnosis ICD10 Code Diagnosis IMO Codes Diagnosis Note [id number] ROSIE FLORENTINO MD [facility] [address] [address] 01/20/2025 13:25:55 01/20/2025 14:03:06 Migraine without aura, not refractory 224579043 G43.009 Deviated nasal septum 12 0696952 J34.2 62532 Mucocele o f maxillary sinus 4802264122 9225182 J34.1 8498123 Health Concerns Section Related Observation LastModified by Organization Detai ls LastModified Time None Recorded Concern Status LastModified by Organization Details LastModified Time None Recorded Advance Directives Directive None Recorded Payers Insurance Date Sequence Insurance Name Policy Number Policy Jorge Covered Member ID Jorge Member ID Guarantor Name 01/20/2025 1 [facility] (MEDICAID HMO) [id number] Melva Tejada [id number] Melva Tejada Notes Date Note Type Note Provider Name and Address Organization Details Recorded Time 01/20/2025 text/html ROS as noted in the HPI Melva Tejada is a 49-year-old female who presents for evaluation of sinus-related symptoms and facial pain. She reports experiencing throbbing pain in her left sinus cavity and sabianism area. She visited [facility] approximately three to four months ago, [...] is Lisa Mccormack, a nurse practitioner at [facility] [place] in [place]. ROSIE BROWNLEE MD [address] [place] [address], [phone] [place] - [facility] 01/20/2025 14:01:57 OBGyn Episode No OBEpisode recorded.
--- OUTSIDE RECORDS SUMMARY | 2025-03-03 17:33 | XMS_ITS | Clinical Summary ---
Author Organization [facility] Address [address] [place] [address] Care Team Providers Care Huc Ob Name Role Phone Camelia Robles MD Primary [...] age to complete this topic Care Teams Huc Ob Relationship Specialty Start Date End Date Camelia Robles MD [address] [place] [address] PCP - General Internal Medicine 02/03/16
--- OUTSIDE RECORDS SUMMARY | 2025-03-03 17:33 | XMS_ITS | Encounter Summary ---
Author Organization [facility] Address [address] [place] [address] Care Team Providers Care Food And Beverage Attendant Name Role Phone KseniaSultana dorman LEIF Primary Care Provider + Encounter Details Date Type Department Care Team (Latest Contact Info) Description 07/11/2024 Lab Requisition [facility] - Main Lab [address] [facility] [place] [phone] Dillon Montoya MD [address] [phone] Encounter for gynecological examination (general) (routine) without [...] LAB MICROBIOLOGY METHOD 07/12/2024 6:28 AM EDT [facility] Brushing/Spatula Cervix uteri structure / Unknown 07/10/2024 07/11/2024 6:21 AM EDT us Dillon Montoya MD LAB MOLECULAR DIAGNOSTICS DYANA OQUENDO Final Result [facility] [address] [place] [address], * Pap smear (07/10/2024 12:00 AM EDT) Interpretation Negative for intraepithelial lesion or malignancy 07/16/2024 2:26 PM EDT [facility] at 1426 EDT General Categorization Negative 07/16/2024 2:26 PM EDT [facility] Other Findings Reparative changes 07/16/2024 2:26 PM EDT [facility] Specimen Adequacy Satisfactory for evaluation, endocervical/tam sformation zone component absent 07/16/2024 2:26 PM EDT [facility] Pap Methodology Liquid Based Pap Test 07/16/2024 2:26 PM EDT [facility] Disclaimer The Pap test is a screening test which carries an inherent false negative rate. These test results should be correlated with the patient's clinical findings and history. This Pap test was processed using an automated screening system. Technical cytopathology services provided by [facility], at [address] [place] [address] (CLIA # [id number]/Gurjit Gregory MD, Production Control Technologist.) 07/16/2024 2:26 PM EDT [facility] Console Pap Interpretation Reported 07/16/2024 2:26 PM EDT [facility] Brushing/Spatula Vaginal structure / Unknown 07/10/2024 07/11/2024 6:21 AM EDT us Dillon Montoya MD LAB CYTOLOGY ORDERABLES Final Result [facility] [address] [place] [address], documented in this encounter Visit Diagnoses Diagnosis Encounter for gynecological examination (general) (routine) without abnormal findings documented in this encounter Care Teams Food And Beverage Attendant Relationship Specialty Start Date End Date Sultana Mccormack NP [address] [facility] [address] [place] [address] PCP - General Family Medicine 10/17/24 documented as of this encounter
--- OUTSIDE RECORDS SUMMARY | 2025-03-03 17:33 | XMS_ITS | Continuity of Care Document ---
Author Organization [place] - [facility], [facility] Address [address] [place] [address] Care Team Providers Care Baling Machine Tender Name Role Phone JULITO MCCORMACK Primary Care Provider [phone] Assessment Encounter Date Assessment Date Assessment LastModified by Organization Details LastModified Time 01/20/2025 01/20/2025 Melva Tejada is a 49-year-old female with migraines, deviated nasal septum, and persistent nasal drainage. The patient's symptoms of facial pain and pressure are likely attributable to migraines rather than a sinus infection. The scan performed at [facility] demonstrated a small cyst in the [...] By Organization Details Last Modified Time 01/20/2025 28837 - Continue magnesium supplementation, increasing dosage to [...] Address Organization Details Recorded Time Tobacco user 062854735 Active 2015 Tobacco use; Note: Date Diagnosed : 03/10/2016 11:39 AM (Z72.0) Not Available [facility] 4 03:27:26 Migraine without aura, not refractor y 180345164 Active 2015 Migraine without aura, not intractab le, without status migrainos us; Note: Date Diagnosed : 03/10/2016 11:39 AM (G43.009) Not Available [facility] 4 03:27:26 Deviated nasal septum 519929520 Active 2024 ROSIE FLORENTINO MD [address] [place] [address],[place] [address], [place], [address] , [place] - [facility] 5 13:58:57 Mucocele of maxillary sinus 80700378704 901159 Active 2024 ROSIE FLORENTINO MD [address] [place] [address], [place], [address] , [place] - [facility] 5 13:59:10 Problem Notes None recorded. Procedures Surgical History Date Name Laterality Status Provider Name and Address Organization Details Recorded Time JMSNasal/Sinus Endoscopy completed ROSIE BROWNLEE MD [address] [place] [address],[address], [address], [place] - [facility] 01/20/2025 14:01:35 Kidney Stone Removal completed Veronica Go [place] - [facility] 01/20/2025 13:58:06 Imaging Results None recorded. Procedure Notes None recorded. Medical Equipment None Reported. Allergies Allergen ID Allergen Name Allergen Category Reaction Reaction Severity Criticality Documentation Date Start Date Code Code System Note Provider Name and Address Organization Details Recorded Time 99995 Tylenol medicatio n other Not available Not available 08/15/202394004 3 RxNorm React ion: unkno wn, unspe cifie d;; Not Available [facility] 4 00:49:11 85313 Motrin medicatio n other Not available Not available 08/15/202312762 8 RxNorm React ion: unkno wn, unspe cifie d;; Not Available [facility] 4 00:49:53 88762 trazodone medicatio n other Not available Not available 08/15/2023 35958 RxNorm React ion: unkno wn, unspe cifie d;; Not Available [facility] 4 00:50:09 13830 tramadol Not available other Not available Not available 08/15/2023 77555 RxNorm React ion: unkno wn, unspe cifie d;; Not Available [facility] 4 00:50:10 27246 Flagyl medicatio n other Not available Not available 08/15/202333480 6 RxNorm React ion: unkno wn, unspe cifie d;; Not Available [facility] 4 00:50:23 Medications Name Sig Start [...] mg tablet 01/20 completed Medicatio n ID: [id number] Du ration Value: 14 Brand Name: oxycodone Send Method: E-Prescri bed Subs Allowed: subs OK Medica tionGener icName: oxycodone Not Available Not Available Not Available Prilosec OTC 20 mg tablet,de layed release Take by oral route. active Not Available Not Available No t Available Zantac 01/20 completed Medicatio n ID: [id number] Br and Name: Zantac Se nd Method: E-Prescri bed Subs Allowed: subs OK Specia l Instructi on: Take 1 tablet by mouth every day at bedtime M edication GenericNa me: Zantac Not Available Not Available Not Available Valium 01/20 completed Medicatio n ID: [id number] Br and Name: Valium Se nd Method: E-Prescri bed Subs Allowed: subs OK Medica tionGener icName: Valium Not Available Not Available Not Available potassium active Not Available Not Nadja ilable Not Available Soma 01/20 completed Medicatio n ID: [id number] Br and Name: Soma Send Method: E-Prescri bed Subs Allowed: subs OK Medica tionGener icName: Soma Not Available Not Available Not Available Topamax 01/20 completed Medicatio n ID: [id number] Br and Name: Topamax S end Method: [...] Details Last Updated DateTime 01/20/2025 163.83 cm 19015.3 g Veronica Go [place] - [facility] 01/20/2025 13:52:30 Social History None recorded. [...] ICD10 Code Diagnosis IMO Codes Diagnosis Note [id number] ROSIE FLORENTINO MD [facility] [address] [address] 01/20/2025 13:25:55 01/20/2025 14:03:06 Migraine without aura, not refractory 287149048 G43.009 Deviated nasal septum 12 8781714 J34.2 97049 Mucocele o f maxillary sinus 2705312972 5473205 J34.1 5934882 Health Concerns Section Related Observation LastModified by Organization Detai ls LastModified Time None Recorded Concern Status LastModified by Organization Details LastModified Time None Recorded Payers Encounter Date Sequence Insurance Name Policy Number Policy Jorge Covered Member ID Jorge Member ID Guarantor Name 01/20/2025 1 [facility] (MEDICAID HMO) [id number] Melva Tejada [id number] Melva Tejada Notes Date Note Type Note Provider Name and Address Organization Details Recorded Time 01/20/2025 text/html ROS as noted in the HPI Melva Tejada is a 49-year-old female who presents for evaluation of sinus-related symptoms and facial pain. She reports experiencing throbbing pain in her left sinus cavity and jain area. She visited [facility] approximately three to four months ago, [...] is Lisa Mccormack, a nurse practitioner at [facility] in [place]. ROSIE BROWNLEE MD [address] [place] [address], [phone], [place] - [facility] 01/20/2025 14:01:57 OBGyn Episode No OBEpisode recorded.
--- OUTSIDE RECORDS SUMMARY | 2025-03-03 17:33 | XMS_ITS | Clinical Summary ---
Author Organization [address] [facility] Address [address] [place] [address] Phone Care Team Providers Care Bistro Attendant Name Role Phone Ksenia, Sultana Felipe LEIF [...] naproxen (NAPROSYN) 500 mg tablet 11/04/19 Active oxyCODONE (ROXICODONE) 5 mg immediate release tablet Take 1 tablet (5 mg total) by mouth every 6 (six) hours if needed for severe pain. Max Daily Amount: 20 mg 12 tablet 02/16/20 Active oxyCODONE (OXY-IR) 5 mg immediate release capsule Take 1 capsule (5 mg total) by mouth every 6 (six) hours if needed for severe pain for up to 6 doses. Max Daily Amount: 20 mg 6 capsule 04/25/19 25 025 Discontinu ed(Alterna te therapy) amoxicillin-clavul anate (AUGMENTIN) 875-125 mg per tablet Take 1 tablet by mouth every 12 (twelve) hours for 7 days. 14 tablet 02/15/20 25 025 predniSONE (DELTASONE) 20 mg tablet Take 2 [...] EST - 02/14/2025 8:28 PM EST Emergency [facility] Emergency [address] [place] [id number] Bertha Clifford MD Griscom, Andrew, MD Acute ethmoidal sinusitis, recurrence not specified (Primary Dx); Bilateral kidney stones; Bronchiolitis; Thyroid nodule Discharge Disposition: Home or Self Care 01/01/2025 Telephone Neurosurgery [facility] [address] [facility] [address] [place] [id number] Dillon Gomez PA 12/06/2024 1:00 PM EDT Consult [facility] [address] [facility] [address] [place] [phone] Dillon Gomez PA Chronic midline low back pain with left-sided sciatica (Primary Dx) from Last 3 Months Immunizations Immunization Administration Dates Next Due [employer] SARS-CoV-2 COVID-19, mRNA, LNP-S, preservative free 08/20/2020,07/28/2020 [...] (1 of 2) 2024 COVID-19 Vaccine ( season) 2024 05/28/2023, 08/20/2020, 07/28/2020 Influenza Vaccine [...] AND CULTURE STAT 02/14/2025 4:01 PM EST HEPATITIS C ANTIBODY Routine 07/10/2024 10:28 AM [...] of2 resultswithin the time period is included. Pathologist [facility] [place] LACTIC ACID 0.8 <=2.0 mmol/L LAB BLOOD GAS METHOD 02/14/2025 7:51 PM EST [facility] Blood Venous blood specimen / Unknown Venipuncture / Unknown 02/14/2025 7:48 PM EST 02/14/2025 7:49 PM EST us Lis Mary Clifford MD LAB BLOOD ORDERABLES Final R esult [facility] [place] #:[id number] [address] [place] [address], * (ABNORMAL) CBC auto differential (02/14/2025 4:22 PM EST) [facility] WBC 8.0 4.0 - 10.5 K/mcL LAB HEMETOLOGY METHOD 02/14/2025 4:29 PM EST [facility] RBC 4.29 4.20 - 5.40 M/mcL LAB HEMETOLOGY METHOD 02/14/2025 4:29 PM EST [facility] Hemoglobin 12.3(L) 12.5 - 16.0 g/dL LAB HEMETOLOGY METHOD 02/14/2025 4:29 PM EST [facility] Hematocrit 36.9(L) 37.0 - 47.0 % LAB HEMETOLOGY METHOD 02/14/2025 4:29 PM [facility] MCV 86.0 78.0 - 100.0 FL LAB HEMETOLOGY METHOD 02/14/2025 4:29 PM [facility] MCH 28.7 25.0 - 33.0 pcg LAB HEMETOLOGY METHOD 02/14/2025 4:29 PM [facility] MCHC 33.3 32.0 - 36.0 g/dL LAB HEMETOLOGY METHOD 02/14/2025 4:29 PM [facility] RDW 13.3 12.1 - 16.2 % LAB HEMETOLOGY METHOD 02/14/2025 4:29 PM [facility] Platelets 383 150 - 450 K/mcL LAB HEMETOLOGY METHOD 02/14/2025 4:29 PM [facility] MPV 9.1 7.4 - 11.4 FL LAB HEMETOLOGY METHOD 02/14/2025 4:29 PM [facility] Neutrophils Relative 50.4 44.0 - 74.0 % LAB HEMETOLOGY METHOD 02/14/2025 4:29 PM [facility] Lymphocytes Relative 41.9 20.0 - 48.0 % LAB HEMETOLOGY METHOD 02/14/2025 4:29 PM [facility] Monocytes Relative 6.4 2.0 - 12.0 % LAB HEMETOLOGY METHOD 02/14/2025 4:29 PM [facility] Eosinophils Relative 0.4 0.0 - 6.0 % LAB HEMETOLOGY METHOD 02/14/2025 4:29 PM [facility] Basophils Relative 0.5 0.0 - 2.0 % LAB HEMETOLOGY METHOD 02/14/2025 4:29 PM [facility] Neutrophils Absolute 4.01 1.80 - 7.80 K/mcL LAB HEMETOLOGY METHOD 02/14/2025 4:29 PM EST [facility] Lymphocytes Absolute 3.33(H) 1.00 - 3.20 K/[facility] LAB HEMETOLOGY METHOD 02/14/2025 4:29 PM EST [facility] Monocytes Absolute 0.51 0.00 - 0.80 K/[facility] LAB HEMETOLOGY METHOD 02/14/2025 4:29 PM EST [facility] Eosinophils Absolute 0.03 0.00 - 0.50 K/[facility] LAB HEMETOLOGY METHOD 02/14/2025 4:29 PM EST [facility] Basophils Absolute 0.04 0.00 - 0.20 K/[facility] LAB HEMETOLOGY METHOD 02/14/2025 4:29 PM EST [facility] Blood Venous blood specimen / Unknown Venipuncture / Unknown 02/14/2025 4:22 PM EST 02/14/2025 4:24 PM EST us Bertha Clifford MD LAB BLOOD ORDERABLES Final R esult [facility] [place] #:[id number] [address] [place] [address], * Magnesium (02/14/2025 4:22 PM EST) Magnesium 1.9 1.7 - 2.8 mg/dL LAB CHEMISTRY METHOD 02/14/2025 5:09 PM EST [facility] Comment:Slight Hemolysis may affect test result(s). Blood Venous blood specimen / Unknown Venipuncture / Unknown 02/14/2025 4:22 PM EST 02/14/2025 4:24 PM EST us Bertha Clifford MD LAB BLOOD ORDERABLES Final R esult [facility] [place] #:[id number] [address] [place] [address], * Basic metabolic panel (02/14/2025 4:22 PM EST) Sodium 137 135 - 145 mmol/L LAB CHEMISTRY METHOD 02/14/2025 5:09 PM [facility] Potassium 4.8 3.5 - 5.1 mmol/L LAB CHEMISTRY METHOD 02/14/2025 5:09 PM [facility] Comment:Slight Hemolysis may affect test result(s). Chloride 104 98 - 107 mmol/L LAB CHEMISTRY METHOD 02/14/2025 5:09 PM [facility] CO2 24 24 - 32 mmol/L LAB CHEMISTRY METHOD 02/14/2025 5:09 PM [facility] Anion Gap 9 5 - 14 LAB CHEMISTRY METHOD 02/14/2025 5:09 PM [facility] Glucose 112 70 - 199 mg/dL LAB CHEMISTRY METHOD 02/14/2025 5:09 PM [facility] BUN 9 7 - 17 mg/dL LAB CHEMISTRY METHOD 02/14/2025 5:09 PM [facility] Creatinine 0.70 0.50 - 1.00 mg/dL LAB CHEMISTRY METHOD 02/14/2025 5:09 PM [facility] eGFR 106 >=60 mL/min/1. 73m2 LAB CHEMISTRY METHOD 02/14/2025 5:09 PM [facility] Comment:Calculation based on the Chronic Kidney Disease Epidemiology Collaboration (CKD-EPI) equation refit without adjustment for race. BUN/Creatinine Ratio 12.9 12.0 - 20.0 LAB CHEMISTRY METHOD 02/14/2025 5:09 PM [facility] Calcium 9.4 8.4 - 10.2 mg/dL LAB CHEMISTRY METHOD 02/14/2025 5:09 PM EST [facility] Blood Venous blood specimen / Unknown Venipuncture / Unknown 02/14/2025 4:22 PM EST 02/14/2025 4:24 PM EST Bertha Clifford MD LAB BLOOD ORDERABLES Final R esult [facility] [place] #:[id number] [address] [place] [address], [place] [phone] * CT Chest/Abdomen/Pelvis wo Contrast (02/14/2025 4:13 [...] of the mediastinum was excluded from the sstgo-ul-hewv on 09/05/2024. There are no comparison chest [...] Signed Date: 02/14/2025 16:41 ET Workstation ID: [id number] Transcribed By: Self Edit Transcribed Date: 02/14/2025 [...] of the mediastinum was excluded from the mospr-dy-hzif on09/05/2024. There are no comparison chest CT [...] Signed Date: 02/14/2025 16:41 ET Workstation ID: [id number] Transcribed By: Self Edit Transcribed Date: 02/14/2025 [...] Signed Date: 02/14/2025 17:01 ET Workstation ID: [id number] Transcribed By: Self Edit Transcribed Date: 02/14/2025 [...] Signed Date: 02/14/2025 17:01 ET Workstation ID: [id number] Transcribed By: Self Edit Transcribed Date: 02/14/2025 16:46 ET us Bertha Clifford MD IM CT PROCEDURES Final Resu lt * (ABNORMAL) Urinalysis with reflex microscopic and culture (02/14/2025 4:01 PM EST) Color, Urine Yellow Colorless, Yellow LAB URINALYSIS - AUTOMATED METHOD 02/14/2025 4:06 PM [facility] Clarity, Urine Slightly Cloudy(A) Clear LAB URINALYSIS - AUTOMATED METHOD 02/14/2025 4:06 PM [facility] Specific [place] Urine 1.010 1.005 - 1.030 LAB URINALYSIS - AUTOMATED METHOD 02/14/2025 4:06 PM [facility] pH, Urine 7.5 5.0 - 8.0 pH LAB URINALYSIS - AUTOMATED METHOD 02/14/2025 4:06 PM [facility] Leukocytes, Urine Negative Negative WBCs/mcL LAB URINALYSIS - AUTOMATED METHOD 02/14/2025 4:06 PM [facility] Nitrite, Urine Negative Negative LAB URINALYSIS - AUTOMATED METHOD 02/14/2025 4:06 PM [facility] Protein, Urine Negative Negative mg/dL LAB URINALYSIS - AUTOMATED METHOD 02/14/2025 4:06 PM [facility] Glucose, Urine Negative Negative mg/dL LAB URINALYSIS - AUTOMATED METHOD 02/14/2025 4:06 PM [facility] Ketones, Urine Negative Negative mg/dL LAB URINALYSIS - AUTOMATED METHOD 02/14/2025 4:06 PM [facility] Blood, Urine Negative Negative mg/dL LAB URINALYSIS - AUTOMATED METHOD 02/14/2025 4:06 PM [facility] Urine Urine specimen obtained by clean catch procedure / Unknown Non-blood Collection / Unknown 02/14/2025 4:01 PM EST 02/14/2025 4:03 PM EST Bertha Clifford MD LAB URINE ORDERABLES Final R esult [facility] [place] #:[id number] [address] [place] [address], * Hepatitis C antibody (07/10/2024 10:28 AM EDT) Hepatitis C Antibody Negative Negative LAB CHEMISTRY METHOD 07/10/2024 3:28 PM EDT [facility] Blood Venous blood specimen / Unknown Venipuncture / Unknown 07/10/2024 10:28 AM EDT 07/10/2024 12:31 PM EDT Dillon Montoya MD LAB BLOOD ORDERABLES Final Res ult [facility] [address] [place] [address], [place] [phone] * HIV 1,2 antibody, p24 antigen with [...] Final Res ult [facility] [address] [place] [address], [place] [phone] * HPV with reflex genotype (07/10/2024 12:00 AM EDT) HPV Negative Negative LAB MICROBIOLOGY METHOD 07/12/2024 6:28 AM EDT [facility] Brushing/Spatula Cervix uteri structure / Unknown 07/10/2024 07/11/2024 6:21 AM EDT us Dillon Montoya MD LAB MOLECULAR DIAGNOSTICS ORDE RABLES Final Result Performing Organization Address [facility]/ZIP Co de Phone Number [facility] [address] [place] [address], [place] [phone] from Last 3 Months or Most Recently Relevant to Health Maintenance Insurance [employer] Care Teams Bistro Attendant Relationship Specialty Start Date End Date Sultana Mccormack NP [address] [place] [address] PCP - General Family Medicine 10/17/24
[2025-03-03 19:55] LABS: Anion Gap 15 (12-20); Blood Urea Nitrogen 6 mg/dL (9-16); Calcium 10.1 mg/dL (8.4-10.2); Carbon Dioxide 28 mmol/L (22-29); Chloride 101 mmol/L (96-108); Estimated Glomerular Filt Rate > 60; Potassium 3.6 mmol/L (3.3-5.1); Sodium 140 mmol/L (135-145)
== END 2025-03-03 14:11 | disposition home or self-care (01) ==
LOC: HO.HKASLDS 14:10
PROVIDERS: PCP Nurse Practitioner Family; Visit Provider Internal Medicine Nephrology
DX: N20.0 Calculus of kidney (principal)
CPT/HCPCS: 36415; 80051; 82310; 82565; 84520

== ENCOUNTER 2025-03-17 09:51 | Outpatient (AMB) | payer OTHER, SELFPAY ==
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
[2025-03-17 10:03] VITALS: BP 153/91; PULSE 112; O2SAT 100; BMI 25.0
== END 2025-03-17 10:30 | disposition home or self-care (01) ==
LOC: HO.PMC 09:51
PROVIDERS: PCP Nurse Practitioner Family; Visit Provider Nurse Practitioner Family
DX: M79.18 Myalgia, other site (principal); M54.2 Cervicalgia; M54.9 Dorsalgia, unspecified; G89.29 Other chronic pain; M47.817 Spondylosis without myelopathy or radiculopathy, lumbosacral region; M53.3 Sacrococcygeal disorders, not elsewhere classified; M79.7 Fibromyalgia; G89.4 Chronic pain syndrome
CPT/HCPCS: 99204

== ENCOUNTER → 2025-03-17 09:51 | Outpatient (BNVA) | payer OTHER, SELFPAY | PROVIDERS: PCP Nurse Practitioner Family; Visit Provider Nurse Practitioner Family | DX: M79.18 Myalgia, other site (principal); M47.817 Spondylosis without myelopathy or radiculopathy, lumbosacral region; M53.3 Sacrococcygeal disorders, not elsewhere classified; G89.4 Chronic pain syndrome | CPT/HCPCS: 99202 ==

== ENCOUNTER 2025-03-18 10:11 | Outpatient (AMB) | payer OTHER, SELFPAY ==
[2025-03-18 10:27] VITALS: BP 110/82; PULSE 99; O2SAT 97; BMI 25.3
--- NOTE | 2025-03-18 10:27 | MHC.OFFVIS ---
Vital Signs 03/18/25 10:27 Height 5 ft 4.5 in Weight 149 lb 8 oz BMI 25.3 BP 110/82 Blood Pressure Location Rt brachial Position Sitting Pulse 99 Pulse Source Pulse Oximeter Pulse Oximetry (%) 97 Oxygen Delivery Method Room Air Intake Visit Reasons: Botox Intake Note: Botox 200 Watch Band Assembler Required: No Accompanied by: Self / Same As Patient Allergies acetaminophen (Tylenol) Allergy (Intermediate, Verified 03/18/25 11:37) Vomiting aspirin Allergy (Intermediate, Verified 03/18/25 11:37) Vomiting ibuprofen Allergy (Intermediate, Verified 03/18/25 11:37) Abdominal Pain metronidazole (Flagyl) Allergy (Intermediate, Verified 03/18/25 11:37) Triggers migraines tramadol Allergy (Intermediate, Verified 03/18/25 11:37) Triggers migraine trazodone Allergy (Intermediate, Verified 03/18/25 11:37) Triggers Migrain Medication List - Last Reconciled 03/18/25 by Yuly Bennett MD albuterol sulfate 90 mcg/actuation 2 puffs inhalation Q4-6H PRN carisoprodol 350 mg PO BID 30 days epinephrine (EpiPen 2-Rajesh) 0.3 mg IM Q4H PRN hydrochlorothiazide 25 mg PO DAILY 90 days levalbuterol tartrate 45 mcg/actuation (Xopenex HFA) 2 inhalations inhalation Q6H multivitamin 1 tab PO DAILY nitrofurantoin macrocrystal mg PO nitrofurantoin monohyd/m-cryst 100 mg (Macrobid) 100 mg PO BID 5 days omeprazole 40 mg PO DAILY onabotulinumtoxinA (Botox) 200 units IM ONCE 12 weeks oxycodone 5 mg PO .q12 h PRN potassium citrate ER 10 mEq PO BID 90 days promethazine 25 mg PO TID PRN tamsulosin 0.4 mg PO BEDTIME 30 days ubrogepant (Ubrelvy) 100 mg orally at onset of migraine, may repeat in 2 hours (max of 200mg per day) PRN; 30 days valacyclovir 500 mg PO BID PRN HPI Comments Details: ? 49 y/o female comes for treatment of migraines with botox. How many migraine days prior to botox- 20 How long do the migraines last-2-3 days Intensity of emyzaxbb-9-80 ER visits related to gupggwty-0-8 Effectiveness of botox from last two treatment(s) How many migraine days since receiving treatment:2-3/month Change? in intensity of migraine?decreased Change in frequency of migraine?decreased Change in use of acute medication for migraine?decreased Change in quality of life?improved ER visits related to migraine?none Last treatment- 3 mths ??? Most frequent reported adverse reactions following injection of botox for chronic migraine include neck pain (9%), headache(5%), eyelid ptosis(4%), migraine(4%), muscular weakness(4%), musculuskeletal stiffness(4%), bronchitis(3%), injection site pain (3%), musculoskeletal pain(3%), myalgia(3%), facial par Lot no [id number] expiration June2027 was diluted with 4 cc of normal saline . ??? Muscles injected- ??? Frontalis 4 sites zygomaticus major 2 sites ??? Procerus 1 site ??? Kennel Supervisor- 2 sites ??? Temporalis- 8 sites ??? Occipitalis- 6 sites ??? Cervical paraspinals- 4 sites ??? Trapezius- 6 sites- 10 units each ??? 5 units each in 31 site ??? Total use- 195units ??? Discarded-5units [facility] Medical History Pancreatic cyst IBS (irritable bowel syndrome) Saldivar's esophagus Chronic migraine without aura, intractable, without status migrainosus History of kidney stones Vaginal intraepithelial neoplasia GERD (gastroesophageal reflux disease) Migraine Cervical radiculopathy Back pain IBS (irritable bowel syndrome) Nephrolithiasis Surgical History History of esophagogastroduodenoscopy (EGD) Hx of ovarian cystectomy Hx of cystoscopy Hx of lithotripsy History of vaginal surgery History of partial hysterectomy Social History Household Members: Children Alcohol intake: current Alcohol intake frequency: does not drink Patient Tobacco Use Status: Current everyday Tobacco user Tobacco use type: Cigarette Cigarettes Per Day: 10 Years Smoked: 36 years Substance Use Type: Marijuana Current occupational status: disabled Physical Exam Vital Signs: Last Vital Signs Pulse 99 12/16/25 10:27 BP 110/82 03/18/25 10:27 Pulse Ox 97 03/18/25 10:27 Oxygen Delivery Method Room Air 03/18/25 10:27 BMI result Body Mass Index 25.3 Const General: cooperative Orientation/consciousness: patient oriented x3 Resp Effort & Inspection: able to speak in complete sentences Neuro General: patient oriented x3 Psych Mental Status: mental status grossly normal Speech and movement: Clear speech present Affect: normal affect Attitude: cooperative Thought process: Normal thought process present Thought content: Normal thought content present Insight: Fair insight present (Psych) Judgement: Fair judgement present (Psych) Office Procedures Botulinum toxin Injection 14561 - Migraine Procedure code (CPT) selection complete Office Meds onabotulinumtoxinA 200 unit solution for injection Performing Provider: Yuly Bennett MD Performing Location: [facility] [place] [facility] Administered by: Yuly Bennett MD on 03/18/25 11:39 Dose Route Admin Location Dispensed Lot Number Expiration Date [facility] Lead Custodian 195 unit subcut 200 units [id number] ALLERGAN/BOTOX Total Dispensed Waste 200 units 2.5 % Comments: see HPI Assessment & Plan Assessment & Plan (1) Chronic migraine without aura, intractable, without status migrainosus: Code(s): G43.719 - Chronic migraine without aura, intractable, without status migrainosus Category: Medical (2) Migraine with aura, intractable, without status migrainosus: Code(s): G43.119 - Migraine with aura, intractable, without status migrainosus Category: Medical Plan Patient tolerated the procedure well she will call with any side effects. Orders: Orders AMB Botulinum toxin Injection Today G43.119 - Migraine with aura, intractable, without status migrainosus Coding Level of Care Code Est Pt Level 1 (15929) Diagnoses Chronic migraine without aura, intractable, without status migrainosus G43.719 Migraine with aura, intractable, without status migrainosus G43.119 CPT Codes Botox Injection - Botox 3: 72242 - Migraine ([id number])
== END 2025-03-18 15:09 | disposition home or self-care (01) ==
LOC: HO.HSMS 10:11
PROVIDERS: PCP Internal Medicine; Visit Provider Psychiatry & Neurology Neurology
DX: G43.719 Chronic migraine without aura, intractable, without status migrainosus (principal)
CPT/HCPCS: 64615

== ENCOUNTER 2025-03-18 10:11 | Outpatient (AMB) | payer OTHER, SELFPAY ==
--- OUTSIDE RECORDS SUMMARY | 2024-07-05 06:40 | XMS_ITS ---
Author Organization [facility] Address [address] [place] [address] [address] [place] [address] Care Team Providers Care Blister Rust Eradicator Name Role Phone Sultana Mccormack N.P Primary Care Provider Kwabena Marroquin Jr REASON FOR VISIT Saldivar's Esophagus Encounters Encounter Location Date Provider Diagnosis [facility] [place] [address] [place] [id number] 07/05/2024 Kwabena Cook Jr Saldivar''s esophagus without dysplasia K22.70 Assessments Encounter Date Diagnosis (ICD Code) Assessment Notes Treatment Notes Treatment Clinical Notes Section Notes 07/05/2024 Saldivar''s esophagus without dysplasia (ICD-10 - K22.70) Plan Of Treatment Next Appt Details Provider Name:Kwabena champagne Jr, 06/18/2025 10:00:00 AM, [address] [place] [address], [address], [place], [address], Progress Notes * RASHEED MALIKOB: [birth year] (49 yo F)Acc No.[id number]:07/05/2024 EGD/MAC Patient: KEVIN WOODY Provider: Mekhi Cook MD :1975 A ge:48 Y S ex:Female Date:07/05/2024 Address:[address] [place], [place] [phone] Pcp:Sultana Mccormack N.P Subjective: * Chief Complaints: * B arrett's Esophagus Assessment: * Assessment: 1. B arrett''s esophagus without dysplasia - K22.70 (Primary) Plan: * Procedure Codes: 4 3239 UPPER GI ENDOSCOPY, BIOPSY Billing Information: * Procedure Codes: 63502 UPPER GI ENDOSCOPY, BIOPSY. * The named appointment provid er may or may not be the originator of this progress note, and it is not deemed complete until electronically signed by the appointment provider. Sign off status: Pending * Provider: Mekhi Cook MD Date: 0 07/05/2024 Generated for Jorden campbell/Shekhar/Jgsmitting on: 1 05/19/2024 12:37 PM EST
--- NOTE | 2025-03-18 11:23 | HO.NEPHOV ---
Intake Visit Reasons: 3mnth w labs-LVM Collections Representative Required: No Accompanied by: Self / Same As Patient Allergies acetaminophen (Tylenol) Allergy (Intermediate, Verified 03/18/25 11:37) Vomiting aspirin Allergy (Intermediate, Verified 03/18/25 11:37) Vomiting ibuprofen Allergy (Intermediate, Verified 03/18/25 11:37) Abdominal Pain metronidazole (Flagyl) Allergy (Intermediate, Verified 03/18/25 11:37) Triggers migraines tramadol Allergy (Intermediate, Verified 03/18/25 11:37) Triggers migraine trazodone Allergy (Intermediate, Verified 03/18/25 11:37) Triggers Migrain HPI Comments Details: Melva was seen for her ongoing nephrolithiasis. She denies any flank pain. She has H/O ESWL. She was found to have B/L renal calculi as well as renal cyst including a bigger, questionable complex cyst on the left lower pole. She denies nausea, vomiting, hematuria, fever or dysuria. She had litholink which showed hypocitrauria. She is not hypertensive or diabetic and has no H/O metabolic acidosis. I have started her on HCTZ at the last visit but not on K citrate. She has strong family H/O renal calculi but no family H/O medullary sponge kidney, ESRD or renal transplantation [facility] Medical History Pancreatic cyst IBS (irritable bowel syndrome) Saldivar's esophagus Chronic migraine without aura, intractable, without status migrainosus History of kidney stones Vaginal intraepithelial neoplasia GERD (gastroesophageal reflux disease) Migraine Cervical radiculopathy Back pain IBS (irritable bowel syndrome) Nephrolithiasis Surgical History History of esophagogastroduodenoscopy (EGD) Hx of ovarian cystectomy Hx of cystoscopy Hx of lithotripsy History of vaginal surgery History of partial hysterectomy Social History Household Members: Children Alcohol intake: current Alcohol intake frequency: does not drink Patient Tobacco Use Status: Current everyday Tobacco user Tobacco use type: Cigarette Cigarettes Per Day: 10 Years Smoked: 36 years Substance Use Type: Marijuana Current occupational status: disabled Review of Systems Const All systems reviewed & are unremarkable except as noted in HPI and below Physical Exam Const General: comfortable and no acute distress Orientation/consciousness: patient oriented x3 HEENT Head: Yes normocephalic Mouth: Normal oral and palatal mucosa present Eyes EOM: EOMs intact bilaterally Neck Neck: Yes supple Resp Auscultation: clear to auscultation bilaterally Cardio Jugular venous distension: no JVD Rate: regular rate GI Palpation (GI): Soft to palpation Auscultation: normal bowel sounds General: Yes no CVA tenderness Back/Spine/Pelvis Back: no CVA tenderness Skin General skin exam: no rashes or lesions noted Neuro General: patient oriented x3 and moves all extremities Extrem General: Yes no pedal edema Results Reviewed Nephrology Results: Sodium, (135-145) 140 mmol/L 03/03/25 Potassium, (3.3-5.1) 3.6 mmol/L 03/03/25 Chloride, (96-108) 101 mmol/L 03/03/25 Carbon Dioxide, (22-29) 28 mmol/L 03/03/25 BUN, (9-16) 6 mg/dL L 03/03/25 Creatinine, (0.5-1.4) 0.75 mg/dL 03/03/25 Calcium, (8.4-10.2) 10.1 mg/dL Δ 03/03/25 Renal US 02/01/25 Assessment & Plan Assessment & Plan (1) Nephrolithiasis: Code(s): N20.0 - Calculus of kidney Category: Medical (2) Renal cyst: Code(s): N28.1 - Cyst of kidney, acquired Category: Medical Plan Has hypocitrauria with calcium oxalate stone Low sodium diet; Good hydration; Less meat More fruits and vegetables in diet; Normal Ca in diet C/W HCTZ 25 mg daily; On K cirtrate( may need more) Follow up with Urology; Answered all questions Coding Level of Care Code Est Pt Level 4 (42163) Diagnoses Nephrolithiasis N20.0 Renal cyst N28.1
--- OUTSIDE RECORDS SUMMARY | 2025-03-18 12:37 | XMS_ITS | Encounter Summary ---
Author Organization [employer] Address [address] [place] [address] Care Team Providers Care Mannequin Decorator Name Role Phone KseniaSultana dorman LEIF Primary Care Provider + Encounter Details Date Type Department Care Team (Latest Contact Info) Description 07/11/2024 Lab Requisition [facility] - Main Lab [address] [facility] [place] [phone] Dillon Montoya MD [address] [phone] Encounter for gynecological examination (general) (routine) without [...] LAB MICROBIOLOGY METHOD 07/12/2024 6:28 AM EDT [facility] Brushing/Spatula Cervix uteri structure / Unknown 07/10/2024 07/11/2024 6:21 AM EDT us Dillon Montoya MD LAB MOLECULAR DIAGNOSTICS DYANA OQUENDO Final Result [facility] [address] [place] [address], * Pap smear (07/10/2024 12:00 AM EDT) Interpretation Negative for intraepithelial lesion or malignancy 07/16/2024 2:26 PM EDT [facility] at 1426 EDT General Categorization Negative 07/16/2024 2:26 PM EDT [facility] Other Findings Reparative changes 07/16/2024 2:26 PM EDT [facility] Specimen Adequacy Satisfactory for evaluation, endocervical/tam sformation zone component absent 07/16/2024 2:26 PM EDT [facility] Pap Methodology Liquid Based Pap Test 07/16/2024 2:26 PM EDT [facility] Disclaimer The Pap test is a screening test which carries an inherent false negative rate. These test results should be correlated with the patient's clinical findings and history. This Pap test was processed using an automated screening system. Technical cytopathology services provided by [facility], at [address] [place] [address] (CLIA # [id number]/Gurjit Gregory MD, Veterinary Poultry Inspector.) 07/16/2024 2:26 PM EDT [facility] Console Pap Interpretation Reported 07/16/2024 2:26 PM EDT [facility] Brushing/Spatula Vaginal structure / Unknown 07/10/2024 07/11/2024 6:21 AM EDT us Dillon Montoya MD LAB CYTOLOGY ORDERABLES Final Result [facility] [address] [place] [address], documented in this encounter Visit Diagnoses Diagnosis Encounter for gynecological examination (general) (routine) without abnormal findings documented in this encounter Care Teams Mannequin Decorator Relationship Specialty Start Date End Date Sultana Mccormack NP [address] [facility] [address] [place] [address] PCP - General Family Medicine 10/17/24 documented as of this encounter
--- OUTSIDE RECORDS SUMMARY | 2025-03-18 12:37 | XMS_ITS | Patient Health Record ---
Author Organization [facility] Address [address] [place] [address] Care Team Providers Care Engine Room Operator Name Role Phone MATHEUS YOO MD Primary Care Provider IVETTE Flowers Unavailable [phone] Allergies Allergen (clinical drug ingredient) Drug/Non Drug Allergy documented on EMR Reaction Allergy Type Onset Date Status aspirin Aspirin GI upset Drug Allergy Active metronidazole Flagyl Unknown Drug Allergy Act shaquille ibuprofen Motrin IB vomiting Drug Allergy Active acetaminophen Tylenol vomiting Drug Allergy Act shaquille tramadol traMADol migraines Drug Allergy Active Reason For Referral No Information Medications Medication SIG (Take, Route, Frequency, Duration) Notes Start Date End Date Status MetroCream 0.75 % Cream 1 chela applied topically 2 times a day/prn Active HAIR, SKIN, NAILS 5 MG CAPSULE 1 CAP(S) ORALLY ONCE A DAY; Duration: 30 DAY(S) *Please review for potential replacement for e-prescription and drug interaction check* Active Fluconazole 50 MG Tablet 1 tab(s) orally once a day; Duration: 30 day(s) pt not sure dose Active Probiotic CAPSULE 2 CAPSULES ORAL ONCE A DAY NAME ONLY Conversion from Multum Review and pick correct strength-formulatio n from [email or web address] options. If intended option is not shown, discontinue and re-order from Quick Search. Active ZANTAC 300 300 MG TABLET 1 TAB(S) ORALLY T.I.D. *Please review for potential replacement for e-prescription and drug interaction check* Active SUMAtriptan Succinate 100 MG Tablet 1 tab(s) orally b.i.d. Active oxyCODONE HCl 5 MG Tablet 1 tab(s) orally every 6 hours Active Phenergan 25 MG 1 TAB ORAL Q4H NAME ONLY Conversion from Multum Review and pick correct strength-formulatio n from Medispan options. If intended option is not shown, discontinue and re-order from Quick Search. Active Social History Tobacco Use: Social History Observation Description Date Details (start date - stop date) Current Smoker NA - NA Social History Tobacco Use: Social Info Question Answer Notes Smoking Are you a: current smoker How often do you smoke Cigarettes? 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 Coffee/Tea/Soda: yes Tea, 1 Marital Status single experience no Living with children Pets dog smokers in household yes Problems Problem Type SNOMED Code ICD Code Onset Dates Problem Status W/U Status Risk Notes Problem Shoulder joint pain (528944841) Joint pain, shoulder (719.41) Active confirmed Problem Disorder of tendon of shoulder region (67872965) Disorder of tendon of shoulder region NOS (726.10) Active confirmed Problem Adhesive capsulitis of right shoulder (15506577433468 9) Adhesive capsulitis of right shoulder (M75.01) Active confirmed Problem Bursitis of right shoulder (38447426820585 7) Subacromial bursitis of right shoulder joint (M75.51) Active confirmed Plan Of Treatment No Information Insurance Providers Payer Name Payer Address Payer Phone Subscriber Number Group Number Insured Name Patient Relationship to Insured Coverage Start Date Coverage End Date [facility]/ [facility] [address] [address] [place] [address] [phone] [id number] KEVIN MALIK Self - patient is the insured Medical (General) History Medical History History ICD Code rotator cuff disease R shoulder dislocation as a child low back pain IBS fibromyalgia vertigo depression allergy arthritis asthma kidney stones migraines sexually transmitted disease [id number] Surgical History Surgery Date(Month/Year) ovarian cyst partial hysterectomy 2017 hernia on belly kidney stones bladder lift cone biopsy Hospitalization History Reason Date(Month/Year) acute pancreatitis x2 days [facility] [place] 03/2013
--- OUTSIDE RECORDS SUMMARY | 2025-03-18 12:37 | XMS_ITS | Continuity of Care Document ---
Author Organization [place] [facility], [facility] Address [address] [place] [address] Care Team Providers Care Circulating Process Inspector Name Role Phone JULITO MCCORMACK Primary Care Provider Assessment Encounter Date Assessment Date Assessment LastModified by Organization Details LastModified Time 01/20/2025 01/20/2025 Melva Tejada is a 49-year-old female with migraines, deviated nasal septum, and persistent nasal drainage. The patient's symptoms of facial pain and pressure are likely attributable to migraines rather than a sinus infection. The scan performed at [facility] demonstrated a small cyst in the [...] By Organization Details Last Modified Time 01/20/2025 42215 - Continue magnesium supplementation, increasing dosage to [...] Address Organization Details Recorded Time Tobacco user [id number] Active 2015 Tobacco use; Note: Date Diagnosed : 03/10/2016 11:39 AM (Z72.0) Not Available [facility] 4 03:27:26 Migraine without aura, not refractor y 804024602 Active 2015 Migraine without aura, not intractab le, without status migrainos us; Note: Date Diagnosed : 03/10/2016 11:39 AM (G43.009) Not Available [facility] 4 03:27:26 Deviated nasal septum 882750981 Active 2024 ROSIE FLORENTINO MD [address] [place] [address],[place] [address], [place], [phone] , [place] - [facility] 5 13:58:57 Mucocele of maxillary sinus 17974609785 921265 Active 2024 ROSIE FLORENTINO MD [address] [place] [address], [place], [phone] , [place] - [facility] 5 13:59:10 Problem Notes None recorded. Procedures Surgical History Date Name Laterality Status Provider Name and Address Organization Details Recorded Time JMSNasal/Sinus Endoscopy completed ROSIE BROWNLEE MD [address] [place] [address],[address], [phone], [place] - [facility] 01/20/2025 14:01:35 Kidney Stone Removal completed Veronica Go [place] - [facility] 01/20/2025 13:58:06 Imaging Results None recorded. Procedure Notes None recorded. Medical Equipment None Reported. Allergies Allergen ID Allergen Name Allergen Category Reaction Reaction Severity Criticality Documentation Date Start Date Code Code System Note Provider Name and Address Organization Details Recorded Time 38455 Tylenol medicatio n other Not available Not available 08/15/202392639 3 RxNorm React ion: unkno wn, unspe cifie d;; Not Available [facility] 4 00:49:11 80809 Motrin medicatio n other Not available Not available 08/15/202309638 8 RxNorm React ion: unkno wn, unspe cifie d;; Not Available [facility] 4 00:49:53 63383 trazodone medicatio n other Not available Not available 08/15/2023 85495 RxNorm React ion: unkno wn, unspe cifie d;; Not Available [facility] 4 00:50:09 92564 tramadol Not available other Not available Not available 08/15/2023 60098 RxNorm React ion: unkno wn, unspe cifie d;; Not Available [facility] 4 00:50:10 74465 Flagyl medicatio n other Not available Not available 08/15/202342645 6 RxNorm React ion: unkno wn, unspe cifie d;; Not Available [facility] 4 00:50:23 Medications Name Sig Start Date [...] mg tablet 01/20 completed Medicatio n ID: [id number] Du ration Value: 14 Brand Name: oxycodone Send Method: E-Prescri bed Subs Allowed: subs OK Medica tionGener icName: oxycodone Not Available Not Available Not Available Prilosec OTC 20 mg tablet,de layed release Take by oral route. active Not Available Not Available No t Available Zantac 01/20 completed Medicatio n ID: [id number] Br and Name: Zantac Se nd Method: E-Prescri bed Subs Allowed: subs OK Specia l Instructi on: Take 1 tablet by mouth every day at bedtime M edication GenericNa me: Zantac Not Available Not Available Not Available Valium 01/20 completed Medicatio n ID: [id number] Br and Name: Valium Se nd Method: E-Prescri bed Subs Allowed: subs OK Medica tionGener icName: Valium Not Available Not Available Not Available potassium active Not Available Not Nadja ilable Not Available Soma 01/20 completed Medicatio n ID: [id number] Br and Name: Soma Send Method: E-Prescri bed Subs Allowed: subs OK Medica tionGener icName: Soma Not Available Not Available Not Available Topamax 01/20 completed Medicatio n ID: [id number] Br and Name: Topamax S end Method: [...] Details Last Updated DateTime 01/20/2025 163.83 cm 98648.3 g Veronica Go [place] [facility] 01/20/2025 13:52:30 Social History None recorded. Functional [...] ICD10 Code Diagnosis IMO Codes Diagnosis Note [id number] ROSIE FLORENTINO MD [facility] [address] [address] 01/20/2025 13:25:55 01/20/2025 14:03:06 Migraine without aura, not refractory 260738255 G43.009 Deviated nasal septum 12 3060888 J34.2 58888 Mucocele o f maxillary sinus [id number] 4601014 J34.1 [id number] Health Concerns Section Related Observation LastModified by Organization Detai ls LastModified Time None Recorded Concern Status LastModified by Organization Details LastModified Time None Recorded Payers Encounter Date Sequence Insurance Name Policy Number Policy Jorge Covered Member ID Jorge Member ID Guarantor Name 01/20/2025 1 [facility] (MEDICAID HMO) [id number] Melva Tejada [id number] Melva Tejada Notes Date Note Type Note Provider Name and Address Organization Details Recorded Time 01/20/2025 text/html ROS as noted in the HPI Melva Tejada is a 49-year-old female who presents for evaluation of sinus-related symptoms and facial pain. She reports experiencing throbbing pain in her left sinus cavity and latter day area. She visited [facility] approximately three to four months ago, [...] is Lisa Mccormack, a nurse practitioner at [facility] in [place]. ROSIE BROWNLEE MD [address] [place] [address], [phone], [place] - [facility] 01/20/2025 14:01:57 OBGyn Episode No OBEpisode recorded.
--- OUTSIDE RECORDS SUMMARY | 2025-03-18 12:37 | XMS_ITS | Patient Health Record ---
Author Organization [facility] Address [address] [place] [address] Care Team Providers Care C.O.D. 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 Problems Problem Type SNOMED Code ICD Code Onset Dates Problem Status W/U Status Risk Notes Problem Rectal bleeding (66320354) Rectal bleeding (K62.5) Active confirmed Problem Saldivar's esophagus (528011899) Saldivar's esophagus without dysplasia (K22.70) Active confirmed Problem Gastroesophageal reflux disease without esophagitis (811356990) Gastroesophageal reflux disease without esophagitis (K21.9) Active confirmed Problem Pancreatic cyst (64721814) Pancreatic cyst (K86.2) Active confirmed Problem Irritable bowel syndrome (29502998) Irritable bowel syndrome with both constipation and diarrhea (K58.2) Active confirmed Vital Signs Temperature 97.5 degrees Fahrenheit 06/12/2024 Blood pressure diastolic 01 mm Hg 06/12/2024 Height 64.5 in 06/12/2024 Blood pressure systolic 001 mm Hg 06/12/2024 Weight 142 lbs 06/12/2024 BMI 24 kg/m2 06/12/2024 Encounters Encounter Location Date Provider Diagnosis [facility] Outpatient [address] [place] [id number] 07/05/2024 Kwabena Cook Jr Saldivar''s esophagus without dysplasia K22.70 [facility] [address] [place] [phone] 06/12/2024 Kwabena Cook Jr Saldivar's esophagus without dysplasia K22.70 ; Irritable bowel syndrome with both constipation and diarrhea K58.2 and Pancreatic cyst K86.2 [facility] [address] [place] [phone] 05/22/2024 Kwabena Cook Jr [facility] [address] [place] [address], [place] [address] 07/09/2024 Kwabena Cook Jr Assessments Encounter Date [...] continue fiber supplementation and she can use rbdv-hwp-yhlykyo antidiarrheals as needed for diarrhea. Her pancreatic [...] continue fiber supplementation and she can use bozv-hug-mzpoznf antidiarrheals as needed for diarrhea. Her pancreatic [...] continue fiber supplementation and she can use owlr-tyd-wdqgiba antidiarrheals as needed for diarrhea. Her pancreatic cyst has resolved. Endoscopy will be scheduled. She is aware of risks and benefits and agrees to proceed.Today's visit was 30 minutes. Plan Of Treatment Future Test Test Name Order Date UPPER GI ENDOSCOPY 12/26/2019 COLONOSCOPY 12/26/2019 UPPER GI ENDOSCOPY 06/12/2024 Next Appt Details Provider Name:Kwabena champagne Jr, 06/18/2025 10:00:00 AM, [address], [place], [address], Insurance Providers Payer Name Payer Address Payer Phone Subscriber Number Group Number Insured Name Patient Relationship to Insured Coverage Start Date Coverage End Date [facility] [address] [address] [place] [address] [id number] KEVIN MALIK Self - patient is the [...]
--- OUTSIDE RECORDS SUMMARY | 2025-03-18 12:37 | XMS_ITS | Encounter Summary ---
Author Organization [employer] Address [address] [place] [address] Care Team Providers Care Board Layer Name Role Phone Sultana Mccormack LEIF Primary Care Provider + Encounter Details Date Type Department Care Team (Latest Contact Info) Description 07/10/2024 Lab Requisition [facility] [address] [facility] [place] [phone] Dillon Montoya MD [address] [phone] Urinary tract infection, site not specified; Encounter [...] reflex microscopic (07/10/2024 12:00 AM EDT) Pathologist [facility] [place] Specific [place] Urine 1.013 1.003 - 1.030 LAB URINALYSIS - AUTOMATED METHOD 07/10/2024 1:42 PM [facility] pH, Urine 7.0 5.0 - 8.0 pH LAB URINALYSIS - AUTOMATED METHOD 07/10/2024 1:42 PM [facility] Leukocytes, Urine Negative Negative LAB URINALYSIS - AUTOMATED METHOD 07/10/2024 1:42 PM [facility] Nitrite, Urine Negative Negative LAB URINALYSIS - AUTOMATED METHOD 07/10/2024 1:42 PM [facility] Protein, Urine Negative <=Trace mg/dL LAB URINALYSIS - AUTOMATED METHOD 07/10/2024 1:42 PM [facility] Glucose, Urine Negative Negative mg/dL LAB URINALYSIS - AUTOMATED METHOD 07/10/2024 1:42 PM [facility] Ketones, Urine Negative Negative mg/dL LAB URINALYSIS - AUTOMATED METHOD 07/10/2024 1:42 PM EDT [facility] Urobilinogen, Urine 0.2 0.2 - 1.0 mg/dL LAB URINALYSIS - AUTOMATED METHOD 07/10/2024 1:42 PM EDT [facility] Bilirubin, Urine Negative Negative LAB URINALYSIS - AUTOMATED METHOD 07/10/2024 1:42 PM EDT [facility] Blood, Urine Negative Negative LAB URINALYSIS - AUTOMATED METHOD 07/10/2024 1:42 PM EDT [facility] Urine Urine specimen obtained by clean catch procedure / Unknown 07/10/2024 07/10/2024 1:32 PM EDT us Dillon Montoya MD LAB URINE ORDERABLES Final Res ult Performing Organization Address [facility]/ZIP Co de Phone Number [facility] [address] [place] [address], [place] [phone] * Culture urine (07/10/2024 12:00 AM EDT) Culture, Urine <10,000 CFU/mL gram positive cocci, insignificant count, no further workup 07/11/2024 10:55 AM EDT [facility] Urine Urine specimen obtained by clean catch procedure / Unknown 07/10/2024 07/10/2024 1:32 PM EDT us Dillon Montoya MD LAB MICROBIOLOGY - GENERAL ORD ERABLES Final Result [facility] [address] [place] [address], [place] [phone] * (ABNORMAL) Vaginitis pathogens molecular study (07/10/2024 12:00 AM EDT) Trichomonas vaginalis Negative Negative 07/11/2024 9:35 AM EDT [facility] Gardnerella vaginalis Positive(A) Negative 07/11/2024 9:35 AM EDT [facility] Amaris Species Negative Negative 9:35 AM EDT [facility] Swab Vaginal structure / Unknown 07/10/2024 07/10/2024 1:32 PM EDT us Dillon Montoya MD LAB MICROBIOLOGY - GENERAL ORD ERABLES Final Result [facility] [address] [place] [address], [place] [phone] * Chlamydia trachomatis and Neisseria gonorrhoeae molecular study (07/10/2024 12:00 AM EDT) Neisseria gonorrhoeae PCR Negative Negative LAB MOLECULAR DIAGNOSTICS METHOD 07/10/2024 4:53 PM EDT [facility] Chlamydia trachomatis PCR Negative Negative LAB MOLECULAR DIAGNOSTICS METHOD 07/10/2024 4:53 PM EDT [facility] Swab Cervix uteri structure / Unknown 07/10/2024 07/10/2024 1:32 PM EDT us Dillon Montoya MD LAB MICROBIOLOGY - GENERAL ORD ERABLES Final Result [facility] [address] [place] [address], [place] [phone] documented in this encounter Visit Diagnoses Diagnosis Urinary tract infection, site not specified Encounter for screening for infections with a predominantly sexual mode of transmission Acute vaginitis Unspecified vaginitis and vulvovaginitis documented in this encounter Care Teams Board Layer Relationship Specialty Start Date End Date Sultana Mccormack NP [address] [place] [address] PCP - General Family Medicine 10/17/24 documented as of this encounter
--- OUTSIDE RECORDS SUMMARY | 2025-03-18 12:37 | XMS_ITS | Data Portability ---
Author Organization [facility] Address [address] [place] [phone] Care Team Providers Care Postal Carrier Name Role Phone MAGNOLIAJUAN JOSE RANDLE Primary [...] Lab urinalysis , dipstick [email or web address] [facility], [address] [place] [address], [place], [phone], 11:54:15 Referral None recorded. Procedures None recorded. Surgeries None recorded. Imaging None recorded. Medication Orders ketorolac 30 mg/mL (1 mL) injection solution 2021 022 [email or web address] [id number], [address] [place], [address], 13:13:36 Patient TargetsNo targets recorded. Patient InstructionsNo instructions recorded. Reason for Referral None Reported. Results Created Date Observation Date Name Description Value Unit Range Abnormal Flag Note LastModifiedBy Organization Detail LastModifiedTime 12/15/1912/14/2021 urina lysis , dipst ick Appearance clear Not Available [facility] [address] [place], [address], 12/14/2021 11:51:02 12/15/1912/14/2021 urina lysis , dipst ick Color yellow Not Available Spr - Home [address] [place], [address], 12/14/2021 11:51:02 12/15/1912/14/2021 urina lysis , dipst ick Glucose (ref: neg) Neg Not Available Spr - Home [address] [place], [address], 12/14/2021 11:51:02 12/15/1912/14/2021 urina lysis , dipst ick Bilirubin (ref: neg) Neg Not Available Spr - Home [address] [place], [address], 12/14/2021 11:51:02 12/15/1912/14/2021 urina lysis , dipst ick Ketones (ref: neg) Neg Not Available Spr - Home [address] [place], [address], 12/14/2021 11:51:02 12/15/1912/14/2021 urina lysis , dipst ick Specific [place] (ref: 1.003 - 1.035) 1.[address] [facility] [address] [place], [address], 12/14/2021 11:51:02 12/15/19 22 12/14/2021 urina lysis , dipst ick Blood (ref: neg) + Not Available [facility] [address] [place], [address], 12/14/2021 11:51:02 12/15/1912/14/2021 urina lysis , dipst ick pH (ref: 5.0-7.0) 6.5 Not Available [facility] [address] [place], [address], 12/14/2021 11:51:02 12/15/19 22 12/14/2021 urina lysis , dipst ick Protein (ref: neg) Neg Not Available [facility] [address] [place], [address], 12/14/2021 11:51:02 12/15/1912/14/2021 urina lysis , dipst ick Urobilinogen (ref: 0.2-1.0) 0.[address] [facility] [address] [place], [address], 12/14/2021 11:51:02 12/15/1912/14/2021 urina lysis , dipst ick Nitrites (ref: neg) negati ve Not Available [facility] [address] [place], [address], 12/14/2021 11:51:02 12/15/1912/14/2021 urina lysis , dipst ick Leukocytes (ref: neg) Neg Not Available [facility] [address] [place], [address], 12/14/2021 11:51:02 Result Notes None recorded. Medical Equipment None Reported. Allergies Allergen ID Allergen Name Allergen Category Reaction Reaction Severity Criticality Documentation Date Start Date Code Code System Note Provider Name and Address Organization Details Recorded Time 100751 Tylenol medicatio n Not available Not available Not available 12/14/2021 18991 3 RxNorm JANNIE SHAH, RUG DRYING MACHINE OPERATOR [address], [place], [address], [place] [facility] 11:39:31 685020 aspirin medicatio n vomiting Not available Not available 12/14/2021 1191 RxNorm JANNIE SHAH, [employer] DRYING MACHINE OPERATOR [address], [place], [address], [place] [facility] 11:39:44 454855 ibuprofen medicatio n vomiting Not available Not available 12/14/2021 5640 RxNorm JANNIE SHAH, [employer] DRYING MACHINE OPERATOR [address], [place], [address], [place] [facility] 11:40:01 782411 trazodone medicatio n headache Not available Not available 12/14/2021 02015 RxNorm JANNIE SHAH, RUG DRYING MACHINE OPERATOR [address], [place], [address], [place] [facility] 11:40:23 832218 honey bee venom medicatio n Not available Not available Not available 12/14/2021 20636 7 RxNorm JANNIE SHAH, R[employer] DRYING MACHINE OPERATOR [address], [place], [address], [place] [facility] [...] ICD10 Code Diagnosis IMO Codes Diagnosis Note [id number] JANNIE SHAH NP [facility] [address] [facility] [place] [address] 12/14/2021 11:30:11 12/14/2021 15:16:26 Left flank pain 818591569 R10.9 History of calculus of kidney 489657830 Z87.442 Health Concerns Section Related Observation LastModified by Organization Detai ls LastModified Time None Recorded Concern Status LastModified by Organization Details LastModified Time None Recorded Advance Directives Directive None Recorded Payers Insurance Date Sequence Insurance Name Policy Number Policy Jorge Covered Member ID Jorge Member ID Guarantor Name 12/14/2021 1 *SELF PAY* Melva Tejada [id number] Melva Tejada 12/31/2021 1 [employer] (MEDICAID REPLACEMENT - HMO) [id number] Melva Tejada [id number] Melva Tejada Notes Date Note Type [...] distended as well. JANNIE SHAH NP [address], [place], [address], [place] [facility] 12/23/2021 13:13:51 OBGyn Episode No OBEpisode recorded.
--- OUTSIDE RECORDS SUMMARY | 2025-03-18 12:37 | XMS_ITS | Clinical Summary ---
Author Organization [employer] [facility] Prior to 08/31/24 Address [address] [place] [address] Care Team Providers Care Biazzi Nitrator Operator Name Role Phone Camelia Rboles MD Primary Care Provider Allergies Active Allergy [...] Vaccine (1 of 2) 2024 COVID-19 Vaccine ( season) 2024 05/28/2023, 08/20/2020, 07/28/2020 Influenza Vaccine (#1) 2024 8, 07/08/2015, 01/28/2008, Additional history exists RSV Ped < 20 months Aged Out No longe r eligible based on patient's age to complete this topic Care Teams Biazzi Nitrator Operator Relationship Specialty Start Date End Date Camelia Robles MD [address] [place] [address] PCP - General Internal Medicine 02/03/16
--- OUTSIDE RECORDS SUMMARY | 2025-03-18 12:37 | XMS_ITS | Clinical Summary ---
Author Organization 175 [facility] Address [address] [place] [address] Phone Care Team Providers Care Mobile Equipment Servicer Name Role Phone Ksenia, Sultana Felipe LEIF [...] Amount: 20 mg 12 tablet 02/16/20 Active amoxicillin-clavul anate (AUGMENTIN) 875-125 mg per [...] 8:28 PM EST Emergency [facility] Emergency [address] [place] [id number] Bertha Clifford MD Griscom, Andrew, MD Acute ethmoidal sinusitis, recurrence not specified (Primary Dx); Bilateral kidney stones; Bronchiolitis; Thyroid nodule Discharge Disposition: Home or Self Care 01/01/2025 Telephone Neurosurgery [address] [place] [address] Dillon Gomez PA from Last 3 Months Immunizations Immunization Administration [...] not to disclose 2024 12:44 PM EST Last Filed Vital Signs Vital Sign Reading [...] Screening 1974 Colorectal Cancer Screening: Colonoscopy 1974 Drug Screen 1974 Naloxone Order 1974 Opioid Substance Agreement 1974 Pain Assessment 1974 Hepatitis B Vaccines (1 of 3 [...] of2 resultswithin the time period is included. [facility] LACTIC ACID 0.8 <=2.0 mmol/L LAB BLOOD GAS METHOD 02/14/2025 7:51 PM EST [facility] Blood Venous blood specimen / Unknown Venipuncture / Unknown 02/14/2025 7:48 PM EST 02/14/2025 7:49 PM EST [facility] Mary Clifford MD LAB BLOOD ORDERABLES Final R esult [facility] [place] Reg. #:[id number] [address] [place] [address], [place] [phone] * (ABNORMAL) CBC auto differential (02/14/2025 4:22 PM EST) [facility] WBC 8.0 4.0 - 10.5 K/mcL LAB HEMETOLOGY METHOD 02/14/2025 4:[address] [facility] RBC 4.29 4.20 - 5.40 M/mcL LAB HEMETOLOGY METHOD 02/14/2025 4:[address] [facility] Hemoglobin 12.3(L) 12.5 - 16.0 g/dL LAB HEMETOLOGY METHOD 02/14/2025 4:[address] [facility] Hematocrit 36.9(L) 37.0 - 47.0 % LAB HEMETOLOGY METHOD 02/14/2025 4:[address] [facility] MCV 86.0 78.0 - 100.0 FL LAB HEMETOLOGY METHOD 02/14/2025 4:[address] [facility] MCH 28.7 25.0 - 33.0 pcg LAB HEMETOLOGY METHOD 02/14/2025 4:[address] [facility] MCHC 33.3 32.0 - 36.0 g/dL LAB HEMETOLOGY METHOD 02/14/2025 4:[address] [facility] RDW 13.3 12.1 - 16.2 % LAB HEMETOLOGY METHOD 02/14/2025 4:[address] [facility] Platelets 383 150 - 450 K/mcL LAB HEMETOLOGY METHOD 02/14/2025 4:[address] [facility] MPV 9.1 7.4 - 11.4 FL LAB HEMETOLOGY METHOD 02/14/2025 4:[address] [facility] Neutrophils Relative 50.4 44.0 - 74.0 % LAB HEMETOLOGY METHOD 02/14/2025 4:[address] [facility] Lymphocytes Relative 41.9 20.0 - 48.0 % LAB HEMETOLOGY METHOD 02/14/2025 4:[address] [facility] Monocytes Relative 6.4 2.0 - 12.0 % LAB HEMETOLOGY METHOD 02/14/2025 4:[address] [facility] Eosinophils Relative 0.4 0.0 - 6.0 % LAB HEMETOLOGY METHOD 02/14/2025 4:[address] [facility] Basophils Relative 0.5 0.0 - 2.0 % LAB HEMETOLOGY METHOD 02/14/2025 4:[address] [facility] Neutrophils Absolute 4.01 1.80 - 7.80 K/mcL LAB HEMETOLOGY METHOD 02/14/2025 4:[address] [facility] Lymphocytes Absolute 3.33(H) 1.00 - 3.20 K/mcL LAB HEMETOLOGY METHOD 02/14/2025 4:[address] [facility] Monocytes Absolute 0.51 0.00 - 0.80 K/mcL LAB HEMETOLOGY METHOD 02/14/2025 4:29 PM EST [facility] Eosinophils Absolute 0.03 0.00 - 0.50 K/mcL LAB HEMETOLOGY METHOD 02/14/2025 4:29 PM EST [facility] Basophils Absolute 0.04 0.00 - 0.20 K/mcL LAB HEMETOLOGY METHOD 02/14/2025 4:29 PM EST [facility] Blood Venous blood specimen / Unknown Venipuncture / Unknown 02/14/2025 4:22 PM EST 02/14/2025 4:24 PM EST Bertha Clifford MD LAB BLOOD ORDERABLES Final R esult Performing Organization Address City/[facility]/ZIP Co de Phone Number [facility] Reg. #:[id number] [address] [place] [address], [place] [phone] * Magnesium (02/14/2025 4:22 PM EST) Magnesium 1.9 1.7 - 2.8 mg/dL LAB CHEMISTRY METHOD 02/14/2025 5:09 PM EST [facility] Comment:Slight Hemolysis may affect test result(s). Blood Venous blood specimen / Unknown Venipuncture / Unknown 02/14/2025 4:22 PM EST 02/14/2025 4:24 PM EST us Bertha Clifford MD LAB BLOOD ORDERABLES Final R esult [facility] [place] Reg. #:[id number] [address] [place] [address], [place] [phone] * Basic metabolic panel (02/14/2025 4:22 PM EST) Sodium 137 135 - 145 mmol/L LAB CHEMISTRY METHOD 02/14/2025 5:[address] [facility] Potassium 4.8 3.5 - 5.1 mmol/L LAB CHEMISTRY METHOD 02/14/2025 5:[address] [facility] Comment:Slight Hemolysis may affect test result(s). Chloride 104 98 - 107 mmol/L LAB CHEMISTRY METHOD 02/14/2025 5:[address] [facility] CO2 24 24 - 32 mmol/L LAB CHEMISTRY METHOD 02/14/2025 5:[address] [facility] Anion Gap 9 5 - 14 LAB CHEMISTRY METHOD 02/14/2025 5:[address] [facility] Glucose 112 70 - 199 mg/dL LAB CHEMISTRY METHOD 02/14/2025 5:[address] [facility] BUN 9 7 - 17 mg/dL LAB CHEMISTRY METHOD 02/14/2025 5:[address] [facility] Creatinine 0.70 0.50 - 1.00 mg/dL LAB CHEMISTRY METHOD 02/14/2025 5:[address] [facility] eGFR 106 >=60 mL/min/1. 73m2 LAB CHEMISTRY METHOD 02/14/2025 5:[address] [facility] Comment:Calculation based on the Chronic Kidney Disease Epidemiology Collaboration (CKD-EPI) equation refit without adjustment for race. BUN/Creatinine Ratio 12.9 12.0 - 20.0 LAB CHEMISTRY METHOD 02/14/2025 5:[address] [facility] Calcium 9.4 8.4 - 10.2 mg/dL LAB CHEMISTRY METHOD 02/14/2025 5:[address] [facility] Blood Venous blood specimen / Unknown Venipuncture / Unknown 02/14/2025 4:22 PM EST 02/14/2025 4:24 PM EST us Lis Mary Clifford MD LAB BLOOD ORDERABLES Final R esult [facility] [place] Reg. #:[id number] [address] [facility] [address] [place] [address], [place] [phone] * CT Chest/Abdomen/Pelvis wo Contrast (02/14/2025 4:13 [...] of the mediastinum was excluded from the zbqok-pc-ajdb on 09/05/2024. There are no comparison chest [...] Signed Date: 02/14/2025 16:41 ET Workstation ID: [id number] Transcribed By: Self Edit Transcribed Date: 02/14/2025 [...] of the mediastinum was excluded from the jnmnx-hb-wbad on09/05/2024. There are no comparison chest CT [...] Signed Date: 02/14/2025 16:41 ET Workstation ID: [id number] Transcribed By: Self Edit Transcribed Date: 02/14/2025 [...] Signed Date: 02/14/2025 17:01 ET Workstation ID: [id number] Transcribed By: Self Edit Transcribed Date: 02/14/2025 [...] Signed Date: 02/14/2025 17:01 ET Workstation ID: [id number] Transcribed By: Self Edit Transcribed Date: 02/14/2025 16:46 ET Bertha Clifford MD IM CT PROCEDURES Final Resu lt * (ABNORMAL) Urinalysis with reflex microscopic and culture (02/14/2025 4:01 PM EST) Color, Urine Yellow Colorless, Yellow LAB URINALYSIS - AUTOMATED METHOD 02/14/2025 4:[address] [facility] Clarity, Urine Slightly Cloudy(A) Clear LAB URINALYSIS - AUTOMATED METHOD 02/14/2025 4:[address] [facility] Specific [place] Urine 1.010 1.005 - 1.030 LAB URINALYSIS - AUTOMATED METHOD 02/14/2025 4:[address] [facility] pH, Urine 7.5 5.0 - 8.0 pH LAB URINALYSIS - AUTOMATED METHOD 02/14/2025 4:[address] [facility] Leukocytes, Urine Negative Negative WBCs/mcL LAB URINALYSIS - AUTOMATED METHOD 02/14/2025 4:[address] [facility] Nitrite, Urine Negative Negative LAB URINALYSIS - AUTOMATED METHOD 02/14/2025 4:[address] [facility] Protein, Urine Negative Negative mg/dL LAB URINALYSIS - AUTOMATED METHOD 02/14/2025 4:[address] [facility] Glucose, Urine Negative Negative mg/dL LAB URINALYSIS - AUTOMATED METHOD 02/14/2025 4:[address] [facility] Ketones, Urine Negative Negative mg/dL LAB URINALYSIS - AUTOMATED METHOD 02/14/2025 4:[address] [facility] Blood, Urine Negative Negative mg/dL LAB URINALYSIS - AUTOMATED METHOD 02/14/2025 4:[address] [facility] Urine Urine specimen obtained by clean catch procedure / Unknown Non-blood Collection / Unknown 02/14/2025 4:01 PM EST 02/14/2025 4:03 PM EST us Lis Mary Clifford MD LAB URINE ORDERABLES Final R esult [facility] [place] Reg. #:[id number] [address] [place] [address], [place] [phone] * Hepatitis C antibody (07/10/2024 10:28 AM EDT) [facility] Hepatitis C Antibody Negative Negative LAB CHEMISTRY METHOD 07/10/2024 3:28 PM EDT [facility] Blood Venous blood specimen / Unknown Venipuncture / Unknown 07/10/2024 10:28 AM EDT 07/10/2024 12:31 PM EDT us Dillon Montoya MD LAB BLOOD ORDERABLES Final Res ult Performing Organization Address [facility]/ZIP Co de Phone Number [facility] [address] [place] [address], [place] [phone] * HIV 1,2 antibody, p24 antigen with reflex to differentiation (07/10/2024 10:28 AM EDT) [facility] HIV Combo AB/AG Negative Negative LAB CHEMISTRY [...] ORDERABLES Final Res ult Performing Organization Address [facility]/ZIP Co de Phone Number [facility] [address] [place] [address], [place] [phone] * HPV with reflex genotype (07/10/2024 12:00 AM EDT) HPV Negative Negative LAB MICROBIOLOGY METHOD 07/12/2024 6:28 AM EDT [facility] Brushing/Spatula Cervix uteri structure / Unknown 07/10/2024 07/11/2024 6:21 AM EDT us Dillon Montoya MD LAB MOLECULAR DIAGNOSTICS DYANA OQUENDO Final Result [facility] [place] [facility] [address] [place] [address], from Last 3 Months or Most Recently Relevant to Health Maintenance Insurance [facility] MEDICAID ADVANTAGE [address] [place] [address] Care Teams Mobile Equipment Servicer Relationship Specialty Start Date End Date Sultana Mccormack NP [address] [facility] [address] [place] [address] PCP - General Family Medicine 10/17/24
--- OUTSIDE RECORDS SUMMARY | 2025-03-18 12:37 | XMS_ITS | Data Portability ---
Author Organization [place] [facility], Allergy Address [address] [facility] [address] [place] [address] Care Team Providers Care Property Worker Name Role Phone JULITO MCCORMACK Primary Care Provider [phone] Assessment Encounter Date Assessment Date Assessment LastModified by Organization Details LastModified Time 01/20/2025 01/20/2025 Melva Tejada is a 49-year-old female with migraines, deviated nasal septum, and persistent nasal drainage. The patient's symptoms of facial pain and pressure are likely attributable to migraines rather than a sinus infection. The scan performed at [facility] demonstrated a small cyst in the [...] By Organization Details Last Modified Time 01/20/2025 12103 - Continue magnesium supplementation, increasing dosage to [...] Address Organization Details Recorded Time Tobacco user [id number] Active 2015 Tobacco use; Note: Date Diagnosed : 03/10/2016 11:39 AM (Z72.0) Not Available [facility] 4 03:27:26 Migraine without aura, not refractor y 593712608 Active 2015 Migraine without aura, not intractab le, without status migrainos us; Note: Date Diagnosed : 03/10/2016 11:39 AM (G43.009) Not Available [facility] 4 03:27:26 Deviated nasal septum 966640706 Active 2024 ROSIE FLORENTINO MD [address] [place] [address],[place] [address], [facility] [place], [address] , [place] - [facility] 13:58:57 Mucocele of maxillary sinus 10834549501 597184 Active 2024 ROSIE FLORENTINO MD [address] [place] [address],[place] [address], [place], [address] , [place] - [facility] 5 13:59:10 Problem Notes None recorded. Procedures Surgical History Date Name Laterality Status Provider Name and Address Organization Details Recorded Time JMSNasal/Sinus Endoscopy completed ROSIE BROWNLEE MD [address] [place] [address],[place] [address], [place], [address], [place] - [facility] 01/20/2025 14:01:35 Kidney Stone Removal completed Veronica Go [place] - [facility] 01/20/2025 13:58:06 Imaging Results None recorded. Procedure Notes None recorded. Medical Equipment None Reported. Allergies Allergen ID Allergen Name Allergen Category Reaction Reaction Severity Criticality Documentation Date Start Date Code Code System Note Provider Name and Address Organization Details Recorded Time 39029 Tylenol medicatio n other Not available Not available 08/15/202311285 3 RxNorm React ion: unkno wn, unspe cifie d;; Not Available [facility] 4 00:49:11 40095 Motrin medicatio n other Not available Not available 08/15/202394662 8 RxNorm React ion: unkno wn, unspe cifie d;; Not Available [facility] 4 00:49:53 86932 trazodone medicatio n other Not available Not available 08/15/2023 81063 RxNorm React ion: unkno wn, unspe cifie d;; Not Available [facility] 4 00:50:09 10588 tramadol Not available other Not available Not available 08/15/2023 84753 RxNorm React ion: unkno wn, unspe cifie d;; Not Available [facility] 4 00:50:10 57617 Flagyl medicatio n other Not available Not available 08/15/2023 6 RxNorm React ion: unkno wn, unspe cifie d;; Not Available [facility] 4 00:50:23 Medications Name Sig Start [...] mg tablet 01/20 completed Medicatio n ID: [id number] Du ration Value: 14 Brand Name: oxycodone Send Method: E-Prescri bed Subs Allowed: subs OK Medica tionGener icName: oxycodone Not Available Not Available Not Available Prilosec OTC 20 mg tablet,de layed release Take by oral route. active Not Available Not Available No t Available Zantac 01/20 completed Medicatio n ID: [id number] Br and Name: Zantac Se nd Method: E-Prescri bed Subs Allowed: subs OK Specia l Instructi on: Take 1 tablet by mouth every day at bedtime M edication GenericNa me: Zantac Not Available Not Available Not Available Valium 01/20 completed Medicatio n ID: [id number] Br and Name: Valium Se nd Method: E-Prescri bed Subs Allowed: subs OK Medica tionGener icName: Valium Not Available Not Available Not Available potassium active Not Available Not Nadja ilable Not Available Soma 01/20 completed Medicatio n ID: [id number] Br and Name: Soma Send Method: E-Prescri bed Subs Allowed: subs OK Medica tionGener icName: Soma Not Available Not Available Not Available Topamax 01/20 completed Medicatio n ID: [id number] Br and Name: Topamax S end Method: [...] Details Last Updated DateTime 01/20/2025 163.83 cm 96118.3 g Veronica Go [place] [facility] 01/20/2025 13:52:30 Social History None recorded. [...] ICD10 Code Diagnosis IMO Codes Diagnosis Note 22520 ROSIE FLORENTINO MD [facility] [address] [address] 01/20/2025 13:25:55 01/20/2025 14:03:06 Migraine without aura, not refractory 368570269 G43.009 Deviated nasal septum 12 9886757 J34.2 91569 Mucocele o f maxillary sinus 5226723007 2758491 J34.1 2546013 Health Concerns Section Related Observation LastModified by Organization Detai ls LastModified Time None Recorded Concern Status LastModified by Organization Details LastModified Time None Recorded Advance Directives Directive None Recorded Payers Insurance Date Sequence Insurance Name Policy Number Policy Jorge Covered Member ID Jorge Member ID Guarantor Name 01/20/2025 1 [facility] (MEDICAID HMO) [id number] Melva Tejada [id number] Melva Tejada Notes Date Note Type Note Provider Name and Address Organization Details Recorded Time 01/20/2025 text/html ROS as noted in the HPI Melva Tejada is a 49-year-old female who presents for evaluation of sinus-related symptoms and facial pain. She reports experiencing throbbing pain in her left sinus cavity and religious area. She visited [facility] approximately three to four months ago, [...] is Lisa Mccormack, a nurse practitioner at [facility] in [place]. ROSIE BROWNLEE MD [address] [place] [address], [id number] [place] [facility] 01/20/2025 14:01:57 OBGyn Episode No OBEpisode recorded.
== END 2025-03-18 13:02 | disposition home or self-care (01) ==
LOC: HO.HKAS 10:11
PROVIDERS: PCP Internal Medicine; Visit Provider Internal Medicine Nephrology
DX: N20.0 Calculus of kidney (principal); N28.1 Cyst of kidney, acquired
CPT/HCPCS: 99213

== ENCOUNTER → 2025-03-18 10:11 | Outpatient (BNVA) | payer OTHER, SELFPAY | PROVIDERS: PCP Internal Medicine; Visit Provider Internal Medicine Nephrology | DX: G43.719 Chronic migraine without aura, intractable, without status migrainosus (principal) | CPT/HCPCS: 64615; 99211; 99212; J0585 ==